=== PATIENT | female | born 1975 | race Caucasian/White ===

== ENCOUNTER → 2016-07-24 | Outpatient (CLI) | payer BC ==
[~2016-07-24] MED LIST: ACHD5005 PO; ALPR0.2550 PO; ASPI1TAB PO; AZEL137S7 NS; AZIT-21 PO; BENZ200C25 PO; BEPO10DR OP; BUPR100T6 PO; DOCU-161 PO; FLUT16SP22 NS; GUAN2TAB6 PO; LACT460C PO; LINA145C PO; LISD30CA PO; LISD40CA3 PO; LORA5TAB9 PO; MULT-608 PO; ONDA8TAB6 PO; SPIR25TA3 PO; SUCR1TAB23 PO
--- OUTSIDE RECORDS SUMMARY | 2016-07-24 08:58 | XMS REPORT | Continuity of Care Document ---
Author Author [facility] Organization [facility] Address Unknown Phone Unavailable Care Team Providers Care Pharmacist Aide Name Role Phone Janna Smith PCP [phone] Source Comments Some departments are not documenting in the electronic medical record. If you do not see the information that you expected, contact Release of Information in the Health Information Management department at [phone] for further assistance in locating additional records.[facility] Active Allergies and Adverse Reactions Allergen Noted Date Severity Reactions Comments Bactrim 05/16/2015 Medium RASH Gabapentin 05/08/2016 Medium RASH, ANXIETY X-Prep 05/16/2015 Medium FEVER, SEE COMMENTS Severe abdominal pain and cramping Current Medications Prescription Sig. Disp. Refills Start End Date Status Date lisdexamfetamine(+) Take 70 mg by mouth every Active (VYVANSE) 70 mg capsule morning buPROPion SR(+) Take 150 mg by mouth Active (WELLBUTRIN-SR) 150 mg twice daily. tablet guanfacine ER(+) (INTUNIV Take 2 mg by mouth daily. Active ER) 2 mg tablet CYCLOSPORINE (RESTASIS Place 1 Drop into or Active OP) around eye(s) twice daily. Indications: 1 drop per eye ALPRAZolam (XANAX) 0.5 mg Take 0.5 mg by mouth at Active tablet bedtime as needed. HYDROcodone/acetaminophen Take 2 Tabs by mouth Active (NORCO; VICODIN) 5-325 mg every 6 hours as needed tablet for Pain vitamins, multi Take 1 Tab by mouth Active w/minerals tablet daily. cyanocobalamin(+) Take 1,000 mcg by mouth Active (VITAMIN B-12) 500 mcg daily. tablet cholecalciferol (VITAMIN Take 2,000 Units by mouth Active D-3) 1,000 units tablet daily. albuterol (PROAIR HFA) 90 Inhale 2 Puffs by mouth Active mcg/actuation inhaler every 6 hours as needed for Wheezing. azelastine(+) (ASTELIN) Apply 1 [place] to each Active 137 mcg (0.1 %) nasal nostril as directed spray daily. Use in each nostril as directed Magnesium 250 mg tab Take by mouth. Active loratadine (CLARITIN) 10 Take 10 mg by mouth daily Active mg tablet as needed. Indications: ALLERGIC RHINITIS CYCLOBENZAPRINE HCL Take 5 mg by mouth three Active (FLEXERIL PO) times daily as needed. FEXOFENADINE/PSEUDOEPHEDR Take by mouth as Needed. Active INE (ARABELLA-D 24 HOUR PO) ASCORBATE CALCIUM Take 500 mg by mouth Active (VITAMIN C PO) daily. zolpidem (AMBIEN) 5 mg Take 5 mg by mouth at Active tablet bedtime as needed for Sleep. fluticasone (FLONASE) 50 Apply 2 Sprays to each Active mcg/actuation nasal spray nostril as directed as Needed. Shake bottle gently before using. Active Problems Problem Noted Date Weakness 05/08/2016 Skin rash 05/08/2016 Autonomic dysfunction 05/08/2016 Diarrhea 09/23/2015 Epigastric pain 09/23/2015 Most Recent Encounters Date Type Specialty Providers Description 07/13/2016 Telephone Neurology Shahnaz Hartmann MD Appointment Request 06/20/2016 Scan Only Neurology Shahnaz Hartmann MD 05/25/2016 Orders Only Neurology Deana Ramos LPN Weakness; Autonomic dysfunction 05/08/2016 Clinical Neurology Weakness (Primary Dx); Support Numbness 05/08/2016 Office Visit Neurology Shahnaz Hartmann MD Weakness ( Primary Dx); Skin rash; Autonomic dysfunction 05/08/2016 Orders Only Neurology Shahnaz Hartmann MD Social History Tobacco Use Types Packs/Day Years Used Date Former Smoker Cigarettes 0.5 7 Quit: 01/11/2002 Alcohol Use Drinks/Week oz/Week Comments Yes 0 Standard 0.0 only on special occasions drinks or equivalent Last Filed Vital Signs Vital Sign Reading Time Taken Blood Pressure 136/82 05/08/2016 8:50 AM CDT Pulse 99 05/08/2016 8:50 AM CDT Temperature 36.6 C (97.8 F) 09/05/2015 9:55 AM GRAPE CRUSHER Respiratory Rate 16 08/09/2015 11:09 AM GRAPE CRUSHER Height 1.562 m (5' 1.5") 05/08/2016 8:50 AM CDT Weight 77.021 kg (169 lb 12.8 05/08/2016 8:50 AM CDT oz) Body Mass Index 31.57 05/08/2016 8:50 AM CDT Oxygen Saturation 98% 09/05/2015 9:55 AM GRAPE CRUSHER Plan of Care Date Type Specialty Providers Description 08/30/2016 Appointment Neurology Shahnaz Hartmann MD [address] [facility] [address] [place] [address] [phone] (Fax) Health Maintenance Due Date Last Done Comments Physical (Comprehensive) 1984 Exam Pertussis Vaccine 1988 Tetanus Vaccine 1994 Cervical Cancer Screening 1998 Influenza Vaccine 03/15/2016 Results from Last 3 Months PARANEOPLASTIC AUTOANTIBODY EVAL (05/12/2016) Specimen Blood Impressions Negative- reviewed by Dr. Hartmann 05/25/16 HEMOGLOBIN A1C (05/08/2016 12:05 PM) Component Value Range Hemoglobin A1C 5.3Comment: <5.7 % of total Hgb According to ADA guidelines, hemoglobin A1c <7.0% represents optimal control in non- diabetic patients. Different metrics may apply to specific patient populations. Standards of Medical Care in Diabetes-2013. Diabetes Care. 2013;36:s11-s66 For the purpose of screening for the presence of diabetes <5.7% Consistent with the absence of diabetes 5.7-6.4% Consistent with increased risk for diabetes (prediabetes) >or=6.5% Consistent with diabetes This assay result is consistent with a decreased risk of diabetes. Currently, no consensus exists for use of hemoglobin A1c for diagnosis of diabetes for children. REPORT COMMENT: FASTING:YES Test Performed at: [facility] [address] [place] [address] KATHERINE ANDERSON DO,MPH VITAMIN B12 (05/08/2016 12:05 PM) Component Value Range Vitamin B12 >2000 (H)Comment: 200-1100 pg/mL Test Performed at: [facility] [address] [place] [address] KATHERINE ANDERSON DO,MPH IMMUNOFIXATION, SERUM (IFES) (05/08/2016 12:05 PM) Component Value Range Immuno Fix-Serum SEE NOTEComment: Normal pattern. No monoclonal proteins detected. Test [facility]formed at: [facility] [address] [place] [address] KATHERINE ANDERSON DO,MPH CBC (05/08/2016 12:05 PM) Component Value Range White Blood Cells 6.1 3.8-10.8 Thousand/uL RBC 4.67 3.80-5.10 Million/uL Hemoglobin 14.0 11.7-15.5 g/dL Hematocrit 42.0 35.0-45.0 % MCV 90.0 80.0-100.0 fL MCH 30.0 27.0-33.0 pg MCHC 33.4 32.0-36.0 g/dL RDW 12.7 11.0-15.0 % Platelet Count 272 140-400 Thousand/uL MPV 8.4Comment: 7.5-11.5 fL Test Performed at: [facility] [address] [place] [address] KATHERINE ANDERSON DO,MPH COMPREHENSIVE METABOLIC PANEL (05/08/2016 12:05 PM) Component Value Range Glucose 83Comment: 65-99 mg/dL Fasting reference interval Blood Urea Nitrogen 14 7-25 mg/dL Creatinine 0.92 0.50-1.10 mg/dL eGFR Non 78 > OR=60 mL/min/1.73m2 eGFR 91 > OR=60 mL/min/1.73m2 BUN/Creatinine Ratio NOT APPLICABLE 6-22 (calc) Sodium 140 135-146 mmol/L Potassium 4.4 3.5-5.3 mmol/L Chloride 104 98-110 mmol/L CO2 28 20-31 mmol/L Calcium 9.8 8.6-10.2 mg/dL Total Protein 6.8 6.1-8.1 g/dL Albumin 4.5 3.6-5.1 g/dL Globulin 2.3 1.9-3.7 g/dL (calc) Albumin/Globulin Ratio 2.0 1.0-2.5 (calc) Total Bilirubin 0.4 0.2-1.2 mg/dL Alk Phosphatase 73 33-115 U/L AST (SGOT) 20 10-30 U/L ALT (SGPT) 23Comment: 6-29 U/L Test Performed at: [facility] [address] [facility] [place] [address] KATHERINE ANDERSON DO,MPH ACETYLCH REC PANL AB(ACHRP) (05/08/2016 12:05 PM) Component Value Range Acetylcholine Blocking AB <15 <15 % of inhibition Acetylcholine binding AB <0.30Comment: nmol/L Reference Ranges for Acetylcholine Receptor Binding Antibody: Negative: < or=0.30 nmol/L Equivocal: 0.31-0.49 nmol/L Positive: > or=0.50 nmol/L Acetylcholine Modulating 13Comment: % binding inhib AB Reference Range: < 32% BINDING INHIBITION This test was developed and its analytical performance characteristics have been determined by [facility]. It has not been cleared or approved by FDA. This assay has been validated pursuant to the CLIA regulations and is used for clinical purposes. Test Performed at: [facility] [address] [place] [address] SINA COTA MD PHD ELECTROPHORESIS-SERUM PROTEIN (05/08/2016 12:05 PM) Component Value Range Total Protein 6.8 6.1-8.1 g/dL Albumin % 4.3 3.8-4.8 g/dL Alpha 1 % 0.3 0.2-0.3 g/dL Alpha 2 % 0.7 0.5-0.9 g/dL Beta 1 Globulin 0.4 0.4-0.6 g/dL Beta 2 Globulin 0.3 0.2-0.5 g/dL Gamma % 0.9 0.8-1.7 g/dL Interpretation - SEP SEE NOTEComment: No restricted band (M-spike) seen. Test Performed at: [facility] [address] [facility] [address] KATHERINE ANDERSON DO,MPH EMG ORDER (05/08/2016)
--- NOTE | 2016-07-25 14:37 | ECHOCARDIOGRAPHY REPORT ---
PROCEDURE PHYSICIAN: LEFTY KWAN DATE OF PROCEDURE: 07/24/2016 TWO DIMENSIONAL ECHOCARDIOGRAM REPORT PRIMARY PHYSICIAN: OTHER PHYSICIAN: REFERRING PHYSICIAN: Dr. Smith ORDERING PHYSICIAN: INDICATION FOR THE PROCEDURE: Palpitations MEASUREMENTS DERIVED VALUES LV DIAMETER (LAX) NORMALS NORMALS Diastolic 4.2 (3.6-5.2) Eject. Fract. 60% (60%+/-6%) Systolic (2.3-3.9) Diastolic Vol. % Shortening (0.22-0.42) Systolic Vol. Aortic Root IVS THICKNESS Diastolic 1. (0.6-1.1) LVPW THICKNESS Diastolic 1. (0.6-1.1) LA DIAMETER Systolic 3.1 (2.1-3.7) FINDINGS: 1. Technical quality is good. 2. The left ventricle is normal in size with normal contractility. Systolic function appeared to be normal. Estimated ejection fraction 60%. 3. The left atrium is normal in size. No clot or thrombus were seen within the left atrium. 4. The right atrium and right ventricle are normal in size. No clot or thrombus were seen within the right side. 5. Mitral valve is normal in morphology with mild mitral regurgitation noted by color Doppler flow. No mitral valve prolapse. No mitral valve stenosis. 6. Aortic valve is trileaflet with normal opening and closing pattern. No significant aortic stenosis or regurgitation was seen. 7. Tricuspid valve is normal in morphology with mild tricuspid regurgitation noted by color Doppler flow. Doppler across tricuspid valve estimated pulmonary artery pressure of 13+ right atrial pressure. 8. Pulmonic valve is functioning normally. 9. No pericardial effusion. CONCLUSION: 1. Normal left ventricular size and systolic function. Estimated ejection fraction 60%. 2. Mild mitral and tricuspid regurgitation. 3. Estimated pulmonary artery pressure of 20 mmHg. Job ID: [id number] Dictated Date: 07/25/2016 13:29:00 Chief Design Branch Date: 07/25/2016 14:33:18 / deepa
== END ==
LOC: CARD 08:55
PROVIDERS: ATTEND Internal Medicine Cardiovascular Disease
DX: R00.2 Palpitations (principal); R07.89 Other chest pain; F90.2 Attention-deficit hyperactivity disorder, combined type
CPT/HCPCS: 93306

== ENCOUNTER → 2016-07-25 | Outpatient (CLI) | payer BC ==
--- OUTSIDE RECORDS SUMMARY | 2016-07-25 10:16 | XMS REPORT | Continuity of Care Document ---
Author Author [facility] Organization [facility] Address Unknown Phone Unavailable Care Team Providers Care District Resource Officer Name Role Phone Janna Smith PCP [phone] Source Comments Some departments are not documenting in the electronic medical record. If you do not see the information that you expected, contact Release of Information in the Health Information Management department at [phone] for further assistance in locating additional records.[facility] Active Allergies and Adverse Reactions Allergen Noted [...] needed for Wheezing. azelastine(+) (ASTELIN) Apply 1 [place] to each Active 137 mcg (0.1 %) [...] 36.6 C (97.8 F) 09/05/2015 9:55 AM PAROLE DIRECTOR Respiratory Rate 16 08/09/2015 11:09 AM PAROLE DIRECTOR Height 1.562 m (5' 1.5") 05/08/2016 8:50 AM CDT Weight 77.021 kg (169 lb 12.8 05/08/2016 8:50 AM CDT oz) Body Mass Index 31.57 05/08/2016 8:50 AM CDT Oxygen Saturation 98% 09/05/2015 9:55 AM PAROLE DIRECTOR Plan of Care Date Type Specialty Providers Description 08/30/2016 Appointment Neurology Shahnaz Hartmann MD [address] [facility] [address] [place] [address] [phone] (Fax) Health Maintenance Due Date Last Done [...] children. REPORT COMMENT: FASTING:YES Test Performed at: [facility] [address] [place] [address] KATHERINE ANDERSON DO,MPH VITAMIN B12 (05/08/2016 12:05 PM) Component Value Range Vitamin B12 >2000 (H)Comment: 200-1100 pg/mL Test Performed at: [facility] [address] [place] [address] KATHERINE ANDERSON DO,MPH IMMUNOFIXATION, SERUM (IFES) (05/08/2016 12:05 PM) Component Value Range Immuno Fix-Serum SEE NOTEComment: Normal pattern. No monoclonal proteins detected. Test Performed at: [facility] [address] [place] [address] KATHERINE ANDERSON DO,MPH CBC (05/08/2016 12:05 PM) Component Value Range White Blood Cells 6.1 3.8-10.8 Thousand/uL RBC 4.67 3.80-5.10 Million/uL Hemoglobin 14.0 11.7-15.5 g/dL Hematocrit 42.0 35.0-45.0 % MCV 90.0 80.0-100.0 fL MCH 30.0 27.0-33.0 pg MCHC 33.4 32.0-36.0 g/dL RDW 12.7 11.0-15.0 % Platelet Count 272 140-400 Thousand/uL MPV 8.4Comment: 7.5-11.5 fL Test Performed at: [facility] [address] [place] [address] KATHERINE ANDERSON DO,MPH COMPREHENSIVE METABOLIC PANEL (05/08/2016 [...] (SGPT) 23Comment: 6-29 U/L Test Performed at: [facility] [address] [facility] [place] [address] KATHERINE ANDERSON DO,MPH ACETYLCH REC PANL AB(ACHRP) [...] analytical performance characteristics have been determined by [facility]. It has not been cleared or approved by FDA. This assay has been validated pursuant to the CLIA regulations and is used for clinical purposes. Test Performed at: [facility] [address] [place] [address] SINA COTA MD PHD ELECTROPHORESIS-SERUM PROTEIN (05/08/2016 [...] restricted band (M-spike) seen. Test Performed at: [facility] [address] [facility] [place] [address] KATHERINE ANDERSON DO,MPH EMG ORDER (05/08/2016)
== END ==
LOC: CARD 10:12
PROVIDERS: ATTEND Internal Medicine Cardiovascular Disease
DX: R00.2 Palpitations (principal); R07.89 Other chest pain; M41.9 Scoliosis, unspecified; F90.2 Attention-deficit hyperactivity disorder, combined type
CPT/HCPCS: 93017; 93225; 93226

== ENCOUNTER → 2016-09-24 | Outpatient (CLI) | payer BC ==
--- OUTSIDE RECORDS SUMMARY | 2016-09-24 12:32 | XMS REPORT | Continuity of Care Document ---
Author Author [facility] Organization [facility] Address Unknown Phone Unavailable Care Team Providers Care Ground Host/Hostess Name Role Phone Janna Smith PCP [phone] Source Comments Some departments are not documenting in the electronic medical record. If you do not see the information that you expected, contact Release of Information in the Health Information Management department at [phone] for further assistance in locating additional records.[facility] Active Allergies and Adverse Reactions Allergen Noted Date Severity Reactions Comments Bactrim 05/16/2015 Medium RASH Gabapentin 05/08/2016 Medium RASH, ANXIETY Memory loss X-Prep 05/16/2015 Medium FEVER, SEE COMMENTS Severe abdominal pain and cramping Current Medications Prescription Sig. Disp. Refills Start End Date Status Date CYCLOSPORINE (RESTASIS Place 1 Drop into or Active OP) around eye(s) twice daily. Indications: 1 drop per eye ALPRAZolam (XANAX) 0.5 mg Take 0.5 mg by mouth at Active tablet bedtime as needed. HYDROcodone/acetaminophen Take 2 Tabs by mouth Active (NORCO; VICODIN) 5-325 mg every 6 hours as needed tablet for Pain vitamins, multi Take 1 Tab by mouth Active w/minerals tablet daily. albuterol (PROAIR HFA) 90 Inhale 2 Puffs by mouth Active mcg/actuation inhaler every 6 hours as needed for Wheezing. azelastine(+) (ASTELIN) Apply 1 [place] to each Active 137 mcg (0.1 %) nasal nostril as directed spray daily. Use in each nostril as directed CYCLOBENZAPRINE HCL Take 5 mg by mouth three Active (FLEXERIL PO) times daily as needed. FEXOFENADINE/PSEUDOEPHEDR Take by mouth as Needed. Active INE (ARABELLA-D 24 HOUR PO) zolpidem (AMBIEN) 5 mg Take 5 mg by mouth at Active tablet bedtime as needed for Sleep. lisdexamfetamine(+) Take 30 mg by mouth every Active (VYVANSE) 30 mg capsule morning metoprolol XL (TOPROL XL) Take 25 mg by mouth twice Active 25 mg extended release daily. tablet CALCIUM CARBONATE Take 1 Tab by mouth Active (CALTRATE 600 PO) daily. pregabalin (LYRICA) 50 mg Take 1 capsule PO daily 60 Cap 3 08/31/19 Active capsule for 2 weeks then take 1 17 capsule PO BID lisdexamfetamine(+) Take 70 mg by mouth every 08/30/19 Discontin (VYVANSE) 70 mg capsule morning 17 ued buPROPion SR(+) Take 150 mg by mouth 08/30/19 Discontin (WELLBUTRIN-SR) 150 mg twice daily. 17 ued tablet guanfacine ER(+) (INTUNIV Take 2 mg by mouth daily. 08/30/19 Discontin ER) 2 mg tablet 17 ued cyanocobalamin(+) Take 1,000 mcg by mouth 08/30/19 Discontin (VITAMIN B-12) 500 mcg daily. 17 ued tablet cholecalciferol (VITAMIN Take 2,000 Units by mouth 08/30/19 Discontin D-3) 1,000 units tablet daily. 17 ued Magnesium 250 mg tab Take by mouth. 08/30/19 Discontin 17 ued loratadine (CLARITIN) 10 Take 10 mg by mouth daily 08/30/19 Discontin mg tablet as needed. Indications: 17 ued ALLERGIC RHINITIS ASCORBATE CALCIUM Take 500 mg by mouth 08/30/19 Discontin (VITAMIN C PO) daily. 17 ued fluticasone (FLONASE) 50 Apply 2 Sprays to each 08/30/19 Discontin mcg/actuation nasal spray nostril as directed as 17 ued Needed. Shake bottle gently before using. pregabalin (LYRICA) 50 mg Take 1 Cap by mouth twice 60 Cap 3 08/30/19 08/31/19 Discontin capsule daily. Take 1 tab daily 17 17 ued for 2 weeks. Then take 1 in the morning and 1 in evening. Active Problems Problem Noted Date Weakness 05/08/2016 Skin rash 05/08/2016 Autonomic dysfunction 05/08/2016 Diarrhea 09/23/2015 Epigastric pain 09/23/2015 Most Recent Encounters Date Type Specialty Providers Description 08/31/2016 Refill Neurology Shahnaz Hartmann MD 08/30/2016 Office Visit Neurology Shahnaz Hartmann MD Nerve pain ( Primary Dx) 07/13/2016 Telephone Neurology Shahnaz Hartmann MD Appointment Request Social History Tobacco Use Types Packs/Day Years Used Date Former Smoker Cigarettes 0.5 7 Quit: 01/11/2002 Alcohol Use Drinks/Week oz/Week Comments Yes 0 Standard 0.0 only on special occasions drinks or equivalent Last Filed Vital Signs Vital Sign Reading Time Taken Blood Pressure 141/89 08/30/2016 10:07 AM BOW MAKER CUSTOM Pulse 95 08/30/2016 10:07 AM BOW MAKER CUSTOM Temperature 36.6 C (97.8 F) 09/05/2015 9:55 AM BOW MAKER CUSTOM Respiratory Rate 16 08/09/2015 11:09 AM BOW MAKER CUSTOM Height 1.562 m (5' 1.5") 08/30/2016 10:07 AM BOW MAKER CUSTOM Weight 79.3 kg (174 lb 13.2 oz) 08/30/2016 10:07 AM BOW MAKER CUSTOM Body Mass Index 32.5 08/30/2016 10:07 AM BOW MAKER CUSTOM Oxygen Saturation 98% 09/05/2015 9:55 AM BOW MAKER CUSTOM Plan of Care Date Type Specialty Providers Description 02/26/2017 Appointment Neurology Health Maintenance Due Date Last Done Comments Physical (Comprehensive) 1984 Exam Pertussis Vaccine 1988 Tetanus Vaccine 1994 Cervical Cancer Screening 1998 Influenza Vaccine 03/15/2017 Results from Last 3 Months MISCELLANEOUS LAB TEST (07/17/2016) Specimen Blood
--- NOTE | 2016-09-24 15:22 | Diagnostic Imaging Report ---
EXAMINATION: PA and lateral views of the chest. INDICATION: Cough after choking on vitamins. FINDINGS: The lungs are clear. The heart size is normal. No effusion or pneumothorax. The mediastinum and scott appear unremarkable. There is a mild right convexity scoliosis in the thoracic spine. IMPRESSION: No acute process. Dictated by: Dictated on workstation # [id number]
== END ==
LOC: RAD 12:29
PROVIDERS: ATTEND Nurse Practitioner Primary Care
DX: R05 Cough (principal)
CPT/HCPCS: 71020

== ENCOUNTER → 2016-10-22 | Outpatient (CLI) | payer BC ==
--- NOTE | 2016-10-22 13:33 | Diagnostic Imaging Report ---
INDICATION: Pelvic pressure and dyspareunia. COMPARISON: 08/31/2013. DISCUSSION: Transabdominal and transvaginal sonographic evaluation of the pelvis was performed. The uterus is normal in echotexture and size measuring 8.5 x 5.4 x 5.0 cm. Solid heterogeneous avascular structure within the anterior myometrium is most consistent with a fibroid measuring 2.3 x 1.4 x 1.5 cm. Normal endometrial thickness measuring 1 cm. The ovaries appear normal in echotexture and size bilaterally with normal color Doppler blood flow. The right ovary measures 4.0 x 2.6 x 2.4 cm. The left ovary measures 3.2 x 3.5 x 2.0 cm. No abnormal adnexal mass or fluid. IMPRESSION: 1. Small uterine fibroid. No other acute abnormality identified. Dictated by: Dictated on workstation # [id number]
== END ==
LOC: RAD 12:28
PROVIDERS: ATTEND Obstetrics & Gynecology
DX: D25.9 Leiomyoma of uterus, unspecified (principal); N94.12 Deep dyspareunia; N94.89 Other specified conditions associated with female genital organs and menstrual cycle
CPT/HCPCS: 76830; 76856

== ENCOUNTER → 2016-11-20 | Outpatient (CLI) | payer BC ==
--- NOTE | 2016-11-20 10:40 | Diagnostic Imaging Report ---
EXAMINATION: Barium swallow double-contrast. INDICATION: Dysphagia Fluoroscopy time: One minute and 15 seconds TECHNIQUE: Sales Representative Sales Manager image of the chest was performed. Subsequently, the patient was given gas forming granules for oral ingestion followed by thick and thin barium to drink. Swallowing through the esophagus was observed with fluoroscopy and overhead images, as well as multiple spot images in the upright and prone positions, were taken. FINDINGS: Sales Representative Sales Manager image of the chest demonstrate mild scoliotic curvature of thoracic spine, convex to the right.. No significant reflux is seen during the study. Normal motility seen. The esophagus is normal in caliber and contour. There is no mucosal abnormality, diverticulum or filling defect to suggest a mass. There is no hiatal hernia demonstrated. IMPRESSION: Unremarkable barium swallow. Dictated by: Dictated on workstation # [id number]
== END ==
LOC: RAD 08:47
PROVIDERS: ATTEND Family Medicine
DX: R13.19 Other dysphagia (principal)
CPT/HCPCS: 74220

== ENCOUNTER → 2016-11-20 | Outpatient (CLI) | payer BC ==
[~2016-11-20] MED LIST changes: +BARIUM SUSPENSION 105% (LIQUID POLIBAR PLUS) 240 ML/DOSE PO ONE; +BARIUM SUSPENSION 60% (LIQUID EZ PAQUE) 240 ML DOSE PO ONE
--- NOTE | 2016-11-20 18:01 | Diagnostic Imaging Report ---
EXAMINATION: Bilateral diagnostic mammogram. INDICATION: Palpable lump in the medial aspect of the right breast. The current study was also evaluated with a Computer Aided Detection (CAD) system. COMPARISON: 05/10/14. FINDINGS: The breasts are composed of heterogeneously dense parenchyma which may decrease mammographic sensitivity. The palpable area is marked in the medial aspect of the right breast. Underlying focal asymmetry is seen and evaluated with focal compression views which demonstrate persistent focal asymmetry which may relate to a dense focus of parenchyma in this location. This appears to be present on the prior exam of 2013; however, it appears slightly more prominent which could potentially be related to mild parenchymal change rather than a true underlying mass. No definite change of the left breast is seen. IMPRESSION: Questionable focal asymmetry at the site of prior parenchymal density seen in the medial aspect of the right breast is slightly prominent. Ultrasound evaluation pending. ACR BI-RADS Category 0: Incomplete. (Needs additional imaging evaluation). Result letter will be mailed to the patient. Note: At least 10% of breast cancer is not imaged by mammography. Dictated by: Dictated on workstation # [id number]
--- NOTE | 2016-11-23 11:40 | Diagnostic Imaging Report ---
EXAMINATION: Right breast ultrasound. INDICATION: Right breast lump and pain. FINDINGS: The four quadrants and retroareolar region of the right breast were scanned with no underlying abnormality seen including the area of lump at the 1:30 o'clock position. IMPRESSION: Negative study. A 6 month followup right breast mammogram is recommended to reevaluate the asymmetry seen along the central posterior aspect of the right MLO view. ACR BI-RADS Category 3: Probably benign findings. Result letter will be mailed to the patient. Note: At least 10% of breast cancer is not imaged by mammography. Dictated by: Dictated on workstation # [id number]
== END ==
LOC: RAD 08:50
PROVIDERS: ATTEND Obstetrics & Gynecology
DX: N60.01 Solitary cyst of right breast (principal)
CPT/HCPCS: 76641; 77066

== ENCOUNTER → 2017-03-06 | Outpatient (CLI) | payer BC ==
[~2017-03-06] MED LIST changes: -BARIUM SUSPENSION 105% (LIQUID POLIBAR PLUS) 240 ML/DOSE PO ONE; -BARIUM SUSPENSION 60% (LIQUID EZ PAQUE) 240 ML DOSE PO ONE; +GADOBUTROL 7.5 MMOL/7.5 ML (GADAVIST) VIAL IV ONE
--- NOTE | 2017-03-06 18:21 | Diagnostic Imaging Report ---
PROCEDURE: MR imaging of the brain with and without contrast. TECHNIQUE: Multiplanar, multisequence MR imaging of the brain was performed with and without contrast. INDICATION: Memory loss, gait instability. FINDINGS: The diffusion series does not show any evidence of acute infarct. The FLAIR sequence does not show any pathological demyelinating changes. The ventricles are normal in size, shape and position. There are no masses or hemorrhages. There are no extra-axial fluid collections. Postcontrast images of the brain do not show any abnormal areas of enhancement. IMPRESSION: Negative MRI brain with and without contrast. Dictated by: Dictated on workstation # [id number]
== END ==
LOC: RAD 16:55
PROVIDERS: ATTEND Nurse Practitioner Family
DX: R51 Headache (principal); R41.3 Other amnesia; R26.81 Unsteadiness on feet
CPT/HCPCS: 70553

== ENCOUNTER → 2017-05-29 | Outpatient (CLI) | payer BC ==
[~2017-05-29] MED LIST changes: -GADOBUTROL 7.5 MMOL/7.5 ML (GADAVIST) VIAL IV ONE
--- NOTE | 2017-05-29 10:01 | Diagnostic Imaging Report ---
EXAMINATION: Right breast diagnostic mammogram with tomography. The current study was also evaluated with a Computer Aided Detection (CAD) system. COMPARISON: 05/10/2014. INDICATION: Followup asymmetry in the medial aspect of the right breast. FINDINGS: The right breast is composed of heterogeneously dense parenchyma which may decrease mammographic sensitivity. There is a stable focal asymmetry in the medial aspect of the right breast without change from the prior exams and as previously described and also seen in 2013 which is in favor of a benign process. No adverse development. IMPRESSION: Stable focal asymmetry in the medial aspect of the right breast, likely related to summation artifact of parenchyma. No adverse development. A followup study when the patient is due for her bilateral mammogram in November 2017 is recommended. ACR BI-RADS Category 3: Probably benign findings. Result letter will be mailed to the patient. Note: At least 10% of breast cancer is not imaged by mammography. Dictated by: Dictated on workstation # [id number]
== END ==
LOC: RAD 07:53
PROVIDERS: ATTEND Obstetrics & Gynecology
DX: N64.89 Other specified disorders of breast (principal)

== ENCOUNTER → 2017-07-02 | Outpatient (CLI) | payer BC ==
--- NOTE | 2017-07-02 19:15 | Diagnostic Imaging Report ---
INDICATION: Cough, right-sided chest pain PA and lateral chest There is a scoliotic curvature of the thoracic spine convex to the right. Heart size and pulmonary vascularity are normal. Lungs are clear. There are no effusions or pneumothoraces. IMPRESSION: No acute abnormalities in the chest Dictated by: Dictated on workstation # [id number]
== END ==
LOC: RAD 18:59
PROVIDERS: ATTEND Family Medicine
DX: R05 Cough (principal); R07.89 Other chest pain
CPT/HCPCS: 71020

== ENCOUNTER → 2017-07-04 | Outpatient (CLI) | payer BC ==
[~2017-07-04] MED LIST changes: +CATHETER FLUSH 10 ML SYR IV PRN; +IOHEXOL 350 MG/ML 100 ML (OMNIPAQUE 350) VIAL IV ONE; +NS 100 ML (IVPB) BAG IV ONE
[2017-07-04 16:53] LABS: ALANINE AMINOTRANSFERASE 26 U/L (0-55); ALBUMIN 4.2 GM/DL (3.2-4.5); ANION GAP 11 MMOL/L (5-14); ASPARTATE AMINO TRANSFERASE 24 U/L (5-34); BILIRUBIN,TOTAL 0.4 MG/DL (0.1-1.0); BLOOD UREA NITROGEN 13 MG/DL (7-18); BUN/CREATININE RATIO 15; CALCIUM 9.7 MG/DL (8.5-10.1); CARBON DIOXIDE 27 MMOL/L (21-32); CHLORIDE 103 MMOL/L (98-107); CREATININE SERUM 0.84 MG/DL (0.60-1.30); GFR ESTIMATED > 60; GLUCOSE 89 MG/DL (70-105); POTASSIUM 4.1 MMOL/L (3.6-5.0); SODIUM 141 MMOL/L (135-145); TOTAL PROTEIN 7.2 GM/DL (6.4-8.2)
--- NOTE | 2017-07-04 17:31 | Diagnostic Imaging Report ---
PROCEDURE: CT abdomen and pelvis with contrast. TECHNIQUE: Multiple contiguous axial images were obtained through the abdomen and pelvis after administration of intravenous contrast. INDICATION: Right lateral flank and pelvic pain with fever, history of interstitial cystitis and neurogenic bladder. COMPARISON: Nonenhanced study date 02/10/2015. FINDINGS: The appendix is visualized air-containing and normal. An IUD device present on the previous has been removed in the interim. There is heterogeneous enhancement of the fundal aspect of the uterus seen on the dynamic images with some lobation of the uterine contour. This is presumed to reflect fibroids. This was confirmed on previous pelvic ultrasound from October 2016. There is no acute adnexal lesion. There is trace pelvic free fluid, likely physiologic, isolated to the cul-de-sac. The urinary bladder, itself, appeared unremarkable in volume and showed no suspicious wall thickening, diverticulation or other abnormalities. The unobstructed kidneys appear normal. There is no adrenal mass. The liver, gallbladder, spleen, adrenals and pancreas are negative. There is no bowel obstruction. No abscess, hematoma or other fluid collection. No focal inflammatory process. No acute or suspicious osseous lesion. IMPRESSION: 1. Unobstructed urinary tracts. Unremarkable appearance of the urinary bladder. No stone or acute abnormality. 2. Uterine fibroids at the fundus without adnexal abnormality or acute pelvic pathology. 3. Normal appendix, remaining abdominopelvic solid and hollow viscera are also normal with no inflammatory process. Dictated by: Dictated on workstation # [id number]
== END ==
LOC: RAD 16:15
PROVIDERS: ATTEND Family Medicine
DX: D25.9 Leiomyoma of uterus, unspecified (principal); Z87.448 Personal history of other diseases of urinary system
CPT/HCPCS: 36415; 74177; 80053

== ENCOUNTER → 2018-01-03 | Outpatient (CLI) | payer BC ==
[~2018-01-03] MED LIST changes: -CATHETER FLUSH 10 ML SYR IV PRN; -IOHEXOL 350 MG/ML 100 ML (OMNIPAQUE 350) VIAL IV ONE; -NS 100 ML (IVPB) BAG IV ONE
--- NOTE | 2018-01-03 13:51 | Diagnostic Imaging Report ---
INDICATION: Six-month followup right breast density. Correlation is made with prior mammograms from 05/29/2017, as well as 11/20/2016 and 05/10/2014. 2-D and 3-D bilateral screening mammography was performed. The current study was also evaluated with a Computer Aided Detection (CAD) system. Scattered fibroglandular densities are identified bilaterally. Area of asymmetry in the medial aspect of the right breast appears stable. No new mass or malignant appearing microcalcifications are seen. The axillae are unremarkable. IMPRESSION: BI-RADS 3 Stable bilateral mammograms. Continued six-month followup right mammogram is recommended to show continued stability of the right breast medial asymmetry. ACR BI-RADS Category 3: Probably benign findings. Result letter will be mailed to the patient. Note: At least 10% of breast cancer is not imaged by mammography. Dictated by: Dictated on workstation # [id number]
== END ==
LOC: RAD 12:23
PROVIDERS: ATTEND Obstetrics & Gynecology
DX: N60.01 Solitary cyst of right breast (principal)
CPT/HCPCS: 77066

== ENCOUNTER 2018-01-10 08:43 | Outpatient (RCR) | payer BC ==
[2018-01-09] VITALS (11 sets, daily range): BP systolic 102–117; BP diastolic 65–77
[2018-01-09] MEDS: IVIG 40 GM (PRIVIGEN) 400 ML IV SCH (13:17)
[2018-01-10] VITALS (20 sets, daily range): BP systolic 92–134; BP diastolic 67–90
[~2018-01-10] VITALS: Ht 157.5 cm; Wt 83.0 kg
[2018-01-10] MEDS: IVIG 40 GM (PRIVIGEN) 400 ML IV SCH (09:15)
== END 2018-01-10 14:30 | disposition home or self-care (01) ==
LOC: SDC 08:43
PROVIDERS: ATTEND Family Medicine
DX: R76.0 Raised antibody titer (principal)
CPT/HCPCS: 96365; 96366

== ENCOUNTER 2018-03-10 13:00 | Outpatient (RCR) | payer BC ==
--- NOTE | 2018-03-14 13:36 | Diagnostic Imaging Report ---
Indication: Constipation. KUB obtained over several days for Sitz marker study. Images obtained on 03/10 demonstrates multiple Sitz markers overlying the stomach with unremarkable bowel gas pattern. Images obtained on 03/12 demonstrate about [address] which appear to be distributed throughout the colon. There is no significant small bowel distention. Images obtained on 03/14 demonstrate 10 residual markers, most of which appear to be over the left colon. Impression: Sitz marker study as above with residual markers most likely in colon. There is no overt bowel obstruction. Dictated by: Dictated on workstation # [id number]
== END 2018-03-14 | disposition home or self-care (01) ==
LOC: RAD 13:00
PROVIDERS: ATTEND Colon & Rectal Surgery
DX: K59.00 Constipation, unspecified (principal)
CPT/HCPCS: 74250

== ENCOUNTER 2018-04-17 09:57 | Outpatient (RCR) | payer BC ==
[2018-02-17 08:40] VITALS: BP 121/82
[2018-02-17] MEDS: NS IV 1000 ML 1,000 ML IV SCH (09:00)
[2018-02-17] MEDS: IVIG 40 GM (PRIVIGEN) 400 ML IV SCH (10:08)
[2018-02-17] MEDS: NS IV 1000 ML 1,000 ML IV PRN (20:20)
[2018-02-17 21:40] VITALS: BP 130/78
[2018-02-18 09:40] VITALS: BP 131/79
[2018-02-18] MEDS: NS IV 1000 ML 1,000 ML IV SCH (09:55)
[2018-02-18] MEDS: IVIG 40 GM (PRIVIGEN) 400 ML IV SCH (10:55)
[2018-02-18] MEDS: NS IV 1000 ML 1,000 ML IV PRN (21:00)
[2018-02-18 22:48] VITALS: BP 131/79
--- NOTE | 2018-03-03 23:52 | Physician Query-Final Dx ---
PARTHA LORA 03/03/18 2352: Clinic Account Progress/Dx Physician Query: Please give diagnosis Date of Service Feb 18, 2018 at 15:15 MARIO FRY 03/19/18 1002: PARTHA LORA Mar 03, 2018 23:52 MARIO FRY Mar 19, 2018 10:02
[2018-03-19 09:10] VITALS: BP 144/79
[2018-03-19] MEDS: NS IV 1000 ML 1,000 ML IV SCH ×2 (09:55→21:00)
[2018-03-19] MEDS: IVIG 40 GM (PRIVIGEN) 400 ML IV SCH (11:03)
[2018-03-19 11:05] VITALS: BP 113/73
[2018-03-19 19:00] VITALS: BP 127/83
[2018-03-19 22:00] VITALS: BP 136/77
[2018-03-19 22:04] VITALS: BP 136/77
[2018-03-20 08:00] VITALS: BP 130/74
[2018-03-20] MEDS: IVIG 40 GM (PRIVIGEN) 400 ML IV SCH (14:45)
[2018-03-20 20:58] VITALS: BP 130/74
[~2018-04-17] VITALS: Ht 157.5 cm; Wt 83.0 kg
[2018-04-17 09:50] VITALS: BP 107/78
[~2018-04-17 09:57] MED LIST changes: +NS IV 1000 ML 1,000 ML IV PRN; +NS IV 1000 ML 1,000 ML ONE
[2018-04-17] MEDS: NS IV 1000 ML 1,000 ML IV SCH (10:25)
[2018-04-17] MEDS: IMMUNE GLOBULIN 40 GM IV SCH ×2 (11:32→20:57)
[2018-04-17 12:05] VITALS: BP 106/72
[2018-04-17 13:40] VITALS: BP 114/74
[2018-04-17 13:55] VITALS: BP 103/70
[2018-04-17 17:00] VITALS: BP 129/74
[2018-04-17 17:35] VITALS: BP 119/75
[2018-04-18] VITALS: BP 103/61
[2018-04-18] MEDS: NS IV 1000 ML 1,000 ML IV SCH (04:44)
== END 2018-05-18 | disposition home or self-care (01) ==
LOC: 4TH RCR 09:57
PROVIDERS: ATTEND Nurse Practitioner Family
DX: D84.9 Immunodeficiency, unspecified (principal); G90.1 Familial dysautonomia [Riley-Day]
CPT/HCPCS: 96360; 96361; 96365; 96366

== ENCOUNTER 2018-05-15 13:20 | Outpatient (CLI) | payer BC ==
[~2018-05-15] VITALS: Ht 157.5 cm; Wt 83.0 kg
[~2018-05-15 13:20] MED LIST changes: -NS IV 1000 ML 1,000 ML IV PRN; -NS IV 1000 ML 1,000 ML ONE
[2018-05-15] MEDS ORDERED: NS IV 1000 ML 1,000 ML ONE (13:29)
[2018-05-15 13:50] VITALS: BP 120/80
[2018-05-15] MEDS: NS IV 1000 ML 1,000 ML IV SCH (13:50)
[2018-05-15] MEDS: IVIG 40 GM (PRIVIGEN) 400 ML IV SCH ×2 (15:03→22:48)
[2018-05-16] MEDS: NS IV 1000 ML 1,000 ML IV SCH (06:23)
[2018-05-16 08:46] VITALS: BP 115/80
== END 2018-05-16 09:20 | disposition home or self-care (01) ==
LOC: SDC 13:20
PROVIDERS: ATTEND Nurse Practitioner Family
DX: G90.9 Disorder of the autonomic nervous system, unspecified (principal); R70.0 Elevated erythrocyte sedimentation rate
CPT/HCPCS: 96361; 96365; 96366

== ENCOUNTER 2018-06-12 14:00 | Outpatient (CLI) | payer BC ==
[~2018-06-12] VITALS: Ht 157.5 cm; Wt 83.0 kg
[2018-06-12] MEDS ORDERED: NS IV 1000 ML 1,000 ML ONE (14:05)
[2018-06-12] MEDS ORDERED: IVIG 40 GM (PRIVIGEN) 400 ML IV SCH (14:08)
[2018-06-12 14:35] VITALS: BP 125/77
[2018-06-12] MEDS: NS IV 1000 ML 1,000 ML IV SCH (14:35)
[2018-06-12 14:47] LABS: BASOPHILS % (AUTO) 0 % (0-10); EOSINOPHILS # (AUTO) 0.1 10^3/uL (0.0-0.3); EOSINOPHILS % (AUTO) 2 % (0-10); HEMATOCRIT 40 % (35-52); HEMOGLOBIN 13.3 G/DL (11.5-16.0); LYMPHOCYTES % (AUTO) 36 % (12-44); MEAN CORPUSCULAR HEMOGLOBIN 29 PG (25-34); MEAN CORPUSCULAR HGB CONC 33 G/DL (32-36); MEAN CORPUSCULAR VOLUME 89 FL (80-99); MEAN PLATELET VOLUME 9.8 FL (7.4-10.4); MONOCYTES # (AUTO) 0.4 X 10^3 (0.0-1.0); MONOCYTES % (AUTO) 8 % (0-12); NEUTROPHILS # (AUTO) 2.9 X 10^3 (1.8-7.8); NEUTROPHILS % (AUTO) 54 % (42-75); PLATELET COUNT 291 10^3/uL (130-400); RED BLOOD COUNT 4.52 10^6/uL (4.35-5.85); RED CELL DISTRIBUTION WIDTH 13.3 % (10.0-14.5); WHITE BLOOD COUNT 5.4 10^3/uL (4.3-11.0)
[2018-06-12 15:21] LABS: ERYTHROCYTE SEDIMENTATION RATE 11 MM/HR (0-20)
[2018-06-12 17:00] VITALS: BP 144/70
[2018-06-12 19:24] VITALS: BP 113/63
[2018-06-13] VITALS: BP 116/65
[2018-06-13 04:08] VITALS: BP 113/57
[2018-06-13 08:00] VITALS: BP 112/55
[2018-06-13] MEDS ORDERED: IVIG 40 GM (PRIVIGEN) 400 ML IV ONE (08:00)
[2018-06-13] MEDS: NS IV 1000 ML 1,000 ML IV SCH (08:08)
== END 2018-06-13 11:00 | disposition home or self-care (01) ==
LOC: SDC 14:00 → 4TH 17:00 → SDC 06-13 11:00
PROVIDERS: ATTEND Nurse Practitioner Family
DX: G90.9 Disorder of the autonomic nervous system, unspecified (principal); R70.0 Elevated erythrocyte sedimentation rate
CPT/HCPCS: 36415; 85025; 85652; 86141; 96360; 96366

== ENCOUNTER 2018-08-01 11:09 | Outpatient (RCR) | payer BC ==
[2018-07-10 14:00] VITALS: BP 112/75
[2018-07-10] MEDS: IMMUNE GLOBULIN 40 GM IV NR ×3 (14:49→23:10)
[2018-07-10 14:50] VITALS: BP 103/46
[2018-07-10 15:20] VITALS: BP 114/76
[2018-07-10 15:40] VITALS: BP 104/57
[2018-07-10 16:05] VITALS: BP 123/62
--- NOTE | 2018-07-10 16:28 | NUR ---
RECEIVED PT FROM JW GONZALES RN, FOR O/P INFUSION. PT TO RECEIVED X1 IV NS BOLUS IN ED, WILL RECEIVE X2 BOTTLES OF PRIVIGEN, THEN ANOTHER BOLUS OF NS POST INFUSION. PT SET UP IN ROOM 422.
--- NOTE | 2018-07-10 18:22 | NUR ---
PT RESTING IN BED WITH LIGHTS OFF AND WAS TALKING ON HER CELL PHONE. ON NEEDS INDICATED.
[2018-07-11 00:50] VITALS: BP 108/55
--- NOTE | 2018-07-11 07:30 | NUR ---
ASSUMED PT CARE -- REPORT FROM PA RN
[2018-07-11 10:03] VITALS: BP 108/55
[2018-07-11 10:07] VITALS: BP 115/68
--- NOTE | 2018-07-11 10:08 | NUR ---
NOTE THAT SL IN L FA WAS DC'D
[~2018-08-01] VITALS: Ht 157.5 cm; Wt 88.0 kg
[2018-08-01 11:09] VITALS: BP 117/78
[~2018-08-01 11:09] MED LIST changes: +NS IV 1000 ML 1,000 ML IV SCH; +NS IV 1000 ML 1,000 ML ONE
[2018-08-01] MEDS ORDERED: NS IV 1000 ML 1,000 ML ONE (11:16)
[2018-08-01] MEDS: NS IV 1000 ML 1,000 ML IV SCH (11:43)
[2018-08-01 12:19] VITALS: BP 117/78
[2018-08-01] MEDS: IMMUNE GLOBULIN 40 GM IV NR ×2 (12:44→21:25)
--- NOTE | 2018-08-01 14:00 | NUR ---
PATIENT COMPLAINTS OF IV HURTING IN CURRENT PLACE, IV REMOVED FROM RIGHT WRIST AND THIS RN ATTEMPTED X2 WITH NO SUCCESS AND NENA RN, X2 ATTEMPTS SUCCESSFUL. 22G LEFT FOREARM.
--- NOTE | 2018-08-01 15:30 | NUR ---
REPORT RECEIVED FROM Rik GRIGSBY RN. PT SITTING IN RECLINER, DENIES NEEDS OR C/O, NO S/S OF DISTRESS. PREVAGEN INFUSION AT 50 ML/HR PER PUMP.
--- NOTE | 2018-08-01 16:15 | NUR ---
TRANSFERRED FROM DAY SURG PER W/C TO ROOM 423. ALERT AND COOPERATIVE. SKIN W/D. RESP. REGULAR. HEART RATE REGULAR. V/S=130/79 P=86 O2 SAT=98 % ON R/A RESP-18 TEMP=99.8 . IV INFUSING WITH PRIVIGEN AT 50 CC/HR PER RIGHT HAND. SITE CLEAR.
--- NOTE | 2018-08-01 16:15 | NUR ---
PT C/O PAIN TO LEFT FA IV SITE, IV INFILTRATING AND REMOVED AT THIS TIME PER Mena GONZALES RN TIP OF CATH INTACT. IV RESTARTED TO RIGHT HAND 20 G X 1 ATTEMPT PER Mena GONZALES RN AND PT ESCORTED AMBULATORY TO ROOM 423 PER Mena GONZALES RN.
[2018-08-01 19:10] VITALS: BP 130/79
[2018-08-02] MEDS ORDERED: NS IV 1000 ML 1,000 ML ONE (05:18)
[2018-08-02] MEDS: NS IV 1000 ML 1,000 ML IV SCH (05:23)
--- NOTE | 2018-08-02 09:20 | NUR ---
Bolus finished on this nurse's shift. IV removed with catheter intact. Pt. gathered belongings and left floor accompanied by staff. Next appointment date verified.
[2018-08-02 09:22] VITALS: BP 130/79
== END 2018-08-02 09:20 | disposition home or self-care (01) ==
LOC: SDC 11:09 → 4TH 16:20 → SDC 08-02 09:20
PROVIDERS: ATTEND Nurse Practitioner Family
DX: G90.9 Disorder of the autonomic nervous system, unspecified (principal); R76.0 Raised antibody titer
CPT/HCPCS: 96360; 96361; 96366

== ENCOUNTER 2018-08-11 05:37 | Outpatient (CLI) | payer BC ==
[~2018-08-11] VITALS: Ht 157.5 cm; Wt 88.0 kg
[~2018-08-11 05:37] MED LIST changes: -NS IV 1000 ML 1,000 ML IV SCH; -NS IV 1000 ML 1,000 ML ONE
[2018-08-11] MEDS ORDERED: BUPR150T14 PO (15:09)
[2018-08-11] MEDS ORDERED: LISD30CA3 PO (15:09)
[2018-08-11] MEDS ORDERED: OXYC-465 PO (15:09)
[2018-08-11] MEDS ORDERED: PROP20TA5 PO (15:09)
[2018-08-11] MEDS ORDERED: ALPR0.5T PO (15:09)
[2018-08-11] MEDS ORDERED: KETO5DRO14 OP (15:09)
[2018-08-11] MEDS ORDERED: NFIPRATRNS NS (15:09)
[2018-08-11] MEDS ORDERED: SOD1POWD PO (15:09)
[2018-08-11] MEDS ORDERED: IMMU50VI2 IV (15:09)
[2018-08-11] MEDS ORDERED: IVAB5TAB PO (15:09)
== END 2018-08-11 15:38 | disposition home or self-care (01) ==
LOC: PREOP 05:37
PROVIDERS: ATTEND Surgery
DX: Z01.818 Encounter for other preprocedural examination (principal)

== ENCOUNTER 2018-08-14 09:26 | Day surgery (SDC) | payer BC ==
[~2018-08-14] VITALS: Ht 157.5 cm; Wt 88.0 kg
[~2018-08-14 09:26] MED LIST changes: +ALPR0.5T PO; +BUPR150T14 PO; +IMMU50VI2 IV; +IVAB5TAB PO; +KETO5DRO14 OP; +LISD30CA3 PO; +NFIPRATRNS NS; +OXYC-465 PO; +PROP20TA5 PO; +SOD1POWD PO
[2018-08-14 09:50] VITALS: BP 108/76
[2018-08-14] MEDS: LACTATED RINGERS 1,000 ML IV PRN ×2 (10:00→13:53)
[2018-08-14] MEDS ORDERED: ceFAZolin 2 GM IV Premixed 50 ML IV ONE (10:15)
--- NOTE | 2018-08-14 10:32 | Progress Note-Pre Operative ---
Pre-Operative Progress Note H&P Reviewed The H&P was reviewed, patient examined and no changes noted. Date Seen by Provider: Aug 14, 2018 Time Seen by Provider: 10: Date H&P Reviewed: Aug 14, 2018 Time H&P Reviewed: 10:30 Pre-Operative Diagnosis: autoimmune autonomic dysfunction MICHAEL CHRISTIAN MD Aug 14, 2018 10:32
[2018-08-14] MEDS ORDERED: HYDR-34 PO (10:33)
--- NOTE | 2018-08-14 10:34 | Discharge Inst-Surgical ---
D/C Lap Instructions-GINO New, Converted, or Re-Newed RX: RX on Chart Follow Up PRN ok to access and use port. Activity as tolerated No driving for 24 hours No driving while on pain medications Incentive Spirometry use every 2 hours while awake Regular Diet Symptoms to Report: Fever over 101 degree F, Nausea/Vomiting Infection Signs and Symptoms to report: Increased redness, Foul odor of wound, Increased drainage Bathing instructions: May shower Operative Area Clean/Dry; Keep incision clean/dry If any problems/questions: Contact your physician or go to Emergency Room MICHAEL CHRISTIAN MD Aug 14, 2018 10:34
[2018-08-14] MEDS ORDERED: ONDANSETRON 4 MG/2 ML (SDV) Z0FRAN IVP PRN (10:45)
[2018-08-14] MEDS ORDERED: HYDROcodone/APAP 5 MG/325 MG (LORTAB) TAB PO ONE (10:45)
[2018-08-14] MEDS ORDERED: morphine INJ 10 MG/ML 1ML (SYR OR VIAL) IVP PRN (10:45)
[2018-08-14] MEDS ORDERED: ACETAMINOPHEN 325 MG TABLET PO PRN (10:45)
[2018-08-14] MEDS ORDERED: fentaNYL INJECTION 100 MCG/2 ML AMP ONE ×2 (10:59→13:37)
[2018-08-14] MEDS ORDERED: fentaNYL INJECTION 100 MCG/2 ML AMP IV ONE (11:15)
--- OUTSIDE RECORDS SUMMARY | 2018-08-14 11:24 | XMS REPORT | Encounter Summary ---
Author Author [facility] Organization [facility] Address Unknown Phone Unavailable Care Team Providers Care Denial Resolution Specialist Name Role Phone Sahara Smith MD PCP Reason for Referral * Diagnostic Imaging (Routine) Status Reason Specialty Diagnoses / Referred By Referred To Procedures Contact Contact Authorized Diagnoses Roseann Wilder MD Postural [address] orthostatic [place] [address] tachycardia [place], [place] syndrome [address] P Phone: [place] [phone] Electrocardiogra Fax: m (ECG) [phone] Reason for Visit * Reason Comments POSTURAL ORTHOSTATIC TACHYCARDIA SYNDROME Encounter Details Date Type Department Care Team Description 07/18/2018 Office Visit [facility] Roseann Wilder MD Postural orthostatic Cardiovascular [address] tachycardia syndrome [facility] [place] [address] (Primary Dx); [address] [place] [address] Inappropriate sinus [address] tachycardia; [place] [address] Autonomic dysfunction; [phone] Small fiber neuropathy; Voltage-gated calcium channel antibody positive Social History Tobacco Use Types Packs/Day Years Used Date Former Smoker Cigarettes 0.5 5 Quit: 2002 Smokeless Tobacco: Never Used Alcohol Use Drinks/Week oz/Week Comments Yes a few drinks monthly. Sex Assigned at Date Recorded Not on file as of this encounter Last Filed Vital Signs Vital Sign Reading Time Taken Blood Pressure 109/72 07/18/2018 11:16 AM ACCOUNTANT CERTIFIED PUBLIC Pulse 75 07/18/2018 11:16 AM ACCOUNTANT CERTIFIED PUBLIC Temperature - - Respiratory Rate - - Oxygen Saturation - - Inhaled Oxygen - - Concentration Weight 88 kg (194 lb) 07/18/2018 11:13 AM ACCOUNTANT CERTIFIED PUBLIC Height 157.5 cm (5' 2") 07/18/2018 11:13 AM ACCOUNTANT CERTIFIED PUBLIC Body Mass Index 35.48 07/18/2018 11:13 AM ACCOUNTANT CERTIFIED PUBLIC in this encounter Instructions * Patient Instructions - Nicole Amador RN - 07/18/2018 10:45 AM ACCOUNTANT CERTIFIED PUBLIC Thanks for visiting! Summary of today's discussion: Your doctor has ordered the following test(s): NONE A nurse will contact you with the results and your doctor's recommendations approximately 7-10 business days after the test has been completed. Medication Instructions: No Changes Additional Instructions: -Keep drinking your water!! You're doing great with your treatment plan. Your doctor has placed a referral to: NONE Follow up with MD Dr. Wilder in ABOUT 3-5 months. Please call the Nurse Line at [phone]. with any questions or concerns. For medication refill needs, please first contact your pharmacy. For any [facility] scheduling questions, please call . At [facility], high quality patient care is our top priority. To ensure our cardiovascular standards are continuously met, you may receive a survey via email or text message, and we ask that you please take the time to fill it out. We strive to ensure you are very satisfied with every visit. Thank you in advance for taking the time to fill this out. in this encounter Progress Notes * Roseann Wilder MD - 07/18/2018 10:45 AM ACCOUNTANT CERTIFIED PUBLIC Formatting of this note may be different from the original. [facility] [place] Appointment Date: 07/18/2018 Sahara Smith MD [address] [facility] [address] RE: [place] Godfrey : 1975 Visit provider: Roseann Wilder MD Dear Sahara Smith MD, I had the pleasure of seeing [place] Godfrey in the office today. She is a(n) 43 y.o. female and presents with the following chief complaint(s): POSTURAL ORTHOSTATIC TACHYCARDIA SYNDROME HPI: [place] is a 43-year-old female with evidence of a small fiber neuropathy with autonomic involvement due to a voltage-gated potassium channel antibody. Her major symptoms include significant generalized pain more so involving her hands , arms, and legs, orthostatic tachycardia, profuse sweating, headaches, and heat intolerance. She sees Dr. Ibeth Rendon from our neurology division and was recently started on IVIG. She reports that the IVIG has improved her symptoms of fatigue as well as the pain she is getting. The effects of the IVIG , however, wear off generally before her next infusion of IVIG occurs, which she is generally getting once a month. She had continuing trouble with orthostatic tachycardia on propranolol and the recently added Corlanor to her regimen. She has been monitoring her heart rate and has noticed a significant improvement in this. During her last few infusions of IVIG, she did have worsening of her headaches. It is unclear whether this is a symptom related to her dysautonomia and POTS or whether this was side effect of IVIG. I wanted to confer with Dr. Rendon to ask her this question. She is scheduled to see Dr. Maria Luz Granda for a second opinion at [facility]. She is a part of their dysautonomic dysfunction clinic. She is also scheduled to see Dr. Barbara Tatum from the rheumatology division to assess whether or not she may have Behcet's disease. She does have a history of vaginal and oral mucosa ulcers as well as episcleritis. Patient Active Problem List Diagnosis SNOMED CT(R) Autonomic dysfunction DISORDER OF AUTONOMIC NERVOUS SYSTEM Obesity (BMI 30.0-34.9) OBESE CLASS I Small fiber neuropathy SMALL FIBER NEUROPATHY Inappropriate sinus tachycardia INAPPROPRIATE SINUS TACHYCARDIA ADHD ATTENTION DEFICIT HYPERACTIVITY DISORDER Voltage-gated calcium channel antibody positive AUTOANTIBODY LEVEL - FINDING Hypersomnia HYPERSOMNIA POTS (postural orthostatic tachycardia syndrome) POSTURAL ORTHOSTATIC TACHYCARDIA SYNDROME Past Medical History: Diagnosis Date ADHD Anxiety Autonomic dysfunction 05/2016 Bladder dysfunction Episcleritis Gastroparesis Inappropriate sinus tachycardia Interstitial cystitis Migraine Obesity (BMI 30.0-34.9) POTS (postural orthostatic tachycardia syndrome) 11/2017 Scoliosis Small fiber neuropathy 05/2017 Tachycardia Past Surgical History: Procedure Laterality Date CARPAL TUNNEL RELEASE 2004 COLONOSCOPY CYSTOSCOPY, WITH URETHRAL DILATION REPAIR, KNEE, ACL 2011 TILT TABLE HISTORICAL 05/01/2017 autonomic testing was within normal limits TILT TABLE TEST N/A 12/04/2017 Procedure: TILT TABLE; Surgeon: Roseann Wilder MD; Abnormal tilt table test. Her HR increase to 120 bpm within the first 10 minutes of tilting with a peak HR of 124 bpm meets the criteria for the diagnosis of POTS Final Medications: Current Outpatient Prescriptions Medication Sig Dispense Refill ALPRAZolam (XANAX) 0.5 MG tablet Take 0.5 mg by mouth as needed. azelastine (ASTELIN) 137 mcg (0.1 %) nasal spray Use 1 spray in each nostril daily. Use in each nostril as directed cycloSPORINE (RESTASIS) 0.05 % ophthalmic emulsion Instill 1 drop into both eyes 2 (two) times a day. DULoxetine (CYMBALTA) 60 mg capsule Take 1 capsule (60 mg total) by mouth 2 (two) times a day. 180 capsule 1 immune globulin (PRIVIGEN) 10 % Soln injection Infuse 80 g into a venous catheter every 21 days. Privigen Infusion may be given to patient continuously 500 mL 11 ivabradine (CORLANOR) 5 mg tablet Take 1 tablet (5 mg total) by mouth 2 (two ) times a day with meals. 180 tablet 3 ketorolac (ACULAR LS) 0.4 % ophthalmic solution Instill 1 drop into the left eye 3 (three) times a day. lisdexamfetamine (VYVANSE) 30 MG capsule Take 30 mg by mouth every morning. mupirocin (BACTROBAN) 2 % ointment Apply topically as needed. olopatadine (PAZEO) 0.7 % Drop Administer to eye as needed. oxyCODONE (ROXICODONE) 5 MG immediate release tablet Take 15 mg by mouth as needed. ONLY TAKING 1/2 TABLET propranolol (INDERAL) 20 MG tablet Take 1 tablet (20 mg total) by mouth 2 ( two) times a day. 180 tablet 3 sodium Cl-sod cit-pot Cl-dextr (NORMALYTE ORS) 1.3-1.45-0.75 gram/10.5 gram PwPk Take 1 packet by mouth 2 (two) times a day. 180 packet 3 No current facility-administered medications for this visit. Allergies Allergen Reactions Gabapentin Anxiety and Rash Memory loss Senna (With Sugar) Other reaction(s): FEVER, SEE COMMENTS Severe abdominal pain and cramping Sulfamethoxazole-Trimethoprim Rash Atomoxetine Palpitations and Hypertension Other reaction(s): SEE COMMENTS Brand name: Strattera Brand name: Strattera Family History Problem Relation Age of Onset Motor neuron disease Mother myotonia congentia Valvular heart disease Mother MV regurgitation Hypertension Father Angina Father Hyperlipidemia Father Arthritis Father Anxiety disorder Father Motor neuron disease Sister myotonia congenita Factor V Leiden deficiency Maternal Aunt Motor neuron disease Maternal Uncle myotonia congenita Lupus Maternal Grandmother Coronary artery bypass graft Maternal Grandfather Factor V Leiden deficiency Maternal Grandfather Migraines Sister Social History: Social History Substance Use Topics Smoking status: Former Smoker Packs/day: 0.50 Years: 5.00 Types: Cigarettes Quit date: 2002 Smokeless tobacco: Never Used Alcohol use Yes Comment: a few drinks monthly. Review of Systems Constitution: Positive for weakness, malaise/fatigue and night sweats. Negative for fever. HENT: Negative for nosebleeds. Cardiovascular: Positive for claudication, leg swelling and palpitations. Negative for chest pain, cyanosis, dyspnea on exertion, irregular heartbeat, near-syncope, orthopnea, paroxysmal nocturnal dyspnea and syncope. Respiratory: Negative for cough, hemoptysis, shortness of breath, sleep disturbances due to breathing, snoring and wheezing. Endocrine: Positive for polydipsia. Negative for cold intolerance. Hematologic/Lymphatic: Bruises/bleeds easily. Skin: Negative for rash. Musculoskeletal: Positive for myalgias (after infusion). Negative for arthritis. Gastrointestinal: Positive for nausea. Negative for dysphagia and vomiting. Neurological: Positive for dizziness, light-headedness, loss of balance, numbness and paresthesias. Negative for excessive daytime sleepiness and focal weakness. All other systems reviewed and are negative. Vital Signs 07/18/18 1113 07/18/18 1114 07/18/18 1115 07/18/18 1116 BP: (!) 123/93 103/75 115/79 109/72 Pulse: 81 70 72 75 Weight: 88 kg (194 lb) Height: 1.575 m (5' 2") BMI: Body mass index is 35.48 kg/m. Physical Exam General: Not in distress Head: BRISA, pink conjunctivae, anicteric sclerae, extraocular muscles and cranial nerves grossly intact Neck: no jugular venous distension or lymphadenopathy, carotid upstrokes brisk, no bruits Cardiac: regular rate and rhythm, no murmurs, gallops or rubs. Lungs: clear to auscultation bilaterally, no rales, rhonchi or wheezing Abd: nontender, nondistended Extremities: no clubbing, cyanosis or edema Pulses: radial and pedal pulses normal Neuro: alert and oriented, no lateralizing signs Skin: no bruising or rash Musculoskeletal: No deformity or amputation EKG: Normal Sinus Rhythm Encounter Diagnoses Name Primary? Postural orthostatic tachycardia syndrome Yes Inappropriate sinus tachycardia Autonomic dysfunction Small fiber neuropathy Voltage-gated calcium channel antibody positive Impression and Plan: [place] is seeing some improvement in her symptoms from her small fiber neuropathy with the IVIG infusions. The dosing intervals have been changed to prevent the recurrence of symptoms before the next dose. It is unclear to me whether headaches are side effects of the IVIG infusions. Her pain has improved with this as well as her energy levels. She is getting additional saline with the IVIG that may be helping her orthostatic intolerance as well. She has also seen an improvement in her tachycardia with the combination of propranolol plus Corlanor. I did give her some Normalyte electrolyte powder and I reiterated the importance of staying well hydrated. I do not want to recommend saline infusions just yet as this will cause her to miss more work that she can. We will reassess the need for this during her next visit. I have set her up for an appointment in 3-4 months. Treatment goals, progress and next steps, as above, were discussed and mutually agreed upon with the patient/family. Thank you for allowing me to participate in Aurora Godfrey's care. If I can be of any further assistance, please do not hesitate to contact me. Sincerely, Roseann Wilder MD [facility] /ct in this encounter Plan of Treatment Date Type Specialty Care Team Description 09/24/2018 Office Visit Neurology Erendira Baker MD PhD [address] [facility] [address] [place] [address] [phone] Latanya Alvares RN as of this encounter Procedures Procedure Name Priority Date/Time Associated Diagnosis Comments ECG Routine 07/18/2018 Postural orthostatic Results for this 11:11 AM ACCOUNTANT CERTIFIED PUBLIC tachycardia syndrome procedure are in the results section. in this encounter Results * Electrocardiogram (ECG) (07/18/2018 11:11 AM) QRSd 84 [facility] QT 408 [facility] QTC 444 TR[facility]ER ECGHR 71 TR[facility]ER ECGPR 136 [facility] Narrative Performed At [facility] [place] Test Date:2018-07-18 Pat Name: [place] GODFREYDepartment: [facility] Room: Gender: Female Allergist Immunologist: [id number] :1975 Requested By: ROSEANN WILDER Order Number: [id number] MD: Víctor Robins IntervalsAxis Rate: 71 P:65 IL: 136QRS:3 QRSD: 84 T:60 QT: 408 QTc:444 Interpretive Statements SINUS RHYTHM Electronically Signed On 07-22-2018 8:40:01 ACCOUNTANT CERTIFIED PUBLIC by Víctor Evans Procedure Note Interface, External Ris In - 07/22/2018 8:40 AM ACCOUNTANT CERTIFIED PUBLIC [facility] [place] Test Date: 2018-07-18 Pat Name: AURORA GODFREY Department: [facility] Room: Gender: Female Allergist Immunologist: [id number] : 1975 Requested By: ROSEANN WILDER Order Number: [id number] Reading MD: Víctor Evans Measurements Intervals [place] Rate: 71 P: 65 IL: 136 QRS: 3 QRSD: 84 T: 60 QT: 408 QTc: 444 Interpretive Statements SINUS RHYTHM Electronically Signed On 07-22-2018 8:40:01 ACCOUNTANT CERTIFIED PUBLIC by Víctor Evans Performing Organization Address City/State/Zipcode Phone Number [email or web address] in this encounter Visit Diagnoses Diagnosis Postural orthostatic tachycardia syndrome - Primary Unspecified tachycardia Inappropriate sinus tachycardia Autonomic dysfunction Small fiber neuropathy Voltage-gated calcium channel antibody positive
--- OUTSIDE RECORDS SUMMARY | 2018-08-14 11:24 | XMS REPORT | Encounter Summary ---
Author Author [facility] Organization [facility] Address Unknown Phone Unavailable Care Team Providers Care Meal Temperer Name Role Phone Sahara Smith MD PCP Encounter Details Date Type Department Care Team Description 08/13/2018 Telephone [facility] Neurology Latanya Izquierdo, RN [address] [facility] [address] [place], [place] [id number] Social History Tobacco Use Types Packs/Day Years Used Date Former Smoker Cigarettes 0.5 5 Quit: 2002 Smokeless Tobacco: Never Used Alcohol Use Drinks/Week oz/Week Comments Yes a few drinks monthly. Sex Assigned at Date Recorded Not on file as of this encounter Miscellaneous Notes * Telephone Encounter - Latanya Izquierdo, RN - 08/13/2018 9:52 AM CONSUMER EDUCATOR Spoke with pt she agreed to meet with nurse before seeing dr BENITES. She will be in clinic at 130 on september 24. in this encounter Plan of Treatment Date Type Specialty Care Team Description 09/24/2018 Office Visit Neurology Erendira Baker MD PhD [address] [facility] [address] [place] [address] [phone] B Latanya guido, RN as of this encounter Visit Diagnoses Not on filein this encounter
--- OUTSIDE RECORDS SUMMARY | 2018-08-14 11:24 | XMS REPORT | Encounter Summary ---
Author Author [facility] Organization [facility] Address Unknown Phone Unavailable Care Team Providers Care Bill Cutter Name Role Phone Sahara Smith MD PCP Encounter Details Date Type Department Care Team Description 07/14/2018 Abstract [facility] Viviane German merchandising execution associate Consultants [facility] [address] [place] [address] Social History Tobacco Use Types Packs/Day Years Used Date Former Smoker Cigarettes 0.5 5 Quit: 2002 Smokeless Tobacco: Never Used Alcohol Use Drinks/Week oz/Week Comments Yes a few drinks monthly. Sex Assigned at Date Recorded Not on file as of this encounter Plan of Treatment Date Type Specialty Care Team Description 09/24/2018 Office Visit Neurology Erendira Baker MD PhD [address] [facility] [address] [place] [address] [phone] Latanya Alvares RN as of this encounter Visit Diagnoses Not on filein this encounter
--- OUTSIDE RECORDS SUMMARY | 2018-08-14 11:24 | XMS REPORT | Clinical Summary ---
Author Author [facility] Organization [facility] Address Unknown Phone Unavailable Care Team Providers Care Configuration Engineer Name Role Phone Sahara Smith MD PCP Allergies Active Allergy Reactions Severity Noted Date Comments Atomoxetine Palpitations, Low 11/07/2017 Other reaction(s): SEE Hypertension COMMENTS Brand name: Strattera Brand name: Strattera Gabapentin Anxiety, Rash Medium 05/08/2016 Memory loss Senna (With Sugar) Medium 05/16/2015 Other reaction(s): FEVER, SEE COMMENTS Severe abdominal pain and cramping Sulfamethoxazole-Trimetho Rash Medium 05/16/2015 prim Current Medications Prescription Sig. Disp. Refills Start End Date Status Date ALPRAZolam (XANAX) 0.5 MG Take 0.5 mg by mouth as Active tablet needed. oxyCODONE (ROXICODONE) 5 Take 15 mg by mouth as Active MG immediate release needed. ONLY TAKING 1/2 tablet TABLET mupirocin (BACTROBAN) 2 % Apply topically as 07/23/19 Active ointment needed. 18 cycloSPORINE (RESTASIS) Instill 1 drop into both Active 0.05 % ophthalmic eyes 2 (two) times a day. emulsion DULoxetine (CYMBALTA) 60 Take 1 capsule (60 mg 180 capsule 1 12/26/19 Active mg capsuleIndications: total) by mouth 2 (two) 18 Peripheral polyneuropathy times a day. sodium Cl-sod cit-pot Take 1 packet by mouth 2 180 packet 3 01/04/20 Active Cl-dextr (NORMALYTE ORS) (two) times a day. 18 1.3-1.45-0.75 gram/10.5 gram PwPk azelastine (ASTELIN) 137 Use 1 spray in each Active mcg (0.1 %) nasal spray nostril daily. Use in each nostril as directed olopatadine (PAZEO) 0.7 % Administer to eye as Active Drop needed. propranolol (INDERAL) 20 Take 1 tablet (20 mg 180 tablet 3 03/04/20 Active MG tablet total) by mouth 2 (two) 18 times a day. ketorolac (ACULAR LS) 0.4 Instill 1 drop into the Active % ophthalmic solution left eye 3 (three) times a day. ivabradine (CORLANOR) 5 Take 1 tablet (5 mg 180 tablet 3 05/09/20 Active mg tablet total) by mouth 2 (two) 18 times a day with meals. immune globulin Infuse 80 g into a venous 500 mL 11 07/14/20 Active (PRIVIGEN) 10 % Soln catheter every 21 days. 18 injectionIndications: Privigen Infusion may be Autonomic dysfunction, given to patient Voltage-gated calcium continuously channel antibody positive lisdexamfetamine Take 30 mg by mouth every Active (VYVANSE) 30 MG capsule morning. lisdexamfetamine Take 40 mg by mouth every 07/18/19 Discontin (VYVANSE) 50 MG capsule morning. 19 ued fluticasone (FLONASE) 50 Use 1 spray in each 07/18/19 Discontin mcg/actuation nasal spray nostril daily. 19 ued fexofenadine HCl (ARABELLA daily. 11/13/19 07/18/19 Discontin ALLERGY ORAL) 18 19 ued baclofen (LIORESAL) 10 MG Take 1 tablet (10 mg 180 tablet 0 02/01/20 07/18/19 Discontin tablet total) by mouth 2 (two) 18 19 ued times a day. 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 POTS (postural orthostatic tachycardia syndrome) 11/12/2017 Small fiber neuropathy 05/15/2017 Autonomic dysfunction Obesity (BMI 30.0-34.9) Inappropriate sinus tachycardia ADHD Encounters Date Type Specialty Care Team Description 08/13/2018 Telephone Neurology Latanya Izquierdo RN 07/24/2018 Telephone Neurology Ibeth Rendon MD cancel (cancel apt with [facility] needs to reeschedule) 07/18/2018 Office Visit Cardiology Roseann Wilder MD Postural orthostatic tachycardia syndrome (Primary Dx); Inappropriate sinus tachycardia; Autonomic dysfunction; Small fiber neuropathy; Voltage-gated calcium channel antibody positive 07/14/2018 Abstract Cardiology Viviane German RN 07/14/2018 Orders Only Neurology Giuliana Ramires MA Autonomic dysfunction; Voltage-gated calcium channel antibody positive 07/14/2018 Orders Only Neurology Miracle Torres MA Autonomic dysfunction ; Voltage-gated calcium channel antibody positive 06/30/2018 Telephone Neurology Oscar Olvera, Questions on IVIG DO 06/17/2018 Telephone Cardiology Sharon Baum LPN Symptoms from Last 3 Months Family History Medical History Relation Name Comments Angina Father Anxiety disorder Father Arthritis Father Hyperlipidemia Father Hypertension Father Factor V Leiden Maternal Aunt deficiency Coronary artery bypass Maternal graft Grandfather Factor V Leiden Maternal deficiency Grandfather Lupus Maternal Grandmother Motor neuron disease Maternal myotonia congenita Uncle Motor neuron disease Mother myotonia congentia Valvular heart disease Mother MV regurgitation Motor neuron disease Sister myotonia congenita Migraines Sister Relation Name Status Comments Father Alive Maternal Aunt Alive Maternal Grandfather Alive Maternal Grandmother Alive Maternal Uncle Alive Mother Alive Sister Alive Sister Alive Social History Tobacco Use Types Packs/Day Years Used Date Former Smoker Cigarettes 0.5 5 Quit: 2002 Smokeless Tobacco: Never Used Tobacco Cessation: Counseling Given: No Alcohol Use Drinks/Week oz/Week Comments Yes a few drinks monthly. Sex Assigned at Date Recorded Not on file Last Filed Vital Signs Vital Sign Reading Time Taken Blood Pressure 109/72 07/18/2018 11:16 AM POSTULANT Pulse 75 07/18/2018 11:16 AM POSTULANT Temperature 36.9 C (98.5 F) 01/17/2018 11:32 AM CDT Respiratory Rate 16 01/17/2018 11:32 AM CDT Oxygen Saturation 100% 01/17/2018 11:32 AM CDT Inhaled Oxygen - - Concentration Weight 88 kg (194 lb) 07/18/2018 11:13 AM POSTULANT Height 157.5 cm (5' 2") 07/18/2018 11:13 AM POSTULANT Body Mass Index 35.48 07/18/2018 11:13 AM POSTULANT Plan of Treatment Date Type Specialty Care Team Description 09/24/2018 Office Visit Neurology Erendira Baker MD PhD [address] [place] [address] [phone] Latanya Alvares, RN Health Maintenance Due Date Last Done Comments Td # 1975 Cervical Cancer Screening 1998 via Pap Smear Influenza Vaccine Completed 05/02/2018, 05/07/2003 Procedures Procedure Name Priority Date/Time Associated Diagnosis Comments ECG Routine 07/18/2018 Postural orthostatic Results for this 11:11 AM POSTULANT tachycardia syndrome procedure are in the results section. from Last 3 Months Results * Electrocardiogram (ECG) (07/18/2018 11:11 AM) QRSd 84 TRACEMASTER QT 408 TRACEMASTER QTC 444 TRACEMASTER ECGHR 71 TRACEMASTER ECGPR 136 TRACEMASTER Narrative Performed At [facility] Date:2018-07-18 Pat Name: AURORA GODFREYDepartment: [facility] Room: Gender: Female Seed District Sales Manager: [id number] :1975 Requested By: ROSEANN WILDER Order Number: [id number] MD: Víctor Evans Measurements IntervalsAxis Rate: 71 P:65 [place]: 136QRS:3 QRSD: 84 T:60 QT: 408 QTc:444 Interpretive Statements SINUS RHYTHM Electronically Signed On 07-22-2018 8:40:01 POSTULANT by Víctor Evans Procedure Note Interface, External Ris In - 07/22/2018 8:40 AM POSTULANT [facility] [facility] Date: 2018-07-18 Pat Name: AURORA GODFREY Department: [facility] Room: Gender: Female Seed District Sales Manager: [id number] : 1975 Requested By: ROSEANN WILDER Order Number: [id number] Aylin MD: Víctor Evans Measurements Intervals Ariel Rate: 71 P: 65 [place]: 136 QRS: 3 QRSD: 84 T: 60 QT: 408 QTc: 444 Interpretive Statements SINUS RHYTHM Electronically Signed On 07-22-2018 8:40:01 POSTULANT by Víctor Evans Performing Organization Address City/State/Zipcode Phone Number TRACEMASTER from Last 3 Months
--- OUTSIDE RECORDS SUMMARY | 2018-08-14 11:24 | XMS REPORT | Encounter Summary ---
Author Author [facility] Organization [facility] Address Unknown Phone Unavailable Care Team Providers Care Sap Technical Architect Name Role Phone Sahara Smith MD PCP Reason for Visit * Reason Comments cancel cancel apt with [facility] needs to reeschedule Encounter Details Date Type Department Care Team Description 07/24/2018 Telephone [facility] Neurology Ibeth Rendon MD cancel ( cancel apt with [address] [facility] needs to reeschedule) [address] [place] [address] [place] [address] [phone] Social History Tobacco Use Types Packs/Day Years Used Date Former Smoker Cigarettes 0.5 5 Quit: 2002 Smokeless Tobacco: Never Used Alcohol Use Drinks/Week oz/Week Comments Yes a few drinks monthly. Sex Assigned at Date Recorded Not on file as of this encounter Miscellaneous Notes * Telephone Encounter - Farnaz Yip - 07/24/2018 9:52 AM METAL FABRICATOR Called patient and cancelled apt, left v/m to call back and nakiale with Dr. Baker for a consult. in this encounter Plan of Treatment Date Type Specialty Care Team Description 09/24/2018 Office Visit Neurology Erendira Baker MD PhD [address] [place] [address] [phone] Latanya Alvares, RN as of this encounter Visit Diagnoses Not on filein this encounter
--- OUTSIDE RECORDS SUMMARY | 2018-08-14 11:25 | XMS REPORT | Encounter Summary ---
Author Author [facility] Organization [facility] Address Unknown Phone Unavailable Care Team Providers Care Boat Cleaning Supervisor Name Role Phone Sahara Smith MD PCP Encounter Details Date Type Department Care Team Description 07/14/2018 Orders Only [facility] Neurology Miracle Torres MA Autonomic dysfunction; [address] Voltage-gated calcium [address] [place] [address] Social History Tobacco Use Types Packs/Day Years Used Date Former Smoker Cigarettes 0.5 5 Quit: 2002 Smokeless Tobacco: Never Used Alcohol Use Drinks/Week oz/Week Comments Yes a few drinks monthly. Sex Assigned at Date Recorded Not on file as of this encounter Plan of Treatment Date Type Specialty Care Team Description 09/24/2018 Office Visit Neurology Erendira Baker MD PhD [address] [place] [address] [phone] Latanya Alvares, RN as of this encounter Visit Diagnoses Diagnosis Autonomic dysfunction Voltage-gated calcium channel antibody positive
--- OUTSIDE RECORDS SUMMARY | 2018-08-14 11:25 | XMS REPORT | Encounter Summary ---
Author Author [facility] Organization [facility] Address Unknown Phone Unavailable Care Team Providers Care Civil Engineering Draftsperson Name Role Phone Sahara Smith MD PCP Reason for Visit * Reason Comments Symptoms Encounter Details Date Type Department Care Team Description 06/17/2018 Telephone [facility] Sharon Baum LPN Symptoms [facility] [address] [facility] [address] [place] [id number] Social History Tobacco Use Types Packs/Day Years Used Date Former Smoker Cigarettes 0.5 5 Quit: 2002 Smokeless Tobacco: Never Used Alcohol Use Drinks/Week oz/Week Comments Yes a few drinks monthly. Sex Assigned at Date Recorded Not on file as of this encounter Miscellaneous Notes * Telephone Encounter - Jasmyne Lovell RN - 06/17/2018 2:50 PM MILLWRIGHT APPRENTICE Called and spoke with pt. She v/u of recommendations. Will monitor blood pressures closely and contact our office next week as requested with readings. Discussed exercise. Pt states that she has not been able to do much. States that she used to bike but has been having issues with her legs going numb during exercise. Advised pt to try recumbant bike, as this will help with vascular tone and should help improve symptoms. She v/u. Discussed continued recommendations for increasing sodium and fluid intake Inquiring about [facility] referral. Advised pt that I would contact them regarding this. Called [place] at and spoke with Zoila. She reports that chart has been opened and records received. Advised that pt will be contacted once physicians have read through records. Did report to expect a 8-12 week wait time in being seen. Called and made pt aware. She v/u and was grateful for the call. * Telephone Encounter - Murali Wilder MD - 06/17/2018 2:46 PM MILLWRIGHT APPRENTICE I would have her monitor her blood pressure daily for a week. As it is, it is only very mildly elevated. Continue current medications for now. Have her stay well hydrated as well and make sure she keeps up with her Na and electrolyte intake. Is she exercising? * Telephone Encounter - Sharon Baum LPN - 06/17/2018 2:11 PM MILLWRIGHT APPRENTICE JKL- Pt called stating she is having problems with her B/P being up around the 130's/90's she feels foggy, H/A's and she is concerned since she is taking her meds as prescribed. She states she was to be called to come in for F/U In , but was not called. I offered to transfer her to scheduling, but she refused stating she would need to do this at a later time. I gave her the direct number to scheduling. I also informed her I would route info the [facility], and that if there were recommendations before apt we would call her back. She voiced understanding. Routed to [facility] in this encounter Plan of Treatment Date Type Specialty Care Team Description 09/24/2018 Office Visit Neurology Erendira Baker MD PhD [address] [place] [address] [phone] Latanya Alvares, RN as of this encounter Visit Diagnoses Not on filein this encounter
--- OUTSIDE RECORDS SUMMARY | 2018-08-14 11:25 | XMS REPORT | Encounter Summary ---
Author Author [facility] Organization [facility] Address Unknown Phone Unavailable Care Team Providers Care Restoration Technician Name Role Phone No Pcp, Na Unavailable Unavailable Jose Rodriguez MD Unavailable Sahara Smith MD PCP Mychart, Generic Provider Unavailable Unavailable Murali Medina MD Unavailable Murali Gaines MD Unavailable Ibeth Rendon MD Unavailable Reason for Referral * Consult, Test & Treat (Routine) Referred By Contact Referred To Contact Status Reason Specialty Diagnoses / Procedures Carol Mccoy DO [address] [place] [address] Nila Gilmore MD [address] [facility] [address] [place] [address] New Request Specialty Services Rheumatology Diagnoses Required Scleritis, unspecified laterality Chronic generalized pain Encounter Details Care Team Description Date Type Department Carol Mccoy DO [address] [place] [address] [phone] Scleritis, unspecified laterality (Primary Dx); Chronic generalized pain 06/24/2018 Orders Only [facility] Physicians - Internal Medicine [facility] [address] [place] [address] Social History Date Tobacco Use Types Packs/Day Years Used Quit: 01/11/2002 Former Smoker Cigarettes 0.5 7 Smokeless Tobacco: Never Used Alcohol Use Drinks/Week oz/Week Comments Yes 1-2 Glasses 0.6 - 1.2 only on special occasional in month of wine 0 Standard drinks or equivalent Sex Assigned at Date Recorded Not on file Industry Job Start Date Occupation Not on file Not on file Not on file Travel End Travel History Travel Start No recent travel history available. as of this encounter Functional Status Date of Assessment Functional Status Response 02/04/2018 Does the patient have a hearing impairment: No 02/04/2018 Does the patient have a visual impairment: No 02/04/2018 Does the patient have impaired ambulation: No 02/04/2018 Does the patient have an activity of daily living No (ADL) impairment: 02/04/2018 Does the patient have an instrumental activity of No daily living (IADL) impairment: Date of Assessment Cognitive Status Response 02/04/2018 Does the patient have a cognitive impairment: No as of this encounter Plan of Treatment Order Schedule Name Priority Associated Diagnoses Ordered: 06/24/2018 AMB REFERRAL TO RHEUMATOLOGY Routine Scleritis, unspecified laterality Chronic generalized pain as of this encounter Visit Diagnoses Diagnosis Scleritis, unspecified laterality - Primary Chronic generalized pain Generalized pain in this encounter
--- OUTSIDE RECORDS SUMMARY | 2018-08-14 11:25 | XMS REPORT | Encounter Summary ---
Author Author [facility] Organization [facility] Address Unknown Phone Unavailable Care Team Providers Care Credit Collections Manager Name Role Phone No Pcp, Na Unavailable Unavailable Jose Rodriguez MD Unavailable Sahara Smith MD PCP Mychart, Generic Provider Unavailable Unavailable Murali Medina MD Unavailable Murali Gaines MD Unavailable Ibeth Rendon MD Unavailable Reason for Visit * Reason Comments Insurance Concerns allergy testing not covered Encounter Details Care Team Description Date Type Department Carol Mccoy DO [address] [place] [address] Insurance Concerns (allergy testing not covered) 07/21/2018 Telephone [facility] - Internal Medicine [facility] [address] [place] [address] Social History Date Tobacco Use Types Packs/Day [...] cognitive impairment: No as of this encounter Miscellaneous Notes * Telephone Encounter - Chanell Buckner RN - 07/23/2018 11:37 AM HEALTH PROMOTION EDUCATOR Spoke with pt and notified her. Asked her to call back if she has any more difficulty with this. Email sent to Ashlie Rasmussen notifying her. Per email from Ashlie, she will change this. TH PROMOTION EDUCATOR * Telephone Encounter - Carol Mccoy DO - 07/21/2018 4:20 PM HEALTH PROMOTION EDUCATOR My apologies, this has been changed. TH PROMOTION EDUCATOR * Telephone Encounter - Chanell Buckner RN - 07/21/2018 3:59 PM HEALTH PROMOTION EDUCATOR Per Ashlie, she is able to change dx. Routing to Dr. Mccoy for any additional dx if appropriate. TH PROMOTION EDUCATOR * Telephone Encounter - Chanell Buckner RN - 07/21/2018 3:28 PM HEALTH PROMOTION EDUCATOR Email sent to geoffrey Knight. TH PROMOTION EDUCATOR * Telephone Encounter - Anna Marie Foster RN - 07/21/2018 2:35 PM HEALTH PROMOTION EDUCATOR Patient LVM stating insurance is not covering allergy testing done in our office on 06/03 stating that the diagnosis code does not cover the testing. Returned call at 2:30 and LVM for patient to return call to LE [place]. TH PROMOTION EDUCATOR in this encounter Plan of Treatment Not on fileas of this encounter Visit Diagnoses Not on filein this encounter
--- OUTSIDE RECORDS SUMMARY | 2018-08-14 11:25 | XMS REPORT | Encounter Summary ---
Author Author [facility] Organization [facility] Address Unknown Phone Unavailable Care Team Providers Care Radiology Asst Name Role Phone Sahara Smith MD PCP Encounter Details Date Type Department Care Team Description 07/14/2018 Orders Only [facility] Neurology Giuliana Ramires MA Autonomic dysfunction; [address] Voltage-gated calcium [address] [place] [address] Social History Tobacco Use Types Packs/Day Years [...] PhD [address] [place] [address] [phone] Latanya Alvares, RN as of this encounter Visit Diagnoses Diagnosis Autonomic dysfunction Voltage-gated calcium channel antibody positive
--- OUTSIDE RECORDS SUMMARY | 2018-08-14 11:25 | XMS REPORT | Clinical Summary ---
Author Author [facility] Address Unknown Phone Unavailable Care Team Providers Care Agricultural Education Teacher Name Role Phone No Pcp, Na Unavailable Unavailable Jose Rdoriguez MD Unavailable Sahara Smith MD PCP Mychart, Generic Provider Unavailable Unavailable Murali Medina MD Unavailable Murali Gaines MD Unavailable Ibeth Rendon MD Unavailable Source Comments Some departments are not documenting in the electronic medical record. If you do not see the information that you expected, contact Release of Information in the Health Information Management department at [phone] for further assistance in locating additional records.[facility] Allergies Comments Active Allergy Reactions Severity Noted Date Sulfamethoxazole-Trimetho RASH Medium 05/16/2015 prim Memory loss Gabapentin RASH, ANXIETY Medium 05/08/2016 Brand name: Strattera Atomoxetine PALPITATIONS, Low 11/07/2017 SEE COMMENTS Other reaction(s): FEVER, SEE COMMENTS Severe abdominal pain and cramping Severe abdominal pain and cramping Senna (With Sugar) FEVER, SEE Medium 05/16/2015 COMMENTS Medications End Date Status Medication Sig Dispensed Refills Start Date Active oxyCODONE (ROXICODONE, Take 1 tablet 0 OXY-IR) 15 mg tablet by mouth every 6 hours as needed for Pain Active aspirin/acetaminophen/caf Take 1 tablet 0 feine(+) (EXCEDRIN by mouth MIGRAINE) 250/250/65 mg every 6 hours tabIndications: Pain as needed (headache). Indications: PAIN Active cyclosporine (RESTASIS) Place 1 drop 0 0.05 % ophthalmic into or emulsion around eye(s) twice daily. Active polyvinyl Place 1 drop 0 alcohol/povidone into or (REFRESH) 1.4/0.6 % around eye(s) ophthalmic every 4 hours solutionIndications: dry as needed. eye Indications: DRY EYE Active duloxetine DR (CYMBALTA) Take 60 mg by 0 60 mg capsule mouth twice daily. Active baclofen (LIORESAL) 10 mg Take 10 mg by 0 tablet mouth twice daily. Active immune globulin(+) 10% Administer 0 (GAMMAGARD; PRIVIGEN) 10 through vein g/100 mL IV infusion once. Infusion every 28 days Active loratadine(+) (CLARITIN 0 REDITABS) 5 mg rapid dissolve tablet Active immun glob G(IgG)-pro-IgA Administer 85 0 0-50 10 % soln g through 8 vein. Active propranolol (INDERAL) 20 Take 20 mg by 0 03/04/ mg tablet mouth. 8 Active olopatadine 0.7 % drop Place into 0 or around eye(s) daily as needed. Active ivabradine (CORLANOR) 5 Take 5 mg by 0 03/03/ mg tablet mouth. 8 Active sodium Cl-sod cit-pot Take 1 packet 0 Cl-dextr (NORMALYTE ORS) by mouth 1.3-1.45-0.75 gram/10.5 twice daily. gram pwpk Active lisdexamfetamine(+) Take 40 mg by 0 (VYVANSE) 40 mg capsule mouth every morning Active ketorolac(+) (ACULAR LS) Use one drop 5 mL 3 0.4 % ophthalmic solution four times 8 daily in the left eye or as directed Active ipratropium (ATROVENT) Apply one 90 mL 3 0.03 % nasal spray spray to two 8 sprays to each nostril as directed four times daily as needed. Active Problems Problem Noted Date Chronic generalized pain 06/03/2018 Overview: Prior work up negative for autoimmune disease (including negative HLA-B27, but patient has since developed scleritis and there is now concern for IBD based on some ongoing evaluation. - Flushing 04/29/2018 Overview: Has not improved with antihistamines. 24 hour urine studies were negative for pheochromocytoma, carcinoid, and mast cell disease. Tryptase was within normal limits. - Most likely a vasodilatory response that is triggered by physical or emotional stress. - Reassurance was provided. Respiratory abnormalities 04/29/2018 Overview: Never formerly diagnosed as asthma. Coughing when she goes outside or when she gets hot. She uses her son's inhaler from time to time with relief of her respiratory symtomps. - Spirometry 04/29/2018 Rhinoconjunctivitis 04/29/2018 Overview: Perennial, worse in fall and spring. - Flonase 1 spray once daily, Astelin 1 spray once daily, Claritin 10mg 1-2 times / day. - Aeroallergen testing done at Dr. Matamoros and was positive for . Started AIT 2013 but discontinued as she was having other problems. 06/03/18 - Aeroallergen skin testing was entirely negative today with adequate controls. Based on symptoms, she may have vasomotor rhinitis. - Discussed that she may drop her antihistamines since they are not helpful. She may trial Charisse, which may be more drying to her nose than Claritin. - She may continue her Flonase and will give her a trial of Atrovent to try. - There is no need for allergy immunotherapy or avoidance measures. Mast cell disease evaluation 04/29/2018 Overview: Patient would like to be evaluated for mast cell disease given her multiple health problems. According to the World Health Organization's (WHO) diagnostic criteria, the definitive diagnosis of systemic mastocytosis (SM) requires either the presence of one major and one minor criteria OR three minor criteria Major criterion The major criterion is the presence in bone marrow or other extracutaneous organs of multifocal dense aggregates of greater than 15 mast cells as detected with tryptase or other special stains. Minor criteria Four minor criteria have been defined: ?Atypical morphology or spindle shapes in >25 percent of the mast cells in bone marrow sections, bone marrow aspirate, or other extracutaneous tissues. ?Mutational analysis of KIT (the gene for c-kit) showing a codon 816 mutation (eg, [id number]) in bone marrow, peripheral blood, or extracutaneous organs. ?Bone marrow or other extracutaneous mast cells expressing the surface markers CD2, CD25, or both. ?Serum tryptase levels (when the patient is in a baseline state) >20 ng/mL. Values >11.4 ng/mL are considered elevated in most diagnostic laboratories; however, the WHO criterion is defined as a value >20 ng/mL. Of note, the serum tryptase criterion does not apply to patients with an associated clonal hematologic nonmast cell lineage disorder (AHNMD), since tryptase in such patients can originate from myeloid precursor cells. Bone marrow biopsy is the optimal means of pursuing the diagnosis of SM. Other organs (such as spleen or lymph nodes) are occasionally used as a source of mast cells if they have been removed as part of evaluation or treatment. - CATECHOLAMINES FRACT FREE 24 HR UR - METANEPHRINES-URINE 24 HR - 5HIAA QUANTITATIVE-URINE 24 HR - 24 hour urine n-methylhistamine - 24 hour urine for 11 beta prostaglandin F 2 alpha Will discuss her request for rheumatology referral at next visit. Dry eye syndrome of both eyes 03/11/2018 Scleritis 03/11/2018 Incomplete emptying of bladder 08/09/2017 Overview: 08/08/17 PVR 120cc L ast Assessment & Plan: Will monitor Reviewed double voiding Interstitial cystitis 05/06/2017 Overview: Added automatically from request for surgery [id number] S/p 06/18/17 OPERATIVE PROCEDURE: Cystoscopy, Panendoscopy, Bladder wash for cytology, Bladder hydrodistention under anesthesia., Pelvic examination. Urine Cytology 06/18/17 Final Diagnosis: A. Urinary Bladder Washing: Predominantly squamous cells with scant urothelial cells. Negative for high-grade urothelial carcinoma. L ast Assessment & Plan: Referral to [facility]PT- [facility] Trial of Levsin Discussed Myrbetriq hold for now Will try to avoid anticholinergics with history of constipation, dry eyes and incomplete emptying FU 3 months Sinus tachycardia 04/29/2017 Gastroparesis 04/29/2017 Paresthesia 03/06/2017 Weakness 05/08/2016 Skin rash 05/08/2016 Autonomic dysfunction 05/08/2016 Diarrhea 09/23/2015 Epigastric pain 09/23/2015 Encounters Care Team Description Date Type Specialty Carol Mccoy DO Insurance Concerns (allergy testing not covered) 07/21/2018 Telephone Allergy,Immunology and Rheumatology John Cote MD Autonomic dysfunction (Primary Dx); Dry eye syndrome of both eyes; Scleritis of left eye 06/24/2018 Office Visit Ophthalmology John Cote MD 06/24/2018 Telephone Ophthalmology Carol Mccoy DO Scleritis, unspecified laterality (Primary Dx); Chronic generalized pain 06/24/2018 Orders Only Allergy,Immunology and Rheumatology Carol Mccoy DO Scleritis of left eye (Primary Dx); Chronic generalized pain; Rhinoconjunctivitis; Flushing 06/03/2018 Office Visit Allergy,Immunology and Rheumatology Carol Mccoy DO 05/29/2018 Hospital Lab Encounter Carol Mccoy DO Flushing 05/28/2018 Hospital Lab Encounter from Last 3 Months Family History Medical History Relation Name Comments Gout Brother Jamie Lainez Great Toe Psoriasis Brother Tip Walker High Cholesterol Brother Teofilo Hypertension Brother Teofilo Eczema Brother Víctor Anxiety Father John Walker Arthritis Father John Walker Hearing Loss Father John Walker Heart Disease Father John Walker Angina High Cholesterol Father John Walker Hypertension Father John Walker Psoriasis Father John Walker Coronary Artery Disease Maternal Víctor Arce Grandfather Heart Disease Maternal Víctor Arce Quadruple bypass Grandfather Arthritis Maternal Grandmother Hypertension Maternal Grandmother Neurologic Disorder Maternal Juan Joselovely Arce Uncle Arthritis-osteo Mother Gudelia in her cervical spine Cotter Heart problem Mother Gudelia [place] Neurologic Disorder Mother Gudelia [place] Scoliosis Mother Gudelia [place] Thyroid Disease Mother Gudelia [place] Cancer Paternal Ilya Ray Esophageal CA Grandfather Walker Diabetes Paternal Ilya Burt Grandfather Walker Aneurysm Paternal Leonela aortic Grandmother Walker Arthritis Paternal Leonela Grandmother Walker Autoimmune Disease Paternal Leonela Grandmother Walker Psoriasis Paternal Leonela Grandmother Walker Neurologic Disorder Sister Aiyana Heart valvular Sister Natalya Problem: Heart Valve Regurgitation -leaky valve Migraines Sister Natalya Amblyopia Neg Hx Blindness Neg Hx Cataract Neg Hx Macular Degen Neg Hx Retinal Detachment Neg Hx Strabismus Neg Hx Stroke Neg Hx Relation Name Status Comments Brother Jamie Lainez Alive Brother Tip Lainez Alive Brother Teofilo Alive Brother Víctor Alive Father John Walker Alive Degenerative disc disease Maternal Grandfather Víctor Arce Alive leavening factor 5 Maternal Grandmother Alive Maternal Uncle Juan Jose Claude Alive Mother Gudelia [place] Alive Myotonia Congenita- gene mutation Gwen and Topher/ degenerative disease of servical spine Paternal Grandfather Ilya Javed Walker (Age mid 60s) Paternal Grandmother Leonela lupus Walker (Age early 60s) Sister Aiyana Alive Myotonia Congenita Sister Natalya Alive Subarachnoid shift behind brain Social History Date Tobacco Use Types Packs/Day [...] Travel Start No recent travel history available. Last Filed Vital Signs Time Taken Vital Sign Reading 06/03/2018 10:02 AM CLOTH MERCERIZER OPERATOR Blood Pressure 136/88 06/03/2018 10:02 AM CLOTH MERCERIZER OPERATOR Pulse 72 06/03/2018 10:02 AM CLOTH MERCERIZER OPERATOR Temperature 36.8 C (98.2 F) 06/03/2018 10:02 AM CLOTH MERCERIZER OPERATOR Respiratory Rate 18 06/03/2018 10:02 AM CLOTH MERCERIZER OPERATOR Oxygen Saturation 98% - Inhaled Oxygen - Concentration 06/03/2018 10:02 AM CLOTH MERCERIZER OPERATOR Weight 87.8 kg (193 lb 9.6 oz) 06/03/2018 10:02 AM CLOTH MERCERIZER OPERATOR Height 158.5 cm (5' 2.4") 06/03/2018 10:02 AM CLOTH MERCERIZER OPERATOR Body Mass Index 34.96 Plan of Treatment Health Maintenance Due Date Last Done Comments PHYSICAL (COMPREHENSIVE) 1984 EXAM HIV SCREENING 1992 DTAP/TDAP VACCINES (1 - 1995 Tdap) CERVICAL CANCER SCREENING 2007 BREAST CANCER SCREENING 2017 INFLUENZA VACCINE 02/12/2018 05/07/2003 Procedures Comments Procedure Name Priority Date/Time Associated Diagnosis [facility] TEST Routine 05/28/2018 6:50 AM CLOTH MERCERIZER OPERATOR [facility] TEST Routine 05/28/2018 6:50 AM CLOTH MERCERIZER OPERATOR [facility] REFERENCE TEST Routine 05/28/2018 [place]ushing 6:50 AM CLOTH MERCERIZER OPERATOR [facility] REFERENCE TEST Routine 05/28/2018 [place] 6:50 AM CLOTH MERCERIZER OPERATOR URINE COLLECTION 05/28/2018 6:50 AM CLOTH MERCERIZER OPERATOR URINE COLLECTION 05/28/2018 6:50 AM CLOTH MERCERIZER OPERATOR URINE COLLECTION 05/28/2018 6:50 AM CLOTH MERCERIZER OPERATOR URINE COLLECTION 05/28/2018 6:50 AM CLOTH MERCERIZER OPERATOR 5HIAA QUANTITATIVE-URINE Routine 05/28/2018 [place] 24 HR 6:50 AM CLOTH MERCERIZER OPERATOR CATECHOLAMINES FRACT FREE Routine 05/28/2018 [place] 24 HR UR 6:50 AM CLOTH MERCERIZER OPERATOR METANEPHRINES-URINE 24 HR Routine 05/28/2018 [place] 6:50 AM CLOTH MERCERIZER OPERATOR from Last 3 Months Results * URINE COLLECTION (05/28/2018 6:50 AM CLOTH MERCERIZER OPERATOR) Only the most recent of 4 results within the time period is included. Collection Period, Urine 24.0 [facility] Volume, Urine 3,450 MLS [facility] Performing Organization Address City/State/Zipcode Phone Number [facility] [address] [place] [address] * [facility] TEST (05/28/2018 6:50 AM CLOTH MERCERIZER OPERATOR) Only the most recent of 2 results within the time period is included. [facility] 23BPG, 2,3 dinor 11B REFERENCE LAB Info Prostaglandin F2a, U [place] Miscellaneous Result SEE COMMENTS 06/03/2018 09:38 REFERENCE LAB AM Test ResultFlagUnit RefValue ------ 2,3-dinor 11B-Prostaglandin 2185pg/mg Cr<5205 F2a, U ADDITIONAL INFORMATION Reference range change: A new reference range was implemented on 11/01/2015. The new reference range of <5,205 pg/mg creatinine is the 95th percentile of healthy, untreated individuals. The previous reference range was based on clinical sensitivity and specificity for systemic mastocytosis. Results should not be compared to the previous reference range. This test was developed and its performance characteristics determined by [facility] in a manner consistent with CLIA requirements. This test has not been cleared or approved by the U.S. Food and Drug Administration. Test Performed by: [facility] - [facility] [address] [place] [address] Performing Organization Address City/[facility] Phone Number REFERENCE LAB REFERENCE LAB See results for address. * [facility] REFERENCE TEST (05/28/2018 6:50 AM CLOTH MERCERIZER OPERATOR) Only the most recent of 2 results within the time period is included. Test 2,3 Dinor 11 Beta REFERENCE LAB Prostaglandin F2 Alpha, Urine Reference Lab PERFORMED AT [facility] REFERENCE LAB LABORATORIES Results Ref Lab SEE [facility] TEST REFERENCE LAB Specimen Mail URINE REFERENCE LAB Performing Organization Address [facility] Phone Number REFERENCE LAB REFERENCE LAB See results for address. * METANEPHRINES-URINE 24 HR (05/28/2018 6:50 AM CLOTH MERCERIZER OPERATOR) Metanephrines, 24 HR 114 REFERENCE LAB Comment: Unit: mcg/24 h REFERENCE VALUE - 30-180 (Normotensive) <400 (Hypertensive) [facility], [address] [place] [address] Normetanephrines, 24 HR 286 REFERENCE LAB Comment: Unit: mcg/24 h REFERENCE VALUE - 119-451 (Normotensive) <900 (Hypertensive) [facility], [address] [place] [address] Total Metanephrines 400 REFERENCE LAB Comment: Unit: mcg/24 h REFERENCE VALUE - 156-561 (Normotensive) <1300 (Hypertensive) [facility], [address] [place] [address] Collection Period, Urine 24 REFERENCE LAB Comment: Unit: h [facility], [address] [place] [address] Volume, Urine 3,450 REFERENCE LAB Comment: Unit: mL ADDITIONAL INFORMATION This test was developed and its performance characteristics determined by [facility] in a manner consistent with CLIA requirements. This test has not been cleared or approved by the U.S. Food and Drug Administration. [place] [facility], [address] [place] [address] Specimen Urine - Urine Performing Organization Address [facility] Phone Number REFERENCE LAB REFERENCE LAB See results for address. * CATECHOLAMINES FRACT FREE 24 HR UR (05/28/2018 6:50 AM CLOTH MERCERIZER OPERATOR) Collection Period, Urine 24 REFERENCE LAB Comment: Unit: h [facility], [address] [place] [address] Volume, Urine 3,450 REFERENCE LAB Comment: Unit: mL [place] [facility], [address] [place] [address] Norepinepine, 24 HR 45 REFERENCE LAB Comment: Reference range: 15 to 80 Unit: mcg/24 h [place] [facility], [address] [place] [address] Epinephrine, 24 HR 5.5 REFERENCE LAB Comment: Reference range: <21 Unit: mcg/24 h [facility], [address] [place] [address] Dopamine, 24 HR 107 REFERENCE LAB Comment: Reference range: 65 to 400 Unit: mcg/24 h ADDITIONAL INFORMATION This test was developed and its performance characteristics determined by [facility] in a manner consistent with CLIA requirements. This test has not been cleared or approved by the U.S. Food and Drug Administration. [facility], [address] [place] [address] Specimen Urine - Urine Performing Organization Address [facility] Phone Number REFERENCE LAB REFERENCE LAB See results for address. * 5HIAA QUANTITATIVE-URINE 24 HR (05/28/2018 6:50 AM CLOTH MERCERIZER OPERATOR) 5-HIAA/CP 4.8 MG/24HR REFERENCE LAB Comment: Reference range: <=8.0 Unit: mg/24 h [facility] Collection Period, Urine 24 REFERENCE LAB Comment: Unit: h [facility] Volume, Urine 3,450 REFERENCE LAB Comment: Unit: mL ADDITIONAL INFORMATION Liquid Chromatography-Tandem Mass Spectrometry (LC-MS/MS). Values obtained from different assay methods or kits may be different and cannot be used interchangeably. The results cannot be interpreted as absolute evidence for the presence or absence of malignant disease. This test was developed and its performance characteristics determined by [facility] in a manner consistent with CLIA requirements. This test has not been cleared or approved by the U.S. Food and Drug Administration. [facility] Specimen Urine - Urine Performing Organization Address City/State/Zipcode Phone Number REFERENCE LAB REFERENCE LAB See results for address. from Last 3 Months Insurance Payer Benefit Subscriber ID Type Phone Address Plan / Group BCBS [employer] xxxxxxxxxxxxxxx PPO BLUE OUT OF STATE Advance Directives Patient has advance care planning documents on file. For more information, please contact: [facility] [address] [place] [address]
--- OUTSIDE RECORDS SUMMARY | 2018-08-14 11:25 | XMS REPORT | Encounter Summary ---
Author Author [facility] Organization [facility] Address Unknown Phone Unavailable Care Team Providers Care Laborer Concrete Paving Name Role Phone No Pcp, Na Unavailable Unavailable Jose Rodriguez MD Unavailable Sahara Smith MD PCP Mychart, Generic Provider Unavailable Unavailable Murali Medina MD Unavailable Murali Gaines MD Unavailable Ibeth Rendon MD Unavailable Encounter Details Care Team Description Date Type Department John Cote MD [address] [place] [address] 06/24/2018 Telephone [facility] - Ophthalmology [facility] [address] [place] [address] Social History Date Tobacco Use Types Packs/Day [...] as of this encounter Plan of Treatment Not on fileas of this encounter Visit Diagnoses Not on filein this encounter
--- OUTSIDE RECORDS SUMMARY | 2018-08-14 11:25 | XMS REPORT | Encounter Summary ---
Author Author [facility] Organization [facility] Address Unknown Phone Unavailable Care Team Providers Care Chief Catalyst Operator Name Role Phone Sahara Smith MD PCP Reason for Visit * Reason Comments Questions on IVIG Encounter Details Date Type Department Care Team Description 06/30/2018 Telephone [facility] Oscar Olvera, Questions on IVIG [address] [place] [address] [facility] [address] [place] [address] [phone] Social History Tobacco Use Types Packs/Day Years Used Date Former Smoker Cigarettes 0.5 5 Quit: 2002 Smokeless Tobacco: Never Used Alcohol Use Drinks/Week oz/Week Comments Yes a few drinks monthly. Sex Assigned at Date Recorded Not on file as of this encounter Miscellaneous Notes * Telephone Encounter - Giuliana Ramires MA - 07/22/2018 8:55 AM TECHNICAL PROGRAM MANAGER I spoke to Aurora and verified she is still doing her lab work every 3 months and is due for her next one on August 07. We discussed she needs to have her weight documented prior to every infusion and I asked her to have this done at the infusion center. We discussed I have the order changing her infusions to every 21 days and it has been faxed to [facility] P/[phone] F/[phone] * Telephone Encounter - Giuliana Ramires MA - 07/02/2018 8:48 AM TECHNICAL PROGRAM MANAGER I spoke to Aurora and let her know Dr. May okayed her to have the IVIG every 21 days. She is already scheduled for next and Saturday, July 10 and and then knows she can start doing the every 3 weeks after that. I let her know I will speak to [facility] and [facility] both regarding getting them a new prescription. She knows to call back if needed. st * Telephone Encounter - Giuliana Ramires MA - 06/30/2018 2:02 PM TECHNICAL PROGRAM MANAGER FYI: Dr. 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 She complained of some minor symptoms the first week reporting on day 4 she will have a severe headache, day 5 and 6 will have what she described as "brain fog" and after the last IVIG which was June 12 she experienced dizziness. Then she is good for the next 2 weeks but starting the fourth week all her symptoms come back with a vengeance. She talked about her face, hands and feet becoming swollen and painful. [facility] pharmacy is who provides her IVIG, she was speaking to them and states that they told her it maybe her "levels are low" and that they are the ones that suggested she needs to have the infusion every 3 weeks instead of every 28 days. Please advise. Thanks! Vivienne in this encounter Plan of Treatment Date Type Specialty Care Team Description 09/24/2018 Office Visit Neurology Erendira Baker MD PhD [address] [place] [address] [phone] Latanya Alvares, RN as of this encounter Visit Diagnoses Diagnosis Autonomic dysfunction Voltage-gated calcium channel antibody positive
--- OUTSIDE RECORDS SUMMARY | 2018-08-14 11:26 | XMS REPORT | Encounter Summary ---
Author Author [facility] Organization [facility] Address Unknown Phone Unavailable Care Team Providers Care Rotary Drier Operator Name Role Phone No Pcp, Na Unavailable Unavailable Jose Rodriguez MD Unavailable Sahara Smith MD PCP Mychart, Generic Provider Unavailable Unavailable Murali Medina MD Unavailable Murali Gaines MD Unavailable Ibeth Rendon MD Unavailable Encounter Details Care Team Description Date Type Department Carol Mccoy DO [address] [place] [address] Flushing 05/28/2018 Hospital Clin[facility] Encounter [facility] [address] [place] [address] Social History Date Tobacco Use Types Packs/Day [...] cognitive impairment: No as of this encounter Medications at Time of Discharge Start Date End Date Medication Sig Dispensed Refills aspirin/acetaminophen/caf Take 1 tablet 0 feine(+) (EXCEDRIN by mouth MIGRAINE) 250/250/65 mg every 6 hours tabIndications: Pain as needed (headache). Indications: PAIN baclofen (LIORESAL) 10 mg Take 10 mg by 0 tablet mouth twice daily. cyclosporine (RESTASIS) Place 1 drop 0 0.05 % ophthalmic into or emulsion around eye(s) twice daily. duloxetine DR (CYMBALTA) Take 60 mg by 0 60 mg capsule mouth twice daily. 02/13/2018 immun glob G(IgG)-pro-IgA Administer 85 0 0-50 10 % soln g through vein. immune globulin(+) 10% Administer 0 (GAMMAGARD; PRIVIGEN) 10 through vein g/100 mL IV infusion once. Infusion every 28 days 03/03/2018 ivabradine (CORLANOR) 5 Take 5 mg by 0 mg tablet mouth. 05/13/2018 ketorolac(+) (ACULAR LS) Use one drop 5 mL 3 0.4 % ophthalmic solution four times daily in the left eye or as directed lisdexamfetamine(+) Take 40 mg by 0 (VYVANSE) 40 mg capsule mouth every morning loratadine(+) (CLARITIN 0 REDITABS) 5 mg rapid dissolve tablet olopatadine 0.7 % drop Place into 0 or around eye(s) daily as needed. oxyCODONE (ROXICODONE, Take 1 tablet 0 OXY-IR) 15 mg tablet by mouth every 6 hours as needed for Pain polyvinyl Place 1 drop 0 alcohol/povidone into or (REFRESH) 1.4/0.6 % around eye(s) ophthalmic every 4 hours solutionIndications: dry as needed. eye Indications: DRY EYE 03/04/2018 propranolol (INDERAL) 20 Take 20 mg by 0 mg tablet mouth. sodium Cl-sod cit-pot Take 1 packet 0 Cl-dextr (NORMALYTE ORS) by mouth 1.3-1.45-0.75 gram/10.5 twice daily. gram pwpk 06/03/2018 azelastine(+) (ASTELIN) Apply 1 spray 0 137 mcg (0.1 %) nasal into nose as spray directed. 10/11/2014 06/03/2018 fluticasone (FLONASE) 50 0 mcg/actuation nasal spray as of this encounter Plan of Treatment Not on fileas of this encounter Visit Diagnoses Not on filein this encounter
--- OUTSIDE RECORDS SUMMARY | 2018-08-14 11:26 | XMS REPORT | Encounter Summary ---
Author Author [facility] Organization [facility] Address Unknown Phone Unavailable Care Team Providers Care Early Childhood Worker Name Role Phone No Pcp, Na Unavailable Unavailable Jose Rodriguez MD Unavailable Sahara Smith MD PCP Mychart, Generic Provider Unavailable Unavailable Murali Mednia MD Unavailable Murali Gaines MD Unavailable Ibeth Rendon MD Unavailable Reason for Referral * Consult, Test & Treat (Routine) Referred By Contact Referred To Contact Status Reason Specialty Diagnoses / Procedures Carol Mccoy DO [address] [facility] [address] [place] [address] [facility] Rheumatology [facility] [place] [id number] Closed Specialty Services Rheumatology Diagnoses Required Scleritis of left eye Chronic generalized pain R52, G89.29 (ICD-10-CM) - Chronic generalized pain, H15.002 (ICD-10-CM) - Scleritis of left eye Reason for Visit * Reason Comments Allergy Testing Encounter Details Care Team Description Date Type Department Carol Mccoy DO [address] [place] [address] [phone] Scleritis of left eye (Primary Dx); Chronic generalized pain; Rhinoconjunctivitis; Flushing 06/03/2018 Office Visit [facility] - Internal Medicine [facility] Level 4A [address] [place] [address] Social History Date Tobacco Use [...] travel history available. as of this encounter Last Filed Vital Signs Time Taken Vital Sign Reading 06/03/2018 10:02 AM ORE TRIMMER Blood Pressure 136/88 06/03/2018 10:02 AM ORE TRIMMER Pulse 72 06/03/2018 10:02 AM ORE TRIMMER Temperature 36.8 C (98.2 F) 06/03/2018 10:02 AM ORE TRIMMER Respiratory Rate 18 06/03/2018 10:02 AM ORE TRIMMER Oxygen Saturation 98% - Inhaled Oxygen - Concentration 06/03/2018 10:02 AM ORE TRIMMER Weight 87.8 kg (193 lb 9.6 oz) 06/03/2018 10:02 AM ORE TRIMMER Height 158.5 cm (5' 2.4") 06/03/2018 10:02 AM ORE TRIMMER Body Mass Index 34.96 in this encounter Functional Status Date of Assessment [...] cognitive impairment: No as of this encounter Patient Instructions * Patient Instructions* Carol Mccoy DO - 06/03/2018 10:00 AM ORE TRIMMER Vasmotor rhinitis - will try the Atrovent. May stop the Claritin and may use Charisse. See fig caprifier for your acne. I placed the referral for rheumatology. Continue follow up with all your other specialists. I will wait for the last urine test to come back but I think your flushing is just a vasodilatory response. TRIMMER in this encounter Progress Notes * Carol Mccoy DO - 06/03/2018 10:00 AM ORE TRIMMER Date of Service: 06/03/2018 Subjective: Aurora Godfrey is a 43 y.o. female with small fiber neuropathy, dysautonomia, POTS, and multiple drug allergies who was evaluated for mast cell activation syndrome who is now here for her follow up. History of Present Illness She has been getting her IVIg infusions for her small fiber neuropathy. She states that the last two have been given overnight. She states they run at such a slow rate and she gets them continuous overnight with less side effects. This has been done twice. She feels they are helping her neuropathy and her pain. She also feels that she has more energy. She still has other issues happening. She states her quality of life is a lot better, but she still has the scleritis occasionally and diarrhea sometimes with bloody stools. From the flushing standpoint, she does not think that her symptoms are better with the antihistamines. She will have splotchy redness on her cheeks and neck. It is not itchy and it is not necessarily triggered by an exposure. She shows me a photo of red cheeks and red neck in splotches. Her sister is in the room and she and has some on her neck as well. She states this happens with any physical or emotional procedure. She does not even notice it until someone else notices it. She states she needs to know it is connected to something she already has. She does feel warm sometimes when it gets bad. This has been going on for years, but it seems more frequently now. She is seeing GI (Dr. Piña) today for the bloody stools. She states that she had a small bowel series after a CT showed there was distension in her ileum. The colonoscopy was normal but she has a tortuous colon so they could not get into the ileum and so they are going to evaluate her small bowel. She is not "flaring" right now. She was told there were loss of mucosal folds in the terminal ileum and that could be associated with IBD. She ran out of her Flonase and she needs refills. She will typically use Flonase 1 spray each nostril once daily. More causes sores and epistaxis. She uses saline spray and yet still blows her nose a lot. She has seen ENT for this. She does use Mupirocin once to twice daily. As soon as she stops, she has return of symptoms. She states Astelin used to work but her nose constantly drips even when she uses it. She thinks she has used Atrovent and thinks she was not good about doing it throughout the day. She would like to try it again. She is ready to do aeroallergen skin testing today. She has been off all antihistamines in anticipation of skin testing today. She did not feel any different off her Claritin. She felt Charisse helps her more to dry her up. She just had the Claritin at home and did not want to go back to by more. She has problems with acne on her face. She thinks it is new in the last year. She states it will start as a red spot that does not come to a head. If she squeezes it, she will have clear liquid come out. She may get them on her chest and on her neck. She was going to plan to see dermatology. She has had neck pain and headaches in her shoulders. She may also have occasional pressure in between her eyes sometimes. Rhinitis Control Assessment Test 1. During the past week, how often did you have nasal congestion? 1) Extremely often 2) Often 3) Sometimes 4) Rarely 5) Never 2. During the past week, how often did you sneeze? 1) Extremely often 2) Often 3) Sometimes 4) Rarely 5) Never 3. During the past week, how often did you have watery eyes? 1) Extremely often 2) Often 3) Sometimes 4) Rarely 5) Never 4. During the past week, to what extent did your nasal or other allergy symptoms interfere with your sleep? 1) All the time 2) A lot 3) Somewhat 4) A little 5) Not at all 5. During the past week, how often did you avoid any activities (for example visiting a house with a dog or cat, gardening) because of your nasal or other allergy symptoms? 1) Extremely often 2) Often 3) Sometimes 4) Rarely 5) Never 6. During the past week, how well were your nasal or other allergy symptoms controlled? 1) Not at all 2) A little 3) Somewhat 4) Very 5) Completely Total Score: 18 A total score of 21 or less may indicate inadequate control of symptoms. Review of Systems Constitutional: Positive for diaphoresis. HENT: Positive for congestion, postnasal drip, rhinorrhea, sinus pressure and tinnitus. Eyes: Positive for redness. Gastrointestinal: Positive for abdominal distention, abdominal pain, anal bleeding, blood in stool and nausea. Endocrine: Positive for cold intolerance and heat intolerance. Genitourinary: Positive for decreased urine volume, difficulty urinating and genital sores. Musculoskeletal: Positive for arthralgias, back pain, myalgias, neck pain and neck stiffness. Skin: Positive for rash. Neurological: Positive for weakness, numbness and headaches. All other systems reviewed and are negative. Objective: aspirin/acetaminophen/caffeine(+) (EXCEDRIN MIGRAINE) 250/250/65 mg tab Take 1 tablet by mouth every 6 hours as needed (headache). Indications: PAIN baclofen (LIORESAL) 10 mg tablet Take 10 mg by mouth twice daily. cyclosporine (RESTASIS) 0.05 % ophthalmic emulsion Place 1 drop into or around eye(s) twice daily. duloxetine DR (CYMBALTA) 60 mg capsule Take 60 mg by mouth twice daily. fluticasone (FLONASE) 50 mcg/actuation nasal spray Apply one spray to two sprays to each nostril as directed daily. immun glob G(IgG)-pro-IgA 0-50 10 % soln Administer 85 g through vein. immune globulin(+) 10% (GAMMAGARD; PRIVIGEN) 10 g/100 mL IV infusion Administer through vein once. Infusion every 28 days ipratropium (ATROVENT) 0.03 % nasal spray Apply one spray to two sprays to each nostril as directed four times daily as needed. ivabradine (CORLANOR) 5 mg tablet Take 5 mg by mouth. ketorolac(+) (ACULAR LS) 0.4 % ophthalmic solution Use one drop four times daily in the left eye or as directed lisdexamfetamine(+) (VYVANSE) 40 mg capsule Take 40 mg by mouth every morning loratadine(+) (CLARITIN REDITABS) 5 mg rapid dissolve tablet olopatadine 0.7 % drop Place into or around eye(s) daily as needed. oxyCODONE (ROXICODONE, OXY-IR) 15 mg tablet Take 1 tablet by mouth every 6 hours as needed for Pain polyvinyl alcohol/povidone (REFRESH) 1.4/0.6 % ophthalmic solution Place 1 drop into or around eye(s) every 4 hours as needed. Indications: DRY EYE propranolol (INDERAL) 20 mg tablet Take 20 mg by mouth. sodium Cl-sod cit-pot Cl-dextr (NORMALYTE ORS) 1.3-1.45-0.75 gram/10.5 gram pwpk Take 1 packet by mouth twice daily. Vitals: 06/03/18 1002 BP: 136/88 Pulse: 72 Resp: 18 Temp: 36.8 C (98.2 F) TempSrc: Oral SpO2: 98% Weight: 87.8 kg (193 lb 9.6 oz) Height: 158.5 cm (62.4") Body mass index is 34.96 kg/m. Physical Exam Constitutional: She is oriented to person, place, and time. Vital signs are normal. She appears well-developed and well-nourished. HENT: Head: Normocephalic and atraumatic. Right Ear: Tympanic membrane, external ear and ear canal normal. Left Ear: Tympanic membrane, external ear and ear canal normal. Nose: Nose normal. Mouth/Throat: Oropharynx is clear and moist and mucous membranes are normal. No oropharyngeal exudate. Eyes: Conjunctivae are normal. Right eye exhibits no discharge. Left eye exhibits no discharge. No scleral icterus. Cardiovascular: Normal rate, regular rhythm and normal heart sounds. Exam reveals no gallop and no friction rub. No murmur heard. Pulmonary/Chest: Effort normal and breath sounds normal. No respiratory distress. She has no wheezes. She has no rales. She exhibits no tenderness. Neurological: She is alert and oriented to person, place, and time. Skin: Skin is warm and dry. No rash noted. No erythema. Psychiatric: She has a normal mood and affect. Vitals reviewed. Aeroallergen Skin Puncture Testing Testing Information Consent Obtained: Yes Last Antihistamine Date: 05/27/18 Time Antigen Placed: 1109 Needle Type: Antolin Tip/HS Antigen Front Desk Officer: Monica Testing Nurse: GISELLE Mcdaniel/GISELLE Arvizu Reviewing Physician: Nadine Anderson 1. Dil w/50% Glycerin (HS): 0/0 2. Histamine Phos: 01/29 Trees Uli, White 1:20 (HS): 0/0 Birch Mix 1:20 (HS): 0/0 Lenexa 1:20 (HS): 0/0 Suffield, Mountain 1:20 (HS): 0/0 Columbus 1:20 (HS): 0/0 Elm, Jordanian 1:20 (HS): 0/0 Maple Mix 1:20 (HS): 0/0 Steuben Mix 1:20 (HS): 0/0 Mobile Mix 1:20 (HS): 0/0 Placer Mix 1:20 (HS): 0/0 Sweetgum 1:20 (HS): 0/0 Windham, Jordanian 1:20 (HS): 0/0 Mercer, Black 1:20 (HS): 0/0 Grasses Bermuda 10,000 BAU/ml (HS): 0/0 Otilio 1:20 (HS): 0/0 Sweet Vernal 100,000 BAU/ml (HS): 0/0 Fransico 100,000 BAU/ml (HS): 0/0 Weeds Careless/Pigweed Mix 1:20 (HS): 0/0 Cocklebur 1:20 (HS): 0/0 Dock/Robert Lee Mix 1:20 (HS): 0/0 Kochia 1:20 (HS): 0/0 Sandy Elder 1:20 (HS): 0/0 Nettle 1:20 (HS): 0/0 Plantain, Albanian 1:20 (HS): 0/0 Ragweed, Short 1:20 (HS): 0/0 Ragweed, Western 1:20 (HS): 0/0 Argentine Thistle 1:20 (HS): 0/0 Sagebrush/Mugwort 1:20 (HS): 0/0 Mites and Cockroaches Cockroach, Jordanian 1:10 (HS): 0/0 Cockroach, Kinyarwanda 1:10 (HS): 0/0 Derm. Farinae 30,000 AU/ml (HS): 0/0 Derm. Pteronyssinus 30,000 AU/ml (HS): 0/0 Animals Cat, AP Pelt 10,000 BAU/ml (HS): 0/0 Dog, AP Hair and Dander 1:10 (HS): 0/0 Feather Mix 1:10 (HS): 0/0 Molds and Fungi Alternaria Tenuis 1:10 (HS): 0/0 Aspergillus Fumigatus 1:10 (HS): 0/0 Curvularia Spiciferas 1:10 (HS): 0/0 Epicoccum Nigrum 1:10 (HS): 0/0 Fusarium Vasinfectum 1:10 (HS): 0/0 Helminthosporium Inters. 1:10 (HS): 0/0 Horm. Cladosporioides 1:10 (HS): 0/0 Mucor Racemosus 1:10 (HS): 0/0 Penicillium Notaturn 1:10 (HS): 0/0 Phoma Herbarum 1:10 (HS): 0/0 Rhizopus Nigricans 1:10 (HS): 0/0 Stemphylium Botryosum 1:10 (HS): 0/0 Histamine Phosphate 10mg/ml (HS): 7/33 Ref. Range 04/29/2018 13:15 Tryptase <11.4 3.2 Ref. Range 05/28/2018 06:50 Collection Period, Urine Unknown 24.0 Volume, Urine Latest Units: MLS 3,450 5-HIAA/CP Latest Units: <=8 MG/24HR 4.8 Ref. Range 05/28/2018 06:50 Epinephrine, 24 HR <21 5.5 Norepinepine, 24 HR 15-80 45 Dopamine, 24 HR 65-400 107 Metanephrines, 24 HR 30-180 114 Normetanephrines, 24 HR 119-451 286 Total Metanephrines 156-561 400 Assessment and Plan: Problem Chronic Generalized Pain Scleritis Prior work up negative for autoimmune disease (including negative HLA-B27, but patient has since developed scleritis and there is now concern for IBD based on some ongoing evaluation. - Will refer to rheumatology based on patient's request and newer symptoms. Flushing Has not improved with antihistamines. 24 hour urine studies were negative for pheochromocytoma, carcinoid, and mast cell disease. Tryptase was within normal limits. 24 hour urine n- methylhistamine and prostaglandin F2 alpha were both within normal limits. - Most likely a vasodilatory response that is triggered by physical or emotional stress. - Reassurance was provided. Rhinoconjunctivitis Perennial, worse in fall and spring. - [...] need for allergy immunotherapy or avoidance measures. She will continue management of her small fiber neuropathy with her neurologist and seek care from a fig caprifier for her acne. RTC in 3 months. Thank you for allowing us to participate in the care of this patient. Please feel free to contact us if there are any questions or concerns about the patient. Carol Mccoy DO Biology Adjunct Instructor Division of Allergy, Immunology, and Rheumatology Department of Medicine and Department of Pediatrics [facility] TRIMMER in this encounter Plan of Treatment Order Schedule Name Priority Associated Diagnoses Ordered: 06/03/2018 AMB REFERRAL TO RHEUMATOLOGY Routine Scleritis of left eye Chronic generalized pain as of this encounter Visit Diagnoses Diagnosis Scleritis of left eye - Primary Scleritis, unspecified Chronic generalized pain Generalized pain Rhinoconjunctivitis Chronic rhinitis Flushing in this encounter
--- OUTSIDE RECORDS SUMMARY | 2018-08-14 11:26 | XMS REPORT | Encounter Summary ---
Author Author [facility] Organization [facility] Address Unknown Phone Unavailable Care Team Providers Care Circulation Manager Name Role Phone No Pcp, Na Unavailable Unavailable Jose Rodriguez MD Unavailable Sahara Smith MD PCP Mychart, Generic Provider Unavailable Unavailable Murali Medina MD Unavailable Murali Gaines MD Unavailable Ibeth Rendon MD Unavailable Reason for Visit * Reason Comments Follow Up 6 week 05/13/2018 follow up for scleritis of the left eye. Medication Update Restasis BID OU, Ketorolac QD Os QID OD ,olopatadine , Refresh Vision Change She still has bluriness in the left eye worse in the morning . Otherwise her vision is unchanged. Red Eye Some spots intermittant in both eyes by the inner and outer edges of the eye. Allergy Testing Results are negative for allergies Test/procedure Results for small bowel endoscopy was negative for chrons Headache She reportes frequent headaches describded as pressure behind the eye. Encounter Details Care Team Description Date Type Department John Cote MD [address] [place] [address] Autonomic dysfunction (Primary Dx); Dry eye syndrome of both eyes; Scleritis of left eye 06/24/2018 Office Visit [facility] - Ophthalmology [address] [place] [address] Social History Date Tobacco Use [...] cognitive impairment: No as of this encounter Progress Notes * John Cote MD - 06/24/2018 2:00 PM QUARTER LINING SMOOTHER Body mass index is 33.99 kg/m. Assessment and Plan: 03-11[birth year]18 42 y/o lady started having red uncomfortable left eye in 2014 and has been treated w intermittent corticosteroid drops off and on since about the same time she began having significant problems w gi symptoms she saw Dr Jose Rodriguez here at , he thought she had gastroparesis though she had VLADISLAV 1:160 and an elevated saccharo cerevis titer and ESR 5 and CRP .9. And had gi work up w/ Dr Medina and his final note says Irritable bowel, since she has seen neurology w dx autonomic dys function, voltage gate potassium channel antibodies , small fiber neuropathy dx by biopsy, peripheral nerve hyper excitability, she also sees cardiology w postural orthostatic tachycardia syndrome, and Dr Vladez for associated gu problem, A careful and thoughtful personal history, family history and review of systems reveals that she has a family history w more than usual autoimmune disorders or developmental problems. Including SLE both parents w back pain and stiffness, psoriasis, myotonia congentia and others. 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 Negative tb skin test recent, works in health care as medical attendant, has recently started IVIgG an this has helpe extended fatigue not treated w gabapentin, cymbalta,Lyrica amitriptyline. She has had difficulty w mouth ulcers , and genital ulcers and nasal ulcer that was cultured for HSV and neg, she had chicken pox as child, sweats more than usual, she has 2 children in good health, also has interstitial cystitis, joint pain and swelling hands wrist, right hip and neck. The clinical course and history of a red irritated left all seem compatible w a scleritis and need for chronic low grade local antiinflammatoary treatment so after discussionw patient and ,start ketorolac os bid discuss FDA and generic and status, alphonse 2-3 wks 06-24-18 Aurora is a 43 y.o. female that had concerns including Follow Up (6 week 05/13 follow up for scleritis of the left eye.); Medication Update (Restasis BID OU, Ketorolac QD Os QID OD ,olopatadine , Refresh ); Vision Change (She still has bluriness in the left eye worse in the morning . Otherwise her vision is unchanged.); Red Eye (Some spots intermittant in both eyes by the inner and outer edges of the eye.); Allergy Testing (Results are negative for allergies ) ; Test/procedure (Results for small bowel endoscopy was negative for chrons); and Headache (She reportes frequent headaches describded as pressure behind the eye.). HPI, Assessment and Plan: There were no encounter diagnoses. Returns for follow up, last week of IvIg infusion gets ache behind os, worse when setting up and Occurs 4 after infusions has 2 days and clears slowly, continues now w ketorolac qid and feels she is compliant, uses artificial tears Equate Carboxymethyl cellulose in 10 ml. Continues Restasis but has no tear espinoza ou, and if this is not inflammatory dry then Restasis may not be making a difference.Seems to be doing better w ketorolac as far as scleritis. Facing a lot of stress. Cont to monitor alphonse 3mo TER LINING SMOOTHER in this encounter Plan of Treatment Not on fileas of this encounter Visit Diagnoses Diagnosis Autonomic dysfunction - Primary Unspecified disorder of autonomic nervous system Dry eye syndrome of both eyes Scleritis of left eye Scleritis, unspecified in this encounter
--- OUTSIDE RECORDS SUMMARY | 2018-08-14 11:26 | XMS REPORT | Encounter Summary ---
Author Author [facility] Organization [facility] Address Unknown Phone Unavailable Care Team Providers Care Transcribing Operators Supervisor Name Role Phone No Pcp, Na Unavailable Unavailable Jose Rodriguez MD Unavailable Sahara Smith MD PCP Mychart, Generic Provider Unavailable Unavailable Murali Medina MD Unavailable Murali Gaines MD Unavailable Ibeth Rendon MD Unavailable Encounter Details Care Team Description Date Type Department Carol Mccoy DO [address] [place] [address] 05/29/2018 [facility] En[facility] [address] [place] [address] Social History Date Tobacco Use Types Packs/Day [...] Treatment Not on fileas of this encounter Procedures Comments Procedure Name Priority Date/Time Associated Diagnosis URINE COLLECTION 05/28/2018 6:50 AM INSTRUCTOR ADJUNCT PHARMACY TECHNICIAN URINE COLLECTION 05/28/2018 6:50 AM INSTRUCTOR ADJUNCT PHARMACY TECHNICIAN URINE COLLECTION 05/28/2018 6:50 AM INSTRUCTOR ADJUNCT PHARMACY TECHNICIAN URINE COLLECTION 05/28/2018 6:50 AM INSTRUCTOR ADJUNCT PHARMACY TECHNICIAN [facility] FERNA[facility] TEST Routine 05/28/2018 6:50 AM INSTRUCTOR ADJUNCT PHARMACY TECHNICIAN [facility] FER[facility] TEST Routine 05/28/2018 6:50 AM INSTRUCTOR ADJUNCT PHARMACY TECHNICIAN [facility] REFERENCE TEST Routine 05/28/2018 [place] 6:50 AM INSTRUCTOR ADJUNCT PHARMACY TECHNICIAN [facility] REFERENCE TEST Routine 05/28/2018 [place] 6:50 AM INSTRUCTOR ADJUNCT PHARMACY TECHNICIAN METANEPHRINES-URINE 24 HR Routine 05/28/2018 [place] 6:50 AM INSTRUCTOR ADJUNCT PHARMACY TECHNICIAN CATECHOLAMINES FRACT FREE Routine 05/28/2018 [place] 24 HR UR 6:50 AM INSTRUCTOR ADJUNCT PHARMACY TECHNICIAN 5HIAA QUANTITATIVE-URINE Routine 05/28/2018 [place] 24 HR 6:50 AM INSTRUCTOR ADJUNCT PHARMACY TECHNICIAN in this encounter Results * [facility] TEST (05/28/2018 6:50 AM INSTRUCTOR ADJUNCT PHARMACY TECHNICIAN) [place] Miscellaneous Test 23BPG, 2,3 dinor 11B REFERENCE LAB Info Prostaglandin F2a, U [place] Miscellaneous Result SEE COMMENTS 06/03/2018 09:38 REFERENCE [...] developed and its performance characteristics determined by [facility] in a manner consistent with CLIA requirements. This test has not been cleared or approved by the U.S. Food and Drug Administration. Test Performed by: [address] [id number] Performing Organization Address City/[facility] Phone Number REFERENCE LAB REFERENCE LAB See results for address. * [facility] TEST (05/28/2018 6:50 AM INSTRUCTOR ADJUNCT PHARMACY TECHNICIAN) Test 2,3 Dinor 11 Beta REFERENCE LAB Prostaglandin F2 Alpha, Urine Reference Lab PERFORMED AT [facility] Results Ref Lab SEE [facility] TEST REFERENCE LAB Specimen Mail URINE REFERENCE LAB Performing Organization Address City/[facility] Phone Number REFERENCE LAB REFERENCE LAB See results for address. * [facility] TEST (05/28/2018 6:50 AM INSTRUCTOR ADJUNCT PHARMACY TECHNICIAN) [facility]IN, N Methylhistamine, U [facility] Info [facility] SEE COMMENTS 06/04/2018 03:16 REFERENCE LAB PM Test Resu ltFlagUnit RefValue ------ N-Methylhistamine, U56 mcg/g [id number] Collection Duration 24 h Urine Volume 3450 mL ADDITIONAL INFORMATION This test was developed and its performance characteristics determined by [facility] in a manner consistent with CLIA requirements. This test has not been cleared or approved by the U.S. Food and Drug Administration. Creatinine Conc 52 mg/dL Test Performed by: [facility] [address], [place] [address] Performing Organization Address City/State/Zipcode Phone Number REFERENCE LAB REFERENCE LAB See results for address. * [facility] REFERENCE TEST (05/28/2018 6:50 AM INSTRUCTOR ADJUNCT PHARMACY TECHNICIAN) Test N Methylhistamine, Urine REFERENCE LAB Reference Lab PERFORMED AT [facility] Results Ref Lab SEE [facility] TEST REFERENCE LAB Specimen Mail URINE REFERENCE LAB Performing Organization Address City/[facility] Phone Number REFERENCE LAB REFERENCE LAB See results for address. * URINE COLLECTION (05/28/2018 6:50 AM INSTRUCTOR ADJUNCT PHARMACY TECHNICIAN) Collection Period, Urine 24.0 [facility] Volume, Urine 3,450 MLS [facility] Performing Organization Address City/[facility] Phone Number [facility] [address] [place] [address] * URINE COLLECTION (05/28/2018 6:50 AM INSTRUCTOR ADJUNCT PHARMACY TECHNICIAN) Collection Period, Urine 24.0 [facility] Volume, Urine 3,450 MLS [facility] Performing Organization Address [facility] Phone Number [facility] [address] [place] [address] * URINE COLLECTION (05/28/2018 6:50 AM INSTRUCTOR ADJUNCT PHARMACY TECHNICIAN) Collection Period, Urine 24.0 [facility] Volume, Urine 3,450 MLS [facility] Performing Organization Address [facility] Phone Number [facility] [address] [place] [address] * URINE COLLECTION (05/28/2018 6:50 AM INSTRUCTOR ADJUNCT PHARMACY TECHNICIAN) Collection Period, Urine 24.0 [facility] Volume, Urine 3,450 MLS [facility] Performing Organization Address [facility] Phone Number [facility] [address] [place] [address] * 5HIAA QUANTITATIVE-URINE 24 HR (05/28/2018 6:50 AM INSTRUCTOR ADJUNCT PHARMACY TECHNICIAN) 5-HIAA/CP 4.8 MG/24HR REFERENCE LAB Comment: Reference [...] developed and its performance characteristics determined by [facility] in a manner consistent with CLIA requirements. This test has not been cleared or approved by the U.S. Food and Drug Administration. [facility] Specimen Urine - Urine Performing Organization Address [facility] Number REFERENCE LAB REFERENCE LAB See results for address. * CATECHOLAMINES FRACT FREE 24 HR UR (05/28/2018 6:50 AM INSTRUCTOR ADJUNCT PHARMACY TECHNICIAN) Collection Period, Urine 24 REFERENCE LAB Comment: Unit: h [facility], [address] [place] [id number] Volume, Urine 3,450 REFERENCE LAB Comment: Unit: mL [facility], [address] [place] [address] Norepinepine, 24 HR 45 REFERENCE LAB Comment: Reference range: 15 to 80 Unit: mcg/24 h [facility], [address] [place] [address] Epinephrine, 24 HR 5.5 REFERENCE LAB Comment: Reference range: <21 Unit: mcg/24 h [facility], [address] [place] [address] Dopamine, 24 HR 107 REFERENCE LAB Comment: Reference range: 65 to 400 Unit: mcg/24 h ADDITIONAL INFORMATION This test was developed and its performance characteristics determined by [facility] in a manner consistent with CLIA requirements. This test has not been cleared or approved by the U.S. Food and Drug Administration. [facility], [address] [place] [address] Specimen Urine - Urine Performing Organization Address [facility] Phone Number REFERENCE LAB REFERENCE LAB See results for address. * METANEPHRINES-URINE 24 HR (05/28/2018 6:50 AM INSTRUCTOR ADJUNCT PHARMACY TECHNICIAN) Metanephrines, 24 HR 114 REFERENCE LAB Comment: Unit: mcg/24 h REFERENCE VALUE - 30-180 (Normotensive) <400 (Hypertensive) [facility], [address] [place] [phone] Normetanephrines, 24 HR 286 REFERENCE LAB Comment: Unit: mcg/24 h REFERENCE VALUE - 119-451 (Normotensive) <900 (Hypertensive) [facility], [address] [place] [address] Total Metanephrines 400 REFERENCE LAB Comment: Unit: mcg/24 h REFERENCE VALUE - 156-561 (Normotensive) <1300 (Hypertensive) [facility], [address] [place] [address] Collection Period, Urine 24 REFERENCE LAB Comment: Unit: h [facility], [address] [place] [address] Volume, Urine 3,450 REFERENCE LAB Comment: Unit: mL ADDITIONAL INFORMATION This test was developed and its performance characteristics determined by [facility] in a manner consistent with CLIA requirements. This test has not been cleared or approved by the U.S. Food and Drug Administration. [facility], [address] [place] [id number] Specimen Urine - Urine Performing Organization Address [facility] Phone Number REFERENCE LAB REFERENCE LAB See results for address. in this encounter Visit Diagnoses Diagnosis [place] in this encounter
--- OUTSIDE RECORDS SUMMARY | 2018-08-14 11:33 | XMS REPORT | CCD ---
Author Author Mireille Tatum MD, [facility] Address [facility] [place] [address] Phone Care Team Providers Care Cook Apprentice Name Role Phone PP Unavailable CCM Unavailable Summary Purpose Interface Exchange Insurance Providers Payer name Policy type / Coverage type Covered libertarian ID Effective Begin Date Effective End Date [id number] 2014 Unknown Family history Sister Diagnosis Age At Onset No Family Disease Entered N/A Runs in the family Diagnosis Age At Onset No Family Disease Entered N/A Father Diagnosis Age At Onset Arthritis Unknown Brother Diagnosis Age At Onset No Family Disease Entered N/A Mother Diagnosis Age At Onset No Family Disease Entered N/A Social History Social History Element Codes Description Effective Dates Marital status Unknown 08/21/2011 Number of children Unknown 2 08/21/[address]: 8530261 Former smoker quit 2004 08/21/[address]: 923012 Currently drinks alcohol 1 weekly 08/21/2011 Has the patient ever used illegal drugs? Unknown Has never used illegal drugs 08/21/2011 Allergies, Adverse Reactions, Alerts Substance Reaction Codes Entered Date Inactivated Date Status * OTHER REACTION - SEE ANSWER BOX EX-PREP (BOWEL CLEANSING PREP) Unknown 11/03/2015 No Inactive Date Active bactrim RxNorm: 898831 11/03/2015 No Inactive Date Active GABAPENTIN Unknown 11/03/2015 No Inactive Date Active SULFA (SULFONAMIDE ANTIBIOTICS) Unknown 08/21/2011 No Inactive Date Active Past Medical History Illness Codes Condition Status Onset Date Resolved Date Attention-deficit hyperactivity disorder, predominantly inattentive type ICD-9: 314.01 ICD-10: F90.0 Active 08/23/2016 Unknown Generalized anxiety disorder ICD-9: 300.00 ICD-10: F41.1 Active 12/31/2016 Unknown Other hereditary and idiopathic neuropathies ICD-9: 356.4 ICD-10: G60.8 Active 07/23/2017 Unknown Other specified polyneuropathies ICD-9: 356.8 ICD-10: G62.89 Active 04/04/2017 Unknown Chronic pain syndrome ICD-9: 338.4 ICD-10: G89.4 Active 11/26/2017 Unknown Other specified cardiac arrhythmias ICD-9: 427.89 ICD-10: I49.8 Active 05/27/2018 Unknown Systemic involvement of connective tissue, unspecified ICD-9: 279.49 ICD-10: M35.9 Active 11/29/2014 Unknown Dysuria ICD-9: 788.1 ICD-10: R30.0 Active 08/23/2016 Unknown Other skin changes ICD -9: 782.9 ICD-10: R23.8 Active 03/25/2018 Unknown Other specified disorders of nose and nasal sinuses ICD-9: 478.19 ICD-10: J34.89 Active 11/26/2017 Unknown Rash and other nonspecific skin eruption ICD-9: 782.1 ICD-10: R21 Active 11/26/2017 Unknown Cellulitis, unspecified ICD-9: 682.9 ICD-10: L03.90 Active 10/16/2017 Unknown Chondrocostal junction syndrome [Tietze] ICD-9: 733.6 ICD-10: M94.0 Active 07/23/2017 Unknown Other rosacea ICD-9: 695.3 ICD-10: L71.8 Active 07/23/2017 Unknown Mild cognitive impairment, so stated ICD-9: 331.83 ICD-10: G31.84 Active 03/01/2017 Unknown Other neuromuscular dysfunction of bladder ICD-9: 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.59 ICD-10: N31.8 Active 04/04/2017 Unknown Other retention of urine ICD-9: 788.29 ICD-10: R33.8 Active 04/04/2017 Unknown Cervicalgia ICD-9: 723.1 ICD-10: M54.2 Active 08/13/2014 Unknown Unsteadiness on feet ICD-9: 781.2 ICD-10: R26.81 Active 03/01/2017 Unknown Weakness ICD-9: 780.79 ICD-10: R53.1 Active 01/04/2014 Unknown Localized edema ICD-9 : 782.3 ICD-10: R60.0 Active 12/31/2016 Unknown Dysphagia, pharyngoesophageal phase ICD-9: 787.24 ICD-10: R13.14 Active 10/01/2016 Unknown Spondylosis without myelopathy or radiculopathy, 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 ICD-10: M47.812 Active 02/06/2016 Unknown Palpitations ICD-9: 785.1 ICD-10: R00.2 Active 07/19/2016 Unknown Acute vaginitis ICD-9 : 616.10 ICD-10: N76.0 Active 04/09/2016 Unknown Insomnia due to medical condition ICD-9: 327.01 ICD-10: G47.01 Active 04/09/2016 Unknown Unspecified scleritis, bilateral ICD-9: 379.00 ICD-10: H15.003 Active 11/29/2014 Unknown Fever, unspecified ICD -9: 780.60 ICD-10: R50.9 Active 11/02/2015 Unknown Pain in unspecified joint ICD-9: 719.40 ICD-10: M25.50 Active 11/02/2015 Unknown Pain in left hand ICD- 9: 729.5 ICD-10: M79.642 Active 10/25/2015 Unknown Dizziness and giddiness ICD-9: 780.4 ICD-10: R42 Active 10/16/2015 Unknown Urinary tract infection, site not specified ICD-9: 599.0 ICD-10: N39.0 Active 10/16/2015 Unknown Asthma Unknown Active 12/24/2014 Unknown Acute bronchitis ICD-9 : 466.0 Active 12/23/2014 Unknown COUGH ICD-9: 786.2 Active 12/23/2014 Unknown Reactive airway disease ICD-9: 493.90 Active 12/23/2014 Unknown AUTOIMMUNE DISEASE NEC ICD-9: 279.49 Active 11/29/2014 Unknown Scleritis ICD-9: 379.00 Active 11/29/2014 Unknown Abdominal pain ICD-9: 789.00 Active 10/06/2014 Unknown Constipation - functional ICD-9: 564.09 Active 10/06/2014 Unknown Irritable bowel ICD-9 : 564.1 Active 09/08/2014 Unknown RUQ pain ICD-9: 789.01 Active 09/08/2014 Unknown ALLERGIC RHINITIS ICD- 9: 477.9 Active 08/13/2014 Unknown HEADACHE ICD-9: 784.0 Active 08/13/2014 Unknown Insomnia ICD-9: 780.52 Active 08/13/2014 Unknown Neck pain ICD-9: 723.1 Active 08/13/2014 Unknown ABN THYROID FUNCT STUDY ICD-9: 794.5 Active 04/22/2014 Unknown Breast discharge ICD-9 : 611.79 Active 04/22/2014 Unknown Rash ICD-9: 782.1 Active 04/22/2014 Unknown Swollen neck ICD-9: 784.2 Active 04/22/2014 Unknown ADHD (attention deficit hyperactivity disorder) ICD-9: 314.01 Active 01/04/2014 Unknown Fatigue ICD-9: 780.79 Active 01/04/2014 Unknown GENERALIZED ANXIETY DISEASE ICD-9: 300.02 Active 01/04/2014 Unknown PCOS (polycystic ovarian syndrome) ICD-9: 256.4 Active 2013 Unknown Hirsutism ICD-9: 704.1 Active 07/31/2013 Unknown Vaginal yeast infection ICD-9: 112.1 Active 07/31/2013 Unknown ACUTE SINUSITIS ICD-9 : 461.9 Active 04/23/2013 Unknown UTI ICD-9: 599.0 Active 03/26/2013 Unknown Overweight ICD-9: 278.02 Active 07/16/2012 Unknown Hypoglycemia ICD-9: 251.2 Active 03/11/2012 Unknown Toxic effect of carbon monoxide ICD-9: 986 Active 03/11/2012 Unknown Nausea ICD-9: 787.02 Active 08/21/2011 Unknown Problems Condition Codes Effective Dates Condition Status Attention-deficit hyperactivity disorder, predominantly inattentive type ICD-9: 314.01 ICD-10: F90.0 08/23/2016 Active Generalized anxiety disorder ICD-9: 300.00 ICD-10: F41.1 12/31/2016 Active Other hereditary and idiopathic neuropathies ICD-9: 356.4 ICD-10: G60.8 07/23/2017 Active Other specified polyneuropathies ICD-9: 356.8 ICD-10: G62.89 04/04/2017 Active Chronic pain syndrome ICD-9: 338.4 ICD-10: G89.4 11/26/2017 Active Other specified cardiac arrhythmias ICD-9: 427.89 ICD-10: I49.8 05/27/2018 Active Systemic involvement of connective tissue, unspecified ICD-9: 279.49 ICD-10: M35.9 11/29/2014 Active Dysuria ICD-9: 788.1 ICD-10: R30.0 08/23/2016 Active Other skin changes ICD -9: 782.9 ICD-10: R23.8 03/25/2018 Active Other specified disorders of nose and nasal sinuses ICD-9: 478.19 ICD-10: J34.89 11/26/2017 Active Rash and other nonspecific skin eruption ICD-9: 782.1 ICD-10: R21 11/26/2017 Active Cellulitis, unspecified ICD-9: 682.9 ICD-10: L03.90 10/16/2017 Active Chondrocostal junction syndrome [Tietze] ICD-9: 733.6 ICD-10: M94.0 07/23/2017 Active Other rosacea ICD-9: 695.3 ICD-10: L71.8 07/23/2017 Active Mild cognitive impairment, so stated ICD-9: 331.83 ICD-10: G31.84 03/01/2017 Active Other neuromuscular dysfunction of bladder ICD-9: 596.59 ICD-10: N31.8 04/04/2017 Active Other retention of urine ICD-9: 788.29 ICD-10: R33.8 04/04/2017 Active Cervicalgia ICD-9: 723.1 ICD-10: M54.2 08/13/2014 Active Unsteadiness on feet ICD-9: 781.2 ICD-10: R26.81 03/01/2017 Active Weakness ICD-9: 780.79 ICD-10: R53.1 01/04/2014 Active Localized edema ICD-9 : 782.3 ICD-10: R60.0 12/31/2016 Active Dysphagia, pharyngoesophageal phase ICD-9: 787.24 ICD-10: R13.14 10/01/2016 Active Spondylosis without myelopathy or radiculopathy, 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 ICD-10: M47.812 02/06/2016 Active Palpitations ICD-9: 785.1 ICD-10: R00.2 07/19/2016 Active Acute vaginitis ICD-9 : 616.10 ICD-10: N76.0 04/09/2016 Active Insomnia due to medical condition ICD-9: 327.01 ICD-10: G47.01 04/09/2016 Active Unspecified scleritis, bilateral ICD-9: 379.00 ICD-10: H15.003 11/29/2014 Active Fever, unspecified ICD -9: 780.60 ICD-10: R50.9 11/02/2015 Active Pain in unspecified joint ICD-9: 719.40 ICD-10: M25.50 11/02/2015 Active Pain in left hand ICD- 9: 729.5 ICD-10: M79.642 10/25/2015 Active Dizziness and giddiness ICD-9: 780.4 ICD-10: R42 10/16/2015 Active Urinary tract infection, site not specified ICD-9: 599.0 ICD-10: N39.0 10/16/2015 Active Asthma Unknown 12/24/2014 Active Acute bronchitis ICD-9 : 466.0 12/23/2014 Active COUGH ICD-9: 786.2 12/23/2014 Active Reactive airway disease ICD-9: 493.90 12/23/2014 Active AUTOIMMUNE DISEASE NEC ICD-9: 279.49 11/29/2014 Active Scleritis ICD-9: 379.00 11/29/2014 Active Abdominal pain ICD-9: 789.00 10/06/2014 Active Constipation - functional ICD-9: 564.09 10/06/2014 Active Irritable bowel ICD-9 : 564.1 09/08/2014 Active RUQ pain ICD-9: 789.01 09/08/2014 Active ALLERGIC RHINITIS ICD- 9: 477.9 08/13/2014 Active HEADACHE ICD-9: 784.0 08/13/2014 Active Insomnia ICD-9: 780.52 08/13/2014 Active Neck pain ICD-9: 723.1 08/13/2014 Active ABN THYROID FUNCT STUDY ICD-9: 794.5 04/22/2014 Active Breast discharge ICD-9 : 611.79 04/22/2014 Active Rash ICD-9: 782.1 04/22/2014 Active Swollen neck ICD-9: 784.2 04/22/2014 Active ADHD (attention deficit hyperactivity disorder) ICD-9: 314.01 01/04/2014 Active Fatigue ICD-9: 780.79 01/04/2014 Active GENERALIZED ANXIETY DISEASE ICD-9: 300.02 01/04/2014 Active PCOS (polycystic ovarian syndrome) ICD-9: 256.4 01/04/2014 Active Hirsutism ICD-9: 704.1 07/31/2013 Active Vaginal yeast infection ICD-9: 112.1 07/31/2013 Active ACUTE SINUSITIS ICD-9 : 461.9 04/23/2013 Active UTI ICD-9: 599.0 03/26/2013 Active Overweight ICD-9: 278.02 07/16/2012 Active Hypoglycemia ICD-9: 251.2 03/11/2012 Active Toxic effect of carbon monoxide ICD-9: 986 03/11/2012 Active Nausea ICD-9: 787.02 08/21/2011 Active Medications Medication Codes Instructions Start Date Stop Date Status Fill Instructions Zofran 4 mg tablet RxNorm: 411636 1 Tablet(s) PO Q6 hours prn as needed for nausea 08/12/2018 08/21/2018 Active Wellbutrin SR 150 mg tablet, 12 hr sustained-release RxNorm: 763239 1 Tablet(s) PO BID TAKE 1 TABLET TWICE A DAY 07/23/2018 07/17/2019 Active Vyvanse 30 mg capsule RxNorm: 140550 1 Capsule(s) PO daily 05/2706/25/2018 Inactive oxycodone 10 mg tablet RxNorm: 4948438 1 Tablet(s) PO TID as needed 05/27/2018 06/25/2018 Inactive azelastine-fluticasone 137 mcg-50 mcg/spray nasal spray RxNorm: 9147038 2 [place] NASAL daily ONE SPRAY IN EACH NOSTRIL 05/09/2018 08/01/2019 Active 90 day supply please Vyvanse 40 mg capsule RxNorm: 481501 1 Capsule(s) PO daily 05/0505/26/2018 Inactive propranolol 20 mg tablet RxNorm: 694763 1 Tablet(s) PO UD 20mg AM and 20mg PM 03/25/2018 04/23/2018 Inactive Vyvanse 40 mg capsule RxNorm: 572530 1 Capsule(s) PO daily 03/2504/23/2018 Inactive oxycodone 15 mg tablet RxNorm: 3713578 1 Tablet(s) PO Q6 as needed pain 03/25/2018 05/26/2018 Inactive prednisone 20 mg tablet RxNorm: 124363 2 Tablet(s) PO daily x 5 days - may extend to 10 days if the vascular symptoms are not resolved 201704/13/2018 Inactive pt to call for this to be filled if she has vascular inflammatory symptoms. Xanax 0.5 mg tablet RxNorm: 653904 1 Tablet(s) PO Q4H as needed 02/26/2018 04/26/2018 Inactive Vyvanse 50 mg capsule RxNorm: 404033 1 Capsule(s) PO daily 02/2603/24/2018 Inactive propranolol 20 mg tablet RxNorm: 325775 1 Tablet(s) PO UD 20mg AM and 40mg PM 01/28/2018 02/26/2018 Inactive Vyvanse 50 mg capsule RxNorm: 542752 1 Capsule(s) PO daily 01/2802/25/2018 Inactive Vyvanse 50 mg capsule RxNorm: 507815 1 Capsule(s) PO daily 12/2501/23/2018 Inactive clindamycin HCl 300 mg capsule RxNorm: 695016 1 Capsule(s) PO TID 12/05/2017 12/04/2017 Inactive clindamycin HCl 300 mg capsule RxNorm: 045969 1 Capsule(s) PO TID 12/05/2017 12/18/2017 Inactive azelastine 137 mcg (0.1 %) nasal spray aerosol RxNorm: 6440719 2 [place] NASAL BID 11/14/2017 12/13/2017 Inactive [SAVINGS FOR NON-COVERED DRUGS -- BIN:[id number], PCN: [id number], Group: [id number], ID# [id number], Questions: . THIS IS NOT INSURANCE.] Diflucan 150 mg tablet RxNorm: 747153 1 Tablet(s) PO daily as needed yeast infection symptoms after taking antibiotics 10/24/2017 03/24/2018 Inactive doxycycline hyclate 100 mg tablet RxNorm: 001120 1 Tablet(s) PO BID 10/24/2017 10/23/2017 Inactive doxycycline hyclate 100 mg tablet RxNorm: 972869 1 Tablet(s) PO BID 10/24/2017 11/12/2017 Inactive Vyvanse 50 mg capsule RxNorm: 529785 1 Capsule(s) PO daily 10/2411/22/2017 Inactive Vyvanse 60 mg capsule RxNorm: 329446 1 Capsule(s) PO daily 09/1209/11/2017 Inactive Vyvanse 60 mg capsule RxNorm: 167726 1 Capsule(s) PO daily 09/1210/11/2017 Inactive diclofenac 1 % topical gel RxNorm: 434069 2 Gram(s) TOP QID as needed apply twice daily scheduled to affected joints and can apply up to 4 times in a day 07/23/2017 03/24/2018 Inactive metoprolol succinate ER 50 mg tablet,extended release 24 hr RxNorm: 063407 1 Tablet(s) PO QHS 07/23/2017 01/27/2018 Inactive Vyvanse 70 mg capsule RxNorm: 850238 1 Capsule(s) PO daily 06/1709/11/2017 Inactive potassium chloride ER 10 mEq capsule,extended release RxNorm: 817068 1 Capsule(s) PO daily take only when taking lasix 05/30/2017 03/24/2018 Inactive Lasix 20 mg tablet RxNorm: 793198 1 Tablet(s) PO QAM x 3 days then prn wt gain>/ =2#'s 05/30/2017 08/27/2017 Inactive Lasix 20 mg tablet RxNorm: 701691 1 Tablet(s) PO QAM x 3 days then prn wt gain>/ =2#'s 05/30/2017 05/29/2017 Inactive potassium chloride ER 10 mEq capsule,extended release RxNorm: 573441 1 Capsule(s) PO daily take only when taking lasix 05/30/2017 05/29/2017 Inactive Intuniv ER 2 mg tablet,extended release RxNorm: 775073 1 Tablet(s) PO QPM 05/22/2017 11/25/2017 Inactive Vyvanse 70 mg capsule RxNorm: 557000 1 Capsule(s) PO daily 04/1505/14/2017 Inactive Vyvanse 70 mg capsule RxNorm: 132396 1 Capsule(s) PO daily 03/1504/13/2017 Inactive oxycodone 5 mg tablet RxNorm: 8404261 1 Tablet(s) PO QID as needed pain 02/11/2017 03/12/2017 Inactive Vyvanse 70 mg capsule RxNorm: 038305 1 Capsule(s) PO daily 02/1103/12/2017 Inactive Vyvanse 70 mg capsule RxNorm: 285258 1 Capsule(s) PO daily 01/1402/10/2017 Inactive furosemide 20 mg tablet RxNorm: 186566 1 Tablet(s) PO PRN if you gain more than 3 pounds of fluid in 24 hours 12/31/201604/2018 Inactive Vyvanse 70 mg capsule RxNorm: 859196 1 Capsule(s) PO daily 12/1101/09/2017 Inactive Vyvanse 50 mg capsule RxNorm: 582584 1 Capsule(s) PO daily 11/0912/10/2016 Inactive Xanax 0.5 mg tablet RxNorm: 166634 1 Tablet(s) PO Q4H as needed 10/11/2016 12/09/2016 Inactive Vyvanse 40 mg capsule RxNorm: 424493 1 Capsule(s) PO daily 10/1111/08/2016 Inactive albuterol sulfate 2.5 mg/3 mL (0.083 %) solution for nebulization RxNorm: 216231 3 Milliliter(s) INH Q4 PRN 10/01/2016 01/28/2017 Inactive oxycodone 5 mg tablet RxNorm: 5688622 1 Tablet(s) PO QID as needed pain 10/01/2016 10/30/2016 Inactive Ambien 5 mg tablet RxNorm: 256036 1 Tablet(s) PO HS PRN 09/2803/24/2018 Inactive Vyvanse 40 mg capsule RxNorm: 478182 1 Capsule(s) PO daily 09/1710/10/2016 Inactive Vyvanse 30 mg capsule RxNorm: 385154 1 Capsule(s) PO daily 08/2309/16/2016 Inactive Xanax 0.5 mg tablet RxNorm: 725230 1 Tablet(s) PO Q4H as needed 07/20/2016 09/17/2016 Inactive hydrocodone 5 mg-acetaminophen 325 mg tablet RxNorm: 785049 1 Tablet(s) PO Q6 as needed 07/10/2016 09/30/2016 Inactive Augmentin 500 mg-125 mg tablet RxNorm: 246328 1 Tablet(s) PO TID 07/10/2016 07/16/2016 Inactive Vyvanse 70 mg capsule RxNorm: 961272 1 Capsule(s) PO daily 06/1508/22/2016 Inactive Vyvanse 70 mg capsule RxNorm: 789748 1 Capsule(s) PO daily 05/1506/13/2016 Inactive Diflucan 150 mg tablet RxNorm: 495255 1 Tablet(s) PO daily 05/14/2016 Inactive Wellbutrin SR 150 mg tablet,sustained-release RxNorm: 049755 TAKE 1 TABLET TWICE A DAY 03/29/2016 07/26/2016 Inactive Diflucan 150 mg tablet RxNorm: 327652 1 Tablet(s) PO daily 03/201603/29/2016 Inactive Diflucan 150 mg tablet RxNorm: 469450 1 Tablet(s) PO daily 03/201603/22/2016 Inactive Vyvanse 70 mg capsule RxNorm: 645866 Capsule(s) PO daily 201504/10/2016 Inactive Vyvanse 70 mg capsule RxNorm: 003969 Capsule(s) PO daily 201503/07/2016 Inactive Voltaren 1 % topical gel RxNorm: 300171 2 Gram(s) TOP QID to shoulders and wrists and hips 02/07/2016 07/18/2016 Inactive Vyvanse 70 mg capsule RxNorm: 640896 Capsule(s) PO daily 201502/06/2016 Inactive Vyvanse 70 mg capsule RxNorm: 070955 Capsule(s) PO daily 201501/12/2016 Inactive Ambien 5 mg tablet RxNorm: 551782 1 Tablet(s) PO HS PRN 11/0204/30/2016 Inactive Xanax 0.5 mg tablet RxNorm: 085136 1 Tablet(s) PO Q4H as needed 11/03/2015 07/19/2016 Inactive [SAVINGS FOR UNINSURED PATIENTS -- BIN:[id number], PCN: [id number], Group: [id number], ID# [id number], Process claim through [employer], for questions: [phone]. THIS IS NOT INSURANCE.] Diflucan 150 mg tablet RxNorm: 510752 1 Tablet(s) PO every other day 10/25/2015 11/07/2015 Inactive Diflucan 150 mg tablet RxNorm: 981223 1 Tablet(s) PO every other day 10/25/2015 10/24/2015 Inactive Augmentin 875 mg-125 mg tablet RxNorm: 390042 1 Tablet(s) PO BID 10/25/2015 11/07/2015 Inactive Augmentin 875 mg-125 mg tablet RxNorm: 810064 1 Tablet(s) PO BID 10/25/2015 10/24/2015 Inactive gabapentin 100 mg capsule RxNorm: 492439 Capsule(s) PO TAKE 200 MG DAILY X5 DAYS THEN 100 MG DAILY X5 DAYS THEN 100 MG EVERY OTHER DAY X3 DOSES THEN STOP 10/21/2015 11/02/2015 Inactive Cipro 500 mg tablet RxNorm: 456243 1 Tablet(s) PO BID 201510/11/2015 Inactive Cipro 500 mg tablet RxNorm: 188027 1 Tablet(s) PO BID 201510/24/2015 Inactive Vyvanse 70 mg capsule RxNorm: 185031 Capsule(s) PO daily 201511/09/2015 Inactive Klonopin 0.5 mg tablet RxNorm: 482626 1 Tablet(s) PO BID as needed 09/28/2015 11/02/2015 Inactive Klonopin 0.5 mg tablet RxNorm: 729288 1 Tablet(s) PO BID as needed 09/28/2015 09/27/2015 Inactive gabapentin 300 mg capsule RxNorm: 638603 1 Capsule(s) PO QHS 10/20/2015 Inactive gabapentin 300 mg capsule RxNorm: 013995 1 Capsule(s) PO QHS 09/15/2015 Inactive hydrocodone 5 mg-acetaminophen 325 mg tablet RxNorm: 312153 1 Tablet(s) PO Q6 as needed 09/16/2015 10/15/2015 Inactive gabapentin 300 mg capsule RxNorm: 715698 1 Capsule(s) PO QHS 09/25/2015 Inactive Intuniv ER 2 mg tablet,extended release RxNorm: 239992 Tablet(s) TAKE 1 TABLET DAILY 09/13/2015 04/03/2017 Inactive Intuniv ER 2 mg tablet,extended release RxNorm: 114445 TAKE 1 TABLET DAILY 09/12/2015 09/12/2015 Inactive Vyvanse 70 mg capsule RxNorm: 567505 Capsule(s) PO daily 201509/08/2015 Inactive Vyvanse 70 mg capsule RxNorm: 713615 Capsule(s) PO daily 201408/09/2015 Inactive Vyvanse 70 mg capsule RxNorm: 591994 Capsule(s) PO daily 201407/06/2015 Inactive Ambien 5 mg tablet RxNorm: 803517 1 Tablet(s) PO HS PRN 06/0709/04/2015 Inactive acyclovir 800 mg tablet RxNorm: 896621 1 Tablet(s) PO TID 05/1809/15/2015 Inactive Vyvanse 70 mg capsule RxNorm: 017181 Capsule(s) PO 05/11/2015 06/06/2015 Inactive Xanax 0.5 mg tablet RxNorm: 106926 1 Tablet(s) PO Q4H as needed 05/03/2015 09/27/2015 Inactive [SAVINGS FOR UNINSURED PATIENTS -- BIN:[id number], PCN: ASPROD1, Group: [id number], ID# [id number], Process claim through [employer], for questions: [phone]. THIS IS NOT INSURANCE.] Ventolin HFA 90 mcg/actuation aerosol inhaler RxNorm: 2880418 2 Puff(s) INH QID 05/03/2015 05/02/2015 Inactive Ventolin HFA 90 mcg/actuation aerosol inhaler RxNorm: 4507710 2 Puff(s) INH QID 05/03/2015 06/01/2015 Inactive acyclovir 800 mg tablet RxNorm: 404891 1 Tablet(s) PO TID 05/0205/11/2015 Inactive acyclovir 800 mg tablet RxNorm: 842917 1 Tablet(s) PO TID 05/0205/01/2015 Inactive Keflex 500 mg capsule RxNorm: 577771 1 Capsule(s) PO TID 201404/28/2015 Inactive Keflex 500 mg capsule RxNorm: 309170 1 Capsule(s) PO TID 201405/05/2015 Inactive hydrocodone 5 mg-acetaminophen 325 mg tablet RxNorm: 775272 1 Tablet(s) PO Q6 as needed 04/11/2015 05/10/2015 Inactive Vyvanse 70 mg capsule RxNorm: 523318 Capsule(s) PO 04/11/2015 05/10/2015 Inactive naproxen 500 mg tablet RxNorm: 356144 1 Tablet(s) PO BID 201404/05/2015 Inactive naproxen 500 mg tablet RxNorm: 750437 1 Tablet(s) PO BID 201407/18/2016 Inactive Intuniv ER 2 mg tablet,extended release RxNorm: 524321 TAKE 1 TABLET DAILY 03/15/2015 09/11/2015 Inactive Vyvanse 70 mg capsule RxNorm: 363551 Capsule(s) PO 03/11/2015 04/09/2015 Inactive hydrocodone 5 mg-acetaminophen 325 mg tablet RxNorm: 037261 1 Tablet(s) PO Q6 as needed 02/22/2015 04/10/2015 Inactive Wellbutrin SR 150 mg tablet,sustained-release RxNorm: 956238 TAKE 1 TABLET TWICE A DAY 02/21/2015 2016 Inactive Vyvanse 70 mg capsule RxNorm: 351308 Capsule(s) PO 02/14/2015 03/10/2015 Inactive Vyvanse 30 mg capsule RxNorm: 636750 1 Capsule(s) PO noon 201402/13/2015 Inactive 314.01 Vyvanse 40 mg capsule RxNorm: 391762 40mg q AM and 30mg q NOON Capsule(s) PO 02/10/2015 02/13/2015 Inactive Levaquin 500 mg tablet RxNorm: 681007 1 Tablet(s) PO daily 08/201401/19/2015 Inactive Levaquin 500 mg tablet RxNorm: 775600 1 Tablet(s) PO daily 08/201401/12/2015 Inactive prednisone 20 mg tablet RxNorm: 695888 3 Tablet(s) PO daily 08/201401/17/2015 Inactive hydrocodone 5 mg-acetaminophen 325 mg tablet RxNorm: 811245 1 Tablet(s) PO Q6 as needed 01/10/2015 02/21/2015 Inactive Vyvanse 30 mg capsule RxNorm: 520427 1 Capsule(s) PO noon 201402/08/2015 Inactive 314.01 Vyvanse 40 mg capsule RxNorm: 055714 40mg q AM and 30mg q NOON Capsule(s) PO 01/10/2015 02/08/2015 Inactive cefdinir 300 mg capsule RxNorm: 934261 1 Capsule(s) PO BID 06/201512/30/2014 Inactive albuterol sulfate 2.5 mg/3 mL (0.083 %) solution for nebulization RxNorm: 796259 3 Milliliter(s) INH Q4 PRN 12/24/2014 01/22/2015 Inactive Diflucan 150 mg tablet RxNorm: 885427 1 Tablet(s) PO daily 06/201512/23/2014 Inactive Diflucan 150 mg tablet RxNorm: 100611 1 Tablet(s) PO daily 06/201512/30/2014 Inactive Ambien 5 mg tablet RxNorm: 805641 1 Tablet(s) PO HS PRN 12/0906/06/2015 Inactive Vyvanse 40 mg capsule RxNorm: 493507 40mg q AM and 30mg q NOON Capsule(s) PO 12/08/2014 01/06/2015 Inactive Linzess 145 mcg capsule RxNorm: 3326650 1 Capsule(s) PO daily 12/08/2014 06/05/2015 Inactive Vyvanse 30 mg capsule RxNorm: 556698 1 Capsule(s) PO noon 201401/06/2015 Inactive 314.01 Vyvanse 40 mg capsule RxNorm: 223098 40mg q AM and 30mg q NOON Capsule(s) PO 11/10/2014 12/07/2014 Inactive Vyvanse 30 mg capsule RxNorm: 051147 1 Capsule(s) PO noon 201412/07/2014 Inactive 314.01 Nexium 40 mg capsule,delayed release RxNorm: 052636 1 Capsule(s) PO daily 10/27/2014 10/26/2014 Inactive Nexium 40 mg capsule,delayed release RxNorm: 651788 1 Capsule(s) PO daily 10/27/2014 05/24/2015 Inactive Zofran 4 mg tablet RxNorm: 165176 1 Tablet(s) PO Q6 hours prn as needed for nausea 10/21/2014 10/25/2014 Inactive Zofran 4 mg tablet RxNorm: 330068 1 Tablet(s) PO Q6 hours prn as needed for nausea 10/21/2014 10/20/2014 Inactive Xanax 0.25 mg tablet RxNorm: 398521 1/2 to 1 Tablet(s) PO Q8 PRN as needed 10/15/2014 05/02/2015 Inactive [SAVINGS FOR UNINSURED PATIENTS -- BIN:[id number], PCN: [id number], Group: [id number], ID# [id number], Process claim through [employer], for questions: . THIS IS NOT INSURANCE.] sucralfate 100 mg/mL oral suspension RxNorm: 389213 10 Milliliter(s) PO QID 10/06/2014 11/02/2015 Inactive Vyvanse 40 mg capsule RxNorm: 727729 40mg q AM and 30mg q NOON Capsule(s) PO 10/04/2014 11/02/2014 Inactive omeprazole 20 mg capsule,delayed release RxNorm: 974052 1 Capsule(s) PO daily 09/08/2014 11/02/2015 Inactive Linzess 145 mcg capsule RxNorm: 7953234 1 Capsule(s) PO daily 09/08/2014 10/07/2014 Inactive azelastine 137 mcg (0.1 %) nasal spray aerosol RxNorm: 0887504 2 [place] NASAL BID 09/06/2014 10/05/2014 Inactive [SAVINGS FOR NON-COVERED DRUGS -- BIN:[id number], PCN: [id number], Group: [id number], ID# [id number], Questions: . THIS IS NOT INSURANCE.] Xanax 0.25 mg tablet RxNorm: 588983 1/2 to 1 Tablet(s) PO Q8 PRN as needed 08/26/2014 10/14/2014 Inactive [SAVINGS FOR UNINSURED PATIENTS -- BIN:[id number], PCN: [id number], Group: [id number], ID# [id number], Process claim through [employer], for questions: . THIS IS NOT INSURANCE.] Ambien 5 mg tablet RxNorm: 722681 1 Tablet(s) PO HS PRN 08/1312/08/2014 Inactive prednisone 20 mg tablet RxNorm: 250720 3 Tablet(s) PO daily 08/17/2014 Inactive Vyvanse 40 mg capsule RxNorm: 367855 40mg q AM and 30mg q NOON Capsule(s) PO 08/11/2014 09/09/2014 Inactive Vyvanse 40 mg capsule RxNorm: 963909 40mg q AM and 30mg q NOON Capsule(s) PO 07/06/2014 08/04/2014 Inactive Xanax 0.25 mg tablet RxNorm: 796773 1/2 to 1 Tablet(s) PO Q8 PRN as needed 06/23/2014 08/25/2014 Inactive Wellbutrin SR 150 mg tablet,sustained-release RxNorm: 000541 TAKE 1 TABLET TWICE A DAY 06/08/2014 02/20/2015 Inactive Vyvanse 40 mg capsule RxNorm: 593941 40mg q AM and 30mg q NOON Capsule(s) PO 06/03/2014 07/02/2014 Inactive Vyvanse 40 mg capsule RxNorm: 975935 40mg q AM and 30mg q NOON Capsule(s) PO 05/04/2014 06/02/2014 Inactive Intuniv ER 2 mg tablet,extended release RxNorm: 187287 TAKE 1 TABLET DAILY 04/13/2014 03/14/2015 Inactive Vyvanse 40 mg capsule RxNorm: 513251 40mg q AM and 30mg q NOON Capsule(s) PO 03/24/2014 04/22/2014 Inactive Vyvanse 40 mg capsule RxNorm: 910901 40mg q AM and 30mg q NOON Capsule(s) PO 03/01/2014 03/23/2014 Inactive Wellbutrin SR 150 mg tablet,sustained-release RxNorm: 335709 1 Tablet(s) PO BID 01/04/2014 06/07/2014 Inactive Claritin 10 mg tablet RxNorm: 675032 1 Tablet(s) PO daily 201307/18/2016 Inactive Vyvanse 40 mg capsule RxNorm: 521400 40mg q AM and 30mg q NOON Capsule(s) PO 12/21/2013 01/19/2014 Inactive Intuniv ER 2 mg tablet,extended release RxNorm: 273335 Tablet(s) PO TAKE 1 TABLET DAILY 12/14/2013 04/12/2014 Inactive Vyvanse 40 mg capsule RxNorm: 714609 40mg q AM and 30mg q NOON Capsule(s) PO QAM 11/12/2013 12/11/2013 Inactive Vyvanse 40 mg capsule RxNorm: 501791 40mg q AM and 30mg q NOON Capsule(s) PO QAM 10/15/2013 11/11/2013 Inactive Vyvanse 40 mg capsule RxNorm: 955855 1 Capsule(s) PO QAM 201310/14/2013 Inactive spironolactone 25 mg tablet RxNorm: 601589 1 Tablet(s) PO BID 10/01/2013 09/25/2014 Inactive metformin 500 mg tablet RxNorm: 417661 1/2 Tablet(s) PO QHS 09/25/2014 Inactive Intuniv ER 2 mg tablet,extended release RxNorm: 753746 Tablet(s) PO TAKE 1 TABLET DAILY 09/22/2013 12/13/2013 Inactive Vyvanse 40 mg capsule RxNorm: 366142 1 Capsule(s) PO QAM 201310/14/2013 Inactive Vyvanse 30 mg capsule RxNorm: 101198 1 Capsule(s) PO noon 201310/14/2013 Inactive Vyvanse 30 mg capsule RxNorm: 089507 1 Capsule(s) PO noon 201309/14/2013 Inactive Vyvanse 40 mg capsule RxNorm: 020691 1 Capsule(s) PO QAM 201309/14/2013 Inactive Keflex 500 mg capsule RxNorm: 436428 1 Capsule(s) PO QID 201308/18/2013 Inactive Keflex 500 mg capsule RxNorm: 079393 1 Capsule(s) PO QID 201308/11/2013 Inactive metformin 500 mg tablet RxNorm: 969759 1/2 Tablet(s) PO QHS 09/30/2013 Inactive spironolactone 25 mg tablet RxNorm: 950766 1 Tablet(s) PO BID 07/31/2013 09/30/2013 Inactive Diflucan 150 mg tablet RxNorm: 370052 1 Tablet(s) PO daily 08/06/2013 Inactive Vyvanse 30 mg capsule RxNorm: 463425 1 Capsule(s) PO noon 201208/16/2013 Inactive Vyvanse 40 mg capsule RxNorm: 001981 1 Capsule(s) PO QAM 201208/16/2013 Inactive Wellbutrin SR 150 mg tablet,sustained-release RxNorm: 711882 1 Tablet(s) PO BID 06/04/2013 06/24/2013 Inactive Xanax 0.25 mg tablet RxNorm: 774261 1/2 to 1 Tablet(s) PO Q8 PRN 05/20/2013 06/22/2014 Inactive Wellbutrin SR 150 mg tablet,sustained-release RxNorm: 485729 1 Tablet(s) PO BID 05/18/2013 06/03/2013 Inactive Vyvanse 40 mg capsule RxNorm: 399488 1 Capsule(s) PO QAM 201206/16/2013 Inactive Vyvanse 30 mg capsule RxNorm: 907010 1 Capsule(s) PO noon 201206/16/2013 Inactive Wellbutrin SR 150 mg tablet,sustained-release RxNorm: 549324 1 Tablet(s) PO daily 04/30/2013 05/17/2013 Inactive Wellbutrin SR 150 mg tablet,sustained-release RxNorm: 720588 1 Tablet(s) PO daily 04/30/2013 04/29/2013 Inactive cefdinir 300 mg capsule RxNorm: 183224 1 Capsule(s) PO BID 04/201304/29/2013 Inactive Vyvanse 70 mg capsule RxNorm: 542441 1 Capsule(s) PO QAM 201205/18/2013 Inactive azelastine 137 mcg Nasal [place] Aerosol RxNorm: 3708525 2 [place] NASAL BID 03/26/2013 09/21/2013 Inactive Augmentin 500 mg-125 mg tablet RxNorm: 188400 1 Tablet(s) PO BID 03/26/2013 03/30/2013 Inactive Vyvanse 70 mg capsule RxNorm: 708159 1 Capsule(s) PO QAM 201203/11/2013 Inactive multivitamin tablet RxNorm: 1 Tablet(s) PO daily 02/11/2013 04/03/2017 Inactive Vyvanse 70 mg capsule RxNorm: 630436 1 Capsule(s) PO QAM 201203/11/2013 Inactive Vyvanse 70 mg capsule RxNorm: 484679 1 Capsule(s) PO 01/12/2013 02/10/2013 Inactive Intuniv ER 2 mg tablet,extended release RxNorm: 107950 Tablet(s) PO TAKE 1 TABLET DAILY 01/02/2013 09/21/2013 Inactive Intuniv ER 2 mg tablet,extended release RxNorm: 611701 1 Tablet(s) PO QHS 01/01/2013 01/01/2013 Inactive Vyvanse 70 mg capsule RxNorm: 672859 1 Capsule(s) PO 12/10/2012 01/08/2013 Inactive Vyvanse 70 mg capsule RxNorm: 323687 1 Capsule(s) PO 11/11/2012 12/09/2012 Inactive Intuniv ER 2 mg tablet,extended release RxNorm: 597897 1 Tablet(s) PO QHS 09/29/2012 12/27/2012 Inactive Vyvanse 60 mg capsule RxNorm: 693017 1 Capsule(s) PO daily 09/1012/21/2013 Inactive Intuniv ER 2 mg tablet,extended release RxNorm: 649085 1 Tablet(s) PO QHS 09/02/2012 09/28/2012 Inactive Intuniv ER 2 mg tablet,extended release RxNorm: 631032 1 Tablet(s) PO QHS 08/11/2012 09/01/2012 Inactive Vyvanse 60 mg capsule RxNorm: 806148 1 Capsule(s) PO daily 08/1109/09/2012 Inactive omeprazole 20 mg Cap, Delayed Release RxNorm: 394600 1 Capsule(s) PO daily 09/11/2011 02/11/2013 Inactive Aciphex 20 mg Tab RxNorm: 884474 1 Tablet(s) PO daily 201109/11/2011 Inactive Aciphex 20 mg Tab RxNorm: 478805 1 Tablet(s) PO daily 201109/10/2011 Inactive NormaLyte ORS 1.3-1.45-0.75 gram/10.5 gram oral powder packet RxNorm: 1 PO BID No Start Date Active Excedrin Migraine 250 mg-250 mg-65 mg tablet RxNorm: 357200 1 Tablet(s) PO Q6 as needed No Start Date Active Restasis 0.05 % eye drops in a dropperette RxNorm: 541122 OPH BID No Start Date Active ketorolac 0.4 % eye drops RxNorm: 392108 3-4 Drop(s) ophthalmic (eye) to left eye daily No Start Date Active Corlanor 5 mg tablet RxNorm: 6400291 1 Tablet(s) PO BID No Start Date Active Privigen 10 % intravenous solution RxNorm: 326112 1 treatment IV q 28days No Start Date Active baclofen 10 mg tablet RxNorm: 711407 1 Tablet(s) PO TID as needed No Start Date Active diazepam 2 mg tablet RxNorm: 697346 1 Tablet(s) PO BID -Prescribed by urology at No Start Date 03/24/2018 Inactive amitriptyline 10 mg tablet RxNorm: 466493 3 Tablet(s) PO QHS Dr Walker No Start Date 11/25/2017 Inactive hyoscyamine 0.125 mg sublingual tablet RxNorm: 9566813 1 Tablet(s) SL Q4H as needed No Start Date 03/24/2018 Inactive Loestrin Fe 1.5/30 (28) 1.5 mg-30 mcg Tab RxNorm: 6402569 1 Tablet(s) PO daily No Start Date 02/10/2013 Inactive Vitamin D3 1,000 unit tablet RxNorm: 196771 1 Tablet(s) PO daily No Start Date 07/18/2016 Inactive Caltrate 600 + D oral RxNorm: 049895 oral No Start Date 04/03/2017 Inactive Lyrica 50 mg capsule RxNorm: 548164 1 Capsule(s) PO BID -Started by Dr. Hartmann No Start Date 12/30/2016 Inactive multivitamin tablet RxNorm: 2 Tablet(s) PO daily No Start Date 02/10/2013 Inactive Elavil 10 mg tablet RxNorm: 634992 1 Tablet(s) PO QHS No Start Date 07/17/2017 Inactive gabapentin 100 mg capsule RxNorm: 184321 Capsule(s) PO TAKE 200 MG DAILY X5 DAYS THEN 100 MG DAILY X5 DAYS THEN 100 MG EVERY OTHER DAY X3 DOSES THEN STOP No Start Date 10/20/2015 Inactive Lyrica 75 mg capsule RxNorm: 622151 1 Capsule(s) PO BID manage by Dr Hartmann No Start Date 04/03/2017 Inactive Flonase 50 mcg/actuation Nasal [place] RxNorm: 041768 [place] NASAL daily No Start Date 11/02/2015 Inactive Xanax 0.25 mg tablet RxNorm: 173667 1/2 to 1 Tablet(s) PO Q8 PRN No Start Date 05/19/2013 Inactive Diflucan 150 mg tablet RxNorm: 265017 1 Tablet(s) PO daily as needed yeast infection symptoms No Start Date 2017 Inactive Toprol XL 25 mg tablet,extended release RxNorm: 407344 1 Tablet(s) PO QHS No Start Date 01/27/2018 Inactive Vitamin C 500 mg tablet RxNorm: 963475 1 Tablet(s) PO daily No Start Date 07/18/2016 Inactive Pyridium 100 mg tablet RxNorm: 8024096 1 Tablet(s) PO TID as needed No Start Date 03/24/2018 Inactive azelastine 137 mcg Nasal [place] Aerosol RxNorm: 988727 1 [place] NASAL daily No Start Date 09/05/2014 Inactive Pazeo 0.7 % eye drops RxNorm: 5041189 Drop(s) OPH as needed No Start Date 05/26/2018 Inactive Celexa 10 mg Tab RxNorm: 194158 1 Tablet(s) PO daily No Start Date 08/18/2013 Inactive Lastacaft 0.25 % Eye Drops RxNorm: 0676465 Drop(s) OPH PRN No Start Date 11/02/2015 Inactive azelastine-fluticasone 137 mcg-50 mcg/spray nasal spray RxNorm: 3310367 2 [place] NASAL daily ONE SPRAY IN EACH NOSTRIL No Start Date 05/08/2018 Inactive Zyrtec 10 mg capsule RxNorm: 9220316 1 Capsule(s) PO daily No Start Date 01/03/2014 Inactive Vitamin B-12 ER 1,500 mcg tablet,extended release RxNorm: 214285 1 Tablet(s) PO daily No Start Date 07/18/2016 Inactive Cymbalta 60 mg capsule,delayed release RxNorm: 444051 1 Capsule(s) PO BID No Start Date 07/29/2018 Inactive Intuniv ER 2 mg tablet,extended release RxNorm: 360021 1 Tablet(s) PO QHS No Start Date 08/10/2012 Inactive Vyvanse 60 mg capsule RxNorm: 702371 1 Capsule(s) PO daily No Start Date 08/10/2012 Inactive metoprolol succinate ER 25 mg tablet,extended release 24 hr RxNorm: 944765 1 Tablet(s) PO BID No Start Date 07/22/2017 Inactive phentermine 37.5 mg capsule RxNorm: 919753 1 Capsule(s) PO BID No Start Date 02/10/2013 Inactive magnesium oxide 250 mg tablet RxNorm: 186953 1 Tablet(s) PO daily No Start Date 04/03/2017 Inactive Flonase Allergy Relief 50 mcg/actuation nasal spray, suspension RxNorm: 6323688 [place] NASAL as needed No Start Date Inactive hydrocodone 5 mg-acetaminophen 325 mg tablet RxNorm: 008746 1 Tablet(s) PO Q6 as needed No Start Date 01/09/2015 Inactive Medication Administered No Medication Administered data Immunizations Vaccine Codes Date Status Influenza CVX: 141 04/17/2011 completed Assessments Condition Codes Effective Dates Attention-deficit hyperactivity disorder, 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 ICD-9: 314.01 07/23/2018 Other specified polyneuropathies ICD-10: G62.89 ICD-9: 356.8 07/23/2018 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 ICD-9: 356.4 07/23/2018 Generalized anxiety disorder ICD-10: F41.1 ICD-9: 300.00 07/23/2018 Systemic involvement of connective tissue, unspecified ICD- 10: M35.9 ICD-9: 279.49 05/27/2018 Chronic pain syndrome ICD-10: G89.4 ICD-9: 338.4 05/27/2018 Other specified cardiac arrhythmias ICD-10: I49.8 ICD-9: 427.89 05/27/2018 Dysuria ICD-10: R30.0 ICD-9: 788.1 05/08/2018 Other specified disorders of nose and nasal sinuses ICD-10: J34.89 ICD-9: 478.19 03/25/2018 Other skin changes ICD-10: R23.8 ICD-9: 782.9 03/25/2018 Rash and other nonspecific skin eruption ICD-10: R21 ICD-9: 782.1 11/26/2017 Cellulitis, unspecified ICD-10: L03.90 ICD-9: 682.9 10/16/2017 Other rosacea ICD-10: L71.8 ICD-9: 695.3 07/23/2017 Chondrocostal junction syndrome [[place]] ICD-10: M94.0 ICD-9: 733.6 07/23/2017 Mild cognitive impairment, so stated ICD-10: G31.84 ICD-9: 331.83 05/22/2017 Other retention of urine ICD-10: R33.8 ICD-9: 788.29 04/04/2017 Other neuromuscular dysfunction of bladder ICD-10: N31.8 ICD-9: 596.59 04/04/2017 Cervicalgia ICD-10: M54.2 ICD-9: 723.1 03/01/2017 Weakness ICD-10: R53.1 ICD-9: 780.79 03/01/2017 Unsteadiness on feet ICD-10: R26.81 ICD-9: 781.2 03/01/2017 Localized edema ICD-10: R60.0 ICD-9: 782.3 12/31/2016 Spondylosis without myelopathy or radiculopathy, cervical region ICD-10: M47.812 ICD-9: 721.0 10/01/2016 Dysphagia, pharyngoesophageal phase ICD-10: R13.14 ICD-9: 787.24 10/01/2016 Palpitations ICD-10: R00.2 ICD-9: 785.1 07/19/2016 Insomnia due to medical condition ICD-10: G47.01 ICD-9: 327.01 04/10/2016 Acute vaginitis ICD-10: N76.0 ICD-9: 616.10 04/10/2016 Unspecified scleritis, bilateral ICD-10: H15.003 ICD-9: 379.00 02/07/2016 Fever, unspecified ICD-10: R50.9 ICD-9: 780.60 11/03/2015 Pain in unspecified joint ICD-10: M25.50 ICD-9: 719.40 11/03/2015 Pain in left hand ICD-10: M79.642 ICD-9: 729.5 10/26/2015 Dizziness and giddiness ICD-10: R42 ICD-9: 780.4 10/17/2015 Urinary tract infection, site not specified ICD-10: N39.0 ICD-9: 599.0 10/17/2015 Reactive airway disease ICD-9: 493.90 06/2015 Acute bronchitis ICD-9: 466.0 12/24/2014 ALLERGIC RHINITIS ICD-9: 477.9 2014 COUGH ICD-9: 786.2 12/24/2014 Scleritis ICD-9: 379.00 11/30/2014 AUTOIMMUNE DISEASE NEC ICD-9: 279.49 Abdominal pain ICD-9: 789.00 10/06/2014 Irritable bowel ICD-9: 564.1 10/06/2014 GENERALIZED ANXIETY DISEASE ICD-9: 300.02 10/06/2014 Constipation - functional ICD-9: 564.09 10/06/2014 RUQ pain ICD-9: 789.01 09/08/2014 ADHD (attention deficit hyperactivity disorder) ICD-9: 314.01 09/08/2014 Neck pain ICD-9: 723.1 08/13/2014 Insomnia ICD-9: 780.52 08/13/2014 HEADACHE ICD-9: 784.0 08/13/2014 MALAISE AND FATIGUE ICD-9: 780.79 2013 Rash ICD-9: 782.1 04/22/2014 ABN THYROID FUNCT STUDY ICD-9: 794.5 03/2014 Swollen neck ICD-9: 784.2 04/22/2014 Breast discharge ICD-9: 611.79 2013 PCOS (polycystic ovarian syndrome) ICD-9: 256.4 01/04/2014 Hirsutism ICD-9: 704.1 07/31/2013 Vaginal yeast infection ICD-9: 112.1 ACUTE SINUSITIS ICD-9: 461.9 04/23/2013 UTI ICD-9: 599.0 03/26/2013 Overweight ICD-9: 278.02 07/16/2012 Toxic effect of carbon monoxide ICD-9: 986 03/11/2012 Hypoglycemia ICD-9: 251.2 03/11/2012 Nausea ICD-9: 787.02 08/21/2011 Reason For Visit Reason For Visit Effective Dates Notes disturbances of thinking 07/23/2018 ADHD rash 05/27/2018 scalp has flakes that if you scratch will bleed and arms are flat and pink. face has red and raised. disturbances of memory 03/25/2018 scalp, sikh, posterior neck - She is using T linda shampoo. disturbances of thinking 01/28/2018 disturbances of thinking 11/26/2017 disturbances of thinking 07/23/2017 disturbances of thinking 05/22/2017 abdominal pain 04/04/2017 memory loss 03/01/2017 fatigue 12/31/2016 ongoing fatigue 10/01/2016 medication follow up 08/23/2016 fatigue 08/02/2016 palpitations 07/19/2016 fatigue 07/05/2016 fatigue 04/10/2016 joint complaint 02/07/2016 joint complaint 01/05/2016 joint complaint 12/01/2015 joint complaint 11/03/2015 hand pain 10/26/2015 dysuria 10/17/2015 paresthesia 09/06/2015 cough 12/24/2014 eye pain 11/30/2014 nausea 10/06/2014 headache 09/08/2014 earache 08/13/2014 Right ear neck swelling 04/22/2014 right side medication follow up 01/04/2014 pelvic pain 07/31/2013 earache 04/23/2013 hematuria 03/26/2013 constipation 02/11/2013 Weight follow up 07/16/2012 she started a new prescription for weight loss-topamax and phentermine fatigue 03/11/2012 abdominal pain 08/21/2011 after eating she gets very bloated and very bad gas Results Observation Observation Code Item Item Code Result Date ESR [id number] Sed Rate 11 mm/hr 07/30/2018 CRP [id number] C-Reactive Prot 0.2 mg/dL 07/30/2018 ESR [id number] Sed Rate 10 mm/hr 04/25/2018 CRP 0397027 C-Reactive Prot 0.3 mg/dL 04/25/2018 IGA [id number] IGA 115 mg/dL 02/14/2018 CHEM 14 9460648 AST 25 U/L 02/13/2018 CHEM 14 1895122 ALT 26 U/L 02/13/2018 CHEM 14 2142990 BUN 12 mg/dL 02/13/2018 CHEM 14 4456314 ALBUMIN 4.5 g/dL 02/13/2018 CHEM 14 9493092 CHLORIDE 105 mmol/L 02/13/2018 CHEM 14 2026917 Bili Total 0.3 mg/dL 02/13/2018 CHEM 14 2848078 ALK PHOS 92 U/L 02/13/2018 CHEM 14 0700167 SODIUM 140 mmol/L 02/13/2018 CHEM 14 8540317 CREATININE 0.81 mg/dL 02/13/2018 CHEM 14 6825073 CALCIUM 9.5 mg/dL 02/13/2018 CHEM 14 4870019 POTASSIUM 4.2 mmol/L 02/13/2018 CHEM 14 5997542 TOTAL PROTEIN 7.6 g/dL 02/13/2018 CHEM 14 5637660 GLUCOSE 91 mg/dL 02/13/2018 CHEM 14 3522368 Bicarbonate 29 mmol/L 02/13/2018 CHEM 14 1240444 AGAP 6 mmol/L 02/13/2018 CBC 2585463 WBC 6.6 10e9/L 02/13/2018 CBC 4016200 RBC 4.57 10e12/L 02/13/2018 CBC 6152920 HEMOGLOBIN 14.1 g/dL 02/13/2018 CBC 7942097 HEMATOCRIT 41.6 % 02/13/2018 CBC 7684491 MCV 91.0 fL 02/13/2018 CBC 3969844 MCH 30.9 pg 02/13/2018 CBC 2840892 MCHC 33.9 g/dL 02/13/2018 CBC 8092754 PLATELET COUNT 267 10e9/L 02/13/2018 CBC 3622915 Mean Plt Volume 10.9 fL 02/13/2018 CBC 1083798 Neut Auto 55.1 % 02/13/2018 CBC 5319350 Lymph Auto 33.8 % 02/13/[address] [place] Auto 8.8 % 02/13/2018 CBC 1234560 RDW 13.0 % 02/13/2018 CBC 5532491 Eos Auto 2.1 % 02/13/2018 CBC 3220917 Baso Auto 0.2 % 02/13/2018 CBC 1685722 Neutrophil Abs 3.64 10e9/L 02/13/2018 CBC 5412665 Lymphocyte Abs 2.23 10e9/L 02/13/2018 CBC 6268153 Monocyte Abs 0.58 10e9/L 02/13/2018 CBC 4363855 Eosinophil Abs 0.14 10e9/L 02/13/2018 CBC 3454777 Basophil Abs 0.01 10e9/L 02/13/2018 CBC 6101381 RDW-SD 42.5 fL 02/13/2018 GFR CALC 9714967 GFR Non Afr Amr >60 mL/min 02/13/2018 GFR CALC 3532175 GFR Afr Amr >60 mL/min 02/13/2018 REF LAB [id number] Ref Lab Misc See Below 01/23/2016 SJOGRENS 0498396 Sjogrens SSA <20 01/13/2016 SJOGRENS 2230313 SSA Intp Negative 01/13/2016 SJOGRENS 9354187 Sjogrens SSB <20 01/13/2016 SJOGRENS 2015708 SSB Intp Negative 01/13/2016 SJOGRENS 1001348 Non Hist Ag Int See Below 01/13/2016 MITOCH M2 3191285 Mitoch M2 IgG 3.2 Units 01/13/2016 TITI-1 AB 9613879 TITI-1 AB <20 01/13/2016 TITI-1 AB 5970711 TITI-1 Intp Negative 01/13/2016 Smooth Muscle Antibody Titer 2205451 SMA Titer <1:20 2015 Myoglobin Serum 350498 MYOGLOBIN, SERUM 22 ng/mL 01/10/2016 Myoglobin, Urine 571301 MYOGLOBIN, URINE <2 ng/mL 01/10/2016 Ann [id number] ANN (STEVEN) SCREEN NONE DETECTED 01/06/2016 Ast(Sgot) Ord75 AST(SGOT) 17 U/L 01/05/2016 Alt(Sgpt) Ord58 ALT(SGPT) 25 U/L 01/05/2016 Ldh Ord92 LDH 207 U/L 01/05/2016 Cpk Ord61 CPK 155 U/L 01/05/2016 Sed Rate Ord21 ESR 2 mm/hr 10/27/2015 Uric Acid Ord77 Uric A 4.4 mg/dL 10/26/2015 C-Reactive Protein Qnt Crqnt CRP 0.2 mg/dl 10/26/2015 GFR CALC 4437646 GFR Non Afr Amr >60 mL/min 10/18/2015 GFR CALC 9755079 GFR Afr Amr >60 mL/min 10/18/2015 CHEM 14 7453389 AST 20 U/L 10/18/2015 CHEM 14 8445943 ALT 30 U/L 10/18/2015 CHEM 14 5423580 BUN 17 mg/dL 10/18/2015 CHEM 14 6340090 ALBUMIN 4.4 g/dL 10/18/2015 CHEM 14 0847373 CHLORIDE 100 mmol/L 10/18/2015 CHEM 14 9584274 Bili Total 0.3 mg/dL 10/18/2015 CHEM 14 1263121 ALK PHOS 83 U/L 10/18/2015 CHEM 14 2273138 SODIUM 138 mmol/L 10/18/2015 CHEM 14 8619231 CREATININE 0.82 mg/dL 10/18/2015 CHEM 14 4866438 CALCIUM 9.6 mg/dL 10/18/2015 CHEM 14 9255589 POTASSIUM 3.9 mmol/L 10/18/2015 CHEM 14 7019286 TOTAL PROTEIN 7.1 g/dL 10/18/2015 CHEM 14 5851592 GLUCOSE 68 mg/dL 10/18/2015 CHEM 14 9228607 Bicarbonate 25 mmol/L 10/18/2015 CHEM 14 1121625 AGAP 13 mmol/L 10/18/2015 ESR 9759821 Sed Rate 2 mm/hr 10/18/2015 CBC 0029192 WBC 7.7 10e9/L 10/17/2015 CBC 6630359 RBC 4.79 10e12/L 10/17/2015 CBC 6401699 HEMOGLOBIN 14.6 g/dL 10/17/2015 CBC 6796146 HEMATOCRIT 42.6 % 10/17/2015 CBC 7589909 MCV 88.9 fL 10/17/2015 CBC 3120915 MCH 30.5 pg 10/17/2015 CBC 6392570 MCHC 34.3 g/dL 10/17/2015 CBC 4606491 PLATELET COUNT 312 10e9/L 10/17/2015 CBC 1194569 Mean Plt Volume 9.9 fL 10/17/2015 CBC 1936721 Neutrophil 61.0 % 10/17/2015 CBC 0898376 Lymph Auto % 28.3 % 10/17/2015 CBC 4384545 Monocyte Auto % 9.2 % 10/17/2015 CBC 0803223 RDW 12.9 % 10/17/2015 CBC 3063241 Eosinophil 1.4 % 10/17/2015 CBC 4417433 Basophil 0.1 % 10/17/2015 CBC 7144027 Neutrophil Abs 4.70 10e9/L 10/17/2015 CBC 2994400 Lymphoctye Abs 2.18 10e9/L 10/17/2015 CBC 7607763 Monocyte Abs 0.71 10e9/L 10/17/2015 CBC 1965558 Eosinophil Abs 0.11 10e9/L 10/17/2015 CBC 4439677 Basophil Abs 0.01 10e9/L 10/17/2015 CBC 3591515 RDW-SD 41.6 fL 10/17/2015 NEUT CY AB 4896358 ALBERTO CYT A <1:20 01/10/2015 ANN SCR [id number] ANN SCR POSITIVE 01/10/2015 TITER ANN [id number] TITR ANN 1:80 01/10/2015 TITER ANN [id number] PATTERN SPECKLED 01/10/2015 DNA AB 3274536 DNA AB 44 IU/ML 01/08/2015 RA FACTOR [id number] RA FACTOR <20.0 IU/ML 01/08/2015 ESR [id number] ESR 4 MM/HR 01/07/2015 GFR CALC 5937244 GFR AA >60 ML/MIN 01/07/2015 GFR CALC 5230317 GFR NON-AA >60 ML/MIN 01/07/2015 CRP 2328469 CRP 0.1 MG/DL 01/07/2015 CBC 0746444 WBC 6.6 10e9/L 01/07/2015 CBC 8915661 RBC 4.69 10e12/L 01/07/2015 CBC 2932041 HGB 14.4 g/dL 01/07/2015 CBC 5755591 HCT DET 41.5 % 01/07/2015 CBC 6085541 MCV 88.5 fL 01/07/2015 CBC 6775999 MCH 30.7 pg 01/07/2015 CBC 9099654 MCHC 34.7 g/dL 01/07/2015 CBC 7924426 PLT 266 10e9/L 01/07/2015 CBC 0075017 MPV 10.7 fL 01/07/2015 CBC 3645157 ALBERTO % 52.4 % 01/07/2015 CBC 7055556 LY % 34.9 % 01/07/2015 CBC 3342266 MON % 10.5 % 01/07/2015 CBC 6142907 EOS % 2.0 % 01/07/2015 CBC 3803694 BASO % 0.2 % 01/07/2015 CBC 6930880 RDW 13.1 % 01/07/2015 CBC 6003076 ABS ALBERTO 3.46 10e9/L 01/07/2015 CBC 0803233 ABS LYMPH 2.30 10e9/L 01/07/2015 CBC 5875446 ABS MONO 0.69 10e9/L 01/07/2015 CBC 4387944 ABS EOS 0.13 10e9/L 01/07/2015 CBC 6395025 ABS BASO 0.01 10e9/L 01/07/2015 CBC 4296144 RDW-SD 41.8 fL 01/07/2015 CHEM 14 4658058 AST 19 U/L 01/07/2015 CHEM 14 0991494 ALT 22 IU/L 01/07/2015 CHEM 14 3265734 BUN 10 MG/DL 01/07/2015 CHEM 14 6938288 ALBUMIN 4.2 GM/DL 01/07/2015 CHEM 14 8947420 CHLORIDE 106 MMOL/L 01/07/2015 CHEM 14 7942378 BILI TOT 0.4 MG/DL 01/07/2015 CHEM 14 7026710 ALK PHOS 72 U/L 01/07/2015 CHEM 14 7754318 SODIUM 138 MMOL/L 01/07/2015 CHEM 14 2096870 CREATININE 0.92 MG/DL 01/07/2015 CHEM 14 3822659 CALCIUM 9.7 MG/DL 01/07/2015 CHEM 14 8823888 POTASSIUM 4.0 MMOL/L 01/07/2015 CHEM 14 3061727 PROT TOT 6.3 GM/DL 01/07/2015 CHEM 14 3411398 GLUCOSE 89 MG/DL 01/07/2015 CHEM 14 6114900 BICARB 27 MMOL/L 01/07/2015 CHEM 14 8038629 ANION GAP 5 MEQ/L 01/07/2015 RA FACTOR [id number] RA FACTOR <20.0 IU/ML 10/22/2014 DNA AB 1983115 DNA AB 24 IU/ML 10/14/2014 C4 0451043 C4 20 MG/DL 10/13/2014 C3 9354171 C3 112 MG/DL 10/13/2014 ANN SCR [id number] ANN SCR <1:80 10/13/2014 ESR 1079951 ESR 7 MM/HR 10/13/2014 CRP 8784886 CRP 0.1 MG/DL 10/12/2014 GFR CALC 8063098 GFR AA >60 ML/MIN 10/12/2014 GFR CALC 9772008 GFR NON-AA >60 ML/MIN 10/12/2014 CBC 3764938 WBC 6.7 10e9/L 10/12/2014 CBC 5787656 RBC 4.47 10e12/L 10/12/2014 CBC 9522706 HGB 13.8 g/dL 10/12/2014 CBC 5814549 HCT DET 39.7 % 10/12/2014 CBC 3409754 MCV 88.8 fL 10/12/2014 CBC 6792107 MCH 30.9 pg 10/12/2014 CBC 4727906 MCHC 34.8 g/dL 10/12/2014 CBC 6069029 PLT 278 10e9/L 10/12/2014 CBC 6595975 MPV 10.3 fL 10/12/2014 CBC 4495535 ALBERTO % 52.8 % 10/12/2014 CBC 4652092 LY % 33.5 % 10/12/2014 CBC 3789361 MON % 12.2 % 10/12/2014 CBC 7622002 EOS % 1.5 % 10/12/2014 CBC 9651394 BASO % 0.0 % 10/12/2014 CBC 0124778 RDW 12.3 % 10/12/2014 CBC 2903410 ABS ALBERTO 3.54 10e9/L 10/12/2014 CBC 0558808 ABS LYMPH 2.24 10e9/L 10/12/2014 CBC 2769976 ABS MONO 0.82 10e9/L 10/12/2014 CBC 5558915 ABS EOS 0.10 10e9/L 10/12/2014 CBC 5438240 ABS BASO 0.00 10e9/L 10/12/2014 CBC 2470809 RDW-SD 39.3 fL 10/12/2014 TSH 2144818 TSH 1.174 uIU/ML 10/12/2014 CHEM 14 2174233 AST 22 U/L 10/12/2014 CHEM 14 0626142 ALT 28 IU/L 10/12/2014 CHEM 14 5896643 BUN 9 MG/DL 10/12/2014 CHEM 14 2682409 ALBUMIN 4.2 GM/DL 10/12/2014 CHEM 14 1185100 CHLORIDE 102 MMOL/L 10/12/2014 CHEM 14 9771320 BILI TOT 0.2 MG/DL 10/12/2014 CHEM 14 8874338 ALK PHOS 81 U/L 10/12/2014 CHEM 14 4098545 SODIUM 137 MMOL/L 10/12/2014 CHEM 14 7960889 CREATININE 0.84 MG/DL 10/12/2014 CHEM 14 6741074 CALCIUM 10.2 MG/DL 10/12/2014 CHEM 14 3201832 POTASSIUM 3.8 MMOL/L 10/12/2014 CHEM 14 6896197 PROT TOT 6.6 GM/DL 10/12/2014 CHEM 14 7697927 GLUCOSE 79 MG/DL 10/12/2014 CHEM 14 0822535 BICARB 30 MMOL/L 10/12/2014 CHEM 14 2402814 ANION GAP 5 MEQ/L 10/12/2014 LIPID GRP HDL TEST 52 MG/DL 01/07/2014 LIPID GRP TRIG 58 MG/DL 01/07/2014 LIPID GRP 1488422 TEST LDL 129 MG/DL 01/07/2014 LIPID GRP CHOL 193 MG/DL 01/07/2014 LIPID GRP RCHOL/HDL 3.71 RATIO 01/07/2014 GFR CALC 9952233 GFR AA >60 ML/MIN 01/05/2014 GFR CALC 7739183 GFR NON-AA >60 ML/MIN 01/05/2014 CHEM 14 5823640 AST 22 U/L 01/05/2014 CHEM 14 6087398 ALT 29 IU/L 01/05/2014 CHEM 14 9098055 BUN 15 MG/DL 01/05/2014 CHEM 14 0116028 ALBUMIN 4.3 GM/DL 01/05/2014 CHEM 14 5911300 CHLORIDE 106 MMOL/L 01/05/2014 CHEM 14 3407014 BILI TOT 0.3 MG/DL 01/05/2014 CHEM 14 1021869 ALK PHOS 68 U/L 01/05/2014 CHEM 14 1293321 SODIUM 139 MMOL/L 01/05/2014 CHEM 14 0423708 CREATININE 0.95 MG/DL 01/05/2014 CHEM 14 7633676 CALCIUM 9.6 MG/DL 01/05/2014 CHEM 14 0224563 POTASSIUM 3.6 MMOL/L 01/05/2014 CHEM 14 0168455 PROT TOT 6.5 GM/DL 01/05/2014 CHEM 14 2706062 GLUCOSE 80 MG/DL 01/05/2014 CHEM 14 [id number] BICARB 27 MMOL/L 01/05/2014 CHEM 14 [id number] ANION GAP 6 MEQ/L 01/05/2014 GFR CALC [id number] GFR AA >60 ML/MIN 09/24/2013 GFR CALC [id number] GFR NON-AA >60 ML/MIN 09/24/2013 LIPID GRP HDL TEST 59 MG/DL 09/24/2013 LIPID GRP TRIG 71 MG/DL 09/24/2013 LIPID GRP TEST LDL 148 MG/DL 09/24/2013 LIPID GRP CHOL 221 MG/DL 09/24/2013 LIPID GRP RCHOL/HDL 3.75 RATIO 09/24/2013 CHEM 14 [id number] AST 25 U/L 09/24/2013 CHEM 14 [id number] ALT 31 IU/L 09/24/2013 CHEM 14 [id number] BUN 16 MG/DL 09/24/2013 CHEM 14 [id number] ALBUMIN 4.7 GM/DL 09/24/2013 CHEM 14 [id number] CHLORIDE 105 MMOL/L 09/24/2013 CHEM 14 [id number] BILI TOT 0.3 MG/DL 09/24/2013 CHEM 14 [id number] ALK PHOS 80 U/L 09/24/2013 CHEM 14 [id number] SODIUM 138 MMOL/L 09/24/2013 CHEM 14 [id number] CREATININE 0.96 MG/DL 09/24/2013 CHEM 14 [id number] CALCIUM 9.9 MG/DL 09/24/2013 CHEM 14 [id number] POTASSIUM 3.9 MMOL/L 09/24/2013 CHEM 14 [id number] PROT TOT 7.0 GM/DL 09/24/2013 CHEM 14 [id number] GLUCOSE 92 MG/DL 09/24/2013 CHEM 14 [id number] BICARB 28 MMOL/L 09/24/2013 CHEM 14 [id number] ANION GAP 5 MEQ/L 09/24/2013 CBC [id number] WBC 6.8 10e9/L 09/24/2013 CBC [id number] RBC 4.83 10e12/L 09/24/2013 CBC [id number] HGB 14.8 g/dL 09/24/2013 CBC [id number] HCT DET 42.8 % 09/24/2013 CBC [id number] MCV 88.6 fL 09/24/2013 CBC [id number] MCH 30.6 pg 09/24/2013 CBC [id number] MCHC 34.6 g/dL 09/24/2013 CBC [id number] PLT 267 10e9/L 09/24/2013 CBC [id number] MPV 10.3 fL 09/24/2013 CBC [id number] ALBERTO % 49.5 % 09/24/2013 CBC [id number] LY % 38.1 % 09/24/2013 CBC [id number] MON % 9.6 % 09/24/2013 CBC [id number] EOS % 2.7 % 09/24/2013 CBC [id number] BASO % 0.1 % 09/24/2013 CBC [id number] RDW 13.0 % 09/24/2013 CBC [id number] ABS ALBERTO 3.37 10e9/L 09/24/2013 CBC [id number] ABS LYMPH 2.59 10e9/L 09/24/2013 CBC [id number] ABS MONO 0.65 10e9/L 09/24/2013 CBC [id number] ABS EOS 0.18 10e9/L 09/24/2013 CBC [id number] ABS BASO 0.01 10e9/L 09/24/2013 CBC [id number] RDW-SD 41.6 fL 09/24/2013 A1C HPLC [id number] A1C HPLC 60422-6 5.0 % 09/24/2013 TSH [id number] TSH 1.998 uIU/ML 09/24/2013 VIT B 12 [id number] VIT B 12 657 PG/ML 02/12/2013 FERRITIN [id number] FERRITIN 66 NG/ML 02/12/2013 %SAT/TIBC [id number] TIBC 348 UG/DL 02/12/2013 %SAT/TIBC [id number] % SATURAT 43 % 02/12/2013 %SAT/TIBC [id number] UIBC 199 MCG/DL 02/12/2013 IRON TEST [id number] IRON TEST 149 UG/DL 02/12/2013 VIT D TOTL [id number] VIT D TOTL 42 NG/ML 02/12/2013 FREE T4 [id number] FREE T4 0.95 NG/DL 07/21/2012 TSH [id number] TSH 1.511 uIU/ML 07/21/2012 THYRO AB [id number] THYRO A A 0.23 UNITS 03/15/2012 THYRO AB [id number] THYRO PERX 11.61 UNITS 03/15/2012 FREE T4 [id number] FREE T4 1.10 NG/DL 03/12/2012 [facility] GLUCOSE 81 MG/DL 03/12/2012 BMP CREATININE 0.87 MG/DL 03/12/2012 BMP BUN 11 MG/DL 03/12/2012 BMP SODIUM 136 MMOL/L 03/12/2012 BMP POTASSIUM 3.8 MMOL/L 03/12/2012 BMP CHLORIDE 101 MMOL/L 03/12/2012 BMP BICARB 28 MMOL/L 03/12/2012 BMP ANION GAP 7 MEQ/L 03/12/2012 BMP CALCIUM 9.7 MG/DL 03/12/2012 INT IR PTH [id number] PTH TEST 28 PG/ML 03/12/2012 T3 TOT [id number] T3 TOT 1.6 NG/ML 03/12/2012 GFR CALC [id number] GFR AA >60 ML/MIN 03/12/2012 GFR CALC [id number] GFR NON-AA >60 ML/MIN 03/12/2012 TSH [id number] TSH 1.696 uIU/ML 03/12/2012 CA PTH [id number] CA PTH 9.5 MG/DL 03/12/2012 Review of Systems System Result Effective Dates Constitutional recent illness 07/23/2018 Constitutional No night sweats 2018 Constitutional No diaphoresis 07/23/2018 Constitutional fatigue 07/23/2018 Constitutional No fever 07/23/2018 Constitutional No insomnia 07/23/2018 Constitutional malaise 07/23/2018 Eyes No eye discharge 07/23/2018 Eyes No eye erythema 07/23/2018 Ears/Nose/Throat/Neck No dizziness 2018 Ears/Nose/Throat/Neck No sore throat 03/2019 Ears/Nose/Throat/Neck No otalgia 2018 Ears/Nose/Throat/Neck No sinus congestion 07/23/2018 Cardiovascular No chest pain/pressure 03/2019 Gastrointestinal No abdominal pain 2018 Gastrointestinal No constipation 2018 Gastrointestinal No vomiting 07/23/2018 Genitourinary/Nephrology No dysuria 07/23 Musculoskeletal No joint complaint 2018 Musculoskeletal neck pain 07/23/2018 Dermatologic rash 07/23/2018 Neurologic No alteration of consciousness 07/23/2018 Neurologic memory loss 07/23/2018 Psychiatric No anxiety 07/23/2018 Psychiatric No depression 07/23/2018 Genitourinary/Nephrology genital lesion 07/23/2018 Constitutional recent illness 05/27/2018 Constitutional No night sweats 2017 Constitutional No diaphoresis 05/27/2018 Constitutional fatigue 05/27/2018 Constitutional No fever 05/27/2018 Constitutional No insomnia 05/27/2018 Constitutional malaise 05/27/2018 Eyes No eye discharge 05/27/2018 Eyes No eye erythema 05/27/2018 Ears/Nose/Throat/Neck No dizziness 2017 Ears/Nose/Throat/Neck No sore throat Ears/Nose/Throat/Neck No otalgia 2017 Ears/Nose/Throat/Neck No sinus congestion 05/27/2018 Cardiovascular No chest pain/pressure Gastrointestinal abdominal pain 2017 Gastrointestinal No constipation 2017 Gastrointestinal No vomiting 05/27/2018 Genitourinary/Nephrology No dysuria 05/27 Musculoskeletal No joint complaint 2017 Musculoskeletal neck pain 05/27/2018 Dermatologic rash 05/27/2018 Neurologic No alteration of consciousness 05/27/2018 Neurologic memory loss 05/27/2018 Psychiatric No anxiety 05/27/2018 Psychiatric No depression 05/27/2018 Respiratory No cough 05/27/2018 Respiratory No chest congestion 2017 Constitutional recent illness 03/25/2018 Constitutional No night sweats 2017 Constitutional No diaphoresis 03/25/2018 Constitutional fatigue 03/25/2018 Constitutional No fever 03/25/2018 Constitutional No insomnia 03/25/2018 Constitutional malaise 03/25/2018 Eyes No eye discharge 03/25/2018 Eyes No eye erythema 03/25/2018 Ears/Nose/Throat/Neck No dizziness 2017 Ears/Nose/Throat/Neck No sore throat 05/2018 Ears/Nose/Throat/Neck No otalgia 2017 Ears/Nose/Throat/Neck No sinus congestion 03/25/2018 Cardiovascular No chest pain/pressure 05/2018 Gastrointestinal No abdominal pain 2017 Gastrointestinal No constipation 2017 Gastrointestinal No vomiting 03/25/2018 Genitourinary/Nephrology No dysuria 03/25 Musculoskeletal No joint complaint 2017 Musculoskeletal neck pain 03/25/2018 Dermatologic rash 03/25/2018 Neurologic No alteration of consciousness 03/25/2018 Neurologic memory loss 03/25/2018 Psychiatric No anxiety 03/25/2018 Psychiatric No depression 03/25/2018 Constitutional recent illness 01/28/2018 Constitutional No night sweats 2017 Constitutional No diaphoresis 01/28/2018 Constitutional fatigue 01/28/2018 Constitutional No fever 01/28/2018 Constitutional No insomnia 01/28/2018 Constitutional malaise 01/28/2018 Eyes No eye discharge 01/28/2018 Eyes No eye erythema 01/28/2018 Ears/Nose/Throat/Neck No dizziness 2017 Ears/Nose/Throat/Neck headache 2017 Ears/Nose/Throat/Neck nasal allergies Ears/Nose/Throat/Neck nasal discharge Ears/Nose/Throat/Neck No sore throat Ears/Nose/Throat/Neck No otalgia 2017 Ears/Nose/Throat/Neck No sinus congestion 01/28/2018 Cardiovascular No chest pain/pressure Respiratory pleuritic pain 01/28/2018 Respiratory chest tightness 01/28/2018 Gastrointestinal No abdominal pain 2017 Gastrointestinal No constipation 2017 Gastrointestinal No vomiting 01/28/2018 Genitourinary/Nephrology No dysuria 01/28 Musculoskeletal No joint complaint 2017 Musculoskeletal neck pain 01/28/2018 Dermatologic pigmentation change 2017 Dermatologic rash 01/28/2018 Neurologic No alteration of consciousness 01/28/2018 Neurologic headache 01/28/2018 Neurologic memory loss 01/28/2018 Psychiatric No anxiety 01/28/2018 Psychiatric No depression 01/28/2018 Constitutional recent illness 11/26/2017 Constitutional No anorexia 11/26/2017 Constitutional No night sweats 2017 Constitutional No chills 11/26/2017 Constitutional No diaphoresis 11/26/2017 Constitutional fatigue 11/26/2017 Constitutional No fever 11/26/2017 Constitutional No insomnia 11/26/2017 Constitutional malaise 11/26/2017 Eyes No eye discharge 11/26/2017 Eyes No eye erythema 11/26/2017 Ears/Nose/Throat/Neck No dizziness 2017 Ears/Nose/Throat/Neck headache 2017 Ears/Nose/Throat/Neck nasal allergies Ears/Nose/Throat/Neck nasal discharge Ears/Nose/Throat/Neck No sore throat Ears/Nose/Throat/Neck No otalgia 2017 Ears/Nose/Throat/Neck No sinus congestion 11/26/2017 Cardiovascular No chest pain/pressure Respiratory chest tightness 11/26/2017 Gastrointestinal No abdominal pain 2017 Gastrointestinal No constipation 2017 Gastrointestinal No vomiting 11/26/2017 Genitourinary/Nephrology No dysuria 11/26 Musculoskeletal No joint complaint 2017 Musculoskeletal neck pain 11/26/2017 Dermatologic pigmentation change 2017 Dermatologic rash 11/26/2017 Neurologic No alteration of consciousness 11/26/2017 Neurologic headache 11/26/2017 Neurologic memory loss 11/26/2017 Psychiatric No anxiety 11/26/2017 Psychiatric No depression 11/26/2017 Constitutional recent illness 07/23/2017 Constitutional No night sweats 2017 Constitutional No diaphoresis 07/23/2017 Constitutional fatigue 07/23/2017 Constitutional No fever 07/23/2017 Constitutional No insomnia 07/23/2017 Constitutional malaise 07/23/2017 Eyes No eye discharge 07/23/2017 Eyes No eye erythema 07/23/2017 Ears/Nose/Throat/Neck No dizziness 2017 Ears/Nose/Throat/Neck headache 2017 Ears/Nose/Throat/Neck nasal allergies 03/2018 Ears/Nose/Throat/Neck nasal discharge 03/2018 Ears/Nose/Throat/Neck No sore throat 03/2018 Ears/Nose/Throat/Neck No otalgia 2017 Ears/Nose/Throat/Neck No sinus congestion 07/23/2017 Cardiovascular No chest pain/pressure 03/2018 Respiratory chest tightness 07/23/2017 Gastrointestinal No abdominal pain 2017 Gastrointestinal No constipation 2017 Gastrointestinal No vomiting 07/23/2017 Genitourinary/Nephrology No dysuria 07/23 Musculoskeletal No joint complaint 2017 Musculoskeletal neck pain 07/23/2017 Dermatologic pigmentation change 2017 Dermatologic rash 07/23/2017 Neurologic No alteration of consciousness 07/23/2017 Neurologic headache 07/23/2017 Neurologic memory loss 07/23/2017 Psychiatric No anxiety 07/23/2017 Psychiatric No depression 07/23/2017 Respiratory pleuritic pain 07/23/2017 Constitutional recent illness 05/22/2017 Constitutional No anorexia 05/22/2017 Constitutional No night sweats 2016 Constitutional No chills 05/22/2017 Constitutional No diaphoresis 05/22/2017 Constitutional fatigue 05/22/2017 Constitutional No fever 05/22/2017 Constitutional No insomnia 05/22/2017 Constitutional malaise 05/22/2017 Eyes No eye discharge 05/22/2017 Eyes No eye erythema 05/22/2017 Ears/Nose/Throat/Neck No dizziness 2016 Ears/Nose/Throat/Neck nasal allergies 02/2017 Ears/Nose/Throat/Neck nasal discharge 02/2017 Ears/Nose/Throat/Neck No sore throat 02/2017 Ears/Nose/Throat/Neck No otalgia 2016 Ears/Nose/Throat/Neck No sinus congestion 05/22/2017 Cardiovascular No chest pain/pressure 02/2017 Respiratory chest tightness 05/22/2017 Gastrointestinal No abdominal pain 2016 Gastrointestinal No constipation 2016 Gastrointestinal No vomiting 05/22/2017 Genitourinary/Nephrology No dysuria 05/22 Musculoskeletal No joint complaint 2016 Dermatologic pigmentation change 2016 Dermatologic rash 05/22/2017 Neurologic No alteration of consciousness 05/22/2017 Psychiatric No anxiety 05/22/2017 Psychiatric No depression 05/22/2017 Ears/Nose/Throat/Neck headache 2016 Musculoskeletal neck pain 05/22/2017 Neurologic headache 05/22/2017 Neurologic memory loss 05/22/2017 Constitutional No recent illness 2016 Constitutional No anorexia 04/04/2017 Constitutional No night sweats 2016 Constitutional No chills 04/04/2017 Constitutional No diaphoresis 04/04/2017 Constitutional fatigue 04/04/2017 Constitutional No fever 04/04/2017 Eyes No eye discharge 04/04/2017 Eyes No eye erythema 04/04/2017 Ears/Nose/Throat/Neck No dizziness 2016 Ears/Nose/Throat/Neck No dysphagia 2016 Ears/Nose/Throat/Neck No headache 2016 Ears/Nose/Throat/Neck nasal allergies Ears/Nose/Throat/Neck No sore throat Ears/Nose/Throat/Neck No postnasal drip 04/04/2017 Ears/Nose/Throat/Neck No sinus congestion 04/04/2017 Cardiovascular No chest pain/pressure Respiratory No cough 04/04/2017 Gastrointestinal No nausea 04/04/2017 Gastrointestinal No vomiting 04/04/2017 Musculoskeletal No stiffness 04/04/2017 Musculoskeletal No swelling 04/04/2017 Musculoskeletal No muscle weakness 2016 Musculoskeletal No myalgias 04/04/2017 Dermatologic No rash 04/04/2017 Dermatologic No sores 04/04/2017 Neurologic No dizziness 04/04/2017 Neurologic No headache 04/04/2017 Neurologic No neck pain 04/04/2017 Neurologic No syncope 04/04/2017 Psychiatric No anxiety 04/04/2017 Psychiatric No depression 04/04/2017 Constitutional No recent illness 2016 Constitutional No chills 03/01/2017 Constitutional No diaphoresis 03/01/2017 Constitutional No fever 03/01/2017 Eyes No eye erythema 03/01/2017 Eyes eye floaters 03/01/2017 Ears/Nose/Throat/Neck nasal discharge Ears/Nose/Throat/Neck nasal allergies Ears/Nose/Throat/Neck headache 2016 Cardiovascular No chest pain/pressure Cardiovascular No dyspnea 03/01/2017 Respiratory No cough 03/01/2017 Respiratory No dyspnea 03/01/2017 Gastrointestinal No abdominal pain 2016 Musculoskeletal neck pain 03/01/2017 Musculoskeletal shoulder pain 03/01/2017 Dermatologic No rash 03/01/2017 Neurologic No alteration of consciousness 03/01/2017 Neurologic memory loss 03/01/2017 Neurologic headache 03/01/2017 Neurologic gait abnormality 03/01/2017 Constitutional No recent illness 2016 Constitutional No anorexia 12/31/2016 Constitutional No night sweats 2016 Constitutional No chills 12/31/2016 Constitutional No diaphoresis 12/31/2016 Constitutional fatigue 12/31/2016 Constitutional No fever 12/31/2016 Eyes No eye discharge 12/31/2016 Eyes No eye erythema 12/31/2016 Ears/Nose/Throat/Neck No dizziness 2016 Ears/Nose/Throat/Neck No dysphagia 2016 Ears/Nose/Throat/Neck No headache 2016 Ears/Nose/Throat/Neck nasal allergies Ears/Nose/Throat/Neck No sore throat Ears/Nose/Throat/Neck No postnasal drip 12/31/2016 Ears/Nose/Throat/Neck No sinus congestion 12/31/2016 Cardiovascular No chest pain/pressure Respiratory No cough 12/31/2016 Gastrointestinal No nausea 12/31/2016 Gastrointestinal No vomiting 12/31/2016 Musculoskeletal No stiffness 12/31/2016 Musculoskeletal No swelling 12/31/2016 Musculoskeletal No muscle weakness 2016 Musculoskeletal No myalgias 12/31/2016 Dermatologic No rash 12/31/2016 Dermatologic No sores 12/31/2016 Neurologic No dizziness 12/31/2016 Neurologic No headache 12/31/2016 Neurologic No neck pain 12/31/2016 Neurologic No syncope 12/31/2016 Psychiatric No anxiety 12/31/2016 Psychiatric No depression 12/31/2016 Constitutional recent illness 10/01/2016 Constitutional No anorexia 10/01/2016 Constitutional No night sweats 2016 Constitutional No chills 10/01/2016 Constitutional No diaphoresis 10/01/2016 Constitutional fatigue 10/01/2016 Constitutional No fever 10/01/2016 Constitutional No insomnia 10/01/2016 Constitutional malaise 10/01/2016 Eyes No eye discharge 10/01/2016 Eyes No eye erythema 10/01/2016 Ears/Nose/Throat/Neck No dizziness 2016 Ears/Nose/Throat/Neck nasal allergies Ears/Nose/Throat/Neck nasal discharge Ears/Nose/Throat/Neck No sore throat Ears/Nose/Throat/Neck No otalgia 2016 Ears/Nose/Throat/Neck No sinus congestion 10/01/2016 Cardiovascular No chest pain/pressure Respiratory chest tightness 10/01/2016 Gastrointestinal No abdominal pain 2016 Gastrointestinal No constipation 2016 Gastrointestinal No vomiting 10/01/2016 Musculoskeletal No joint complaint 2016 Dermatologic pigmentation change 2016 Dermatologic rash 10/01/2016 Neurologic No alteration of consciousness 10/01/2016 Psychiatric No anxiety 10/01/2016 Psychiatric No depression 10/01/2016 Constitutional No recent illness 2016 Constitutional No anorexia 08/23/2016 Constitutional No night sweats 2016 Constitutional No chills 08/23/2016 Constitutional No diaphoresis 08/23/2016 Constitutional No fatigue 08/23/2016 Constitutional No fever 08/23/2016 Constitutional No insomnia 08/23/2016 Constitutional No malaise 08/23/2016 Constitutional No weight loss 08/23/2016 Constitutional No weight gain 08/23/2016 Eyes No eye pain 08/23/2016 Eyes No vision change 08/23/2016 Ears/Nose/Throat/Neck No dizziness 2016 Ears/Nose/Throat/Neck headache 2016 Cardiovascular chest pain/pressure 2016 Cardiovascular No dyspnea 08/23/2016 Cardiovascular No exercise intolerance Cardiovascular palpitations 08/23/2016 Respiratory No cigarette smoking 2016 Respiratory No chest tightness 2016 Respiratory No chest congestion 2016 Gastrointestinal No diarrhea 08/23/2016 Gastrointestinal No constipation 2016 Gastrointestinal nausea 08/23/2016 Genitourinary/Nephrology dysuria 2016 Genitourinary/Nephrology No breast complaint 08/23/2016 Genitourinary/Nephrology flank pain 08/23 Genitourinary/Nephrology No urinary incontinence 08/23/2016 Genitourinary/Nephrology No urinary frequency 08/23/2016 Genitourinary/Nephrology urinary urgency 08/23/2016 Musculoskeletal arthralgia(s) 08/23/2016 Musculoskeletal swelling 08/23/2016 Musculoskeletal stiffness 08/23/2016 Dermatologic No sores 08/23/2016 Dermatologic No rash 08/23/2016 Cardiovascular edema 08/23/2016 Neurologic No mental status change 2016 Neurologic No alteration of consciousness 08/23/2016 Psychiatric anxiety 08/23/2016 Psychiatric No depression 08/23/2016 Endocrine No polydipsia 08/23/2016 Endocrine No polyuria 08/23/2016 Endocrine No sweating 08/23/2016 Hematologic/Lymphatic No abnormal ecchymoses 08/23/2016 Hematologic/Lymphatic No abnormal bleeding and bruising 08/23/2016 Constitutional recent illness 08/02/2016 Constitutional No anorexia 08/02/2016 Constitutional No night sweats 2016 Constitutional No chills 08/02/2016 Constitutional No diaphoresis 08/02/2016 Constitutional fatigue 08/02/2016 Constitutional No fever 08/02/2016 Constitutional No insomnia 08/02/2016 Constitutional malaise 08/02/2016 Eyes No eye discharge 08/02/2016 Eyes No eye erythema 08/02/2016 Ears/Nose/Throat/Neck No dizziness 2016 Ears/Nose/Throat/Neck nasal allergies Ears/Nose/Throat/Neck nasal discharge Ears/Nose/Throat/Neck No sore throat Ears/Nose/Throat/Neck No otalgia 2016 Ears/Nose/Throat/Neck No sinus congestion 08/02/2016 Cardiovascular No chest pain/pressure Respiratory chest tightness 08/02/2016 Gastrointestinal No abdominal pain 2016 Gastrointestinal No constipation 2016 Gastrointestinal No vomiting 08/02/2016 Genitourinary/Nephrology No dysuria 08/02 Musculoskeletal joint complaint 2016 Dermatologic pigmentation change 2016 Dermatologic rash 08/02/2016 Neurologic No alteration of consciousness 08/02/2016 Psychiatric No anxiety 08/02/2016 Psychiatric No depression 08/02/2016 Constitutional No recent illness 2016 Constitutional No anorexia 07/19/2016 Constitutional No night sweats 2016 Constitutional No chills 07/19/2016 Constitutional No diaphoresis 07/19/2016 Constitutional No fatigue 07/19/2016 Constitutional No fever 07/19/2016 Constitutional No insomnia 07/19/2016 Constitutional No malaise 07/19/2016 Eyes No eye pain 07/19/2016 Eyes No vision change 07/19/2016 Ears/Nose/Throat/Neck No dizziness 2016 Ears/Nose/Throat/Neck headache 2016 Cardiovascular chest pain/pressure 2016 Cardiovascular No dyspnea 07/19/2016 Cardiovascular edema 07/19/2016 Cardiovascular exercise intolerance 07/19 Cardiovascular palpitations 07/19/2016 Respiratory No chest congestion 2016 Respiratory No chest tightness 2016 Respiratory No cigarette smoking 2016 Gastrointestinal No constipation 2016 Gastrointestinal No diarrhea 07/19/2016 Gastrointestinal nausea 07/19/2016 Genitourinary/Nephrology No breast complaint 07/19/2016 Genitourinary/Nephrology dysuria 2016 Genitourinary/Nephrology flank pain 07/19 Genitourinary/Nephrology urinary urgency 07/19/2016 Genitourinary/Nephrology No urinary frequency 07/19/2016 Genitourinary/Nephrology No urinary incontinence 07/19/2016 Musculoskeletal stiffness 07/19/2016 Musculoskeletal swelling 07/19/2016 Musculoskeletal arthralgia(s) 07/19/2016 Dermatologic No rash 07/19/2016 Dermatologic No sores 07/19/2016 Neurologic No alteration of consciousness 07/19/2016 Neurologic No mental status change 2016 Psychiatric anxiety 07/19/2016 Psychiatric No depression 07/19/2016 Cardiovascular fatigue 07/19/2016 Constitutional recent illness 07/05/2016 Constitutional No anorexia 07/05/2016 Constitutional No night sweats 2015 Constitutional No chills 07/05/2016 Constitutional No diaphoresis 07/05/2016 Constitutional fatigue 07/05/2016 Constitutional No fever 07/05/2016 Constitutional No insomnia 07/05/2016 Constitutional malaise 07/05/2016 Eyes No eye discharge 07/05/2016 Eyes No eye erythema 07/05/2016 Ears/Nose/Throat/Neck No dizziness 2015 Ears/Nose/Throat/Neck nasal allergies Ears/Nose/Throat/Neck nasal discharge Ears/Nose/Throat/Neck No sore throat Ears/Nose/Throat/Neck No otalgia 2015 Ears/Nose/Throat/Neck No sinus congestion 07/05/2016 Cardiovascular No chest pain/pressure Respiratory chest tightness 07/05/2016 Gastrointestinal No abdominal pain 2015 Gastrointestinal No constipation 2015 Gastrointestinal No vomiting 07/05/2016 Genitourinary/Nephrology No dysuria 07/05 Genitourinary/Nephrology vaginal discharge 07/05/2016 Musculoskeletal No joint complaint 2015 Dermatologic pigmentation change 2015 Dermatologic rash 07/05/2016 Neurologic No alteration of consciousness 07/05/2016 Psychiatric No anxiety 07/05/2016 Psychiatric No depression 07/05/2016 Constitutional recent illness 04/10/2016 Constitutional No anorexia 04/10/2016 Constitutional No night sweats 2015 Constitutional No chills 04/10/2016 Constitutional No diaphoresis 04/10/2016 Constitutional fatigue 04/10/2016 Constitutional No fever 04/10/2016 Constitutional No insomnia 04/10/2016 Constitutional malaise 04/10/2016 Eyes No eye discharge 04/10/2016 Eyes No eye erythema 04/10/2016 Ears/Nose/Throat/Neck No dizziness 2015 Ears/Nose/Throat/Neck nasal allergies Ears/Nose/Throat/Neck nasal discharge Ears/Nose/Throat/Neck No sore throat Ears/Nose/Throat/Neck No otalgia 2015 Ears/Nose/Throat/Neck No sinus congestion 04/10/2016 Cardiovascular No chest pain/pressure Respiratory chest tightness 04/10/2016 Gastrointestinal No abdominal pain 2015 Gastrointestinal No constipation 2015 Gastrointestinal No vomiting 04/10/2016 Genitourinary/Nephrology No dysuria 04/10 Musculoskeletal No joint complaint 2015 Dermatologic pigmentation change 2015 Dermatologic rash 04/10/2016 Neurologic No alteration of consciousness 04/10/2016 Psychiatric No anxiety 04/10/2016 Psychiatric No depression 04/10/2016 Genitourinary/Nephrology vaginal discharge 04/10/2016 Constitutional recent illness 02/07/2016 Constitutional No anorexia 02/07/2016 Constitutional No night sweats 2015 Constitutional No chills 02/07/2016 Constitutional No diaphoresis 02/07/2016 Constitutional fatigue 02/07/2016 Constitutional No fever 02/07/2016 Constitutional No insomnia 02/07/2016 Constitutional malaise 02/07/2016 Eyes No eye discharge 02/07/2016 Eyes No eye erythema 02/07/2016 Ears/Nose/Throat/Neck No dizziness 2015 Ears/Nose/Throat/Neck nasal allergies Ears/Nose/Throat/Neck nasal discharge Ears/Nose/Throat/Neck No sore throat Ears/Nose/Throat/Neck No otalgia 2015 Ears/Nose/Throat/Neck No sinus congestion 02/07/2016 Cardiovascular No chest pain/pressure Respiratory chest tightness 02/07/2016 Gastrointestinal No abdominal pain 2015 Gastrointestinal No constipation 2015 Gastrointestinal No vomiting 02/07/2016 Genitourinary/Nephrology No dysuria 02/06 Musculoskeletal No joint complaint 2015 Dermatologic pigmentation change 2015 Dermatologic rash 02/07/2016 Neurologic No alteration of consciousness 02/07/2016 Psychiatric No anxiety 02/07/2016 Psychiatric No depression 02/07/2016 Constitutional recent illness 01/05/2016 Constitutional No anorexia 01/05/2016 Constitutional No night sweats 2015 Constitutional No chills 01/05/2016 Constitutional No diaphoresis 01/05/2016 Constitutional fatigue 01/05/2016 Constitutional No fever 01/05/2016 Constitutional No insomnia 01/05/2016 Constitutional malaise 01/05/2016 Eyes No eye discharge 01/05/2016 Eyes No eye erythema 01/05/2016 Ears/Nose/Throat/Neck No dizziness 2015 Ears/Nose/Throat/Neck nasal allergies Ears/Nose/Throat/Neck nasal discharge Ears/Nose/Throat/Neck No sore throat Ears/Nose/Throat/Neck No otalgia 2015 Ears/Nose/Throat/Neck No sinus congestion 01/05/2016 Cardiovascular No chest pain/pressure Respiratory chest tightness 01/05/2016 Gastrointestinal No abdominal pain 2015 Gastrointestinal No constipation 2015 Gastrointestinal No vomiting 01/05/2016 Genitourinary/Nephrology No dysuria 01/04 Musculoskeletal No joint complaint 2015 Dermatologic rash 01/05/2016 Neurologic No alteration of consciousness 01/05/2016 Psychiatric No anxiety 01/05/2016 Psychiatric No depression 01/05/2016 Dermatologic pigmentation change 2015 Constitutional recent illness 12/01/2015 Constitutional No anorexia 12/01/2015 Constitutional No night sweats 2015 Constitutional No chills 12/01/2015 Constitutional No diaphoresis 12/01/2015 Constitutional fatigue 12/01/2015 Constitutional No fever 12/01/2015 Constitutional No insomnia 12/01/2015 Constitutional No malaise 12/01/2015 Eyes No eye discharge 12/01/2015 Eyes No eye erythema 12/01/2015 Ears/Nose/Throat/Neck No dizziness 2015 Ears/Nose/Throat/Neck nasal allergies Ears/Nose/Throat/Neck nasal discharge Ears/Nose/Throat/Neck No sore throat Ears/Nose/Throat/Neck No otalgia 2015 Ears/Nose/Throat/Neck No sinus congestion 12/01/2015 Cardiovascular No chest pain/pressure Respiratory productive sputum 12/01/2015 Respiratory chest tightness 12/01/2015 Respiratory cough 12/01/2015 Respiratory wheezing 12/01/2015 Gastrointestinal No abdominal pain 2015 Gastrointestinal No constipation 2015 Gastrointestinal diarrhea 12/01/2015 Gastrointestinal No vomiting 12/01/2015 Genitourinary/Nephrology No dysuria 11/30 Musculoskeletal No joint complaint 2015 Dermatologic No rash 12/01/2015 Neurologic No alteration of consciousness 12/01/2015 Psychiatric No anxiety 12/01/2015 Psychiatric No depression 12/01/2015 Constitutional recent illness 11/03/2015 Constitutional No anorexia 11/03/2015 Constitutional No night sweats 2015 Constitutional No chills 11/03/2015 Constitutional No diaphoresis 11/03/2015 Constitutional fatigue 11/03/2015 Constitutional No fever 11/03/2015 Constitutional No insomnia 11/03/2015 Constitutional No malaise 11/03/2015 Eyes No eye discharge 11/03/2015 Eyes No eye erythema 11/03/2015 Ears/Nose/Throat/Neck No dizziness 2015 Ears/Nose/Throat/Neck nasal allergies Ears/Nose/Throat/Neck nasal discharge Ears/Nose/Throat/Neck No otalgia 2015 Ears/Nose/Throat/Neck No sinus congestion 11/03/2015 Ears/Nose/Throat/Neck No sore throat Cardiovascular No chest pain/pressure Respiratory productive sputum 11/03/2015 Respiratory chest tightness 11/03/2015 Respiratory cough 11/03/2015 Respiratory wheezing 11/03/2015 Gastrointestinal No abdominal pain 2015 Gastrointestinal No constipation 2015 Gastrointestinal diarrhea 11/03/2015 Gastrointestinal No vomiting 11/03/2015 Genitourinary/Nephrology No dysuria 11/02 Musculoskeletal No joint complaint 2015 Dermatologic No rash 11/03/2015 Neurologic No alteration of consciousness 11/03/2015 Psychiatric No anxiety 11/03/2015 Psychiatric No depression 11/03/2015 Constitutional No chills 10/26/2015 Constitutional No diaphoresis 10/26/2015 Constitutional fatigue 10/26/2015 Constitutional No fever 10/26/2015 Constitutional No insomnia 10/26/2015 Constitutional No malaise 10/26/2015 Eyes No eye discharge 10/26/2015 Eyes No eye erythema 10/26/2015 Ears/Nose/Throat/Neck No nasal allergies 10/26/2015 Ears/Nose/Throat/Neck No nasal discharge 10/26/2015 Ears/Nose/Throat/Neck No sore throat Ears/Nose/Throat/Neck No otalgia 2015 Ears/Nose/Throat/Neck No sinus congestion 10/26/2015 Cardiovascular No chest pain/pressure Gastrointestinal No constipation 2015 Genitourinary/Nephrology No dysuria 10/25 Neurologic No alteration of consciousness 10/26/2015 Psychiatric No anxiety 10/26/2015 Psychiatric No depression 10/26/2015 Respiratory No productive sputum 2015 Respiratory No cough 10/26/2015 Gastrointestinal No diarrhea 10/26/2015 Musculoskeletal joint complaint 2015 Dermatologic erythema 10/26/2015 Constitutional recent illness 10/17/2015 Constitutional fatigue 10/17/2015 Constitutional chills 10/17/2015 Constitutional No anorexia 10/17/2015 Constitutional No night sweats 2015 Constitutional No diaphoresis 10/17/2015 Constitutional fever 10/17/2015 Eyes No eye erythema 10/17/2015 Eyes No eye discharge 10/17/2015 Ears/Nose/Throat/Neck dizziness 2015 Ears/Nose/Throat/Neck headache 2015 Ears/Nose/Throat/Neck nasal allergies 10/2015 Ears/Nose/Throat/Neck nasal discharge 10/2015 Cardiovascular No chest pain/pressure 10/2015 Respiratory No cough 10/17/2015 Gastrointestinal abdominal pain 2015 Genitourinary/Nephrology dysuria 2015 Musculoskeletal joint complaint 2015 Dermatologic No sores 10/17/2015 Neurologic No alteration of consciousness 10/17/2015 Psychiatric anxiety 10/17/2015 Endocrine No dry or coarse skin 2015 Neurologic dizziness 10/17/2015 Neurologic headache 10/17/2015 Neurologic memory loss 10/17/2015 Constitutional No recent illness 2015 Constitutional No anorexia 09/06/2015 Constitutional No night sweats 2015 Constitutional No chills 09/06/2015 Constitutional No diaphoresis 09/06/2015 Constitutional No fatigue 09/06/2015 Constitutional No fever 09/06/2015 Constitutional No insomnia 09/06/2015 Constitutional No malaise 09/06/2015 Constitutional No weight loss 09/06/2015 Constitutional No weight gain 09/06/2015 Constitutional No obesity 09/06/2015 Eyes No vision change 09/06/2015 Respiratory No cough 09/06/2015 Respiratory No dyspnea on exertion 2015 Respiratory No dyspnea 09/06/2015 Respiratory No cigarette smoking 2015 Respiratory No chest tightness 2015 Respiratory No chest congestion 2015 Dermatologic No sores 09/06/2015 Dermatologic No rash 09/06/2015 Neurologic paresthesia 09/06/2015 Neurologic pain, limb 09/06/2015 Neurologic No paresis 09/06/2015 Neurologic No seizure 09/06/2015 Neurologic No spasms/spasticity 2015 Neurologic No vertigo 09/06/2015 Neurologic No weakness 09/06/2015 Neurologic No dyskinesia or tremor 2015 Neurologic No alteration of consciousness 09/06/2015 Musculoskeletal neck pain 09/06/2015 Musculoskeletal shoulder pain 09/06/2015 Gastrointestinal No constipation 2015 Gastrointestinal No diarrhea 09/06/2015 Genitourinary/Nephrology No dysuria 09/06 Cardiovascular No chest pain/pressure Constitutional recent illness 12/24/2014 Respiratory chest tightness 12/24/2014 Respiratory cough 12/24/2014 Respiratory wheezing 12/24/2014 Respiratory productive sputum 12/24/2014 Constitutional No anorexia 12/24/2014 Constitutional No night sweats 2014 Constitutional No chills 12/24/2014 Constitutional No diaphoresis 12/24/2014 Constitutional fatigue 12/24/2014 Constitutional No fever 12/24/2014 Constitutional No insomnia 12/24/2014 Constitutional No malaise 12/24/2014 Eyes No eye discharge 12/24/2014 Eyes No eye erythema 12/24/2014 Ears/Nose/Throat/Neck No dizziness 2014 Ears/Nose/Throat/Neck nasal allergies 06/2015 Ears/Nose/Throat/Neck nasal discharge 06/2015 Ears/Nose/Throat/Neck No otalgia 2014 Ears/Nose/Throat/Neck No sinus congestion 12/24/2014 Ears/Nose/Throat/Neck No sore throat 06/2015 Cardiovascular No chest pain/pressure 06/2015 Gastrointestinal No abdominal pain 2014 Gastrointestinal No constipation 2014 Gastrointestinal diarrhea 12/24/2014 Gastrointestinal No vomiting 12/24/2014 Dermatologic No rash 12/24/2014 Musculoskeletal No joint complaint 2014 Genitourinary/Nephrology No dysuria 12/24 Neurologic No alteration of consciousness 12/24/2014 Constitutional recent illness 11/30/2014 Constitutional No anorexia 11/30/2014 Constitutional chills 11/30/2014 Constitutional fatigue 11/30/2014 Constitutional No fever 11/30/2014 Constitutional No insomnia 11/30/2014 Constitutional malaise 11/30/2014 Eyes No eye discharge 11/30/2014 Eyes eye erythema 11/30/2014 Ears/Nose/Throat/Neck headache 2014 Ears/Nose/Throat/Neck nasal allergies Ears/Nose/Throat/Neck No nasal discharge 11/30/2014 Ears/Nose/Throat/Neck No sore throat Ears/Nose/Throat/Neck No otalgia 2014 Cardiovascular No chest pain/pressure Cardiovascular No dyspnea 11/30/2014 Cardiovascular No edema 11/30/2014 Cardiovascular No palpitations 2014 Respiratory No productive sputum 2014 Respiratory No chest congestion 2014 Respiratory No cough 11/30/2014 Respiratory No dyspnea on exertion 2014 Gastrointestinal abdominal pain 2014 Gastrointestinal constipation 11/30/2014 Gastrointestinal diarrhea 11/30/2014 Gastrointestinal gas and bloating 2014 Gastrointestinal nausea 11/30/2014 Genitourinary/Nephrology No dysuria 11/30 Genitourinary/Nephrology No urinary urgency 11/30/2014 Genitourinary/Nephrology No urinary frequency 11/30/2014 Genitourinary/Nephrology No urinary incontinence 11/30/2014 Musculoskeletal back pain 11/30/2014 Musculoskeletal joint complaint 2014 Musculoskeletal myalgias 11/30/2014 Dermatologic rash 11/30/2014 Dermatologic No sores 11/30/2014 Neurologic No syncope 11/30/2014 Psychiatric anxiety 11/30/2014 Psychiatric No depression 11/30/2014 Endocrine No cold sensitivity 11/30/2014 Endocrine dry or coarse skin 11/30/2014 Endocrine hair loss 11/30/2014 Endocrine sweating 11/30/2014 Endocrine weakness 11/30/2014 Endocrine No weight gain 11/30/2014 Hematologic/Lymphatic No abnormal bleeding and bruising 11/30/2014 Eyes eye pain 11/30/2014 Eyes eye tearing 11/30/2014 Constitutional recent illness 10/06/2014 Constitutional No anorexia 10/06/2014 Constitutional chills 10/06/2014 Constitutional fatigue 10/06/2014 Constitutional No fever 10/06/2014 Constitutional No insomnia 10/06/2014 Eyes No eye discharge 10/06/2014 Eyes eye erythema 10/06/2014 Ears/Nose/Throat/Neck headache 2014 Ears/Nose/Throat/Neck nasal allergies Ears/Nose/Throat/Neck No nasal discharge 10/06/2014 Ears/Nose/Throat/Neck No sore throat Ears/Nose/Throat/Neck No otalgia 2014 Cardiovascular No chest pain/pressure Cardiovascular No dyspnea 10/06/2014 Cardiovascular No edema 10/06/2014 Cardiovascular No palpitations 2014 Respiratory No productive sputum 2014 Respiratory No chest congestion 2014 Respiratory No cough 10/06/2014 Respiratory No dyspnea on exertion 2014 Gastrointestinal abdominal pain 2014 Gastrointestinal constipation 10/06/2014 Gastrointestinal diarrhea 10/06/2014 Gastrointestinal nausea 10/06/2014 Genitourinary/Nephrology No dysuria 10/06 Genitourinary/Nephrology No urinary urgency 10/06/2014 Genitourinary/Nephrology No urinary frequency 10/06/2014 Genitourinary/Nephrology No urinary incontinence 10/06/2014 Musculoskeletal back pain 10/06/2014 Musculoskeletal joint complaint 2014 Dermatologic No rash 10/06/2014 Dermatologic No sores 10/06/2014 Neurologic No syncope 10/06/2014 Psychiatric anxiety 10/06/2014 Psychiatric No depression 10/06/2014 Endocrine No cold sensitivity 10/06/2014 Endocrine dry or coarse skin 10/06/2014 Endocrine hair loss 10/06/2014 Endocrine sweating 10/06/2014 Endocrine weakness 10/06/2014 Endocrine No weight gain 10/06/2014 Hematologic/Lymphatic No abnormal bleeding and bruising 10/06/2014 Constitutional malaise 10/06/2014 Musculoskeletal myalgias 10/06/2014 Gastrointestinal gas and bloating 2014 Constitutional chills 09/08/2014 Gastrointestinal constipation 09/08/2014 Gastrointestinal diarrhea 09/08/2014 Gastrointestinal abdominal pain 2014 Gastrointestinal nausea 09/08/2014 Cardiovascular No chest pain/pressure Cardiovascular No dyspnea 09/08/2014 Cardiovascular No edema 09/08/2014 Constitutional fatigue 09/08/2014 Respiratory No cough 09/08/2014 Respiratory No chest congestion 2014 Genitourinary/Nephrology No dysuria 09/08 Genitourinary/Nephrology No urinary urgency 09/08/2014 Genitourinary/Nephrology No urinary frequency 09/08/2014 Genitourinary/Nephrology No urinary incontinence 09/08/2014 Psychiatric anxiety 09/08/2014 Psychiatric No depression 09/08/2014 Constitutional No recent illness 2014 Constitutional No anorexia 09/08/2014 Constitutional No fever 09/08/2014 Constitutional No insomnia 09/08/2014 Eyes No eye discharge 09/08/2014 Eyes No eye erythema 09/08/2014 Ears/Nose/Throat/Neck headache 2014 Ears/Nose/Throat/Neck nasal allergies Ears/Nose/Throat/Neck No nasal discharge 09/08/2014 Ears/Nose/Throat/Neck No sore throat Ears/Nose/Throat/Neck No otalgia 2014 Cardiovascular No palpitations 2014 Respiratory No productive sputum 2014 Respiratory No dyspnea on exertion 2014 Musculoskeletal back pain 09/08/2014 Musculoskeletal No joint complaint 2014 Dermatologic No rash 09/08/2014 Dermatologic No sores 09/08/2014 Neurologic No alteration of consciousness 09/08/2014 Neurologic No syncope 09/08/2014 Endocrine No cold sensitivity 09/08/2014 Endocrine dry or coarse skin 09/08/2014 Endocrine hair loss 09/08/2014 Endocrine sweating 09/08/2014 Endocrine weakness 09/08/2014 Endocrine No weight gain 09/08/2014 Hematologic/Lymphatic No abnormal bleeding and bruising 09/08/2014 Constitutional No recent illness 2014 Constitutional No anorexia 08/13/2014 Constitutional No night sweats 2014 Constitutional No chills 08/13/2014 Constitutional No diaphoresis 08/13/2014 Constitutional fatigue 08/13/2014 Constitutional No fever 08/13/2014 Constitutional No insomnia 08/13/2014 Constitutional No malaise 08/13/2014 Eyes No eye discharge 08/13/2014 Eyes No eye erythema 08/13/2014 Ears/Nose/Throat/Neck headache 2014 Ears/Nose/Throat/Neck nasal allergies Ears/Nose/Throat/Neck nasal discharge Ears/Nose/Throat/Neck otalgia 08/13/2014 Ears/Nose/Throat/Neck sore throat 2014 Cardiovascular No chest pain/pressure Genitourinary/Nephrology breast complaint 08/13/2014 Gastrointestinal No vomiting 08/13/2014 Gastrointestinal No nausea 08/13/2014 Respiratory No cough 08/13/2014 Musculoskeletal joint complaint 2014 Musculoskeletal neck pain 08/13/2014 Dermatologic No rash 08/13/2014 Dermatologic No sores 08/13/2014 Neurologic No alteration of consciousness 08/13/2014 Psychiatric anxiety 08/13/2014 Constitutional No recent illness 2013 Constitutional No anorexia 04/22/2014 Constitutional No night sweats 2013 Constitutional No chills 04/22/2014 Constitutional No diaphoresis 04/22/2014 Constitutional fatigue 04/22/2014 Constitutional No fever 04/22/2014 Eyes No eye discharge 04/22/2014 Eyes No eye erythema 04/22/2014 Ears/Nose/Throat/Neck No dizziness 2013 Ears/Nose/Throat/Neck No dysphagia 2013 Ears/Nose/Throat/Neck No headache 2013 Ears/Nose/Throat/Neck nasal allergies 03/2014 Ears/Nose/Throat/Neck No sore throat 03/2014 Ears/Nose/Throat/Neck No postnasal drip 04/22/2014 Ears/Nose/Throat/Neck No sinus congestion 04/22/2014 Cardiovascular No chest pain/pressure 03/2014 Respiratory No cough 04/22/2014 Gastrointestinal No nausea 04/22/2014 Gastrointestinal No vomiting 04/22/2014 Musculoskeletal No stiffness 04/22/2014 Musculoskeletal No swelling 04/22/2014 Musculoskeletal No muscle weakness 2013 Musculoskeletal No myalgias 04/22/2014 Dermatologic rash 04/22/2014 Dermatologic No sores 04/22/2014 Neurologic No dizziness 04/22/2014 Neurologic No headache 04/22/2014 Neurologic No neck pain 04/22/2014 Neurologic No syncope 04/22/2014 Psychiatric anxiety 04/22/2014 Psychiatric depression 04/22/2014 Genitourinary/Nephrology breast complaint 04/22/2014 Constitutional No recent illness 2013 Constitutional No anorexia 01/04/2014 Constitutional No night sweats 2013 Constitutional No chills 01/04/2014 Constitutional No diaphoresis 01/04/2014 Constitutional No fever 01/04/2014 Eyes No eye discharge 01/04/2014 Eyes No eye erythema 01/04/2014 Cardiovascular No chest pain/pressure Respiratory No cough 01/04/2014 Gastrointestinal No nausea 01/04/2014 Gastrointestinal No vomiting 01/04/2014 Dermatologic No rash 01/04/2014 Dermatologic No sores 01/04/2014 Constitutional fatigue 01/04/2014 Psychiatric No anxiety 01/04/2014 Psychiatric No depression 01/04/2014 Neurologic No dizziness 01/04/2014 Neurologic No headache 01/04/2014 Neurologic No neck pain 01/04/2014 Neurologic No syncope 01/04/2014 Musculoskeletal No stiffness 01/04/2014 Musculoskeletal No swelling 01/04/2014 Musculoskeletal No muscle weakness 2013 Musculoskeletal No myalgias 01/04/2014 Ears/Nose/Throat/Neck No dizziness 2013 Ears/Nose/Throat/Neck No dysphagia 2013 Ears/Nose/Throat/Neck No headache 2013 Ears/Nose/Throat/Neck No sore throat Ears/Nose/Throat/Neck No postnasal drip 01/04/2014 Ears/Nose/Throat/Neck No sinus congestion 01/04/2014 Ears/Nose/Throat/Neck nasal allergies Constitutional No recent illness 2013 Constitutional No anorexia 07/31/2013 Constitutional No night sweats 2013 Constitutional No chills 07/31/2013 Constitutional No diaphoresis 07/31/2013 Constitutional No fatigue 07/31/2013 Constitutional No fever 07/31/2013 Constitutional No insomnia 07/31/2013 Constitutional No malaise 07/31/2013 Eyes No eye discharge 07/31/2013 Eyes No eye erythema 07/31/2013 Ears/Nose/Throat/Neck nasal allergies Cardiovascular No chest pain/pressure Respiratory No cough 07/31/2013 Gastrointestinal No constipation 2013 Gastrointestinal No diarrhea 07/31/2013 Gastrointestinal No nausea 07/31/2013 Gastrointestinal No vomiting 07/31/2013 Musculoskeletal No joint complaint 2013 Dermatologic No sores 07/31/2013 Dermatologic No rash 07/31/2013 Psychiatric anxiety 07/31/2013 Neurologic No alteration of consciousness 07/31/2013 Constitutional No recent illness 2012 Constitutional No anorexia 04/23/2013 Constitutional No night sweats 2012 Constitutional No chills 04/23/2013 Constitutional No diaphoresis 04/23/2013 Constitutional No fever 04/23/2013 Eyes No eye discharge 04/23/2013 Eyes No eye erythema 04/23/2013 Cardiovascular No chest pain/pressure 04/2013 Respiratory No cough 04/23/2013 Gastrointestinal No nausea 04/23/2013 Gastrointestinal No vomiting 04/23/2013 Dermatologic No rash 04/23/2013 Dermatologic No sores 04/23/2013 Constitutional recent illness 03/26/2013 Constitutional No anorexia 03/26/2013 Constitutional No night sweats 2012 Constitutional No chills 03/26/2013 Constitutional No diaphoresis 03/26/2013 Constitutional No fatigue 03/26/2013 Constitutional No fever 03/26/2013 Constitutional No insomnia 03/26/2013 Constitutional No malaise 03/26/2013 Gastrointestinal No abdominal pain 2012 Gastrointestinal No constipation 2012 Gastrointestinal No diarrhea 03/26/2013 Respiratory No productive sputum 2012 Cardiovascular No chest pain/pressure 06/2013 Ears/Nose/Throat/Neck No headache 2012 Eyes No vision change 03/26/2013 Musculoskeletal No joint complaint 2012 Dermatologic No sores 03/26/2013 Dermatologic No rash 03/26/2013 Constitutional No recent illness 2012 Constitutional No anorexia 02/11/2013 Constitutional No chills 02/11/2013 Constitutional fatigue 02/11/2013 Constitutional No fever 02/11/2013 Constitutional No insomnia 02/11/2013 Eyes No eye discharge 02/11/2013 Eyes No eye erythema 02/11/2013 Ears/Nose/Throat/Neck headache 2012 Ears/Nose/Throat/Neck nasal allergies Ears/Nose/Throat/Neck No nasal discharge 02/11/2013 Ears/Nose/Throat/Neck No otalgia 2012 Ears/Nose/Throat/Neck No sore throat Cardiovascular No chest pain/pressure Cardiovascular No dyspnea 02/11/2013 Cardiovascular No edema 02/11/2013 Cardiovascular No palpitations 2012 Respiratory No productive sputum 2012 Respiratory No chest congestion 2012 Respiratory No cough 02/11/2013 Respiratory No dyspnea on exertion 2012 Respiratory No dyspnea 02/11/2013 Genitourinary/Nephrology No dysuria 02/11 Musculoskeletal back pain 02/11/2013 Musculoskeletal No joint complaint 2012 Dermatologic No rash 02/11/2013 Dermatologic No sores 02/11/2013 Neurologic No alteration of consciousness 02/11/2013 Neurologic No syncope 02/11/2013 Endocrine dry or coarse skin 02/11/2013 Endocrine No cold sensitivity 02/11/2013 Endocrine hair loss 02/11/2013 Endocrine sweating 02/11/2013 Endocrine weakness 02/11/2013 Endocrine No weight gain 02/11/2013 Hematologic/Lymphatic No abnormal bleeding and bruising 02/11/2013 Psychiatric anxiety 02/11/2013 Respiratory No snoring 07/16/2012 Respiratory No wheezing 07/16/2012 Psychiatric anxiety 07/16/2012 Psychiatric No depression 07/16/2012 Psychiatric disturbances of thinking 08/2012 Neurologic No dizziness 07/16/2012 Endocrine No weight gain 07/16/2012 Allergy/Immunology No food allergy 2012 Musculoskeletal No stiffness 07/16/2012 Musculoskeletal No swelling 07/16/2012 Musculoskeletal No muscle weakness 2012 Musculoskeletal No myalgias 07/16/2012 Eyes No vision change 07/16/2012 Ears/Nose/Throat/Neck No dental pain 08/2012 Ears/Nose/Throat/Neck No dizziness 2012 Ears/Nose/Throat/Neck No dysphagia 2012 Ears/Nose/Throat/Neck No headache 2012 Ears/Nose/Throat/Neck No hearing loss 08/2012 Ears/Nose/Throat/Neck No nasal allergies 07/16/2012 Ears/Nose/Throat/Neck No sore throat 08/2012 Ears/Nose/Throat/Neck No postnasal drip 07/16/2012 Ears/Nose/Throat/Neck No sinus congestion 07/16/2012 Cardiovascular No chest pain/pressure 08/2012 Cardiovascular No dyspnea 07/16/2012 Cardiovascular No edema 07/16/2012 Cardiovascular No exercise intolerance Cardiovascular No fatigue 07/16/2012 Cardiovascular No near-syncope/dizziness 07/16/2012 Respiratory No chest tightness 2012 Respiratory No cigarette smoking 2012 Respiratory No cough 07/16/2012 Respiratory No dyspnea 07/16/2012 Respiratory No pedal edema 07/16/2012 Constitutional No recent illness 2012 Constitutional No chills 07/16/2012 Constitutional No fatigue 07/16/2012 Constitutional No fever 07/16/2012 Constitutional No insomnia 07/16/2012 Constitutional No malaise 07/16/2012 Eyes No blindness 07/16/2012 Neurologic No headache 07/16/2012 Neurologic No neck pain 07/16/2012 Neurologic No syncope 07/16/2012 Neurologic memory loss 07/16/2012 Endocrine No goiter 07/16/2012 Endocrine No hair loss 07/16/2012 Endocrine No hirsutism 07/16/2012 Cardiovascular No dyspnea 03/11/2012 Cardiovascular No edema 03/11/2012 Cardiovascular No palpitations 2011 Cardiovascular No chest pain/pressure Constitutional No recent illness 2011 Constitutional No anorexia 03/11/2012 Constitutional No chills 03/11/2012 Constitutional fatigue 03/11/2012 Constitutional No fever 03/11/2012 Constitutional No insomnia 03/11/2012 Endocrine weakness 03/11/2012 Endocrine sweating 03/11/2012 Endocrine No weight gain 03/11/2012 Hematologic/Lymphatic No abnormal bleeding and bruising 03/11/2012 Eyes No eye discharge 03/11/2012 Eyes No eye erythema 03/11/2012 Ears/Nose/Throat/Neck headache 2011 Ears/Nose/Throat/Neck nasal allergies Ears/Nose/Throat/Neck No nasal discharge 03/11/2012 Ears/Nose/Throat/Neck No sore throat Ears/Nose/Throat/Neck No otalgia 2011 Respiratory No productive sputum 2011 Respiratory No chest congestion 2011 Respiratory No cough 03/11/2012 Respiratory No dyspnea on exertion 2011 Respiratory No dyspnea 03/11/2012 Gastrointestinal No vomiting 03/11/2012 Gastrointestinal nausea 03/11/2012 Gastrointestinal No anorexia 03/11/2012 Gastrointestinal constipation 03/11/2012 Gastrointestinal No diarrhea 03/11/2012 Genitourinary/Nephrology No dysuria 03/11 Musculoskeletal No joint complaint 2011 Musculoskeletal back pain 03/11/2012 Dermatologic No rash 03/11/2012 Dermatologic No sores 03/11/2012 Neurologic No alteration of consciousness 03/11/2012 Neurologic No syncope 03/11/2012 Endocrine No cold sensitivity 03/11/2012 Endocrine hair loss 03/11/2012 Endocrine dry or coarse skin 03/11/2012 Constitutional No recent illness 2011 Constitutional No anorexia 08/21/2011 Constitutional No chills 08/21/2011 Constitutional No diaphoresis 08/21/2011 Constitutional No fatigue 08/21/2011 Constitutional No fever 08/21/2011 Eyes No eye discharge 08/21/2011 Eyes No eye erythema 08/21/2011 Physical Exam Exam Name System Name Item Name Status Result Effective Dates Notes Full Exam - General 1994 Constitutional general appearance Overall: well developed 07/23/2018 None Full Exam - General 1994 Constitutional general appearance Overall: in no acute distress 07/23/2018 None Full Exam - General 1994 Constitutional general appearance Overall: well nourished 07/23/2018 None Full Exam - General 1995 Eyes conjunctiva /eyelids Overall: conjunctiva clear 07/23/2018 None Full Exam - General 1995 Eyes conjunctiva /eyelids Overall: cornea clear 07/23/2018 None Full Exam - General 1995 Eyes conjunctiva /eyelids Overall: eyelids normal 07/23/2018 None Full Exam - General 1994 Eyes pupils and irises Overall: pupils equal, round, reactive to light and accomodation 07/23/2018 None Full Exam - General 1995 Ears/Nose/Throat otoscopic exam Overall: external auditory canals clear 07/23/2018 None Full Exam - General 1995 Ears/Nose/Throat otoscopic exam Overall: tympanic membranes clear 07/23/2018 None Full Exam - General 1995 Ears/Nose/Throat internal nose Nasopharynx: ulcer 07/23/2018 inner left nostril Full Exam - General 1994 Ears/Nose/Throat oral cavity/pharynx/larynx Overall: oral mucosa clear 07/23/2018 None Full Exam - General 1995 Ears/Nose/Throat oral cavity/pharynx/larynx Overall: oropharyngeal mucosa clear 07/23/2018 None Full Exam - General 1995 Ears/Nose/Throat oral cavity/pharynx/larynx Overall: no masses 07/23/2018 None Full Exam - General 1994 Respiratory palpation of chest Chest wall pain: pain to light pressure 07/23/2018 on right Full Exam - General 1994 Respiratory auscultation Overall: breath sounds clear bilaterally 07/23/2018 None Full Exam - General 1994 Respiratory respiratory effort/rhythm Overall: no retractions 07/23/2018 None Full Exam - General 1994 Respiratory respiratory effort/rhythm Overall: normal rate 07/23/2018 None Full Exam - General 1994 Cardiovascular extremities Overall: no clubbing 07/23/2018 None Full Exam - General 1994 Cardiovascular auscultation of heart Rate: tachycardia 07/23/2018 None Full Exam - General 1994 Cardiovascular auscultation of heart Rhythm: regular rhythm 07/23/2018 None Full Exam - General 1994 Abdomen abdominal exam Overall: no tenderness 07/23/2018 None Full Exam - General 1994 Abdomen abdominal exam Overall: normal bowel sounds 07/23/2018 None Full Exam - General 1994 Lymphatic neck nodes Overall: shotty lymphadenopathy 07/23/2018 None Full Exam - General 1994 Musculoskeletal digits and nails Overall: no clubbing 07/23/2018 None Full Exam - General 1994 Musculoskeletal digits and nails Overall: digits benign 07/23/2018 None Full Exam - General 1994 Musculoskeletal digits and nails MCPs: first 07/23/2018 None Full Exam - General 1994 Musculoskeletal digits and nails MCPs: swelling 07/23/2018 None Full Exam - General 1994 Musculoskeletal spine, ribs and pelvis Spine: deformity 07/23/2018 scoliosis noted Full Exam - General 1994 Integument inspection of skin Dermatitis: excoriation 07/23/2018 on scalp on and on right lateral neck Full Exam - General 1994 Neurologic gait Overall: no ataxia, no unsteadiness 07/23/2018 None Full Exam - General 1994 Psychiatric orientation/consciousness Overall: oriented to person, place and time 07/23/2018 None Full Exam - General 1994 Constitutional general appearance Overall: well developed 05/27/2018 None Full Exam - General 1994 Constitutional general appearance Overall: in no acute distress 05/27/2018 None Full Exam - General 1994 Constitutional general appearance Overall: well nourished 05/27/2018 None Full Exam - General 1994 Eyes conjunctiva /eyelids Overall: conjunctiva clear 05/27/2018 None Full Exam - General 1994 Eyes conjunctiva /eyelids Overall: cornea clear 05/27/2018 None Full Exam - General 1994 Eyes conjunctiva /eyelids Overall: eyelids normal 05/27/2018 None Full Exam - General 1994 Eyes pupils and irises Overall: pupils equal, round, reactive to light and accomodation 05/27/2018 None Full Exam - General 1994 Ears/Nose/Throat otoscopic exam Overall: external auditory canals clear 05/27/2018 None Full Exam - General 1994 Ears/Nose/Throat otoscopic exam Overall: tympanic membranes clear 05/27/2018 None Full Exam - General 1994 Ears/Nose/Throat internal nose Nasopharynx: ulcer 05/27/2018 inner left nostril Full Exam - General 1994 Ears/Nose/Throat oral cavity/pharynx/larynx Overall: oral mucosa clear 05/27/2018 None Full Exam - General 1994 Ears/Nose/Throat oral cavity/pharynx/larynx Overall: oropharyngeal mucosa clear 05/27/2018 None Full Exam - General 1994 Ears/Nose/Throat oral cavity/pharynx/larynx Overall: no masses 05/27/2018 None Full Exam - General 1994 Respiratory palpation of chest Chest wall pain: pain to light pressure 05/27/2018 on right Full Exam - General 1994 Respiratory auscultation Overall: breath sounds clear bilaterally 05/27/2018 None Full Exam - General 1994 Respiratory respiratory effort/rhythm Overall: no retractions 05/27/2018 None Full Exam - General 1994 Respiratory respiratory effort/rhythm Overall: normal rate 05/27/2018 None Full Exam - General 1994 Cardiovascular extremities Overall: no clubbing 05/27/2018 None Full Exam - General 1994 Cardiovascular auscultation of heart Rate: tachycardia 05/27/2018 None Full Exam - General 1994 Cardiovascular auscultation of heart Rhythm: regular rhythm 05/27/2018 None Full Exam - General 1994 Abdomen abdominal exam Overall: no tenderness 05/27/2018 None Full Exam - General 1994 Abdomen abdominal exam Overall: normal bowel sounds 05/27/2018 None Full Exam - General 1994 Musculoskeletal digits and nails Overall: no clubbing 05/27/2018 None Full Exam - General 1994 Musculoskeletal digits and nails Overall: digits benign 05/27/2018 None Full Exam - General 1994 Musculoskeletal spine, ribs and pelvis Spine: deformity 05/27/2018 scoliosis noted Full Exam - General 1994 Neurologic gait Overall: no ataxia, no unsteadiness 05/27/2018 None Full Exam - General 1994 Psychiatric orientation/consciousness Overall: oriented to person, place and time 05/27/2018 None Full Exam - General 1994 Integument inspection of skin Dermatitis: erythema 05/27/2018 of cheeks, patchy on arms Full Exam - General 1994 Constitutional general appearance Overall: well developed 03/25/2018 None Full Exam - General 1994 Constitutional general appearance Overall: in no acute distress 03/25/2018 None Full Exam - General 1994 Constitutional general appearance Overall: well nourished 03/25/2018 None Full Exam - General 1994 Eyes conjunctiva /eyelids Overall: conjunctiva clear 03/25/2018 None Full Exam - General 1994 Eyes conjunctiva /eyelids Overall: cornea clear 03/25/2018 None Full Exam - General 1994 Eyes conjunctiva /eyelids Overall: eyelids normal 03/25/2018 None Full Exam - General 1994 Eyes pupils and irises Overall: pupils equal, round, reactive to light and accomodation 03/25/2018 None Full Exam - General 1994 Ears/Nose/Throat otoscopic exam Overall: external auditory canals clear 03/25/2018 None Full Exam - General 1994 Ears/Nose/Throat otoscopic exam Overall: tympanic membranes clear 03/25/2018 None Full Exam - General 1994 Ears/Nose/Throat internal nose Nasopharynx: ulcer 03/25/2018 inner left nostril Full Exam - General 1994 Ears/Nose/Throat oral cavity/pharynx/larynx Overall: oral mucosa clear 03/25/2018 None Full Exam - General 1994 Ears/Nose/Throat oral cavity/pharynx/larynx Overall: oropharyngeal mucosa clear 03/25/2018 None Full Exam - General 1994 Ears/Nose/Throat oral cavity/pharynx/larynx Overall: no masses 03/25/2018 None Full Exam - General 1994 Respiratory palpation of chest Chest wall pain: pain to light pressure 03/25/2018 on right Full Exam - General 1994 Respiratory auscultation Overall: breath sounds clear bilaterally 03/25/2018 None Full Exam - General 1994 Respiratory respiratory effort/rhythm Overall: no retractions 03/25/2018 None Full Exam - General 1994 Respiratory respiratory effort/rhythm Overall: normal rate 03/25/2018 None Full Exam - General 1994 Cardiovascular extremities Overall: no clubbing 03/25/2018 None Full Exam - General 1994 Cardiovascular auscultation of heart Rate: tachycardia 03/25/2018 None Full Exam - General 1994 Cardiovascular auscultation of heart Rhythm: regular rhythm 03/25/2018 None Full Exam - General 1994 Musculoskeletal digits and nails Overall: no clubbing 03/25/2018 None Full Exam - General 1994 Musculoskeletal digits and nails Overall: digits benign 03/25/2018 None Full Exam - General 1994 Musculoskeletal digits and nails MCPs: first 03/25/2018 None Full Exam - General 1994 Musculoskeletal digits and nails MCPs: swelling 03/25/2018 None Full Exam - General 1994 Musculoskeletal spine, ribs and pelvis Spine: deformity 03/25/2018 scoliosis noted Full Exam - General 1994 Neurologic gait Overall: no ataxia, no unsteadiness 03/25/2018 None Full Exam - General 1994 Psychiatric orientation/consciousness Overall: oriented to person, place and time 03/25/2018 None Full Exam - General 1994 Abdomen abdominal exam Overall: no tenderness 03/25/2018 None Full Exam - General 1994 Abdomen abdominal exam Overall: normal bowel sounds 03/25/2018 None Full Exam - General 1994 Lymphatic neck nodes Overall: shotty lymphadenopathy 03/25/2018 None Full Exam - General 1994 Integument inspection of skin Dermatitis: excoriation 03/25/2018 on scalp on and on right lateral neck Full Exam - General 1994 Constitutional general appearance Overall: well developed 01/28/2018 None Full Exam - General 1994 Constitutional general appearance Overall: in no acute distress 01/28/2018 None Full Exam - General 1994 Constitutional general appearance Overall: well nourished 01/28/2018 None Full Exam - General 1994 Eyes conjunctiva /eyelids Overall: conjunctiva clear 01/28/2018 None Full Exam - General 1994 Eyes conjunctiva /eyelids Overall: cornea clear 01/28/2018 None Full Exam - General 1994 Eyes conjunctiva /eyelids Overall: eyelids normal 01/28/2018 None Full Exam - General 1994 Eyes pupils and irises Overall: pupils equal, round, reactive to light and accomodation 01/28/2018 None Full Exam - General 1994 Ears/Nose/Throat otoscopic exam Overall: external auditory canals clear 01/28/2018 None Full Exam - General 1994 Ears/Nose/Throat otoscopic exam Overall: tympanic membranes clear 01/28/2018 None Full Exam - General 1994 Ears/Nose/Throat oral cavity/pharynx/larynx Overall: oral mucosa clear 01/28/2018 None Full Exam - General 1994 Ears/Nose/Throat oral cavity/pharynx/larynx Overall: oropharyngeal mucosa clear 01/28/2018 None Full Exam - General 1994 Ears/Nose/Throat oral cavity/pharynx/larynx Overall: no masses 01/28/2018 None Full Exam - General 1994 Respiratory palpation of chest Chest wall pain: pain to light pressure 01/28/2018 on right Full Exam - General 1994 Respiratory auscultation Overall: breath sounds clear bilaterally 01/28/2018 None Full Exam - General 1994 Respiratory respiratory effort/rhythm Overall: no retractions 01/28/2018 None Full Exam - General 1994 Respiratory respiratory effort/rhythm Overall: normal rate 01/28/2018 None Full Exam - General 1994 Cardiovascular extremities Overall: no clubbing 01/28/2018 None Full Exam - General 1994 Cardiovascular auscultation of heart Rate: tachycardia 01/28/2018 None Full Exam - General 1994 Cardiovascular auscultation of heart Rhythm: regular rhythm 01/28/2018 None Full Exam - General 1994 Musculoskeletal digits and nails Overall: no clubbing 01/28/2018 None Full Exam - General 1994 Musculoskeletal digits and nails Overall: digits benign 01/28/2018 None Full Exam - General 1994 Musculoskeletal digits and nails MCPs: first 01/28/2018 None Full Exam - General 1994 Musculoskeletal digits and nails MCPs: swelling 01/28/2018 None Full Exam - General 1994 Musculoskeletal spine, ribs and pelvis Spine: deformity 01/28/2018 scoliosis noted Full Exam - General 1994 Neurologic gait Overall: no ataxia, no unsteadiness 01/28/2018 None Full Exam - General 1994 Psychiatric orientation/consciousness Overall: oriented to person, place and time 01/28/2018 None Full Exam - General 1994 Ears/Nose/Throat internal nose Nasopharynx: ulcer 01/28/2018 inner left nostril Full Exam - General 1994 Constitutional general appearance Overall: well developed 11/26/2017 None Full Exam - General 1994 Constitutional general appearance Overall: in no acute distress 11/26/2017 None Full Exam - General 1994 Constitutional general appearance Overall: well nourished 11/26/2017 None Full Exam - General 1994 Eyes conjunctiva /eyelids Overall: conjunctiva clear 11/26/2017 None Full Exam - General 1994 Eyes conjunctiva /eyelids Overall: cornea clear 11/26/2017 None Full Exam - General 1994 Eyes conjunctiva /eyelids Overall: eyelids normal 11/26/2017 None Full Exam - General 1994 Eyes pupils and irises Overall: pupils equal, round, reactive to light and accomodation 11/26/2017 None Full Exam - General 1994 Ears/Nose/Throat otoscopic exam Overall: external auditory canals clear 11/26/2017 None Full Exam - General 1994 Ears/Nose/Throat otoscopic exam Overall: tympanic membranes clear 11/26/2017 None Full Exam - General 1994 Ears/Nose/Throat oral cavity/pharynx/larynx Overall: oral mucosa clear 11/26/2017 None Full Exam - General 1994 Ears/Nose/Throat oral cavity/pharynx/larynx Overall: oropharyngeal mucosa clear 11/26/2017 None Full Exam - General 1994 Ears/Nose/Throat oral cavity/pharynx/larynx Overall: no masses 11/26/2017 None Full Exam - General 1994 Respiratory auscultation Overall: breath sounds clear bilaterally 11/26/2017 None Full Exam - General 1994 Respiratory respiratory effort/rhythm Overall: no retractions 11/26/2017 None Full Exam - General 1994 Respiratory respiratory effort/rhythm Overall: normal rate 11/26/2017 None Full Exam - General 1994 Cardiovascular auscultation of heart Rate: tachycardia 11/26/2017 None Full Exam - General 1994 Cardiovascular auscultation of heart Rhythm: regular rhythm 11/26/2017 None Full Exam - General 1994 Abdomen abdominal exam Overall: no tenderness 11/26/2017 None Full Exam - General 1994 Abdomen abdominal exam Overall: normal bowel sounds 11/26/2017 None Full Exam - General 1994 Genitourinary labia and vagina Labia: no lesions present 11/26/2017 None Full Exam - General 1994 Musculoskeletal digits and nails Overall: no clubbing 11/26/2017 None Full Exam - General 1994 Musculoskeletal digits and nails Overall: digits benign 11/26/2017 None Full Exam - General 1994 Musculoskeletal digits and nails MCPs: first 11/26/2017 None Full Exam - General 1994 Musculoskeletal digits and nails MCPs: swelling 11/26/2017 None Full Exam - General 1994 Musculoskeletal spine, ribs and pelvis Spine: deformity 11/26/2017 scoliosis noted Full Exam - General 1994 Integument inspection of skin Rash/Lesions: macule 11/26/2017 on elbows, legs scattered around ankle, and a few small spots on back near bra-line Full Exam - General 1994 Neurologic deep tendon reflexes Overall: deep tendon reflexes intact 11/26/2017 None Full Exam - General 1994 Neurologic gait Overall: no ataxia, no unsteadiness 11/26/2017 None Full Exam - General 1994 Neurologic cranial nerves Overall: crainial nerves 2 - 12 grossly intact 11/26/2017 None Full Exam - General 1994 Neurologic motor Overall: normal bulk, tone 11/26/2017 None Full Exam - General 1994 Psychiatric orientation/consciousness Overall: oriented to person, place and time 11/26/2017 None Full Exam - General 1994 Constitutional general appearance Overall: well developed 07/23/2017 None Full Exam - General 1994 Constitutional general appearance Overall: in no acute distress 07/23/2017 None Full Exam - General 1994 Constitutional general appearance Overall: well nourished 07/23/2017 None Full Exam - General 1994 Eyes conjunctiva /eyelids Overall: conjunctiva clear 07/23/2017 None Full Exam - General 1994 Eyes conjunctiva /eyelids Overall: cornea clear 07/23/2017 None Full Exam - General 1994 Eyes conjunctiva /eyelids Overall: eyelids normal 07/23/2017 None Full Exam - General 1994 Eyes pupils and irises Overall: pupils equal, round, reactive to light and accomodation 07/23/2017 None Full Exam - General 1994 Ears/Nose/Throat otoscopic exam Overall: external auditory canals clear 07/23/2017 None Full Exam - General 1994 Ears/Nose/Throat otoscopic exam Overall: tympanic membranes clear 07/23/2017 None Full Exam - General 1994 Ears/Nose/Throat oral cavity/pharynx/larynx Overall: oral mucosa clear 07/23/2017 None Full Exam - General 1994 Ears/Nose/Throat oral cavity/pharynx/larynx Overall: oropharyngeal mucosa clear 07/23/2017 None Full Exam - General 1994 Ears/Nose/Throat oral cavity/pharynx/larynx Overall: no masses 07/23/2017 None Full Exam - General 1994 Respiratory auscultation Overall: breath sounds clear bilaterally 07/23/2017 None Full Exam - General 1994 Respiratory respiratory effort/rhythm Overall: no retractions 07/23/2017 None Full Exam - General 1994 Respiratory respiratory effort/rhythm Overall: normal rate 07/23/2017 None Full Exam - General 1994 Cardiovascular auscultation of heart Rate: tachycardia 07/23/2017 None Full Exam - General 1994 Cardiovascular auscultation of heart Rhythm: regular rhythm 07/23/2017 None Full Exam - General 1994 Abdomen abdominal exam Overall: no tenderness 07/23/2017 None Full Exam - General 1994 Abdomen abdominal exam Overall: normal bowel sounds 07/23/2017 None Full Exam - General 1994 Genitourinary labia and vagina Labia: no lesions present 07/23/2017 None Full Exam - General 1994 Musculoskeletal digits and nails Overall: no clubbing 07/23/2017 None Full Exam - General 1994 Musculoskeletal digits and nails Overall: digits benign 07/23/2017 None Full Exam - General 1994 Musculoskeletal digits and nails MCPs: first 07/23/2017 None Full Exam - General 1994 Musculoskeletal digits and nails MCPs: swelling 07/23/2017 None Full Exam - General 1994 Musculoskeletal spine, ribs and pelvis Spine: deformity 07/23/2017 scoliosis noted Full Exam - General 1994 Integument inspection of skin Rash/Lesions: macule 07/23/2017 on elbows, legs scattered around ankle, and a few small spots on back near bra-line Full Exam - General 1994 Neurologic deep tendon reflexes Overall: deep tendon reflexes intact 07/23/2017 None Full Exam - General 1994 Neurologic gait Overall: no ataxia, no unsteadiness 07/23/2017 None Full Exam - General 1994 Neurologic cranial nerves Overall: crainial nerves 2 - 12 grossly intact 07/23/2017 None Full Exam - General 1994 Neurologic motor Overall: normal bulk, tone 07/23/2017 None Full Exam - General 1994 Psychiatric orientation/consciousness Overall: oriented to person, place and time 07/23/2017 None Full Exam - General 1994 Cardiovascular extremities Overall: no clubbing 07/23/2017 None Full Exam - General 1994 Respiratory palpation of chest Chest wall pain: pain to light pressure 07/23/2017 on right Full Exam - General 1994 Constitutional general appearance Overall: well developed 05/22/2017 None Full Exam - General 1994 Constitutional general appearance Overall: in no acute distress 05/22/2017 None Full Exam - General 1994 Constitutional general appearance Overall: well nourished 05/22/2017 None Full Exam - General 1994 Eyes conjunctiva /eyelids Overall: conjunctiva clear 05/22/2017 None Full Exam - General 1994 Eyes conjunctiva /eyelids Overall: cornea clear 05/22/2017 None Full Exam - General 1994 Eyes conjunctiva /eyelids Overall: eyelids normal 05/22/2017 None Full Exam - General 1994 Eyes pupils and irises Overall: pupils equal, round, reactive to light and accomodation 05/22/2017 None Full Exam - General 1994 Ears/Nose/Throat otoscopic exam Overall: external auditory canals clear 05/22/2017 None Full Exam - General 1994 Ears/Nose/Throat otoscopic exam Overall: tympanic membranes clear 05/22/2017 None Full Exam - General 1994 Ears/Nose/Throat oral cavity/pharynx/larynx Overall: oral mucosa clear 05/22/2017 None Full Exam - General 1994 Ears/Nose/Throat oral cavity/pharynx/larynx Overall: oropharyngeal mucosa clear 05/22/2017 None Full Exam - General 1994 Ears/Nose/Throat oral cavity/pharynx/larynx Overall: no masses 05/22/2017 None Full Exam - General 1994 Respiratory auscultation Overall: breath sounds clear bilaterally 05/22/2017 None Full Exam - General 1994 Respiratory respiratory effort/rhythm Overall: no retractions 05/22/2017 None Full Exam - General 1994 Respiratory respiratory effort/rhythm Overall: normal rate 05/22/2017 None Full Exam - General 1994 Cardiovascular auscultation of heart Rate: tachycardia 05/22/2017 None Full Exam - General 1994 Cardiovascular auscultation of heart Rhythm: regular rhythm 05/22/2017 None Full Exam - General 1994 Abdomen abdominal exam Overall: no tenderness 05/22/2017 None Full Exam - General 1994 Abdomen abdominal exam Overall: normal bowel sounds 05/22/2017 None Full Exam - General 1994 Musculoskeletal digits and nails Overall: no clubbing 05/22/2017 None Full Exam - General 1994 Musculoskeletal digits and nails Overall: digits benign 05/22/2017 None Full Exam - General 1994 Musculoskeletal digits and nails MCPs: first 05/22/2017 None Full Exam - General 1994 Musculoskeletal digits and nails MCPs: swelling 05/22/2017 None Full Exam - General 1994 Musculoskeletal spine, ribs and pelvis Spine: deformity 05/22/2017 scoliosis noted Full Exam - General 1994 Integument inspection of skin Rash/Lesions: macule 05/22/2017 on elbows, legs scattered around ankle, and a few small spots on back near bra-line Full Exam - General 1994 Neurologic deep tendon reflexes Overall: deep tendon reflexes intact 05/22/2017 None Full Exam - General 1994 Neurologic gait Overall: no ataxia, no unsteadiness 05/22/2017 None Full Exam - General 1994 Neurologic cranial nerves Overall: crainial nerves 2 - 12 grossly intact 05/22/2017 None Full Exam - General 1994 Neurologic motor Overall: normal bulk, tone 05/22/2017 None Full Exam - General 1994 Psychiatric orientation/consciousness Overall: oriented to person, place and time 05/22/2017 None Full Exam - General 1994 Genitourinary labia and vagina Labia: no lesions present 05/22/2017 None Full Exam - General 1994 Constitutional general appearance Overall: well developed 04/04/2017 None Full Exam - General 1994 Constitutional general appearance Overall: in no acute distress 04/04/2017 None Full Exam - General 1994 Constitutional general appearance Overall: well nourished 04/04/2017 None Full Exam - General 1994 Eyes conjunctiva /eyelids Overall: conjunctiva clear 04/04/2017 None Full Exam - General 1994 Eyes conjunctiva /eyelids Overall: cornea clear 04/04/2017 None Full Exam - General 1994 Eyes conjunctiva /eyelids Overall: eyelids normal 04/04/2017 None Full Exam - General 1994 Eyes pupils and irises Overall: pupils equal, round, reactive to light and accomodation 04/04/2017 None Full Exam - General 1994 Ears/Nose/Throat otoscopic exam External auditory canal: erythematous 04/04/2017 small abrasion noted in ear canal Full Exam - General 1994 Ears/Nose/Throat otoscopic exam Tympanic membrane: air- fluid level 04/04/2017 None Full Exam - General 1994 Ears/Nose/Throat oral cavity/pharynx/larynx Overall: oral mucosa clear 04/04/2017 None Full Exam - General 1994 Ears/Nose/Throat oral cavity/pharynx/larynx Overall: oropharyngeal mucosa clear 04/04/2017 None Full Exam - General 1994 Ears/Nose/Throat oral cavity/pharynx/larynx Overall: no masses 04/04/2017 None Full Exam - General 1994 Respiratory auscultation Overall: breath sounds clear bilaterally 04/04/2017 None Full Exam - General 1994 Respiratory respiratory effort/rhythm Overall: no retractions 04/04/2017 None Full Exam - General 1994 Respiratory respiratory effort/rhythm Overall: normal rate 04/04/2017 None Full Exam - General 1994 Cardiovascular auscultation of heart Rate: tachycardia 04/04/2017 None Full Exam - General 1994 Cardiovascular auscultation of heart Rhythm: regular rhythm 04/04/2017 None Full Exam - General 1994 Abdomen abdominal exam Overall: no tenderness 04/04/2017 None Full Exam - General 1994 Abdomen abdominal exam Overall: normal bowel sounds 04/04/2017 None Full Exam - General 1994 Lymphatic neck nodes Overall: anterior cervical chain benign 04/04/2017 None Full Exam - General 1994 Lymphatic neck nodes Overall: posterior cervical chain benign 04/04/2017 None Full Exam - General 1994 Musculoskeletal digits and nails Overall: no clubbing 04/04/2017 None Full Exam - General 1994 Musculoskeletal digits and nails Overall: digits benign 04/04/2017 None Full Exam - General 1994 Neurologic gait Overall: no ataxia, no unsteadiness 04/04/2017 None Full Exam - General 1994 Psychiatric orientation/consciousness Overall: oriented to person, place and time 04/04/2017 None Full Exam - General 1994 Constitutional general appearance Overall: well developed 03/01/2017 None Full Exam - General 1994 Constitutional general appearance Overall: well nourished 03/01/2017 None Full Exam - General 1994 Eyes conjunctiva /eyelids Overall: conjunctiva clear 03/01/2017 None Full Exam - General 1994 Eyes conjunctiva /eyelids Overall: eyelids normal 03/01/2017 None Full Exam - General 1994 Ears/Nose/Throat oral cavity/pharynx/larynx Overall: oral mucosa clear 03/01/2017 None Full Exam - General 1994 Respiratory respiratory effort/rhythm Overall: no retractions 03/01/2017 None Full Exam - General 1994 Respiratory respiratory effort/rhythm Overall: normal rate 03/01/2017 None Full Exam - General 1994 Integument inspection of skin Overall: no rash, lesions 03/01/2017 None Full Exam - General 1994 Neurologic cranial nerves Overall: crainial nerves 2 - 12 grossly intact 03/01/2017 None Full Exam - General 1994 Neurologic motor Overall: normal bulk, tone 03/01/2017 None Full Exam - General 1994 Psychiatric orientation/consciousness Overall: oriented to person, place and time 03/01/2017 None Full Exam - General 1994 Ears/Nose/Throat lips/teeth/gingiva Overall: benign lips 03/01/2017 None Full Exam - General 1994 Cardiovascular auscultation of heart Rate: tachycardia 03/01/2017 None Full Exam - General 1994 Musculoskeletal head and neck Overall: head atraumatic 03/01/2017 None Full Exam - General 1994 Musculoskeletal spine, ribs and pelvis Spine: tender @ cervical spine 03/01/2017 None Full Exam - General 1994 Neurologic gait Conventional walking: unsteady 03/01/2017 occasionally Full Exam - General 1994 Psychiatric mood and affect Mood: flat 03/01/2017 None Full Exam - General 1994 Psychiatric mood and affect Mood: anxious 03/01/2017 None Full Exam - General 1994 Psychiatric mood and affect Mood: depressed 03/01/2017 None Full Exam - General 1994 Psychiatric appearance Overall: well-groomed, good eye contact 03/01/2017 None Full Exam - General 1994 Constitutional general appearance Evidence of Distress: anxious 03/01/2017 None Full Exam - General 1994 Constitutional general appearance Evidence of Distress: tearful 03/01/2017 None Full Exam - General 1994 Constitutional general appearance Overall: well developed 12/31/2016 None Full Exam - General 1994 Constitutional general appearance Overall: in no acute distress 12/31/2016 None Full Exam - General 1994 Constitutional general appearance Overall: well nourished 12/31/2016 None Full Exam - General 1994 Eyes conjunctiva /eyelids Overall: conjunctiva clear 12/31/2016 None Full Exam - General 1994 Eyes conjunctiva /eyelids Overall: cornea clear 12/31/2016 None Full Exam - General 1994 Eyes conjunctiva /eyelids Overall: eyelids normal 12/31/2016 None Full Exam - General 1994 Eyes pupils and irises Overall: pupils equal, round, reactive to light and accomodation 12/31/2016 None Full Exam - General 1994 Ears/Nose/Throat otoscopic exam External auditory canal: erythematous 12/31/2016 small abrasion noted in ear canal Full Exam - General 1994 Ears/Nose/Throat otoscopic exam Tympanic membrane: air- fluid level 12/31/2016 None Full Exam - General 1994 Ears/Nose/Throat oral cavity/pharynx/larynx Overall: oral mucosa clear 12/31/2016 None Full Exam - General 1994 Ears/Nose/Throat oral cavity/pharynx/larynx Overall: oropharyngeal mucosa clear 12/31/2016 None Full Exam - General 1994 Ears/Nose/Throat oral cavity/pharynx/larynx Overall: no masses 12/31/2016 None Full Exam - General 1994 Respiratory auscultation Overall: breath sounds clear bilaterally 12/31/2016 None Full Exam - General 1994 Respiratory respiratory effort/rhythm Overall: no retractions 12/31/2016 None Full Exam - General 1994 Respiratory respiratory effort/rhythm Overall: normal rate 12/31/2016 None Full Exam - General 1994 Cardiovascular auscultation of heart Rate: tachycardia 12/31/2016 None Full Exam - General 1994 Cardiovascular auscultation of heart Rhythm: regular rhythm 12/31/2016 None Full Exam - General 1994 Abdomen abdominal exam Overall: no tenderness 12/31/2016 None Full Exam - General 1994 Abdomen abdominal exam Overall: normal bowel sounds 12/31/2016 None Full Exam - General 1994 Lymphatic neck nodes Overall: anterior cervical chain benign 12/31/2016 None Full Exam - General 1994 Lymphatic neck nodes Overall: posterior cervical chain benign 12/31/2016 None Full Exam - General 1994 Musculoskeletal digits and nails Overall: no clubbing 12/31/2016 None Full Exam - General 1994 Musculoskeletal digits and nails Overall: digits benign 12/31/2016 None Full Exam - General 1994 Integument inspection of skin Overall: no rash, lesions 12/31/2016 None Full Exam - General 1994 Neurologic deep tendon reflexes Overall: deep tendon reflexes intact 12/31/2016 None Full Exam - General 1994 Neurologic gait Overall: no ataxia, no unsteadiness 12/31/2016 None Full Exam - General 1994 Neurologic cranial nerves Overall: crainial nerves 2 - 12 grossly intact 12/31/2016 None Full Exam - General 1994 Neurologic motor Overall: normal bulk, tone 12/31/2016 None Full Exam - General 1994 Psychiatric orientation/consciousness Overall: oriented to person, place and time 12/31/2016 None Full Exam - General 1994 Constitutional general appearance Overall: well developed 10/01/2016 None Full Exam - General 1994 Constitutional general appearance Overall: in no acute distress 10/01/2016 None Full Exam - General 1994 Constitutional general appearance Overall: well nourished 10/01/2016 None Full Exam - General 1994 Eyes conjunctiva /eyelids Overall: conjunctiva clear 10/01/2016 None Full Exam - General 1994 Eyes conjunctiva /eyelids Overall: cornea clear 10/01/2016 None Full Exam - General 1994 Eyes conjunctiva /eyelids Overall: eyelids normal 10/01/2016 None Full Exam - General 1994 Eyes pupils and irises Overall: pupils equal, round, reactive to light and accomodation 10/01/2016 None Full Exam - General 1994 Ears/Nose/Throat otoscopic exam Overall: external auditory canals clear 10/01/2016 None Full Exam - General 1994 Ears/Nose/Throat otoscopic exam Overall: tympanic membranes clear 10/01/2016 None Full Exam - General 1994 Ears/Nose/Throat oral cavity/pharynx/larynx Overall: oral mucosa clear 10/01/2016 None Full Exam - General 1994 Ears/Nose/Throat oral cavity/pharynx/larynx Overall: oropharyngeal mucosa clear 10/01/2016 None Full Exam - General 1994 Ears/Nose/Throat oral cavity/pharynx/larynx Overall: no masses 10/01/2016 None Full Exam - General 1994 Respiratory auscultation Overall: breath sounds clear bilaterally 10/01/2016 None Full Exam - General 1994 Respiratory respiratory effort/rhythm Overall: no retractions 10/01/2016 None Full Exam - General 1994 Respiratory respiratory effort/rhythm Overall: normal rate 10/01/2016 None Full Exam - General 1994 Cardiovascular auscultation of heart Rate: tachycardia 10/01/2016 None Full Exam - General 1994 Cardiovascular auscultation of heart Rhythm: regular rhythm 10/01/2016 None Full Exam - General 1994 Abdomen abdominal exam Overall: no tenderness 10/01/2016 None Full Exam - General 1994 Abdomen abdominal exam Overall: normal bowel sounds 10/01/2016 None Full Exam - General 1994 Musculoskeletal digits and nails Overall: no clubbing 10/01/2016 None Full Exam - General 1994 Musculoskeletal digits and nails Overall: digits benign 10/01/2016 None Full Exam - General 1994 Musculoskeletal digits and nails MCPs: first 10/01/2016 None Full Exam - General 1994 Musculoskeletal digits and nails MCPs: swelling 10/01/2016 None Full Exam - General 1994 Musculoskeletal spine, ribs and pelvis Spine: deformity 10/01/2016 scoliosis noted Full Exam - General 1994 Integument inspection of skin Rash/Lesions: macule 10/01/2016 on elbows, legs scattered around ankle, and a few small spots on back near bra-line Full Exam - General 1994 Neurologic deep tendon reflexes Overall: deep tendon reflexes intact 10/01/2016 None Full Exam - General 1994 Neurologic gait Overall: no ataxia, no unsteadiness 10/01/2016 None Full Exam - General 1994 Neurologic cranial nerves Overall: crainial nerves 2 - 12 grossly intact 10/01/2016 None Full Exam - General 1994 Neurologic motor Overall: normal bulk, tone 10/01/2016 None Full Exam - General 1994 Psychiatric orientation/consciousness Overall: oriented to person, place and time 10/01/2016 None Full Exam - General 1994 Constitutional general appearance Overall: well developed 08/23/2016 None Full Exam - General 1994 Constitutional general appearance Overall: in no acute distress 08/23/2016 None Full Exam - General 1994 Constitutional general appearance Overall: well nourished 08/23/2016 None Full Exam - General 1994 Eyes conjunctiva /eyelids Overall: conjunctiva clear 08/23/2016 None Full Exam - General 1994 Eyes conjunctiva /eyelids Overall: cornea clear 08/23/2016 None Full Exam - General 1994 Eyes conjunctiva /eyelids Overall: eyelids normal 08/23/2016 None Full Exam - General 1994 Eyes pupils and irises Overall: pupils equal, round, reactive to light and accomodation 08/23/2016 None Full Exam - General 1994 Ears/Nose/Throat otoscopic exam Overall: external auditory canals clear 08/23/2016 None Full Exam - General 1994 Ears/Nose/Throat otoscopic exam Overall: tympanic membranes clear 08/23/2016 None Full Exam - General 1994 Ears/Nose/Throat oral cavity/pharynx/larynx Overall: oral mucosa clear 08/23/2016 None Full Exam - General 1994 Ears/Nose/Throat oral cavity/pharynx/larynx Overall: oropharyngeal mucosa clear 08/23/2016 None Full Exam - General 1994 Ears/Nose/Throat oral cavity/pharynx/larynx Overall: no masses 08/23/2016 None Full Exam - General 1994 Respiratory auscultation Overall: breath sounds clear bilaterally 08/23/2016 None Full Exam - General 1994 Respiratory respiratory effort/rhythm Overall: no retractions 08/23/2016 None Full Exam - General 1994 Respiratory respiratory effort/rhythm Overall: normal rate 08/23/2016 None Full Exam - General 1994 Cardiovascular auscultation of heart Rate: tachycardia 08/23/2016 None Full Exam - General 1994 Cardiovascular auscultation of heart Rhythm: regular rhythm 08/23/2016 None Full Exam - General 1994 Abdomen abdominal exam Overall: no tenderness 08/23/2016 None Full Exam - General 1994 Abdomen abdominal exam Overall: normal bowel sounds 08/23/2016 None Full Exam - General 1994 Musculoskeletal digits and nails Overall: no clubbing 08/23/2016 None Full Exam - General 1994 Musculoskeletal digits and nails Overall: digits benign 08/23/2016 None Full Exam - General 1994 Musculoskeletal digits and nails MCPs: first 08/23/2016 None Full Exam - General 1994 Musculoskeletal digits and nails MCPs: swelling 08/23/2016 None Full Exam - General 1994 Musculoskeletal spine, ribs and pelvis Spine: deformity 08/23/2016 scoliosis noted Full Exam - General 1994 Neurologic deep tendon reflexes Overall: deep tendon reflexes intact 08/23/2016 None Full Exam - General 1994 Neurologic gait Overall: no ataxia, no unsteadiness 08/23/2016 None Full Exam - General 1994 Neurologic cranial nerves Overall: crainial nerves 2 - 12 grossly intact 08/23/2016 None Full Exam - General 1994 Neurologic motor Overall: normal bulk, tone 08/23/2016 None Full Exam - General 1994 Psychiatric orientation/consciousness Overall: oriented to person, place and time 08/23/2016 None Full Exam - General 1994 Constitutional general appearance Overall: well developed 08/02/2016 None Full Exam - General 1994 Constitutional general appearance Overall: in no acute distress 08/02/2016 None Full Exam - General 1994 Constitutional general appearance Overall: well nourished 08/02/2016 None Full Exam - General 1994 Eyes conjunctiva /eyelids Overall: conjunctiva clear 08/02/2016 None Full Exam - General 1994 Eyes conjunctiva /eyelids Overall: cornea clear 08/02/2016 None Full Exam - General 1994 Eyes conjunctiva /eyelids Overall: eyelids normal 08/02/2016 None Full Exam - General 1994 Eyes pupils and irises Overall: pupils equal, round, reactive to light and accomodation 08/02/2016 None Full Exam - General 1994 Ears/Nose/Throat otoscopic exam Overall: external auditory canals clear 08/02/2016 None Full Exam - General 1994 Ears/Nose/Throat otoscopic exam Overall: tympanic membranes clear 08/02/2016 None Full Exam - General 1994 Ears/Nose/Throat oral cavity/pharynx/larynx Overall: oral mucosa clear 08/02/2016 None Full Exam - General 1994 Ears/Nose/Throat oral cavity/pharynx/larynx Overall: oropharyngeal mucosa clear 08/02/2016 None Full Exam - General 1994 Ears/Nose/Throat oral cavity/pharynx/larynx Overall: no masses 08/02/2016 None Full Exam - General 1994 Respiratory auscultation Overall: breath sounds clear bilaterally 08/02/2016 None Full Exam - General 1994 Respiratory respiratory effort/rhythm Overall: no retractions 08/02/2016 None Full Exam - General 1994 Respiratory respiratory effort/rhythm Overall: normal rate 08/02/2016 None Full Exam - General 1994 Cardiovascular auscultation of heart Rate: tachycardia 08/02/2016 None Full Exam - General 1994 Cardiovascular auscultation of heart Rhythm: regular rhythm 08/02/2016 None Full Exam - General 1994 Abdomen abdominal exam Overall: no tenderness 08/02/2016 None Full Exam - General 1994 Abdomen abdominal exam Overall: normal bowel sounds 08/02/2016 None Full Exam - General 1994 Musculoskeletal digits and nails Overall: no clubbing 08/02/2016 None Full Exam - General 1994 Musculoskeletal digits and nails Overall: digits benign 08/02/2016 None Full Exam - General 1994 Musculoskeletal digits and nails MCPs: first 08/02/2016 None Full Exam - General 1994 Musculoskeletal digits and nails MCPs: swelling 08/02/2016 None Full Exam - General 1994 Musculoskeletal spine, ribs and pelvis Spine: deformity 08/02/2016 scoliosis noted Full Exam - General 1994 Integument inspection of skin Rash/Lesions: macule 08/02/2016 on elbows, legs scattered around ankle, and a few small spots on back near bra-line Full Exam - General 1994 Neurologic deep tendon reflexes Overall: deep tendon reflexes intact 08/02/2016 None Full Exam - General 1994 Neurologic gait Overall: no ataxia, no unsteadiness 08/02/2016 None Full Exam - General 1994 Neurologic cranial nerves Overall: crainial nerves 2 - 12 grossly intact 08/02/2016 None Full Exam - General 1994 Neurologic motor Overall: normal bulk, tone 08/02/2016 None Full Exam - General 1994 Psychiatric orientation/consciousness Overall: oriented to person, place and time 08/02/2016 None Full Exam - General 1994 Constitutional general appearance Overall: well developed 07/19/2016 None Full Exam - General 1994 Constitutional general appearance Overall: in no acute distress 07/19/2016 None Full Exam - General 1994 Constitutional general appearance Overall: well nourished 07/19/2016 None Full Exam - General 1994 Eyes conjunctiva /eyelids Overall: conjunctiva clear 07/19/2016 None Full Exam - General 1994 Eyes conjunctiva /eyelids Overall: cornea clear 07/19/2016 None Full Exam - General 1994 Eyes conjunctiva /eyelids Overall: eyelids normal 07/19/2016 None Full Exam - General 1994 Eyes pupils and irises Overall: pupils equal, round, reactive to light and accomodation 07/19/2016 None Full Exam - General 1994 Ears/Nose/Throat otoscopic exam Overall: external auditory canals clear 07/19/2016 None Full Exam - General 1994 Ears/Nose/Throat otoscopic exam Overall: tympanic membranes clear 07/19/2016 None Full Exam - General 1994 Ears/Nose/Throat oral cavity/pharynx/larynx Overall: oral mucosa clear 07/19/2016 None Full Exam - General 1994 Ears/Nose/Throat oral cavity/pharynx/larynx Overall: oropharyngeal mucosa clear 07/19/2016 None Full Exam - General 1994 Ears/Nose/Throat oral cavity/pharynx/larynx Overall: no masses 07/19/2016 None Full Exam - General 1994 Respiratory auscultation Overall: breath sounds clear bilaterally 07/19/2016 None Full Exam - General 1994 Respiratory respiratory effort/rhythm Overall: no retractions 07/19/2016 None Full Exam - General 1994 Respiratory respiratory effort/rhythm Overall: normal rate 07/19/2016 None Full Exam - General 1994 Cardiovascular auscultation of heart Rate: tachycardia 07/19/2016 None Full Exam - General 1994 Cardiovascular auscultation of heart Rhythm: regular rhythm 07/19/2016 None Full Exam - General 1994 Abdomen abdominal exam Overall: no tenderness 07/19/2016 None Full Exam - General 1994 Abdomen abdominal exam Overall: normal bowel sounds 07/19/2016 None Full Exam - General 1994 Musculoskeletal digits and nails Overall: no clubbing 07/19/2016 None Full Exam - General 1994 Musculoskeletal digits and nails Overall: digits benign 07/19/2016 None Full Exam - General 1994 Musculoskeletal digits and nails MCPs: first 07/19/2016 None Full Exam - General 1994 Musculoskeletal digits and nails MCPs: swelling 07/19/2016 None Full Exam - General 1994 Musculoskeletal spine, ribs and pelvis Spine: deformity 07/19/2016 scoliosis noted Full Exam - General 1994 Neurologic deep tendon reflexes Overall: deep tendon reflexes intact 07/19/2016 None Full Exam - General 1994 Neurologic gait Overall: no ataxia, no unsteadiness 07/19/2016 None Full Exam - General 1994 Neurologic cranial nerves Overall: crainial nerves 2 - 12 grossly intact 07/19/2016 None Full Exam - General 1994 Neurologic motor Overall: normal bulk, tone 07/19/2016 None Full Exam - General 1994 Psychiatric orientation/consciousness Overall: oriented to person, place and time 07/19/2016 None Full Exam - General 1994 Constitutional general appearance Overall: well developed 07/05/2016 None Full Exam - General 1994 Constitutional general appearance Overall: in no acute distress 07/05/2016 None Full Exam - General 1994 Constitutional general appearance Overall: well nourished 07/05/2016 None Full Exam - General 1994 Eyes conjunctiva /eyelids Overall: conjunctiva clear 07/05/2016 None Full Exam - General 1994 Eyes conjunctiva /eyelids Overall: cornea clear 07/05/2016 None Full Exam - General 1994 Eyes conjunctiva /eyelids Overall: eyelids normal 07/05/2016 None Full Exam - General 1994 Eyes pupils and irises Overall: pupils equal, round, reactive to light and accomodation 07/05/2016 None Full Exam - General 1994 Ears/Nose/Throat otoscopic exam Overall: external auditory canals clear 07/05/2016 None Full Exam - General 1994 Ears/Nose/Throat otoscopic exam Overall: tympanic membranes clear 07/05/2016 None Full Exam - General 1994 Ears/Nose/Throat oral cavity/pharynx/larynx Overall: oral mucosa clear 07/05/2016 None Full Exam - General 1994 Ears/Nose/Throat oral cavity/pharynx/larynx Overall: oropharyngeal mucosa clear 07/05/2016 None Full Exam - General 1994 Ears/Nose/Throat oral cavity/pharynx/larynx Overall: no masses 07/05/2016 None Full Exam - General 1994 Respiratory auscultation Overall: breath sounds clear bilaterally 07/05/2016 None Full Exam - General 1994 Respiratory respiratory effort/rhythm Overall: no retractions 07/05/2016 None Full Exam - General 1994 Respiratory respiratory effort/rhythm Overall: normal rate 07/05/2016 None Full Exam - General 1994 Cardiovascular auscultation of heart Rate: tachycardia 07/05/2016 None Full Exam - General 1994 Cardiovascular auscultation of heart Rhythm: regular rhythm 07/05/2016 None Full Exam - General 1994 Abdomen abdominal exam Overall: no tenderness 07/05/2016 None Full Exam - General 1994 Abdomen abdominal exam Overall: normal bowel sounds 07/05/2016 None Full Exam - General 1994 Musculoskeletal digits and nails Overall: no clubbing 07/05/2016 None Full Exam - General 1994 Musculoskeletal digits and nails Overall: digits benign 07/05/2016 None Full Exam - General 1994 Musculoskeletal digits and nails MCPs: first 07/05/2016 None Full Exam - General 1994 Musculoskeletal digits and nails MCPs: swelling 07/05/2016 None Full Exam - General 1994 Musculoskeletal spine, ribs and pelvis Spine: deformity 07/05/2016 scoliosis noted Full Exam - General 1994 Integument inspection of skin Rash/Lesions: macule 07/05/2016 on elbows, legs scattered around ankle, and a few small spots on back near bra-line Full Exam - General 1994 Neurologic deep tendon reflexes Overall: deep tendon reflexes intact 07/05/2016 None Full Exam - General 1994 Neurologic gait Overall: no ataxia, no unsteadiness 07/05/2016 None Full Exam - General 1994 Neurologic cranial nerves Overall: crainial nerves 2 - 12 grossly intact 07/05/2016 None Full Exam - General 1994 Neurologic motor Overall: normal bulk, tone 07/05/2016 None Full Exam - General 1994 Psychiatric orientation/consciousness Overall: oriented to person, place and time 07/05/2016 None Full Exam - General 1994 Constitutional general appearance Overall: well developed 04/10/2016 None Full Exam - General 1994 Constitutional general appearance Overall: in no acute distress 04/10/2016 None Full Exam - General 1994 Constitutional general appearance Overall: well nourished 04/10/2016 None Full Exam - General 1994 Eyes conjunctiva /eyelids Overall: conjunctiva clear 04/10/2016 None Full Exam - General 1994 Eyes conjunctiva /eyelids Overall: cornea clear 04/10/2016 None Full Exam - General 1994 Eyes conjunctiva /eyelids Overall: eyelids normal 04/10/2016 None Full Exam - General 1994 Eyes pupils and irises Overall: pupils equal, round, reactive to light and accomodation 04/10/2016 None Full Exam - General 1994 Ears/Nose/Throat otoscopic exam Overall: external auditory canals clear 04/10/2016 None Full Exam - General 1994 Ears/Nose/Throat otoscopic exam Overall: tympanic membranes clear 04/10/2016 None Full Exam - General 1994 Ears/Nose/Throat oral cavity/pharynx/larynx Overall: oral mucosa clear 04/10/2016 None Full Exam - General 1994 Ears/Nose/Throat oral cavity/pharynx/larynx Overall: oropharyngeal mucosa clear 04/10/2016 None Full Exam - General 1994 Ears/Nose/Throat oral cavity/pharynx/larynx Overall: no masses 04/10/2016 None Full Exam - General 1994 Respiratory auscultation Overall: breath sounds clear bilaterally 04/10/2016 None Full Exam - General 1994 Respiratory respiratory effort/rhythm Overall: no retractions 04/10/2016 None Full Exam - General 1994 Respiratory respiratory effort/rhythm Overall: normal rate 04/10/2016 None Full Exam - General 1994 Cardiovascular auscultation of heart Rate: tachycardia 04/10/2016 None Full Exam - General 1994 Cardiovascular auscultation of heart Rhythm: regular rhythm 04/10/2016 None Full Exam - General 1994 Abdomen abdominal exam Overall: no tenderness 04/10/2016 None Full Exam - General 1994 Abdomen abdominal exam Overall: normal bowel sounds 04/10/2016 None Full Exam - General 1994 Musculoskeletal digits and nails Overall: no clubbing 04/10/2016 None Full Exam - General 1994 Musculoskeletal digits and nails Overall: digits benign 04/10/2016 None Full Exam - General 1994 Musculoskeletal digits and nails MCPs: first 04/10/2016 None Full Exam - General 1994 Musculoskeletal digits and nails MCPs: swelling 04/10/2016 None Full Exam - General 1994 Musculoskeletal spine, ribs and pelvis Spine: deformity 04/10/2016 scoliosis noted Full Exam - General 1994 Integument inspection of skin Rash/Lesions: macule 04/10/2016 on elbows, legs scattered around ankle, and a few small spots on back near bra-line Full Exam - General 1994 Neurologic deep tendon reflexes Overall: deep tendon reflexes intact 04/10/2016 None Full Exam - General 1994 Neurologic gait Overall: no ataxia, no unsteadiness 04/10/2016 None Full Exam - General 1994 Neurologic cranial nerves Overall: crainial nerves 2 - 12 grossly intact 04/10/2016 None Full Exam - General 1994 Neurologic motor Overall: normal bulk, tone 04/10/2016 None Full Exam - General 1994 Psychiatric orientation/consciousness Overall: oriented to person, place and time 04/10/2016 None Full Exam - General 1994 Constitutional general appearance Overall: well developed 02/07/2016 None Full Exam - General 1994 Constitutional general appearance Overall: in no acute distress 02/07/2016 None Full Exam - General 1994 Constitutional general appearance Overall: well nourished 02/07/2016 None Full Exam - General 1994 Eyes conjunctiva /eyelids Overall: conjunctiva clear 02/07/2016 None Full Exam - General 1994 Eyes conjunctiva /eyelids Overall: cornea clear 02/07/2016 None Full Exam - General 1994 Eyes conjunctiva /eyelids Overall: eyelids normal 02/07/2016 None Full Exam - General 1994 Eyes pupils and irises Overall: pupils equal, round, reactive to light and accomodation 02/07/2016 None Full Exam - General 1994 Ears/Nose/Throat otoscopic exam Overall: external auditory canals clear 02/07/2016 None Full Exam - General 1994 Ears/Nose/Throat otoscopic exam Overall: tympanic membranes clear 02/07/2016 None Full Exam - General 1994 Ears/Nose/Throat oral cavity/pharynx/larynx Overall: oral mucosa clear 02/07/2016 None Full Exam - General 1994 Ears/Nose/Throat oral cavity/pharynx/larynx Overall: oropharyngeal mucosa clear 02/07/2016 None Full Exam - General 1994 Ears/Nose/Throat oral cavity/pharynx/larynx Overall: no masses 02/07/2016 None Full Exam - General 1994 Respiratory auscultation Overall: breath sounds clear bilaterally 02/07/2016 None Full Exam - General 1994 Respiratory respiratory effort/rhythm Overall: no retractions 02/07/2016 None Full Exam - General 1994 Respiratory respiratory effort/rhythm Overall: normal rate 02/07/2016 None Full Exam - General 1994 Cardiovascular auscultation of heart Rate: tachycardia 02/07/2016 None Full Exam - General 1994 Cardiovascular auscultation of heart Rhythm: regular rhythm 02/07/2016 None Full Exam - General 1994 Abdomen abdominal exam Overall: no tenderness 02/07/2016 None Full Exam - General 1994 Abdomen abdominal exam Overall: normal bowel sounds 02/07/2016 None Full Exam - General 1994 Musculoskeletal digits and nails Overall: no clubbing 02/07/2016 None Full Exam - General 1994 Musculoskeletal digits and nails Overall: digits benign 02/07/2016 None Full Exam - General 1994 Musculoskeletal digits and nails MCPs: first 02/07/2016 None Full Exam - General 1994 Musculoskeletal digits and nails MCPs: swelling 02/07/2016 None Full Exam - General 1994 Musculoskeletal spine, ribs and pelvis Spine: deformity 02/07/2016 scoliosis noted Full Exam - General 1994 Integument inspection of skin Rash/Lesions: macule 02/07/2016 on elbows, legs scattered around ankle, and a few small spots on back near bra-line Full Exam - General 1994 Neurologic deep tendon reflexes Overall: deep tendon reflexes intact 02/07/2016 None Full Exam - General 1994 Neurologic gait Overall: no ataxia, no unsteadiness 02/07/2016 None Full Exam - General 1994 Neurologic cranial nerves Overall: crainial nerves 2 - 12 grossly intact 02/07/2016 None Full Exam - General 1994 Neurologic motor Overall: normal bulk, tone 02/07/2016 None Full Exam - General 1994 Psychiatric orientation/consciousness Overall: oriented to person, place and time 02/07/2016 None Full Exam - General 1994 Constitutional general appearance Overall: well developed 01/05/2016 None Full Exam - General 1994 Constitutional general appearance Overall: in no acute distress 01/05/2016 None Full Exam - General 1994 Constitutional general appearance Overall: well nourished 01/05/2016 None Full Exam - General 1994 Eyes conjunctiva /eyelids Overall: conjunctiva clear 01/05/2016 None Full Exam - General 1994 Eyes conjunctiva /eyelids Overall: cornea clear 01/05/2016 None Full Exam - General 1994 Eyes conjunctiva /eyelids Overall: eyelids normal 01/05/2016 None Full Exam - General 1994 Eyes pupils and irises Overall: pupils equal, round, reactive to light and accomodation 01/05/2016 None Full Exam - General 1994 Ears/Nose/Throat otoscopic exam Overall: external auditory canals clear 01/05/2016 None Full Exam - General 1994 Ears/Nose/Throat otoscopic exam Overall: tympanic membranes clear 01/05/2016 None Full Exam - General 1994 Ears/Nose/Throat oral cavity/pharynx/larynx Overall: oral mucosa clear 01/05/2016 None Full Exam - General 1994 Ears/Nose/Throat oral cavity/pharynx/larynx Overall: oropharyngeal mucosa clear 01/05/2016 None Full Exam - General 1994 Ears/Nose/Throat oral cavity/pharynx/larynx Overall: no masses 01/05/2016 None Full Exam - General 1994 Respiratory auscultation Overall: breath sounds clear bilaterally 01/05/2016 None Full Exam - General 1994 Respiratory respiratory effort/rhythm Overall: no retractions 01/05/2016 None Full Exam - General 1994 Respiratory respiratory effort/rhythm Overall: normal rate 01/05/2016 None Full Exam - General 1994 Cardiovascular auscultation of heart Rate: tachycardia 01/05/2016 None Full Exam - General 1994 Cardiovascular auscultation of heart Rhythm: regular rhythm 01/05/2016 None Full Exam - General 1994 Musculoskeletal digits and nails Overall: no clubbing 01/05/2016 None Full Exam - General 1994 Musculoskeletal digits and nails Overall: digits benign 01/05/2016 None Full Exam - General 1994 Musculoskeletal digits and nails MCPs: first 01/05/2016 None Full Exam - General 1994 Musculoskeletal digits and nails MCPs: swelling 01/05/2016 None Full Exam - General 1994 Musculoskeletal spine, ribs and pelvis Spine: deformity 01/05/2016 scoliosis noted Full Exam - General 1994 Neurologic deep tendon reflexes Overall: deep tendon reflexes intact 01/05/2016 None Full Exam - General 1994 Neurologic gait Overall: no ataxia, no unsteadiness 01/05/2016 None Full Exam - General 1994 Neurologic cranial nerves Overall: crainial nerves 2 - 12 grossly intact 01/05/2016 None Full Exam - General 1994 Neurologic motor Overall: normal bulk, tone 01/05/2016 None Full Exam - General 1994 Psychiatric orientation/consciousness Overall: oriented to person, place and time 01/05/2016 None Full Exam - General 1994 Abdomen abdominal exam Overall: normal bowel sounds 01/05/2016 None Full Exam - General 1994 Abdomen abdominal exam Overall: no tenderness 01/05/2016 None Full Exam - General 1994 Integument inspection of skin Rash/Lesions: macule 01/05/2016 on elbows, legs scattered around ankle, and a few small spots on back near bra-line Full Exam - General 1994 Constitutional general appearance Overall: well developed 12/01/2015 None Full Exam - General 1994 Constitutional general appearance Overall: in no acute distress 12/01/2015 None Full Exam - General 1994 Constitutional general appearance Overall: well nourished 12/01/2015 None Full Exam - General 1994 Eyes conjunctiva /eyelids Overall: conjunctiva clear 12/01/2015 None Full Exam - General 1994 Eyes conjunctiva /eyelids Overall: cornea clear 12/01/2015 None Full Exam - General 1994 Eyes conjunctiva /eyelids Overall: eyelids normal 12/01/2015 None Full Exam - General 1994 Eyes pupils and irises Overall: pupils equal, round, reactive to light and accomodation 12/01/2015 None Full Exam - General 1994 Ears/Nose/Throat otoscopic exam Overall: external auditory canals clear 12/01/2015 None Full Exam - General 1994 Ears/Nose/Throat otoscopic exam Overall: tympanic membranes clear 12/01/2015 None Full Exam - General 1994 Ears/Nose/Throat oral cavity/pharynx/larynx Overall: oral mucosa clear 12/01/2015 None Full Exam - General 1994 Ears/Nose/Throat oral cavity/pharynx/larynx Overall: oropharyngeal mucosa clear 12/01/2015 None Full Exam - General 1994 Ears/Nose/Throat oral cavity/pharynx/larynx Overall: no masses 12/01/2015 None Full Exam - General 1994 Respiratory auscultation Overall: breath sounds clear bilaterally 12/01/2015 None Full Exam - General 1994 Respiratory respiratory effort/rhythm Overall: no retractions 12/01/2015 None Full Exam - General 1994 Respiratory respiratory effort/rhythm Overall: normal rate 12/01/2015 None Full Exam - General 1994 Cardiovascular auscultation of heart Rate: tachycardia 12/01/2015 None Full Exam - General 1994 Cardiovascular auscultation of heart Rhythm: regular rhythm 12/01/2015 None Full Exam - General 1994 Musculoskeletal digits and nails Overall: no clubbing 12/01/2015 None Full Exam - General 1994 Musculoskeletal digits and nails Overall: digits benign 12/01/2015 None Full Exam - General 1994 Musculoskeletal digits and nails MCPs: first 12/01/2015 None Full Exam - General 1994 Musculoskeletal digits and nails MCPs: swelling 12/01/2015 None Full Exam - General 1994 Musculoskeletal spine, ribs and pelvis Spine: deformity 12/01/2015 scoliosis noted Full Exam - General 1994 Integument inspection of skin Overall: no rash, lesions 12/01/2015 None Full Exam - General 1994 Neurologic deep tendon reflexes Overall: deep tendon reflexes intact 12/01/2015 None Full Exam - General 1994 Neurologic gait Overall: no ataxia, no unsteadiness 12/01/2015 None Full Exam - General 1994 Neurologic cranial nerves Overall: crainial nerves 2 - 12 grossly intact 12/01/2015 None Full Exam - General 1994 Neurologic motor Overall: normal bulk, tone 12/01/2015 None Full Exam - General 1994 Psychiatric orientation/consciousness Overall: oriented to person, place and time 12/01/2015 None Full Exam - General 1994 Constitutional general appearance Overall: well developed 11/03/2015 None Full Exam - General 1994 Constitutional general appearance Overall: in no acute distress 11/03/2015 None Full Exam - General 1994 Constitutional general appearance Overall: well nourished 11/03/2015 None Full Exam - General 1994 Eyes conjunctiva /eyelids Overall: conjunctiva clear 11/03/2015 None Full Exam - General 1994 Eyes conjunctiva /eyelids Overall: cornea clear 11/03/2015 None Full Exam - General 1994 Eyes conjunctiva /eyelids Overall: eyelids normal 11/03/2015 None Full Exam - General 1994 Eyes pupils and irises Overall: pupils equal, round, reactive to light and accomodation 11/03/2015 None Full Exam - General 1994 Ears/Nose/Throat otoscopic exam Overall: external auditory canals clear 11/03/2015 None Full Exam - General 1994 Ears/Nose/Throat otoscopic exam Overall: tympanic membranes clear 11/03/2015 None Full Exam - General 1994 Ears/Nose/Throat oral cavity/pharynx/larynx Overall: oral mucosa clear 11/03/2015 None Full Exam - General 1994 Ears/Nose/Throat oral cavity/pharynx/larynx Overall: oropharyngeal mucosa clear 11/03/2015 None Full Exam - General 1994 Ears/Nose/Throat oral cavity/pharynx/larynx Overall: no masses 11/03/2015 None Full Exam - General 1994 Respiratory auscultation Overall: breath sounds clear bilaterally 11/03/2015 None Full Exam - General 1994 Respiratory respiratory effort/rhythm Overall: no retractions 11/03/2015 None Full Exam - General 1994 Respiratory respiratory effort/rhythm Overall: normal rate 11/03/2015 None Full Exam - General 1994 Cardiovascular auscultation of heart Rate: tachycardia 11/03/2015 None Full Exam - General 1994 Cardiovascular auscultation of heart Rhythm: regular rhythm 11/03/2015 None Full Exam - General 1994 Chest/Breast breast and axillae palpation Overall: breasts non-tender 11/03/2015 None Full Exam - General 1994 Chest/Breast breast and axillae palpation Overall: axillae non-tender 11/03/2015 None Full Exam - General 1994 Chest/Breast breast and axillae palpation Overall: no nipple discharge 11/03/2015 None Full Exam - General 1994 Abdomen abdominal exam Overall: normal bowel sounds 11/03/2015 None Full Exam - General 1994 Abdomen abdominal exam Upper quadrant: non-tender to palpation 11/03/2015 None Full Exam - General 1994 Lymphatic neck nodes Overall: anterior cervical chain benign 11/03/2015 None Full Exam - General 1994 Lymphatic neck nodes Overall: posterior cervical chain benign 11/03/2015 None Full Exam - General 1994 Musculoskeletal digits and nails Overall: no clubbing 11/03/2015 None Full Exam - General 1994 Musculoskeletal digits and nails Overall: digits benign 11/03/2015 None Full Exam - General 1994 Musculoskeletal digits and nails MCPs: first 11/03/2015 None Full Exam - General 1994 Musculoskeletal digits and nails MCPs: swelling 11/03/2015 None Full Exam - General 1994 Musculoskeletal spine, ribs and pelvis Spine: deformity 11/03/2015 scoliosis noted Full Exam - General 1994 Integument inspection of skin Overall: no rash, lesions 11/03/2015 None Full Exam - General 1994 Neurologic deep tendon reflexes Overall: deep tendon reflexes intact 11/03/2015 None Full Exam - General 1994 Neurologic gait Overall: no ataxia, no unsteadiness 11/03/2015 None Full Exam - General 1994 Neurologic cranial nerves Overall: crainial nerves 2 - 12 grossly intact 11/03/2015 None Full Exam - General 1994 Neurologic motor Overall: normal bulk, tone 11/03/2015 None Full Exam - General 1994 Psychiatric orientation/consciousness Overall: oriented to person, place and time 11/03/2015 None Full Exam - General 1994 Constitutional general appearance Overall: well developed 10/26/2015 None Full Exam - General 1994 Constitutional general appearance Overall: in no acute distress 10/26/2015 None Full Exam - General 1994 Constitutional general appearance Overall: well nourished 10/26/2015 None Full Exam - General 1994 Eyes conjunctiva /eyelids Overall: conjunctiva clear 10/26/2015 None Full Exam - General 1994 Eyes conjunctiva /eyelids Overall: cornea clear 10/26/2015 None Full Exam - General 1994 Eyes conjunctiva /eyelids Overall: eyelids normal 10/26/2015 None Full Exam - General 1994 Eyes pupils and irises Overall: pupils equal, round, reactive to light and accomodation 10/26/2015 None Full Exam - General 1994 Respiratory auscultation Overall: breath sounds clear bilaterally 10/26/2015 None Full Exam - General 1994 Respiratory respiratory effort/rhythm Overall: no retractions 10/26/2015 None Full Exam - General 1994 Respiratory respiratory effort/rhythm Overall: normal rate 10/26/2015 None Full Exam - General 1994 Cardiovascular auscultation of heart Rate: tachycardia 10/26/2015 None Full Exam - General 1994 Cardiovascular auscultation of heart Rhythm: regular rhythm 10/26/2015 None Full Exam - General 1994 Musculoskeletal digits and nails MCPs: first 10/26/2015 None Full Exam - General 1994 Musculoskeletal digits and nails MCPs: swelling 10/26/2015 None Full Exam - General 1994 Neurologic gait Overall: no ataxia, no unsteadiness 10/26/2015 None Full Exam - General 1994 Neurologic cranial nerves Overall: crainial nerves 2 - 12 grossly intact 10/26/2015 None Full Exam - General 1994 Psychiatric orientation/consciousness Overall: oriented to person, place and time 10/26/2015 None Full Exam - General 1994 Ears/Nose/Throat lips/teeth/gingiva Overall: benign lips 10/26/2015 None Full Exam - General 1994 Integument inspection of skin Location: left hand 10/26/2015 None Full Exam - General 1994 Integument inspection of skin Pigmentation: erythematous 10/26/2015 None Full Exam - General 1994 Psychiatric mood and affect Overall: normal mood and affect 10/26/2015 None Full Exam - General 1994 Psychiatric appearance Overall: well-groomed, good eye contact 10/26/2015 None Full Exam - General 1994 Constitutional general appearance Overall: well developed 10/17/2015 None Full Exam - General 1994 Constitutional general appearance Overall: in no acute distress 10/17/2015 None Full Exam - General 1994 Constitutional general appearance Overall: well nourished 10/17/2015 None Full Exam - General 1994 Eyes conjunctiva /eyelids Overall: conjunctiva clear 10/17/2015 None Full Exam - General 1994 Eyes conjunctiva /eyelids Overall: cornea clear 10/17/2015 None Full Exam - General 1994 Eyes conjunctiva /eyelids Overall: eyelids normal 10/17/2015 None Full Exam - General 1994 Eyes pupils and irises Overall: pupils equal, round, reactive to light and accomodation 10/17/2015 None Full Exam - General 1994 Ears/Nose/Throat otoscopic exam Overall: external auditory canals clear 10/17/2015 None Full Exam - General 1994 Ears/Nose/Throat otoscopic exam Overall: tympanic membranes clear 10/17/2015 None Full Exam - General 1994 Ears/Nose/Throat oral cavity/pharynx/larynx Overall: oral mucosa clear 10/17/2015 None Full Exam - General 1994 Ears/Nose/Throat oral cavity/pharynx/larynx Overall: oropharyngeal mucosa clear 10/17/2015 None Full Exam - General 1994 Ears/Nose/Throat oral cavity/pharynx/larynx Overall: no masses 10/17/2015 None Full Exam - General 1994 Respiratory auscultation Overall: breath sounds clear bilaterally 10/17/2015 None Full Exam - General 1994 Respiratory respiratory effort/rhythm Overall: no retractions 10/17/2015 None Full Exam - General 1994 Respiratory respiratory effort/rhythm Overall: normal rate 10/17/2015 None Full Exam - General 1994 Cardiovascular auscultation of heart Rate: tachycardia 10/17/2015 None Full Exam - General 1994 Cardiovascular auscultation of heart Rhythm: regular rhythm 10/17/2015 None Full Exam - General 1994 Abdomen abdominal exam Overall: normal bowel sounds 10/17/2015 None Full Exam - General 1994 Abdomen abdominal exam Upper quadrant: non-tender to palpation 10/17/2015 None Full Exam - General 1994 Musculoskeletal digits and nails Overall: no clubbing 10/17/2015 None Full Exam - General 1994 Musculoskeletal digits and nails Overall: digits benign 10/17/2015 None Full Exam - General 1994 Musculoskeletal spine, ribs and pelvis Spine: deformity 10/17/2015 scoliosis noted Full Exam - General 1994 Integument inspection of skin Overall: no rash, lesions 10/17/2015 None Full Exam - General 1994 Neurologic deep tendon reflexes Overall: deep tendon reflexes intact 10/17/2015 None Full Exam - General 1994 Neurologic gait Overall: no ataxia, no unsteadiness 10/17/2015 None Full Exam - General 1994 Neurologic cranial nerves Overall: crainial nerves 2 - 12 grossly intact 10/17/2015 None Full Exam - General 1994 Neurologic motor Overall: normal bulk, tone 10/17/2015 None Full Exam - General 1994 Psychiatric orientation/consciousness Overall: oriented to person, place and time 10/17/2015 None Full Exam - General 1994 Chest/Breast breast and axillae palpation Overall: breasts non-tender 10/17/2015 None Full Exam - General 1994 Chest/Breast breast and axillae palpation Overall: axillae non-tender 10/17/2015 None Full Exam - General 1994 Chest/Breast breast and axillae palpation Overall: no nipple discharge 10/17/2015 None Full Exam - General 1994 Lymphatic neck nodes Overall: anterior cervical chain benign 10/17/2015 None Full Exam - General 1994 Lymphatic neck nodes Overall: posterior cervical chain benign 10/17/2015 None Full Exam - General 1994 Musculoskeletal digits and nails MCPs: first 10/17/2015 None Full Exam - General 1994 Musculoskeletal digits and nails MCPs: swelling 10/17/2015 None Full Exam - General 1994 Constitutional general appearance Overall: well developed 09/06/2015 None Full Exam - General 1994 Constitutional general appearance Overall: in no acute distress 09/06/2015 None Full Exam - General 1994 Constitutional general appearance Overall: well nourished 09/06/2015 None Full Exam - General 1994 Eyes conjunctiva /eyelids Overall: conjunctiva clear 09/06/2015 None Full Exam - General 1994 Eyes conjunctiva /eyelids Overall: cornea clear 09/06/2015 None Full Exam - General 1994 Eyes conjunctiva /eyelids Overall: eyelids normal 09/06/2015 None Full Exam - General 1994 Eyes pupils and irises Overall: pupils equal, round, reactive to light and accomodation 09/06/2015 None Full Exam - General 1994 Ears/Nose/Throat otoscopic exam Overall: external auditory canals clear 09/06/2015 None Full Exam - General 1994 Ears/Nose/Throat otoscopic exam Overall: tympanic membranes clear 09/06/2015 None Full Exam - General 1994 Ears/Nose/Throat oral cavity/pharynx/larynx Overall: oral mucosa clear 09/06/2015 None Full Exam - General 1994 Ears/Nose/Throat oral cavity/pharynx/larynx Overall: oropharyngeal mucosa clear 09/06/2015 None Full Exam - General 1994 Ears/Nose/Throat oral cavity/pharynx/larynx Overall: no masses 09/06/2015 None Full Exam - General 1994 Respiratory auscultation Overall: breath sounds clear bilaterally 09/06/2015 None Full Exam - General 1994 Respiratory respiratory effort/rhythm Overall: no retractions 09/06/2015 None Full Exam - General 1994 Respiratory respiratory effort/rhythm Overall: normal rate 09/06/2015 None Full Exam - General 1994 Cardiovascular auscultation of heart Rhythm: regular rhythm 09/06/2015 None Full Exam - General 1994 Abdomen abdominal exam Overall: normal bowel sounds 09/06/2015 None Full Exam - General 1994 Abdomen abdominal exam Upper quadrant: non-tender to palpation 09/06/2015 None Full Exam - General 1994 Musculoskeletal digits and nails Overall: no clubbing 09/06/2015 None Full Exam - General 1994 Musculoskeletal digits and nails Overall: digits benign 09/06/2015 None Full Exam - General 1994 Musculoskeletal spine, ribs and pelvis Spine: deformity 09/06/2015 scoliosis noted Full Exam - General 1994 Integument inspection of skin Overall: no rash, lesions 09/06/2015 None Full Exam - General 1994 Neurologic deep tendon reflexes Overall: deep tendon reflexes intact 09/06/2015 None Full Exam - General 1994 Neurologic gait Overall: no ataxia, no unsteadiness 09/06/2015 None Full Exam - General 1994 Neurologic cranial nerves Overall: crainial nerves 2 - 12 grossly intact 09/06/2015 None Full Exam - General 1994 Neurologic motor Overall: normal bulk, tone 09/06/2015 None Full Exam - General 1994 Psychiatric orientation/consciousness Overall: oriented to person, place and time 09/06/2015 None Full Exam - General 1994 Cardiovascular auscultation of heart Rate: regular rate 09/06/2015 None Full Exam - ENT Constitutional general appearance Overall: well nourished 12/24/2014 None Full Exam - ENT Constitutional general appearance Overall: well developed 12/24/2014 None Full Exam - ENT Constitutional general appearance Overall: in no acute distress 12/24/2014 None Full Exam - ENT Neurologic orientation Overall: oriented to person, place and time 12/24/2014 None Full Exam - ENT Integument inspection of skin Overall: no rash, lesions 12/24/2014 None Full Exam - ENT Lymphatic palpation of lymph nodes Overall: anterior cervical chain benign 12/24/2014 None Full Exam - ENT Lymphatic palpation of lymph nodes Overall: posterior cervical chain benign 12/24/2014 None Full Exam - ENT Cardiovascular auscultation of heart Overall: regular rate 12/24/2014 None Full Exam - ENT Cardiovascular auscultation of heart Overall: normal heart sounds 12/24/2014 None Full Exam - ENT Cardiovascular auscultation of heart Overall: no murmurs 12/24/2014 None Full Exam - ENT Respiratory auscultation Overall: breath sounds clear bilaterally 12/24/2014 None Full Exam - ENT Respiratory inspection Overall: no retractions 12/24/2014 None Full Exam - ENT Respiratory inspection Overall: normal rate 06/2015 None Full Exam - ENT Ears/Nose/Throat otoscopic exam Overall: external auditory canals normal 12/24/2014 None Full Exam - ENT Ears/Nose/Throat otoscopic exam Overall: tympanic membranes normal 12/24/2014 None Full Exam - ENT Ears/Nose/Throat oropharynx Overall: oral mucosa clear 12/24/2014 None Full Exam - General 1994 Constitutional general appearance Overall: well developed 11/30/2014 None Full Exam - General 1994 Constitutional general appearance Overall: in no acute distress 11/30/2014 None Full Exam - General 1994 Constitutional general appearance Overall: well nourished 11/30/2014 None Full Exam - General 1994 Eyes conjunctiva /eyelids Overall: conjunctiva clear 11/30/2014 None Full Exam - General 1994 Eyes conjunctiva /eyelids Overall: cornea clear 11/30/2014 None Full Exam - General 1994 Eyes conjunctiva /eyelids Overall: eyelids normal 11/30/2014 None Full Exam - General 1994 Eyes pupils and irises Overall: pupils equal, round, reactive to light and accomodation 11/30/2014 None Full Exam - General 1994 Ears/Nose/Throat otoscopic exam Overall: external auditory canals clear 11/30/2014 None Full Exam - General 1994 Ears/Nose/Throat otoscopic exam Overall: tympanic membranes clear 11/30/2014 None Full Exam - General 1994 Ears/Nose/Throat oral cavity/pharynx/larynx Overall: oral mucosa clear 11/30/2014 None Full Exam - General 1994 Ears/Nose/Throat oral cavity/pharynx/larynx Overall: oropharyngeal mucosa clear 11/30/2014 None Full Exam - General 1994 Ears/Nose/Throat oral cavity/pharynx/larynx Overall: no masses 11/30/2014 None Full Exam - General 1994 Respiratory auscultation Overall: breath sounds clear bilaterally 11/30/2014 None Full Exam - General 1994 Respiratory respiratory effort/rhythm Overall: no retractions 11/30/2014 None Full Exam - General 1994 Respiratory respiratory effort/rhythm Overall: normal rate 11/30/2014 None Full Exam - General 1994 Cardiovascular auscultation of heart Rate: tachycardia 11/30/2014 None Full Exam - General 1994 Cardiovascular auscultation of heart Rhythm: regular rhythm 11/30/2014 None Full Exam - General 1994 Abdomen abdominal exam Overall: normal bowel sounds 11/30/2014 None Full Exam - General 1994 Abdomen abdominal exam Upper quadrant: non-tender to palpation 11/30/2014 None Full Exam - General 1994 Abdomen abdominal exam Upper quadrant: tender to palpation 11/30/2014 mildly tender to palpation Full Exam - General 1994 Abdomen abdominal exam Lower quadrant: tender to palpation 11/30/2014 right greater than left Full Exam - General 1994 Musculoskeletal digits and nails Overall: no clubbing 11/30/2014 None Full Exam - General 1994 Musculoskeletal digits and nails Overall: digits benign 11/30/2014 None Full Exam - General 1994 Musculoskeletal spine, ribs and pelvis Spine: deformity 11/30/2014 scoliosis noted Full Exam - General 1994 Integument inspection of skin Overall: no rash, lesions 11/30/2014 None Full Exam - General 1994 Neurologic deep tendon reflexes Overall: deep tendon reflexes intact 11/30/2014 None Full Exam - General 1994 Neurologic gait Overall: no ataxia, no unsteadiness 11/30/2014 None Full Exam - General 1994 Neurologic cranial nerves Overall: crainial nerves 2 - 12 grossly intact 11/30/2014 None Full Exam - General 1994 Neurologic motor Overall: normal bulk, tone 11/30/2014 None Full Exam - General 1994 Psychiatric orientation/consciousness Overall: oriented to person, place and time 11/30/2014 None Full Exam - General 1994 Constitutional general appearance Overall: well developed 10/06/2014 None Full Exam - General 1994 Constitutional general appearance Overall: in no acute distress 10/06/2014 None Full Exam - General 1994 Constitutional general appearance Overall: well nourished 10/06/2014 None Full Exam - General 1994 Eyes conjunctiva /eyelids Overall: conjunctiva clear 10/06/2014 None Full Exam - General 1994 Eyes conjunctiva /eyelids Overall: cornea clear 10/06/2014 None Full Exam - General 1994 Eyes conjunctiva /eyelids Overall: eyelids normal 10/06/2014 None Full Exam - General 1994 Eyes pupils and irises Overall: pupils equal, round, reactive to light and accomodation 10/06/2014 None Full Exam - General 1994 Ears/Nose/Throat otoscopic exam Overall: external auditory canals clear 10/06/2014 None Full Exam - General 1994 Ears/Nose/Throat otoscopic exam Overall: tympanic membranes clear 10/06/2014 None Full Exam - General 1994 Ears/Nose/Throat oral cavity/pharynx/larynx Overall: oral mucosa clear 10/06/2014 None Full Exam - General 1994 Ears/Nose/Throat oral cavity/pharynx/larynx Overall: oropharyngeal mucosa clear 10/06/2014 None Full Exam - General 1994 Ears/Nose/Throat oral cavity/pharynx/larynx Overall: no masses 10/06/2014 None Full Exam - General 1994 Respiratory auscultation Overall: breath sounds clear bilaterally 10/06/2014 None Full Exam - General 1994 Respiratory respiratory effort/rhythm Overall: no retractions 10/06/2014 None Full Exam - General 1994 Respiratory respiratory effort/rhythm Overall: normal rate 10/06/2014 None Full Exam - General 1994 Cardiovascular auscultation of heart Rate: tachycardia 10/06/2014 None Full Exam - General 1994 Cardiovascular auscultation of heart Rhythm: regular rhythm 10/06/2014 None Full Exam - General 1994 Abdomen abdominal exam Overall: normal bowel sounds 10/06/2014 None Full Exam - General 1994 Musculoskeletal digits and nails Overall: no clubbing 10/06/2014 None Full Exam - General 1994 Musculoskeletal digits and nails Overall: digits benign 10/06/2014 None Full Exam - General 1994 Musculoskeletal spine, ribs and pelvis Spine: deformity 10/06/2014 scoliosis noted Full Exam - General 1994 Integument inspection of skin Overall: no rash, lesions 10/06/2014 None Full Exam - General 1994 Neurologic deep tendon reflexes Overall: deep tendon reflexes intact 10/06/2014 None Full Exam - General 1994 Neurologic gait Overall: no ataxia, no unsteadiness 10/06/2014 None Full Exam - General 1994 Neurologic cranial nerves Overall: crainial nerves 2 - 12 grossly intact 10/06/2014 None Full Exam - General 1994 Neurologic motor Overall: normal bulk, tone 10/06/2014 None Full Exam - General 1994 Psychiatric orientation/consciousness Overall: oriented to person, place and time 10/06/2014 None Full Exam - General 1994 Abdomen abdominal exam Upper quadrant: non-tender to palpation 10/06/2014 None Full Exam - General 1994 Abdomen abdominal exam Upper quadrant: tender to palpation 10/06/2014 mildly tender to palpation Full Exam - General 1994 Abdomen abdominal exam Lower quadrant: tender to palpation 10/06/2014 right greater than left Full Exam - General 1994 Constitutional general appearance Overall: well developed 09/08/2014 None Full Exam - General 1994 Constitutional general appearance Overall: in no acute distress 09/08/2014 None Full Exam - General 1994 Constitutional general appearance Overall: well nourished 09/08/2014 None Full Exam - General 1994 Eyes conjunctiva /eyelids Overall: conjunctiva clear 09/08/2014 None Full Exam - General 1994 Eyes conjunctiva /eyelids Overall: cornea clear 09/08/2014 None Full Exam - General 1994 Eyes conjunctiva /eyelids Overall: eyelids normal 09/08/2014 None Full Exam - General 1994 Eyes pupils and irises Overall: pupils equal, round, reactive to light and accomodation 09/08/2014 None Full Exam - General 1994 Ears/Nose/Throat otoscopic exam Overall: external auditory canals clear 09/08/2014 None Full Exam - General 1994 Ears/Nose/Throat otoscopic exam Overall: tympanic membranes clear 09/08/2014 None Full Exam - General 1994 Ears/Nose/Throat oral cavity/pharynx/larynx Overall: oral mucosa clear 09/08/2014 None Full Exam - General 1994 Ears/Nose/Throat oral cavity/pharynx/larynx Overall: oropharyngeal mucosa clear 09/08/2014 None Full Exam - General 1994 Ears/Nose/Throat oral cavity/pharynx/larynx Overall: no masses 09/08/2014 None Full Exam - General 1994 Respiratory auscultation Overall: breath sounds clear bilaterally 09/08/2014 None Full Exam - General 1994 Respiratory respiratory effort/rhythm Overall: no retractions 09/08/2014 None Full Exam - General 1994 Respiratory respiratory effort/rhythm Overall: normal rate 09/08/2014 None Full Exam - General 1994 Cardiovascular auscultation of heart Rate: tachycardia 09/08/2014 None Full Exam - General 1994 Cardiovascular auscultation of heart Rhythm: regular rhythm 09/08/2014 None Full Exam - General 1994 Abdomen abdominal exam Overall: no tenderness 09/08/2014 None Full Exam - General 1994 Abdomen abdominal exam Overall: normal bowel sounds 09/08/2014 None Full Exam - General 1994 Musculoskeletal digits and nails Overall: no clubbing 09/08/2014 None Full Exam - General 1994 Musculoskeletal digits and nails Overall: digits benign 09/08/2014 None Full Exam - General 1994 Musculoskeletal spine, ribs and pelvis Spine: deformity 09/08/2014 scoliosis noted Full Exam - General 1994 Integument inspection of skin Overall: no rash, lesions 09/08/2014 None Full Exam - General 1994 Neurologic deep tendon reflexes Overall: deep tendon reflexes intact 09/08/2014 None Full Exam - General 1994 Neurologic gait Overall: no ataxia, no unsteadiness 09/08/2014 None Full Exam - General 1994 Neurologic cranial nerves Overall: crainial nerves 2 - 12 grossly intact 09/08/2014 None Full Exam - General 1994 Neurologic motor Overall: normal bulk, tone 09/08/2014 None Full Exam - General 1994 Psychiatric orientation/consciousness Overall: oriented to person, place and time 09/08/2014 None Full Exam - General 1994 Constitutional general appearance Overall: well developed 08/13/2014 None Full Exam - General 1994 Constitutional general appearance Overall: in no acute distress 08/13/2014 None Full Exam - General 1994 Constitutional general appearance Overall: well nourished 08/13/2014 None Full Exam - General 1994 Eyes conjunctiva /eyelids Overall: conjunctiva clear 08/13/2014 None Full Exam - General 1994 Eyes conjunctiva /eyelids Overall: cornea clear 08/13/2014 None Full Exam - General 1994 Eyes conjunctiva /eyelids Overall: eyelids normal 08/13/2014 None Full Exam - General 1994 Eyes pupils and irises Overall: pupils equal, round, reactive to light and accomodation 08/13/2014 None Full Exam - General 1994 Ears/Nose/Throat otoscopic exam Tympanic membrane: air- fluid level 08/13/2014 None Full Exam - General 1994 Ears/Nose/Throat oral cavity/pharynx/larynx Overall: oral mucosa clear 08/13/2014 None Full Exam - General 1994 Ears/Nose/Throat oral cavity/pharynx/larynx Overall: oropharyngeal mucosa clear 08/13/2014 None Full Exam - General 1994 Ears/Nose/Throat oral cavity/pharynx/larynx Overall: no masses 08/13/2014 None Full Exam - General 1994 Respiratory auscultation Overall: breath sounds clear bilaterally 08/13/2014 None Full Exam - General 1994 Respiratory respiratory effort/rhythm Overall: no retractions 08/13/2014 None Full Exam - General 1994 Respiratory respiratory effort/rhythm Overall: normal rate 08/13/2014 None Full Exam - General 1994 Cardiovascular auscultation of heart Rate: tachycardia 08/13/2014 None Full Exam - General 1994 Cardiovascular auscultation of heart Rhythm: regular rhythm 08/13/2014 None Full Exam - General 1994 Chest/Breast breast and axillae palpation Nipple: non- tender 08/13/2014 None Full Exam - General 1994 Chest/Breast breast and axillae palpation Axillae: non- tender 08/13/2014 None Full Exam - General 1994 Chest/Breast breast and axillae palpation Upper outer quadrant: no mass 08/13/2014 None Full Exam - General 1994 Chest/Breast breast and axillae palpation Lower inner quadrant: no mass 08/13/2014 None Full Exam - General 1994 Chest/Breast breast and axillae palpation Lower outer quadrant: no mass 08/13/2014 None Full Exam - General 1994 Lymphatic neck nodes Overall: anterior cervical chain benign 08/13/2014 None Full Exam - General 1994 Lymphatic neck nodes Overall: posterior cervical chain benign 08/13/2014 None Full Exam - General 1994 Musculoskeletal digits and nails Overall: no clubbing 08/13/2014 None Full Exam - General 1994 Musculoskeletal digits and nails Overall: digits benign 08/13/2014 None Full Exam - General 1994 Integument inspection of skin Consistency: dry 08/13/2014 - slightly thickened skin over elbow Full Exam - General 1994 Neurologic deep tendon reflexes Overall: deep tendon reflexes intact 08/13/2014 None Full Exam - General 1994 Neurologic gait Overall: no ataxia, no unsteadiness 08/13/2014 None Full Exam - General 1994 Neurologic cranial nerves Overall: crainial nerves 2 - 12 grossly intact 08/13/2014 None Full Exam - General 1994 Neurologic motor Overall: normal bulk, tone 08/13/2014 None Full Exam - General 1994 Psychiatric orientation/consciousness Overall: oriented to person, place and time 08/13/2014 None Full Exam - General 1994 Chest/Breast breast and axillae palpation Upper inner quadrant: tender 08/13/2014 None Full Exam - General 1994 Constitutional general appearance Overall: well developed 04/22/2014 None Full Exam - General 1994 Constitutional general appearance Overall: in no acute distress 04/22/2014 None Full Exam - General 1994 Constitutional general appearance Overall: well nourished 04/22/2014 None Full Exam - General 1994 Eyes conjunctiva /eyelids Overall: conjunctiva clear 04/22/2014 None Full Exam - General 1994 Eyes conjunctiva /eyelids Overall: cornea clear 04/22/2014 None Full Exam - General 1994 Eyes conjunctiva /eyelids Overall: eyelids normal 04/22/2014 None Full Exam - General 1994 Eyes pupils and irises Overall: pupils equal, round, reactive to light and accomodation 04/22/2014 None Full Exam - General 1994 Ears/Nose/Throat otoscopic exam External auditory canal: erythematous 04/22/2014 small abrasion noted in ear canal Full Exam - General 1994 Ears/Nose/Throat otoscopic exam Tympanic membrane: air- fluid level 04/22/2014 None Full Exam - General 1994 Ears/Nose/Throat oral cavity/pharynx/larynx Overall: oral mucosa clear 04/22/2014 None Full Exam - General 1994 Ears/Nose/Throat oral cavity/pharynx/larynx Overall: oropharyngeal mucosa clear 04/22/2014 None Full Exam - General 1994 Ears/Nose/Throat oral cavity/pharynx/larynx Overall: no masses 04/22/2014 None Full Exam - General 1994 Respiratory auscultation Overall: breath sounds clear bilaterally 04/22/2014 None Full Exam - General 1994 Respiratory respiratory effort/rhythm Overall: no retractions 04/22/2014 None Full Exam - General 1994 Respiratory respiratory effort/rhythm Overall: normal rate 04/22/2014 None Full Exam - General 1994 Cardiovascular auscultation of heart Rate: tachycardia 04/22/2014 None Full Exam - General 1994 Cardiovascular auscultation of heart Rhythm: regular rhythm 04/22/2014 None Full Exam - General 1994 Abdomen abdominal exam Overall: no tenderness 04/22/2014 None Full Exam - General 1994 Abdomen abdominal exam Overall: normal bowel sounds 04/22/2014 None Full Exam - General 1994 Lymphatic neck nodes Overall: anterior cervical chain benign 04/22/2014 None Full Exam - General 1994 Lymphatic neck nodes Overall: posterior cervical chain benign 04/22/2014 None Full Exam - General 1994 Musculoskeletal digits and nails Overall: no clubbing 04/22/2014 None Full Exam - General 1994 Musculoskeletal digits and nails Overall: digits benign 04/22/2014 None Full Exam - General 1994 Neurologic deep tendon reflexes Overall: deep tendon reflexes intact 04/22/2014 None Full Exam - General 1994 Neurologic gait Overall: no ataxia, no unsteadiness 04/22/2014 None Full Exam - General 1994 Neurologic cranial nerves Overall: crainial nerves 2 - 12 grossly intact 04/22/2014 None Full Exam - General 1994 Neurologic motor Overall: normal bulk, tone 04/22/2014 None Full Exam - General 1994 Psychiatric orientation/consciousness Overall: oriented to person, place and time 04/22/2014 None Full Exam - General 1994 Integument inspection of skin Consistency: dry 04/22/2014 - slightly thickened skin over elbow Full Exam - General 1994 Neck thyroid Overall: nontender 2013 None Full Exam - General 1994 Neck thyroid Size: enlarged left lobe 04/22/2014 None Full Exam - General 1994 Neck thyroid Size: enlarged right lobe 04/22/2014 None Full Exam - General 1994 Chest/Breast breast and axillae palpation Nipple: non- tender 04/22/2014 None Full Exam - General 1994 Chest/Breast breast and axillae palpation Nipple: white discharge 04/22/2014 None Full Exam - General 1994 Chest/Breast breast and axillae palpation Axillae: non- tender 04/22/2014 None Full Exam - General 1994 Chest/Breast breast and axillae palpation Upper inner quadrant: no mass 04/22/2014 None Full Exam - General 1994 Chest/Breast breast and axillae palpation Upper outer quadrant: no mass 04/22/2014 None Full Exam - General 1994 Chest/Breast breast and axillae palpation Lower inner quadrant: no mass 04/22/2014 None Full Exam - General 1994 Chest/Breast breast and axillae palpation Lower outer quadrant: no mass 04/22/2014 None Full Exam - General 1994 Constitutional general appearance Overall: well developed 01/04/2014 None Full Exam - General 1994 Constitutional general appearance Overall: in no acute distress 01/04/2014 None Full Exam - General 1994 Constitutional general appearance Overall: well nourished 01/04/2014 None Full Exam - General 1994 Eyes conjunctiva /eyelids Overall: conjunctiva clear 01/04/2014 None Full Exam - General 1994 Eyes conjunctiva /eyelids Overall: cornea clear 01/04/2014 None Full Exam - General 1994 Eyes conjunctiva /eyelids Overall: eyelids normal 01/04/2014 None Full Exam - General 1994 Eyes pupils and irises Overall: pupils equal, round, reactive to light and accomodation 01/04/2014 None Full Exam - General 1994 Ears/Nose/Throat otoscopic exam External auditory canal: erythematous 01/04/2014 small abrasion noted in ear canal Full Exam - General 1994 Ears/Nose/Throat otoscopic exam Tympanic membrane: air- fluid level 01/04/2014 None Full Exam - General 1994 Ears/Nose/Throat oral cavity/pharynx/larynx Overall: oral mucosa clear 01/04/2014 None Full Exam - General 1994 Ears/Nose/Throat oral cavity/pharynx/larynx Overall: oropharyngeal mucosa clear 01/04/2014 None Full Exam - General 1994 Ears/Nose/Throat oral cavity/pharynx/larynx Overall: no masses 01/04/2014 None Full Exam - General 1994 Respiratory auscultation Overall: breath sounds clear bilaterally 01/04/2014 None Full Exam - General 1994 Respiratory respiratory effort/rhythm Overall: no retractions 01/04/2014 None Full Exam - General 1994 Respiratory respiratory effort/rhythm Overall: normal rate 01/04/2014 None Full Exam - General 1994 Cardiovascular auscultation of heart Rate: tachycardia 01/04/2014 None Full Exam - General 1994 Cardiovascular auscultation of heart Rhythm: regular rhythm 01/04/2014 None Full Exam - General 1994 Abdomen abdominal exam Overall: no tenderness 01/04/2014 None Full Exam - General 1994 Abdomen abdominal exam Overall: normal bowel sounds 01/04/2014 None Full Exam - General 1994 Musculoskeletal digits and nails Overall: no clubbing 01/04/2014 None Full Exam - General 1994 Musculoskeletal digits and nails Overall: digits benign 01/04/2014 None Full Exam - General 1994 Integument inspection of skin Overall: no rash, lesions 01/04/2014 None Full Exam - General 1994 Neurologic deep tendon reflexes Overall: deep tendon reflexes intact 01/04/2014 None Full Exam - General 1994 Neurologic gait Overall: no ataxia, no unsteadiness 01/04/2014 None Full Exam - General 1994 Neurologic cranial nerves Overall: crainial nerves 2 - 12 grossly intact 01/04/2014 None Full Exam - General 1994 Neurologic motor Overall: normal bulk, tone 01/04/2014 None Full Exam - General 1994 Psychiatric orientation/consciousness Overall: oriented to person, place and time 01/04/2014 None Full Exam - General 1994 Lymphatic neck nodes Overall: anterior cervical chain benign 01/04/2014 None Full Exam - General 1994 Lymphatic neck nodes Overall: posterior cervical chain benign 01/04/2014 None Full Exam - General 1994 Constitutional general appearance Overall: well developed 07/31/2013 None Full Exam - General 1994 Constitutional general appearance Overall: in no acute distress 07/31/2013 None Full Exam - General 1994 Constitutional general appearance Overall: well nourished 07/31/2013 None Full Exam - General 1994 Eyes conjunctiva /eyelids Overall: conjunctiva clear 07/31/2013 None Full Exam - General 1994 Eyes conjunctiva /eyelids Overall: cornea clear 07/31/2013 None Full Exam - General 1994 Eyes conjunctiva /eyelids Overall: eyelids normal 07/31/2013 None Full Exam - General 1994 Eyes pupils and irises Overall: pupils equal, round, reactive to light and accomodation 07/31/2013 None Full Exam - General 1994 Ears/Nose/Throat otoscopic exam Overall: external auditory canals clear 07/31/2013 None Full Exam - General 1994 Ears/Nose/Throat otoscopic exam Overall: tympanic membranes clear 07/31/2013 None Full Exam - General 1994 Ears/Nose/Throat oral cavity/pharynx/larynx Overall: oral mucosa clear 07/31/2013 None Full Exam - General 1994 Ears/Nose/Throat oral cavity/pharynx/larynx Overall: oropharyngeal mucosa clear 07/31/2013 None Full Exam - General 1995 Ears/Nose/Throat oral cavity/pharynx/larynx Overall: no masses 07/31/2013 None Full Exam - General 1994 Respiratory auscultation Overall: breath sounds clear bilaterally 07/31/2013 None Full Exam - General 1994 Respiratory respiratory effort/rhythm Overall: no retractions 07/31/2013 None Full Exam - General 1994 Respiratory respiratory effort/rhythm Overall: normal rate 07/31/2013 None Full Exam - General 1994 Cardiovascular auscultation of heart Rate: tachycardia 07/31/2013 None Full Exam - General 1994 Cardiovascular auscultation of heart Rhythm: regular rhythm 07/31/2013 None Full Exam - General 1994 Abdomen abdominal exam Overall: no tenderness 07/31/2013 None Full Exam - General 1994 Abdomen abdominal exam Overall: normal bowel sounds 07/31/2013 None Full Exam - General 1994 Musculoskeletal digits and nails Overall: no clubbing 07/31/2013 None Full Exam - General 1994 Musculoskeletal digits and nails Overall: digits benign 07/31/2013 None Full Exam - General 1994 Musculoskeletal spine, ribs and pelvis Spine: deformity 07/31/2013 scoliosis noted Full Exam - General 1994 Integument inspection of skin Overall: no rash, lesions 07/31/2013 None Full Exam - General 1994 Neurologic deep tendon reflexes Overall: deep tendon reflexes intact 07/31/2013 None Full Exam - General 1994 Neurologic gait Overall: no ataxia, no unsteadiness 07/31/2013 None Full Exam - General 1994 Neurologic cranial nerves Overall: crainial nerves 2 - 12 grossly intact 07/31/2013 None Full Exam - General 1994 Neurologic motor Overall: normal bulk, tone 07/31/2013 None Full Exam - General 1994 Psychiatric orientation/consciousness Overall: oriented to person, place and time 07/31/2013 None Full Exam - General 1995 Constitutional general appearance Overall: well developed 04/23/2013 None Full Exam - General 1994 Constitutional general appearance Overall: in no acute distress 04/23/2013 None Full Exam - General 1995 Constitutional general appearance Overall: well nourished 04/23/2013 None Full Exam - General 1994 Eyes conjunctiva /eyelids Overall: conjunctiva clear 04/23/2013 None Full Exam - General 1994 Eyes conjunctiva /eyelids Overall: cornea clear 04/23/2013 None Full Exam - General 1994 Eyes conjunctiva /eyelids Overall: eyelids normal 04/23/2013 None Full Exam - General 1994 Eyes pupils and irises Overall: pupils equal, round, reactive to light and accomodation 04/23/2013 None Full Exam - General 1995 Ears/Nose/Throat oral cavity/pharynx/larynx Overall: oral mucosa clear 04/23/2013 None Full Exam - General 1995 Ears/Nose/Throat oral cavity/pharynx/larynx Overall: oropharyngeal mucosa clear 04/23/2013 None Full Exam - General 1995 Ears/Nose/Throat oral cavity/pharynx/larynx Overall: no masses 04/23/2013 None Full Exam - General 1994 Respiratory auscultation Overall: breath sounds clear bilaterally 04/23/2013 None Full Exam - General 1994 Respiratory respiratory effort/rhythm Overall: no retractions 04/23/2013 None Full Exam - General 1994 Respiratory respiratory effort/rhythm Overall: normal rate 04/23/2013 None Full Exam - General 1994 Cardiovascular auscultation of heart Rate: tachycardia 04/23/2013 None Full Exam - General 1994 Cardiovascular auscultation of heart Rhythm: regular rhythm 04/23/2013 None Full Exam - General 1994 Abdomen abdominal exam Overall: no tenderness 04/23/2013 None Full Exam - General 1995 Abdomen abdominal exam Overall: normal bowel sounds 04/23/2013 None Full Exam - General 1994 Musculoskeletal digits and nails Overall: no clubbing 04/23/2013 None Full Exam - General 1995 Musculoskeletal digits and nails Overall: digits benign 04/23/2013 None Full Exam - General 1994 Integument inspection of skin Overall: no rash, lesions 04/23/2013 None Full Exam - General 1994 Neurologic deep tendon reflexes Overall: deep tendon reflexes intact 04/23/2013 None Full Exam - General 1994 Neurologic gait Overall: no ataxia, no unsteadiness 04/23/2013 None Full Exam - General 1995 Neurologic cranial nerves Overall: crainial nerves 2 - 12 grossly intact 04/23/2013 None Full Exam - General 1995 Neurologic motor Overall: normal bulk, tone 04/23/2013 None Full Exam - General 1994 Psychiatric orientation/consciousness Overall: oriented to person, place and time 04/23/2013 None Full Exam - General 1995 Ears/Nose/Throat otoscopic exam Tympanic membrane: air- fluid level 04/23/2013 None Full Exam - General 1994 Ears/Nose/Throat otoscopic exam External auditory canal: erythematous 04/23/2013 small abrasion noted in ear canal Full Exam - General 1994 Constitutional general appearance Overall: well developed 03/26/2013 None Full Exam - General 1994 Constitutional general appearance Overall: in no acute distress 03/26/2013 None Full Exam - General 1994 Constitutional general appearance Overall: well nourished 03/26/2013 None Full Exam - General 1994 Psychiatric orientation/consciousness Overall: oriented to person, place and time 03/26/2013 None Full Exam - General 1994 Constitutional general appearance Overall: well developed 02/11/2013 None Full Exam - General 1994 Constitutional general appearance Overall: in no acute distress 02/11/2013 None Full Exam - General 1994 Constitutional general appearance Overall: well nourished 02/11/2013 None Full Exam - General 1994 Eyes conjunctiva /eyelids Overall: conjunctiva clear 02/11/2013 None Full Exam - General 1994 Eyes conjunctiva /eyelids Overall: cornea clear 02/11/2013 None Full Exam - General 1994 Eyes conjunctiva /eyelids Overall: eyelids normal 02/11/2013 None Full Exam - General 1994 Eyes pupils and irises Overall: pupils equal, round, reactive to light and accomodation 02/11/2013 None Full Exam - General 1995 Ears/Nose/Throat otoscopic exam Overall: external auditory canals clear 02/11/2013 None Full Exam - General 1995 Ears/Nose/Throat otoscopic exam Overall: tympanic membranes clear 02/11/2013 None Full Exam - General 1995 Ears/Nose/Throat oral cavity/pharynx/larynx Overall: oral mucosa clear 02/11/2013 None Full Exam - General 1995 Ears/Nose/Throat oral cavity/pharynx/larynx Overall: oropharyngeal mucosa clear 02/11/2013 None Full Exam - General 1995 Ears/Nose/Throat oral cavity/pharynx/larynx Overall: no masses 02/11/2013 None Full Exam - General 1994 Respiratory auscultation Overall: breath sounds clear bilaterally 02/11/2013 None Full Exam - General 1994 Respiratory respiratory effort/rhythm Overall: no retractions 02/11/2013 None Full Exam - General 1994 Respiratory respiratory effort/rhythm Overall: normal rate 02/11/2013 None Full Exam - General 1994 Cardiovascular auscultation of heart Rate: tachycardia 02/11/2013 None Full Exam - General 1994 Cardiovascular auscultation of heart Rhythm: regular rhythm 02/11/2013 None Full Exam - General 1994 Abdomen abdominal exam Overall: no tenderness 02/11/2013 None Full Exam - General 1994 Abdomen abdominal exam Overall: normal bowel sounds 02/11/2013 None Full Exam - General 1994 Musculoskeletal digits and nails Overall: no clubbing 02/11/2013 None Full Exam - General 1994 Musculoskeletal digits and nails Overall: digits benign 02/11/2013 None Full Exam - General 1994 Musculoskeletal spine, ribs and pelvis Spine: deformity 02/11/2013 scoliosis noted Full Exam - General 1994 Neurologic deep tendon reflexes Overall: deep tendon reflexes intact 02/11/2013 None Full Exam - General 1994 Neurologic gait Overall: no ataxia, no unsteadiness 02/11/2013 None Full Exam - General 1994 Neurologic cranial nerves Overall: crainial nerves 2 - 12 grossly intact 02/11/2013 None Full Exam - General 1994 Neurologic motor Overall: normal bulk, tone 02/11/2013 None Full Exam - General 1994 Psychiatric orientation/consciousness Overall: oriented to person, place and time 02/11/2013 None Full Exam - General 1994 Integument inspection of skin Overall: no rash, lesions 02/11/2013 None Full Exam - Cardiology Respiratory respiratory effort/rhythm Overall: normal rate 07/16/2012 None Full Exam - Cardiology Respiratory respiratory effort/rhythm Rhythm: a normal exam 07/16/2012 None Full Exam - Cardiology Respiratory respiratory effort/rhythm Rate: a normal exam 07/16/2012 None Full Exam - Cardiology Respiratory auscultation Right middle lung field: a normal exam 07/16/2012 None Full Exam - Cardiology Respiratory auscultation Right lower lung field: a normal exam 07/16/2012 None Full Exam - Cardiology Eyes conjunctiva/ eyelids Overall: conjunctiva clear 07/16/2012 None Full Exam - Cardiology Eyes conjunctiva/ eyelids Overall: eyelids normal 07/16/2012 None Full Exam - Cardiology Eyes conjunctiva/ eyelids Overall: cornea clear 07/16/2012 None Full Exam - Cardiology Respiratory auscultation Right upper lung field: a normal exam 07/16/2012 None Full Exam - Cardiology Respiratory auscultation Left upper lung field: a normal exam 07/16/2012 None Full Exam - Cardiology Respiratory auscultation Diffuse: a normal exam 07/16/2012 None Full Exam - Cardiology Respiratory auscultation Left lower lung field: a normal exam 07/16/2012 None Full Exam - Cardiology Respiratory auscultation Overall: breath sounds clear bilaterally 07/16/2012 None Full Exam - Cardiology Cardiovascular auscultation of heart Rhythm: regular rhythm 07/16/2012 None Full Exam - Cardiology Cardiovascular auscultation of heart Overall: regular rate 07/16/2012 None Full Exam - Cardiology Neck thyroid Size: a normal exam 2012 None Full Exam - Cardiology Neck thyroid Masses: soft 07/16/2012 None Full Exam - Cardiology Neck thyroid Masses: non-tender 2012 None Full Exam - Cardiology Neck thyroid Consistency: a normal exam 07/16/2012 None Full Exam - Cardiology Neck thyroid Palpation: a normal exam None Full Exam - Cardiology Neck thyroid Overall: no mass lesions None Full Exam - Cardiology Neck thyroid Overall: normal consistency 07/16/2012 None Full Exam - Cardiology Neck thyroid Overall: nontender 2012 None Full Exam - Cardiology Neck thyroid Overall: normal size 2012 None Full Exam - Cardiology Respiratory respiratory effort/rhythm Overall: no retractions 07/16/2012 None Full Exam - Cardiology Psychiatric mood and affect Appropriateness: appropriate emotional responses 07/16/2012 None Full Exam - Cardiology Constitutional general appearance Overall: well nourished 07/16/2012 None Full Exam - Cardiology Constitutional general appearance Overall: well developed 07/16/2012 None Full Exam - Cardiology Constitutional general appearance Overall: in no acute distress 07/16/2012 None Full Exam - Cardiology Constitutional general appearance Development: well developed 07/16/2012 None Full Exam - Cardiology Constitutional general appearance Stature/Body Habitus: normal body habitus 07/16/2012 None Full Exam - Cardiology Constitutional general appearance Stature/Body Habitus: scoliosis 07/16/2012 None Full Exam - Cardiology Constitutional general appearance Nourishment: overweight 07/16/2012 None Full Exam - Cardiology Constitutional general appearance Evidence of Distress: in no acute distress 07/16/2012 None Full Exam - Cardiology Constitutional general appearance Hygiene/Attention to Grooming: good hygiene 07/16/2012 None Full Exam - Cardiology Ears/Nose/Throat oral mucosa Overall: oral mucosa clear 07/16/2012 None Full Exam - Cardiology Ears/Nose/Throat oral mucosa Overall: no cyanosis 07/16/2012 None Full Exam - Cardiology Cardiovascular auscultation of heart Overall: normal heart sounds 07/16/2012 None Full Exam - Cardiology Cardiovascular auscultation of heart Overall: no murmurs 07/16/2012 None Full Exam - Cardiology Cardiovascular auscultation of heart S2: a normal exam 07/16/2012 None Full Exam - Cardiology Cardiovascular auscultation of heart S1: a normal exam 07/16/2012 None Full Exam - Cardiology Cardiovascular auscultation of heart S3 (ventricular gallop): absent 07/16/2012 None Full Exam - Cardiology Cardiovascular auscultation of heart S4 (atrial gallop): absent 07/16/2012 None Full Exam - Cardiology Cardiovascular auscultation of heart Rate: tachycardia 07/16/2012 None Full Exam - Cardiology Abdomen abdominal exam Epigastric: soft 07/16/2012 None Full Exam - Cardiology Abdomen abdominal exam Overall: no tenderness 07/16/2012 None Full Exam - Cardiology Abdomen abdominal exam Overall: normal bowel sounds 07/16/2012 None Full Exam - Cardiology Abdomen abdominal exam Suprapubic: soft 07/16/2012 None Full Exam - Cardiology Abdomen abdominal exam Periumbilical: soft 07/16/2012 None Full Exam - Cardiology Abdomen abdominal exam Left upper quadrant: soft 07/16/2012 None Full Exam - Cardiology Abdomen abdominal exam Right upper quadrant: soft 07/16/2012 None Full Exam - Cardiology Abdomen abdominal exam Bowel sounds: a normal exam 07/16/2012 None Full Exam - Cardiology Abdomen abdominal exam Left lower quadrant: soft 07/16/2012 None Full Exam - Cardiology Abdomen abdominal exam Right lower quadrant: soft 07/16/2012 None Full Exam - Cardiology Abdomen abdominal exam Contour: rounded 07/16/2012 None Full Exam - Cardiology Abdomen abdominal exam Left upper quadrant: non-tender to palpation 07/16/2012 None Full Exam - Cardiology Abdomen abdominal exam Left lower quadrant: non-tender to palpation 07/16/2012 None Full Exam - Cardiology Abdomen abdominal exam Right upper quadrant: non-tender to palpation 07/16/2012 None Full Exam - Cardiology Abdomen abdominal exam Right lower quadrant: non-tender to palpation 07/16/2012 None Full Exam - Cardiology Abdomen abdominal exam Epigastric: non-tender to palpation 07/16/2012 None Full Exam - Cardiology Abdomen abdominal exam Suprapubic: non-tender to palpation 07/16/2012 None Full Exam - Cardiology Abdomen abdominal exam Periumbilical: non-tender to palpation 07/16/2012 None Full Exam - Cardiology Extremities digits and nails Digits: a normal exam 07/16/2012 None Full Exam - Cardiology Extremities digits and nails Nails: a normal exam 07/16/2012 None Full Exam - Cardiology Extremities digits and nails Overall: no clubbing 07/16/2012 None Full Exam - Cardiology Extremities digits and nails Overall: digits benign 07/16/2012 None Full Exam - Cardiology Neurologic sensation Overall: intact to touch, pin, vibration, proprioception 07/16/2012 None Full Exam - Cardiology Neurologic sensation Touch: (specify location of deficit): a normal exam 07/16/2012 None Full Exam - Cardiology Neurologic sensation Touch: (specify location of deficit): full closing 07/16/2012 None Full Exam - Cardiology Neurologic mental status Overall: normal recall 07/16/2012 None Full Exam - Cardiology Neurologic mental status Overall: alert 07/16/2012 None Full Exam - Cardiology Neurologic mental status Overall: oriented 07/16/2012 None Full Exam - Cardiology Neurologic mental status Level of alertness: alert 07/16/2012 None Full Exam - Cardiology Psychiatric orientation/consciousness Overall: oriented to person, place and time 07/16/2012 None Full Exam - Cardiology Psychiatric orientation/consciousness Level of consciousness: alert 07/16/2012 None Full Exam - Cardiology Psychiatric orientation/consciousness Oriented to person: yes 07/16/2012 None Full Exam - Cardiology Psychiatric orientation/consciousness Oriented to place: yes 07/16/2012 None Full Exam - Cardiology Psychiatric orientation/consciousness Oriented to time: yes 07/16/2012 None Full Exam - Cardiology Psychiatric mood and affect Affect: a normal exam 07/16/2012 None Full Exam - Cardiology Psychiatric mood and affect Overall: normal mood and affect 07/16/2012 None Full Exam - General 1995 Neurologic motor Overall: normal bulk, tone 03/11/2012 None Full Exam - General 1994 Musculoskeletal digits and nails Overall: digits benign 03/11/2012 None Full Exam - General 1994 Musculoskeletal digits and nails Overall: no clubbing 03/11/2012 None Full Exam - General 1994 Musculoskeletal spine, ribs and pelvis Spine: deformity 03/11/2012 scoliosis noted Full Exam - General 1994 Eyes pupils and irises Overall: pupils equal, round, reactive to light and accomodation 03/11/2012 None Full Exam - General 1994 Constitutional general appearance Overall: well nourished 03/11/2012 None Full Exam - General 1994 Constitutional general appearance Overall: well developed 03/11/2012 None Full Exam - General 1994 Constitutional general appearance Overall: in no acute distress 03/11/2012 None Full Exam - General 1994 Abdomen abdominal exam Overall: no tenderness 03/11/2012 None Full Exam - General 1994 Abdomen abdominal exam Overall: normal bowel sounds 03/11/2012 None Full Exam - General 1994 Cardiovascular auscultation of heart Rate: tachycardia 03/11/2012 None Full Exam - General 1994 Cardiovascular auscultation of heart Rhythm: regular rhythm 03/11/2012 None Full Exam - General 1994 Respiratory auscultation Overall: breath sounds clear bilaterally 03/11/2012 None Full Exam - General 1994 Respiratory respiratory effort/rhythm Overall: normal rate 03/11/2012 None Full Exam - General 1994 Respiratory respiratory effort/rhythm Overall: no retractions 03/11/2012 None Full Exam - General 1994 Eyes conjunctiva /eyelids Overall: eyelids normal 03/11/2012 None Full Exam - General 1994 Eyes conjunctiva /eyelids Overall: cornea clear 03/11/2012 None Full Exam - General 1994 Psychiatric orientation/consciousness Overall: oriented to person, place and time 03/11/2012 None Full Exam - General 1994 Neurologic deep tendon reflexes Overall: deep tendon reflexes intact 03/11/2012 None Full Exam - General 1994 Neurologic cranial nerves Overall: crainial nerves 2 - 12 grossly intact 03/11/2012 None Full Exam - General 1994 Neurologic gait Overall: no ataxia, no unsteadiness 03/11/2012 None Full Exam - General 1994 Ears/Nose/Throat otoscopic exam Overall: tympanic membranes clear 03/11/2012 None Full Exam - General 1994 Ears/Nose/Throat otoscopic exam Overall: external auditory canals clear 03/11/2012 None Full Exam - General 1994 Ears/Nose/Throat oral cavity/pharynx/larynx Overall: oropharyngeal mucosa clear 03/11/2012 None Full Exam - General 1994 Ears/Nose/Throat oral cavity/pharynx/larynx Overall: no masses 03/11/2012 None Full Exam - General 1994 Ears/Nose/Throat oral cavity/pharynx/larynx Overall: oral mucosa clear 03/11/2012 None Full Exam - General 1994 Eyes conjunctiva /eyelids Overall: conjunctiva clear 03/11/2012 None Full Exam - General Abdomen abdominal exam Contour: flat 01/2012 None Full Exam - General Abdomen abdominal exam Bowel sounds: a normal exam 08/21/2011 None Full Exam - General Constitutional general appearance Overall: well nourished 08/21/2011 None Full Exam - General Constitutional general appearance Overall: well developed 08/21/2011 None Full Exam - General Constitutional general appearance Overall: in no acute distress 08/21/2011 None Full Exam - General Eyes conjunctiva/ eyelids Overall: conjunctiva clear 08/21/2011 None Full Exam - General Abdomen abdominal exam Skin: a normal exam 08/21/2011 None Full Exam - General Abdomen abdominal exam Right upper quadrant: tender to palpation 08/21/2011 None Full Exam - General Abdomen abdominal exam Right lower quadrant: non-tender to palpation 08/21/2011 None Full Exam - General Abdomen abdominal exam Epigastric: tender to palpation 08/21/2011 None Full Exam - General Abdomen abdominal exam Suprapubic: non-tender to palpation 08/21/2011 None Full Exam - General Abdomen abdominal exam Left lower quadrant: non-tender to palpation 08/21/2011 None Full Exam - General Abdomen abdominal exam Left upper quadrant: non-tender to palpation 08/21/2011 None Full Exam - General Musculoskeletal digits and nails Overall: no clubbing 08/21/2011 None Full Exam - General Integument inspection of skin Overall: no rash, lesions 08/21/2011 None Full Exam - General Eyes pupils and irises Overall: pupils equal, round, reactive to light and accomodation 08/21/2011 None Full Exam - General Ears/Nose/Throat otoscopic exam Overall: external auditory canals clear 08/21/2011 None Full Exam - General Ears/Nose/Throat otoscopic exam Overall: tympanic membranes clear 08/21/2011 None Full Exam - General Ears/Nose/Throat oral cavity/pharynx/larynx Overall: oral mucosa clear 08/21/2011 None Full Exam - General Ears/Nose/Throat oral cavity/pharynx/larynx Oropharynx: a normal exam 08/21/2011 None Full Exam - General Respiratory auscultation Overall: breath sounds clear bilaterally 08/21/2011 None Full Exam - General Respiratory respiratory effort/rhythm Overall: no retractions 08/21/2011 None Full Exam - General Respiratory respiratory effort/rhythm Overall: normal rate 08/21/2011 None Full Exam - General Cardiovascular auscultation of heart Overall: regular rate 08/21/2011 None Full Exam - General Cardiovascular auscultation of heart Overall: normal heart sounds 08/21/2011 None Full Exam - General Cardiovascular auscultation of heart Overall: no murmurs 08/21/2011 None Full Exam - General Integument palpation Overall: no induration, no tenderness 08/21/2011 None Full Exam - General Neurologic mental status Overall: alert 08/21/2011 None Full Exam - General Neurologic mental status Overall: oriented 08/21/2011 None Full Exam - General Neurologic cranial nerves Overall: cranial nerves 2-12 grossly intact 08/21/2011 None Full Exam - General Psychiatric orientation/consciousness Overall: oriented to person, place and time 08/21/2011 None Procedures Procedure Codes Date URINALYSIS NONAUTO W/O SCOPE CPT-4: 71985 05/08/2018 URINALYSIS NONAUTO W/O SCOPE CPT-4: 57871 07/31/2013 URINALYSIS NONAUTO W/O SCOPE CPT-4: 75682 03/26/2013 Vital Signs Date Vital 07/23/2018 Blood Pressure 1: 120/76 Code : 8480-6 BMI: 35.7 Code : 05394-6 Heart Rate 1 : 90 bpm Height: 5'2" SpO2: 97% Weight: 195 lbs 05/27/2018 Blood Pressure 1: 140/78 Code : 8480-6 BMI: 35.3 Code : 18670-6 Heart Rate 1 : 80 bpm Height: 5'2" SpO2: 97% Weight: 193 lbs 03/25/2018 Blood Pressure 1: 122/80 Code : 8480-6 Heart Rate 1: 108 bpm Height: 5'2" SpO2: 98% Weight: 01/28/2018 Blood Pressure 1: 122/74 Code : 8480-6 BMI: 34.4 Code : 63670-8 Heart Rate 1 : 79 bpm Height: 5'2" SpO2: 94% Weight: 188 lbs 11/26/2017 Blood Pressure 1: 134/70 Code : 8480-6 BMI: 33.5 Code : 37756-1 Heart Rate 1 : 96 bpm Height: 5'2" SpO2: 99% Weight: 183 lbs 07/23/2017 Blood Pressure 1: 108/70 Code : 8480-6 BMI: 33.7 Code : 75459-3 Heart Rate 1 : 128 bpm Height: 5'2" SpO2: 99% Weight: 184 lbs 05/22/2017 Blood Pressure 1: 112/80 Code : 8480-6 BMI: 32.6 Code : 63320-3 Heart Rate 1 : 112 bpm Height: 5'2" Respiratory Rate: 16 bpm SpO2: 99% Weight: 178 lbs 04/04/2017 Blood Pressure 1: 110/66 Code : 8480-6 BMI: 32.2 Code : 02038-8 Heart Rate 1 : 117 bpm Height: 5'2" SpO2: 98% Weight: 176 lbs 03/01/2017 Blood Pressure 1: 132/81 Code : 8480-6 Heart Rate 1: 110 bpm Height: 5'2" SpO2: 97% Weight: 12/31/2016 Blood Pressure 1: 122/76 Code : 8480-6 Heart Rate 1: 102 bpm Height: 5'2" SpO2: 98% Weight: 10/01/2016 Blood Pressure 1: 124/78 Code : 8480-6 BMI: 31.8 Code : 18088-3 Heart Rate 1 : 91 bpm Height: 5'2" SpO2: 96% Weight: 174 lbs 08/23/2016 Blood Pressure 1: 122/78 Code : 8480-6 Heart Rate 1: 110 bpm Height: 5'2" SpO2: 98% 08/02/2016 Blood Pressure 1: 108/72 Code : 8480-6 Heart Rate 1: 102 bpm Height: 5'2" Respiratory Rate: 16 bpm SpO2: 98% Weight: 07/19/2016 Blood Pressure 1: 138/84 Code : 8480-6 BMI: 31.3 Code : 31093-7 Heart Rate 1 : 114 bpm Height: 5'2" SpO2: 99% Weight: 174 lbs 07/05/2016 Blood Pressure 1: 126/74 Code : 8480-6 BMI: 30.8 Code : 70862-4 Heart Rate 1 : 100 bpm Height: 5'2" SpO2: 98% Weight: 171 lbs 04/10/2016 Blood Pressure 1: 110/68 Code : 8480-6 BMI: 31.0 Code : 07931-5 Heart Rate 1 : 72 bpm Height: 5'2" Respiratory Rate: 16 bpm Weight: 172 lbs 8 oz 02/07/2016 Blood Pressure 1: 120/72 Code : 8480-6 BMI: 30.8 Code : 48794-4 Heart Rate 1 : 111 bpm Height: 5'2" SpO2: 98% Temperature: 36.9 (C) / 98.4 (F) Weight: 171 lbs 01/05/2016 Blood Pressure 1: 116/76 Code : 8480-6 BMI: 29.9 Code : 00421-2 Heart Rate 1 : 101 bpm Height: 5'2" SpO2: 98% Temperature: 36.8 (C) / 98.3 (F) Weight: 166 lbs 12/01/2015 Blood Pressure 1: 132/78 Code : 8480-6 BMI: 30.1 Code : 11021-7 Heart Rate 1 : 122 bpm Height: 5'2" SpO2: 99% Temperature: 37.3 (C) / 99.2 (F) Weight: 167 lbs 11/03/2015 Blood Pressure 1: 118/80 Code : 8480-6 BMI: 29.6 Code : 48829-4 Heart Rate 1 : 105 bpm Height: 5'2" SpO2: 99% Temperature: 37.1 (C) / 98.8 (F) Weight: 164 lbs 8 oz 10/26/2015 Blood Pressure 1: 120/72 Code : 8480-6 BMI: 29.7 Code : 73074-3 Heart Rate 1 : 107 bpm Height: 5'2" SpO2: 92% Weight: 165 lbs 10/17/2015 Blood Pressure 1: 122/74 Code : 8480-6 BMI: 29.7 Code : 01248-1 Heart Rate 1 : 120 bpm Height: 5'2" SpO2: 96% Temperature: 37.6 (C) / 99.7 (F) Weight: 165 lbs 09/06/2015 Blood Pressure 1: 142/90 Code : 8480-6 BMI: 28.8 Code : 56489-7 Heart Rate 1 : 100 bpm Height: 5'2" SpO2: 96% Weight: 160 lbs 12/24/2014 Blood Pressure 1: 138/88 Code : 8480-6 BMI: 31.5 Code : 72145-5 Heart Rate 1 : 125 bpm Height: 5'2" SpO2: 95% Weight: 175 lbs 11/30/2014 Blood Pressure 1: 112/88 Code : 8480-6 BMI: 31.0 Code : 20619-6 Heart Rate 1 : 115 bpm Height: 5'2" SpO2: 98% Temperature: 36.7 (C) / 98.0 (F) Weight: 172 lbs 10/06/2014 Blood Pressure 1: 102/74 Code : 8480-6 BMI: 31.1 Code : 25102-8 Heart Rate 1 : 104 bpm Height: 5'2" Temperature: 36.8 (C) / 98.2 (F) Weight: 173 lbs 09/08/2014 Blood Pressure 1: 102/64 Code : 8480-6 BMI: 32.0 Code : 32753-5 Heart Rate 1 : 104 bpm Height: 5'2" Weight: 178 lbs 08/13/2014 Blood Pressure 1: 128/88 Code : 8480-6 Heart Rate 1: 92 bpm Weight: 175 lbs 04/22/2014 Blood Pressure 1: 128/84 Code : 8480-6 BMI: 31.0 Code : 40275-3 Heart Rate 1 : 76 bpm Height: 5'2" Weight: 172 lbs 01/04/2014 Blood Pressure 1: 102/72 Code : 8480-6 BMI: 29.9 Code : 14158-0 Heart Rate 1 : 100 bpm Height: 5'2" SpO2: 98% Weight: 166 lbs 07/31/2013 Blood Pressure 1: 118/76 Code : 8480-6 BMI: 30.8 Code : 32056-7 Heart Rate 1 : 100 bpm Height: 5'2" Weight: 171 lbs 04/23/2013 Blood Pressure 1: 106/70 Code : 8480-6 Heart Rate 1: 104 bpm Weight: 03/26/2013 Blood Pressure 1: 116/68 Code : 8480-6 Heart Rate 1: 72 bpm Temperature: 36.6 (C) / 97.9 (F) Weight: 182 lbs 02/11/2013 Blood Pressure 1: 114/78 Code : 8480-6 BMI: 30.4 Code : 37555-6 Heart Rate 1 : 124 bpm Height: 5'2" Weight: 169 lbs 07/16/2012 Blood Pressure 1: 104/74 Code : 8480-6 Heart Rate 1: 100 bpm Weight: 167 lbs 03/11/2012 Blood Pressure 1: 110/78 Code : 8480-6 Heart Rate 1: 108 bpm SpO2: 98% Weight: 154 lbs 08/21/2011 Blood Pressure 1: 98/68 Code : 8480-6 BMI: 28.4 Code : 39496-2 Heart Rate 1 : 72 bpm Height: 5'2" Respiratory Rate: 16 bpm Weight: 158 lbs Functional Status No Functional Status data History of Present Illness Symptom Name Status Result Effective Date Notes Quality chronic 07/23 None Onset and Resolution ongoing 07/23/2018 None Alleviating Factors medication 07/23/2018 None Limitation on Activities moderately limits activities 07/23/2018 None rash Pertinent Findings Denies flushing 05/27/2018 None rash Pertinent Findings Denies itching 05/27/2018 None rash Pertinent Findings Denies tenderness 05/27/2018 None rash Onset of Symptom 3-6 months ago 05/27/2018 None rash Location-Major in a generalized area 05/27/2018 None disturbances of memory Quality improving 03/25/2018 None disturbances of memory Onset and Resolution ongoing 03/25/2018 None disturbances of memory Onset of Symptom during adulthood 03/25/2018 None disturbances of memory Alleviating Factors medication 03/25/2018 None disturbances of memory Pertinent Findings anxiety 03/25/2018 None rash Location-Major on the head 03/25/2018 None rash Color red 2017 None rash Onset of Symptom 1 month ago 03/25/2018 None rash Pertinent Findings Denies itching 03/25/2018 None rash Pertinent Findings Denies tenderness 03/25/2018 None rash Pertinent Findings Denies flushing 03/25/2018 None disturbances of thinking Quality improving 01/28/2018 None disturbances of thinking Onset and Resolution ongoing 01/28/2018 None disturbances of thinking Onset of Symptom during adulthood 01/28/2018 None disturbances of thinking Alleviating Factors medication 01/28/2018 None disturbances of memory Quality improving 01/28/2018 None disturbances of memory Onset and Resolution ongoing 01/28/2018 None disturbances of memory Onset of Symptom during adulthood 01/28/2018 None disturbances of memory Alleviating Factors medication 01/28/2018 None disturbances of memory Pertinent Findings anxiety 01/28/2018 None disturbances of thinking Quality improving 11/26/2017 None disturbances of thinking Onset and Resolution ongoing 11/26/2017 None disturbances of thinking Onset of Symptom during adulthood 11/26/2017 None disturbances of thinking Alleviating Factors medication 11/26/2017 None disturbances of memory Quality improving 11/26/2017 None disturbances of memory Onset and Resolution ongoing 11/26/2017 None disturbances of memory Onset of Symptom during adulthood 11/26/2017 None disturbances of memory Alleviating Factors medication 11/26/2017 None disturbances of memory Pertinent Findings anxiety 11/26/2017 None disturbances of thinking Quality improving 07/23/2017 None disturbances of thinking Onset and Resolution ongoing 07/23/2017 None disturbances of thinking Onset of Symptom during adulthood 07/23/2017 None disturbances of thinking Alleviating Factors medication 07/23/2017 None disturbances of memory Quality improving 07/23/2017 None disturbances of memory Onset and Resolution ongoing 07/23/2017 None disturbances of memory Onset of Symptom during adulthood 07/23/2017 None disturbances of memory Alleviating Factors medication 07/23/2017 None disturbances of memory Pertinent Findings anxiety 07/23/2017 None memory loss Onset of Symptom during adulthood 05/22/2017 None memory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 pt is to update her neurologist - pt is to notify clinic of any changes, questions, or concerns. 03/01/2017 Appointment: [facility] ([facility] 03/01/2017 Patient Education: Patient Medication Summary Completed 03/01/2017 Patient Education: .Cervicalgia Neck Pain Completed 03/01/2017 Visit Plan: Chronic Depression and anxiety - the pt has symptoms of chronic anxiety and depression that have been fairly well controlled since the last office visit. The pt has expected periods of exacerbation with abatement of the symptoms with change in situational exposure. No change in current medications. Edema - pt has been advised to elevate legs to prevent dependent edema, compression has been recommended to help to naturally decrease peripheral edema. Diuretic use has been discussed and pt has been instructed in appropriate use of such medication as necessary to further attempt to reduce peripheral edema. ADHD - continue with current treatment. 12/31/2016 Visit Plan: Chronic Depression and anxiety - the pt has symptoms of chronic anxiety and depression that have been fairly well controlled since the last office visit. The pt has expected periods of exacerbation with abatement of the symptoms with change in situational exposure. No change in current medications. Edema - pt has been advised to elevate legs to prevent dependent edema, compression has been recommended to help to naturally decrease peripheral edema. Diuretic use has been discussed and pt has been instructed in appropriate use of such medication as necessary to further attempt to reduce peripheral edema. ADHD - continue with current treatment. 12/31/2016 Appointment: Sahara Smith WPtel: [phone] [facility] ([place] min) Complex 12/31/2016 Patient Education: Patient Medication Summary Completed 12/31/2016 Visit Plan: ADHD - monitor symptoms - continue with current treatment. Family history of Muscle disorders -continue supportive care. Tachycardia - improved - defer treatment to Dr. Johnson 10/01/2016 Appointment: Sahara Smith WPtel: [phone] [facility] (30 min) Complex 10/01/2016 Patient Education: Patient Medication Summary Completed 10/01/2016 Patient Education: Obesity Completed 10/01/2016 Visit Plan: ADHD - medication working well for treatment of the pt's medical condition and the pt is to continue with current medication for treatment of the symptoms of ADHD. The pt is to call if they notice palpitations, rapid weight loss, severe insomnia that does improve. Pt is to call for any acute concerns, or if the medication does not seem to be working for improvement of the ADHD symptoms. Pt is aware of risk associated with medication use, and the danger of the medication if in the hands of someone to whom the medication was not prescribed. DECREASE VYVANSE TO 30MG DAILY Low back pain-history of UTI-+leukocytes at the [facility]-send urine for culture 08/23/2016 Visit Plan: ADHD - medication working well for treatment of the pt's medical condition and the pt is to continue with current medication for treatment of the symptoms of ADHD. The pt is to call if they notice palpitations, rapid weight loss, severe insomnia that does improve. Pt is to call for any acute concerns, or if the medication does not seem to be working for improvement of the ADHD symptoms. Pt is aware of risk associated with medication use, and the danger of the medication if in the hands of someone to whom the medication was not prescribed. DECREASE VYVANSE TO 30MG DAILY Low back pain-history of UTI-+leukocytes at the [facility]-send urine for culture 08/23/2016 Appointment: Mireille Tatum WPtel: [address] [place], [place] [phone] (30 min) [facility] 08/23/2016 Patient Education: Patient Medication Summary Completed 08/23/2016 Visit Plan: ADHD - medication working well for treatment of the pt's medical condition and the pt is to continue with current medication for treatment of the symptoms of ADHD. The pt is to call if they notice palpitations, rapid weight loss, severe insomnia that does improve. Pt is to call for any acute concerns, or if the medication does not seem to be working for improvement of the ADHD symptoms. Pt is aware of risk associated with medication use, and the danger of the medication if in the hands of someone to whom the medication was not prescribed. recommended pt to see how she does on the full dose of the strattera - if not improving from a mood standpoint - we can use fluoxetine 10mg take the week and a anlf before and the week of your cycle. - call if you want to start on this medications. 08/02/2016 Appointment: Sahara Smith WPtel: [phone] [facility] (30 min) Complex 08/02/2016 Patient Education: Patient Medication Summary Completed 08/02/2016 Visit Plan: Palpitations - treatment per Dr. Johnson- continue with current treatment - call if heart rate not improving. ADHD - restart strattera - stop wellbutrin. 07/19/2016 Appointment: Sahara Smith WPtel: [phone] [facility] [place] (30 min) Complex 07/19/2016 Appointment: Mireille Tatum WPtel: [phone] [phone] [place] (30 min) Complex 07/19/2016 Patient Education: Patient Medication Summary Completed 07/19/2016 Visit Plan: ADHD - monitor symptoms - continue with strattera as previously directed Family history of Muscle disorders -continue supportive care. Tachycardia - monitor symptoms - defer treatment to Dr. Johnson 07/05/2016 Appointment: Sahara Smith WPtel: [facility]5 [facility] (30 min) Complex 07/05/2016 Patient Education: Patient Medication Summary Completed 07/05/2016 Patient Education: Obesity Completed 07/05/2016 Visit Plan: Family history of Muscle disorders - recommended pt to have a neurological evaluation - waiting on appt in [place]. Rx for diflucan for vaginitis 04/10/2016 Appointment: Sahara Smith WPtel: [facility]5 [facility] (15 min) Moderate 04/10/2016 Patient Education: Patient Medication Summary Completed 04/10/2016 Visit Plan: Family history of Muscle disorders - recommended pt to have a neurological evaluation - pt was turned down by Dr. Mora - further referral pending. Pt to use voltaren gel on affected joints - call if not improving. 02/07/2016 Appointment: Sahara Smith WPtel: [phone] [facility] [place] (15 min) Moderate 02/07/2016 Patient Education: Patient Medication Summary Completed 02/07/2016 Care Plan: Referral Order SNOMED-CT : [id number] Pending 01/09/2016 Visit Plan: Family history of Muscle disorders - recommended pt to have a neurological evaluation - referral placed to - Dr. Daniel Rich Neurology - referral for neuromuscular eval with possible muscle biopsy. 01/05/2016 Patient Education: Patient Medication Summary Completed 01/05/2016 Patient Education: Obesity Completed 01/05/2016 Visit Plan: Cervical neck pain - recommended the pt to start on cervical traction and rx given to pt for cervical traction device Auto- immune symptoms - pt to keep appt with specialists. 12/01/2015 Patient Education: Patient Medication Summary Completed 12/01/2015 Patient Education: Obesity Completed 12/01/2015 Visit Plan: Autoimmune disease of undetermined significance - labs recently are negative - will check prolactin level, pth, estradiol, fsh, progesterone, lh. Vitamin D deficiency - start on vitamin d 5000 units daily. 11/03/2015 Patient Education: Patient Medication Summary Completed 11/03/2015 Patient Education: Obesity Completed 11/03/2015 Visit Plan: Pain, swelling, and erythema in the left hand - pt states that she has multiple joint complaints and just does not feel good, but that she has not been diagnosed with anything specific, will order labs today, pt is to notify clinic if symptoms do not improve, or with any concerns. 10/26/2015 Appointment: Mireille Tatum WPtel: [address] [place], [place] [phone] (15 min) Moderate 10/26/2015 Patient Education: Patient Medication Summary Completed 10/26/2015 Visit Plan: UTI-symptoms improving-finish abx Fever of unknown origin-check labs Diziness,memory loss, headache-schedule MRI brain for further evaluation Joint pain-positive ANN-abdominal pain-refer to Dr Velazquez for evaluation 10/17/2015 Appointment: (15 min) Moderate 10/17/2015 Patient Education: Patient Medication Summary Completed 10/17/2015 Patient Education: Obesity Completed 10/17/2015 Care Plan: MRI BRAIN STEM W/O & W/DYE Ordered 10/17/2015 Visit Plan: Neck pain with significant symptoms-schedule MRI of neck-continue anti inflammatories as directed 09/06/2015 Patient Education: Patient Medication Summary Completed 09/06/2015 Patient Education: .Cervicalgia Neck Pain Completed 09/06/2015 Visit Plan: Cough-reactive airway-patient does not want to take steroids if possible so she can have testing that was previously ordered- recommend she start albuterol breathing treatments-start cefdinir-instructed her to go to ER over the weekend if symptoms do not resolve or if any worse. Call if symptoms do not completely resolved. Patient verbalized understanding. 12/24/2014 Patient Education: Patient Medication Summary Completed 12/24/2014 Visit Plan: Auto-immune disease process - recommended further testing and referral to specialist in [facility] - All[facility]/Immunology/Rheumatology clinic. Pt is to continue with treatment per food and beverage assistant. 11/30/2014 Patient Education: Patient Medication Summary Completed 11/30/2014 Care Plan: Referral Order SNOMED-CT : [id number] Ordered 11/30/2014 Appointment: Sick 11/26/2014 Visit Plan: Abdominal pain - Hx of severe GERD with fundoplication - Pt is to start on carafate, get an EGD with Dr. Rhodes for re- eval of her esophagus -apparently she has not had an EGD since the fundoplication. Irritable bowel syndrome - no recent colonoscopy - need to have colonoscope - Referral to Dr. Rhodes. Recent scleritis - will wait on extensive labs until we see her response to treatment and results of her colonoscopy. 10/06/2014 Appointment: Sahara Smith WPtel: [address] [place], [place] [id number] Sick 10/06/2014 Patient Education: Patient Medication Summary Completed 10/06/2014 Care Plan: Referral Order SNOMED-CT : [id number] Ordered 10/06/2014 Visit Plan: RUQ pain - GERD symptoms - recommended pt to start on pepcid, start monitoring symptoms. Irritable bowel syndrome - recommended pt to start on linzess samples and to start on probiotics. REFILL ADHD medications 09/08/2014 Appointment: Sahara Smith WPtel: [facility]5 [facility] Follow up 09/08/2014 Patient Education: Patient Medication Summary Completed 09/08/2014 Visit Plan: ADHD - medication working well for treatment of the pt's medication condition and the pt is to continue with current medication for treatment of the symptoms of ADHD. The pt is to call if they notice palpitations, rapid weight loss, severe insomnia that does improve. Pt is to call for any acute concerns, or if the medication does not seem to be working for improvement of the ADHD symptoms. Pt is aware of risk associated with medication use, and the danger of the medication if in the hands of someone to whom the medication was not prescribed. Insomnia - Pt has been advised to increase the light in the house during the day, and start dimming the lights during the evening hours. Pt has been advised to cut out caffeine after 5pm. Daytime napping worsens night time insomnia. Allergies - chronic - recommended pt to use allergy medication as prescribed. Pt has been counseled as to the appropriate use of the medication. Pt to call if allergy symptoms are not controlled with the medication. RX for prednisone x 5 days If using nasal spray, instructions as follows: Nasal spray- use twice daily, one spray per nostril twice daily, after 30 minutes, rinse out nose with saline spray.. Use opposite hand per nostril to spray in the nasal steroid allergy spray. Headaches -neck pain-recommend heat, anti inflammatories (after finished with prednisone) and massage-call if symptoms do not resolve or if any worse Breast pain-repeat ultrasound in 08/13/2014 Appointment: Sick 08/13/2014 Patient Education: Patient Medication Summary Completed 08/13/2014 Patient Education: .Cervicalgia Neck Pain Completed 08/13/2014 Appointment: Follow up 08/12/2014 Visit Plan: Breast discharge - [facility] ADHD - medication working well for treatment of the pt's medication condition and the pt is to continue with current medication for treatment of the symptoms of ADHD. The pt is to call if they notice palpitations, rapid weight loss, severe insomnia that does improve. Pt is to call for any acute concerns, or if the medication does not seem to be working for improvement of the ADHD symptoms. Pt is aware of risk associated with medication use, and the danger of the medication if in the hands of someone to whom the medication was not prescribed. Abnormal thyroid studies, neck swelling - pt sent for ct scan. Anxiety, breast discharge, malaise - will add ann, antismooth muscle, ra panel, esr, crp, prolactin level, anti ds dna, to blood in lab at [facility]. Chronic Depression and anxiety - the pt has symptoms of chronic anxiety and depression that have been fairly well controlled since the last office visit. The pt has expected periods of exacerbation with abatement of the symptoms with change in situational exposure. No change in current medications. Over 1 hour spent with patient in exam, and interview. 04/22/2014 Appointment: Sahara Smith WPtel: [facility]5 [facility] [facility] 04/22/2014 Patient Education: Patient Medication Summary Completed 04/22/2014 Visit Plan: ADHD - medication working well for treatment of the pt's medication condition and the pt is to continue with current medication for treatment of the symptoms of ADHD. The pt is to call if they notice palpitations, rapid weight loss, severe insomnia that does improve. Pt is to call for any acute concerns, or if the medication does not seem to be working for improvement of the ADHD symptoms. Pt is aware of risk associated with medication use, and the danger of the medication if in the hands of someone to whom the medication was not prescribed. Depression and Anxiety - RX refill for Wellbutrin. PCOS - pt to continue with metformin and pt will try to decrease her dose of spironolactone to daily dosing instead of bid dosing. 01/04/2014 Appointment: Sahara Smith WPtel: [facility]5 [facility] Follow up 01/04/2014 Patient Education: Patient Medication Summary Completed 01/04/2014 Visit Plan: Yeast infection-RX for diflucan-call if symptoms do not resolve HHSE-pmyuwwyyj-vhsdobctp natural and expected course of this diagnosis and to alert me if symptoms do not follow expected course, or if any worse. RX sent to patient's pharmacy and discussed risk vs benefits of each of the medications. Patient verbalized understanding of plan. 07/31/2013 Appointment: Mireille Tatum WPtel[phone] Pap Only 07/31/2013 Patient Education: Patient Medication Summary Completed 07/31/2013 Visit Plan: ADHD - changed medication to 40mg in the am and 30mg at noon to help better control afternoon symptoms. The pt is to call if they notice palpitations, rapid weight loss, severe insomnia that does improve. Pt is to call for any acute concerns, or if the medication does not seem to be working for improvement of the ADHD symptoms. Pt is aware of risk associated with medication use, and the danger of the medication if in the hands of someone to whom the medication was not prescribed. Allergies - chronic - recommended pt to use allergy medication as prescribed. Pt has been counseled as the the appropriate use of the medication. Pt to call if allergy symptoms are not controlled with the medication. If using nasal spray, instructions as follows: Nasal spray- use twice daily, one spray per nostril twice daily, after 30 minutes, rinse out nose with saline spray.. Use opposite hand per nostril to spray in the nasal steroid allergy spray. REFER TO DR ALLEN FOR ALLERGY TESTING Sinusitis-Rx sent to patient's pharmacy 04/23/2013 Appointment: Mireille Tatum WPtel: [address] [place] [address] Other 04/23/2013 Patient Education: Patient Medication Summary Completed 04/23/2013 Visit Plan: Urinary Tract Infection-discussed natural and expected course of this diagnosis and to alert me if symptoms do not follow expected course, or if any worse. UA positive for infection today in the office- plan to send for culture and will call patient with results. RX sent to patient' s pharmacy. Avoid tub baths, restrictive underwear, etc. Recommend patient start on probiotic while taking the antibiotic to prevent diarrhea. Patient verbalized understanding of plan. 03/26/2013 Appointment: Mireille Tatum WPtel: [address] [place] [address] Other 03/26/2013 Patient Education: Patient Medication Summary Completed 03/26/2013 Appointment: Mireille Tatum WPtel: [address] [place], [place] [phone] Sick 02/26/2013 Visit Plan: Constipation - uncontrolled - I have discussed with the patient the need for adequate fiber and water intake to facilitate soft , easily passed stools. The pt noted understanding of our conversation. I have given the patient a recipe for "power pudding" - equal parts, bran flakes, prune juice, and apple sauce. The pt is to call if symptoms not improved on this regimen. Pt with multiple systemic complaints such as fatigue, anxiety, difficulty sleeping, myalgias, - pt is worried about abnormal hormonal/ endocrine issues. I have recommended that she have testing/eval by accounts officer for further in depth evaluation. I have not ordered any specific tests as many endocrinologists have specific labs at which they prefer testing to be performed. 02/11/2013 Appointment: Sahara Smith WPtel: [address] [place] [address] Other 02/11/2013 Patient Education: Patient Medication Summary Completed 02/11/2013 Visit Plan: ADHD - pt is to start on stimulant medication for treatment of the symptoms of ADHD. The pt is to call if they notice palpitations, rapid weight loss, severe insomnia that does not start to improve after 2-3 days on the medication. Pt is to call for any acute concerns, or if the medication does not seem to be working for improvement of the ADHD symptoms. Pt is aware of risk associated with medication use, and the danger of the medication if in the hands of someone to whom the medication was not prescribed. Anxiety - the patient has uncontrolled anxiety and will benefit from an SSRI on a daily basis to attempt control of the symptoms of anxiety ( tachycardia, overwhelming sensations, stress, insomnia, etc). I also believe that the patient will benefit from very low dose of prn benzodiazepine. Pt is aware of the risks and benefits of treament with the above medications. Obesity - chronic issue with this patient. The pt has been counseled about diet changes , calorie restriction, and need to exercise. Pt will RTC in one month for weight check. 07/16/2012 Appointment: Sahara Smith WPtel: [facility]7 [facility] Other 07/16/2012 Patient Education: Patient Medication Summary Completed 07/16/2012 Visit Plan: Abnormal thyroid lnupswud-vlifnkhsgbfh-seqselgi , night sweats, fatigue-plan to check additional labs including thyroid auto antibodies and PTH as well as thryoid ultrasound. Carbon Monoxide poisoning- plan to check EKG-discussed with Dr. Smith-may need an Echo as well Hypoglycemia-check blood sugars with symptoms-glucometer provided 03/11/2012 Appointment: Mireille Tatum WPtel: [address] [phone] [place] Other 03/11/2012 Patient Education: Patient Medication Summary Completed 03/11/2012 Visit Plan: RUQ pain-nausea after meals-recommend gallbladder ultrasound to evaluate patient's gallbladder-also recommend a low fat diet and monitor symptoms. Instructed patient to go to ER for unresolved or worsening pain. Achiphex 20mg daily-samples provided. Call with any questions or concerns. 08/21/2011 Appointment: Mireille Tatum WPtel: [address] [phone] New Patient 08/21/2011 Patient Education: Patient Medication Summary Completed 08/21/2011 Referral: External, Ordering Provider Referral Completed Referral: [facility] [address] [facility] [place] Referral Completed Referral: [facility] Referral Appointment Requested Referral: Gonzales Rhodes WPtel: Referral Appointment Requested Referral: [facility] Referral Appointment Requested Referral: [facility] Referral Appointment Requested Referral: External, Ordering Provider 06/10 Referral info faxed; 06/11 Clinical information was received and they will send her information on to be reviewed. They will contact the patient for an appt Appointment Requested Instructions Comment . Abdominal pain - Hx of severe GERD with fundoplication - Pt is to start on carafate, get an EGD with Dr. Rhodes for re-eval of her esophagus -apparently she has not had an EGD since the fundoplication. Irritable bowel syndrome - no recent colonoscopy - need to have colonoscope - Referral to Dr. Rhodes. Recent scleritis - will wait on extensive labs until we see her response to treatment and results of her colonoscopy. . ADHD - medication working well for treatment of the pt's medical condition and the pt is to continue with current medication for treatment of the symptoms of ADHD. The pt is to call if they notice palpitations, rapid weight loss, severe insomnia that does improve. Pt is to call for any acute concerns, or if the medication does not seem to be working for improvement of the ADHD symptoms. Pt is aware of risk associated with medication use, and the danger of the medication if in the hands of someone to whom the medication was not prescribed. Decrease dose of vyvanse to 40mg to see if it is tolerated at lower dose, if not - then okay to increase back up to 50mg vyvanse. 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 Order for ESR/CRP given to pt to have this lab as needed for symptoms of inflammation and prn order for prednisone sent to the pharmacy for symptoms of flair. Excoriation on scalp and neck - discussed with patient - change hair products, stop suave and start on Gambian oil or tea tree oil on scalp. Chronic Pain Syndrome - pt has chronic pain - has been maintained on current medications, has not sought out other medications, only uses PRN pain medications as directed, and understands the consequences of over-medication. . ADHD - medication working well for treatment of the pt's medication condition and the pt is to continue with current medication for treatment of the symptoms of ADHD. The pt is to call if they notice palpitations, rapid weight loss, severe insomnia that does improve. Pt is to call for any acute concerns, or if the medication does not seem to be working for improvement of the ADHD symptoms. Pt is aware of risk associated with medication use, and the danger of the medication if in the hands of someone to whom the medication was not prescribed. Insomnia - Pt has been advised to increase the light in the house during the day , and start dimming the lights during the evening hours. Pt has been advised to cut out caffeine after 5pm. Daytime napping worsens night time insomnia. Allergies - chronic - recommended pt to use allergy medication as prescribed. Pt has been counseled as to the appropriate use of the medication. Pt to call if allergy symptoms are not controlled with the medication. RX for prednisone x 5 days If using nasal spray, instructions as follows: Nasal spray- use twice daily, one spray per nostril twice daily, after 30 minutes, rinse out nose with saline spray.. Use opposite hand per nostril to spray in the nasal steroid allergy spray. Headaches-neck pain-recommend heat, anti inflammatories (after finished with prednisone) and massage-call if symptoms do not resolve or if any worse Breast pain-repeat ultrasound in October . POTS - Autonomic dysfunction - continue with IVIG - increase - per neurologist to every 21 days. Continue with appts in [place] with neurology - agree with [place] appt in November. Depression - uncontrolled - Pt has been counseled about the diagnosis of depression, the potential causes, and risks associated with the diagnosis. The pt denies suicidal ideation, or plans. The patient has been counseled about treatment options, and understands the risks associated with treatment of depression, as well as the risks associated with NOT treating the depression. I believe the pt will benefit from medical intervention and an antidepressant has been appropriately prescribed for this patient. Decrease cymbalta to 60mg x 1 week then change to wellbutrin 150mg bid. Vaginal dryness - discussed with patient - need to use lotion on vaginal tissue , decrease drying of vaginal tissue - pat dry and use lotion after toileting. decrease wellbutrin to one time daily x 1 week then stop . Palpitations - treatment per Dr. Johnson- continue with current treatment - call if heart rate not improving. ADHD - restart strattera - stop wellbutrin. . Yeast infection-RX for diflucan-call if symptoms do not resolve IYHZ-xnxksmlug-svzgvhwvs natural and expected course of this diagnosis and to alert me if symptoms do not follow expected course, or if any worse. RX sent to patient's pharmacy and discussed risk vs benefits of each of the medications. Patient verbalized understanding of plan. . ADHD - per Neuropsych testing - she has nonspecifit attentional ineffieciency interacting with treated ADHD in a normal neurocognitive study. neurology referral to [facility] Memory loss - recommended patient to continue current medical regimen, will refer to [facility] per her request . ADHD - monitor symptoms - continue with current treatment. Family history of Muscle disorders -continue supportive care. Tachycardia - improved - defer treatment to Dr. Johnson . Breast discharge - [facility] ADHD - medication working well for treatment of the pt's medication condition and the pt is to continue with current medication for treatment of the symptoms of ADHD. The pt is to call if they notice palpitations, rapid weight loss, severe insomnia that does improve. Pt is to call for any acute concerns, or if the medication does not seem to be working for improvement of the ADHD symptoms. Pt is aware of risk associated with medication use, and the danger of the medication if in the hands of someone to whom the medication was not prescribed. Abnormal thyroid studies, neck swelling - pt sent for ct scan. Anxiety, breast discharge, malaise - will add ann, antismooth muscle, ra panel, esr, crp, prolactin level, anti ds dna, to blood in lab at [facility]. Chronic Depression and anxiety - the pt has symptoms of chronic anxiety and depression that have been fairly well controlled since the last office visit. The pt has expected periods of exacerbation with abatement of the symptoms with change in situational exposure. No change in current medications. Over 1 hour spent with patient in exam, and interview. . Cough-reactive airway-patient does not want to take steroids if possible so she can have testing that was previously ordered- recommend she start albuterol breathing treatments-start cefdinir-instructed her to go to ER over the weekend if symptoms do not resolve or if any worse. Call if symptoms do not completely resolved. Patient verbalized understanding. . Abnormal thyroid ryedywmy-nwiymusgkzml-zznselsd, night sweats, fatigue-plan to check additional labs including thyroid auto antibodies and PTH as well as thryoid ultrasound. Carbon Monoxide poisoning-plan to check EKG-discussed with Dr. Smith-may need an Echo as well Hypoglycemia-check blood sugars with symptoms-glucometer provided . Auto-immune disease process - recommended further testing and referral to specialist in [place]- [facility] - Allergy/ Immunology/Rheumatology clinic. Pt is to continue with treatment per food and beverage assistant. rash on nose needs cultured . Chronic Pain Syndrome - pt has chronic pain - has been maintained on current medications, has not sought out other medications, only uses PRN pain medications as directed, and understands the consequences of over-medication. oxycontin 10mg #15 rx - pt to call to let me know if ADHD - stop intuniv as the patient may have worsening symptoms of her sympathetic nervous symptoms based on side effect profile of the medication. Continue with vyvanse at 50mg dose. MRI of brain shows that the pt has some changes in her brain - suggestive of demyelinating process. Pt has appt with Neurologist at [facility] soon. She will keep me informed of their recommendations. Rash on nose - culture taken today - pt to use vaseline on nose 3-4 times daily - and if this does not show bacteria and does not resolve, she will need referral to Dr. Allen for biopsy of the lesion on left nare. I spent over an hour with [place] in the office today discussing her previous appts with specialists, going over her notes from her other office visits with neurologist and green hide inspector, review of her MRI of head, cervical spine and back , labs from the specialists, etc. . ADHD - medication working well for treatment of the pt's medication condition and the pt is to continue with current medication for treatment of the symptoms of ADHD. The pt is to call if they notice palpitations, rapid weight loss, severe insomnia that does improve. Pt is to call for any acute concerns, or if the medication does not seem to be working for improvement of the ADHD symptoms. Pt is aware of risk associated with medication use, and the danger of the medication if in the hands of someone to whom the medication was not prescribed. Depression and Anxiety - RX refill for Wellbutrin. PCOS - pt to continue with metformin and pt will try to decrease her dose of spironolactone to daily dosing instead of bid dosing. . Urinary Tract Infection-discussed natural and expected course of this diagnosis and to alert me if symptoms do not follow expected course, or if any worse. UA positive for infection today in the office-plan to send for culture and will call patient with results. RX sent to patient's pharmacy. Avoid tub baths, restrictive underwear, etc. Recommend patient start on probiotic while taking the antibiotic to prevent diarrhea. Patient verbalized understanding of plan. . Cervical neck pain - recommended the pt to start on cervical traction and rx given to pt for cervical traction device Auto-immune symptoms - pt to keep appt with specialists. recommended pt to see how she does on the full dose of the strattera - if not improving from a mood standpoint - we can use fluoxetine 10mg take the week and a anlf before and the week of your cycle. - call if you want to start on this medications. . ADHD - medication working well for treatment of the pt's medical condition and the pt is to continue with current medication for treatment of the symptoms of ADHD. The pt is to call if they notice palpitations, rapid weight loss, severe insomnia that does improve. Pt is to call for any acute concerns, or if the medication does not seem to be working for improvement of the ADHD symptoms. Pt is aware of risk associated with medication use, and the danger of the medication if in the hands of someone to whom the medication was not prescribed. recommended pt to see how she does on the full dose of the strattera - if not improving from a mood standpoint - we can use fluoxetine 10mg take the week and a anlf before and the week of your cycle. - call if you want to start on this medications. . Leg Weakness - recommendation for physical therapy with karl valdez leg weakness - foot drop on right - and left foot weakness ( right greater than left) - and right hand numbness and weakness and left hand weakness, right and left hip pain. Rosacea - RX for metrogel 1% and RX for bactroban2% ADHD - RX for refilled vyvanse. Small fiber neuropathy - continue with treatment from Neurologist. - I have given her information about the specialist at [facility] who has specialization in small fiber neuropathy. . Family history of Muscle disorders - recommended pt to have a neurological evaluation - referral placed to - Dr. Sanchez - [facility] - referral for neuromuscular eval with possible muscle biopsy. . ADHD - refill vyvanse today. Immune deficiency - Dr. Mccoy - [phone] - [facility] allergy/immunology Nasal lesion - referral to dr. allen RE - nasal sore left side of nose - nonhealing Anxiety - refilled rx for patient. Vyvanse 40mg in the a.m. and 30mg at NOON. ADHD - changed medication to 40mg in the am and 30mg at noon to help better control afternoon symptoms. The pt is to call if they notice palpitations, rapid weight loss, severe insomnia that does improve. Pt is to call for any acute concerns, or if the medication does not seem to be working for improvement of the ADHD symptoms. Pt is aware of risk associated with medication use, and the danger of the medication if in the hands of someone to whom the medication was not prescribed. Allergies - chronic - recommended pt to use allergy medication as prescribed. Pt has been counseled as the the appropriate use of the medication. Pt to call if allergy symptoms are not controlled with the medication. If using nasal spray, instructions as follows: Nasal spray- use twice daily, one spray per nostril twice daily, after 30 minutes, rinse out nose with saline spray.. Use opposite hand per nostril to spray in the nasal steroid allergy spray. REFER TO DR ALLEN FOR ALLERGY TESTING Sinusitis-Rx sent to patient's pharmacy . Memory loss, gait instability, weakness, headaches - will order MRI - will treat as indicated - pt is to update her neurologist - pt is to notify clinic of any changes, questions, or concerns. prolactin, pth, estradiol, fsh, cortisol, progesterone, lh Vitamin D3 5000 units daily. . Autoimmune disease of undetermined significance - labs recently are negative - will check prolactin level, pth, estradiol, fsh, progesterone, lh. Vitamin D deficiency - start on vitamin d 5000 units daily. . Possible small fiber neuropathy - pt to have further testing at - appt with Cardiology at for autonomic testing, and to have small nerve biopsy - she states that she has a procedure of some sort on May 29 [facility] on aging - [phone] Hartmann - she does not know exactly what is going to happen in May - we will call Dr. Hartmann. med rec number [id number] Urinary retention/detrusor instability - recommended patient to start therapy as directed by Dr. Hummel. - She is to call Dr. Hummel about if he approves of therapy at [facility]. Phone call to Dr. Hartmann's office tonight - did not get through to a person today - message left for Dr. Hartmann's nurse to call the office with messages and information. . ADHD - monitor symptoms - continue with strattera as previously directed Family history of Muscle disorders -continue supportive care. Tachycardia - monitor symptoms - defer treatment to Dr. Johnson MRI neck . Neck pain with significant symptoms-schedule MRI of neck-continue anti inflammatories as directed . Chronic Depression and anxiety - the pt has symptoms of chronic anxiety and depression that have been fairly well controlled since the last office visit. The pt has expected periods of exacerbation with abatement of the symptoms with change in situational exposure. No change in current medications. Edema - pt has been advised to elevate legs to prevent dependent edema, compression has been recommended to help to naturally decrease peripheral edema. Diuretic use has been discussed and pt has been instructed in appropriate use of such medication as necessary to further attempt to reduce peripheral edema. ADHD - continue with current treatment. . Pain, swelling, and erythema in the left hand - pt states that she has multiple joint complaints and just does not feel good, but that she has not been diagnosed with anything specific, will order labs today, pt is to notify clinic if symptoms do not improve, or with any concerns. . Constipation - uncontrolled - I have discussed with the patient the need for adequate fiber and water intake to facilitate soft, easily passed stools. The pt noted understanding of our conversation. I have given the patient a recipe for "power pudding" - equal parts, bran flakes, prune juice , and apple sauce. The pt is to call if symptoms not improved on this regimen. Pt with multiple systemic complaints such as fatigue, anxiety, difficulty sleeping, myalgias, - pt is worried about abnormal hormonal/endocrine issues. I have recommended that she have testing/eval by accounts officer for further in depth evaluation. I have not ordered any specific tests as many endocrinologists have specific labs at which they prefer testing to be performed. . Family history of Muscle disorders - recommended pt to have a neurological evaluation - pt was turned down by Dr. Mora - further referral pending. Pt to use voltaren gel on affected joints - call if not improving. . RUQ pain - GERD symptoms - recommended pt to start on pepcid, start monitoring symptoms. Irritable bowel syndrome - recommended pt to start on linzess samples and to start on probiotics. REFILL ADHD medications CBC, CMP, ESR MRI brain with and without . UTI-symptoms improving-finish abx Fever of unknown origin-check labs Diziness,memory loss, headache-schedule MRI brain for further evaluation Joint pain-positive ANN-abdominal pain-refer to Dr Velazquez for evaluation . ADHD - medication working well for treatment of the pt's medical condition and the pt is to continue with current medication for treatment of the symptoms of ADHD with plans to step down on the dose at her next fill - as reflected in her medication list - decrease from 40mg to 30mg.. The pt is to call if they notice palpitations, rapid weight loss, severe insomnia that does improve. Pt is to call for any acute concerns, or if the medication does not seem to be working for improvement of the ADHD symptoms. Pt is aware of risk associated with medication use, and the danger of the medication if in the hands of someone to whom the medication was not prescribed. Vascular symptoms - possible Bechet's disease -the pt is pending a work-up by Private Branch Exchange Installer/Personalized Living Manager Nurse. Autoimmune symptoms - continue with IVIG Chronic Pain Syndrome - pt has chronic pain - has been maintained on current medications, has not sought out other medications, only uses PRN pain medications as directed, and understands the consequences of over-medication. Today we discussed the possibility of pt having a myelogram as some of her symptoms of POTS may actually be from a slow CSF Leak - however with a myelogram , you may cause a CSF leak which would worsen Vernoica's symptoms - at this point, I think that it would be better for her to wait until she is seen at [facility] and discuss such an investigation with the experts that she will see when she has her appt that is being set up by the Commercial Airline Pilot. . ADHD - pt is to start on stimulant medication for treatment of the symptoms of ADHD. The pt is to call if they notice palpitations, rapid weight loss, severe insomnia that does not start to improve after 2-3 days on the medication. Pt is to call for any acute concerns, or if the medication does not seem to be working for improvement of the ADHD symptoms. Pt is aware of risk associated with medication use, and the danger of the medication if in the hands of someone to whom the medication was not prescribed. Anxiety - the patient has uncontrolled anxiety and will benefit from an SSRI on a daily basis to attempt control of the symptoms of anxiety (tachycardia, overwhelming sensations, stress, insomnia, etc). I also believe that the patient will benefit from very low dose of prn benzodiazepine. Pt is aware of the risks and benefits of treament with the above medications. Obesity - chronic issue with this patient. The pt has been counseled about diet changes, calorie restriction, and need to exercise. Pt will RTC in one month for weight check. Culture urine VYVANSE 30MG DAILY . ADHD - medication working well for treatment of the pt's medical condition and the pt is to continue with current medication for treatment of the symptoms of ADHD. The pt is to call if they notice palpitations, rapid weight loss, severe insomnia that does improve. Pt is to call for any acute concerns, or if the medication does not seem to be working for improvement of the ADHD symptoms. Pt is aware of risk associated with medication use, and the danger of the medication if in the hands of someone to whom the medication was not prescribed. DECREASE VYVANSE TO 30MG DAILY Low back pain-history of [facility]TI-[facility]-send [facility] for culture Culture urine VYVANSE 30MG DAILY . ADHD - medication working well for treatment of the pt's medical condition and the pt is to continue with current medication for treatment of the symptoms of ADHD. The pt is to call if they notice palpitations, rapid weight loss, severe insomnia that does improve. Pt is to call for any acute concerns, or if the medication does not seem to be working for improvement of the ADHD symptoms. Pt is aware of risk associated with medication use, and the danger of the medication if in the hands of someone to whom the medication was not prescribed. DECREASE VYVANSE TO 30MG DAILY Low back pain-history of UTI-+leukocytes at the [facility] center-send urine for culture Schedule gallbladder ultrasound. RUQ pain-nausea after meals-recommend gallbladder ultrasound to evaluate patient's gallbladder-also recommend a low fat diet and monitor symptoms. Instructed patient to go to ER for unresolved or worsening pain. Achiphex 20mg daily-samples provided. Call with any questions or concerns. . Family history of Muscle disorders - recommended pt to have a neurological evaluation - waiting on appt in [place]. Rx for diflucan for vaginitis . Chronic Depression and anxiety - the pt has symptoms of chronic anxiety and depression that have been fairly well controlled since the last office visit. The pt has expected periods of exacerbation with abatement of the symptoms with change in situational exposure. No change in current medications. Edema - pt has been advised to elevate legs to prevent dependent edema, compression has been recommended to help to naturally decrease peripheral edema. Diuretic use has been discussed and pt has been instructed in appropriate use of such medication as necessary to further attempt to reduce peripheral edema. ADHD - continue with current treatment.
--- OUTSIDE RECORDS SUMMARY | 2018-08-14 11:40 | XMS REPORT | CCD ---
Author Author Mireille Tatum MD, [facility] Address [facility] [place] [address] Phone Care Team Providers Care Panel Edge Sealer Name Role Phone PP Unavailable CCM Unavailable Summary Purpose Interface Exchange Insurance Providers Payer name Policy type / Coverage type Covered alliance party ID Effective Begin Date Effective End Date [id number] 2014 Unknown Family history Sister Diagnosis Age [...] Unknown 2 08/21/[address]: 5820339 Former smoker quit 2004 08/21/[address]: 800821 Currently drinks alcohol 1 weekly 08/21/2011 Has the patient ever used illegal drugs? Unknown Has never used illegal drugs 08/21/2011 Allergies, Adverse Reactions, Alerts Substance Reaction Codes Entered Date Inactivated Date Status * OTHER REACTION - SEE ANSWER BOX EX-PREP (BOWEL CLEANSING PREP) Unknown 11/03/2015 No Inactive Date Active bactrim RxNorm: 158454 11/03/2015 No Inactive Date Active GABAPENTIN Unknown [...] Start Date Stop Date Status Fill Instructions Wellbutrin SR 150 mg tablet, 12 hr sustained-release RxNorm: 261801 1 Tablet(s) PO BID TAKE 1 TABLET TWICE A DAY 07/23/2018 07/17/2019 Active Vyvanse 30 mg capsule RxNorm: 519172 1 Capsule(s) PO daily 05/2706/25/2018 Inactive oxycodone 10 mg tablet RxNorm: 3387796 1 Tablet(s) PO TID as needed 05/27/2018 06/25/2018 Inactive azelastine-fluticasone 137 mcg-50 mcg/spray nasal spray RxNorm: 1668354 2 [place] NASAL daily ONE SPRAY IN EACH NOSTRIL 05/09/2018 08/01/2019 Active 90 day supply please Vyvanse 40 mg capsule RxNorm: 617102 1 Capsule(s) PO daily 05/0505/26/2018 Inactive propranolol 20 mg tablet RxNorm: 705090 1 Tablet(s) PO UD 20mg AM and 20mg PM 03/25/2018 04/23/2018 Inactive Vyvanse 40 mg capsule RxNorm: 483635 1 Capsule(s) PO daily 03/2504/23/2018 Inactive oxycodone 15 mg tablet RxNorm: 6919232 1 Tablet(s) PO Q6 as needed pain 03/25/2018 05/26/2018 Inactive prednisone 20 mg tablet RxNorm: 639246 2 Tablet(s) PO daily x 5 days - may extend to 10 days if the vascular symptoms are not resolved 201704/13/2018 Inactive pt to call for this to be filled if she has vascular inflammatory symptoms. Xanax 0.5 mg tablet RxNorm: 505059 1 Tablet(s) PO Q4H as needed 02/26/2018 04/26/2018 Inactive Vyvanse 50 mg capsule RxNorm: 768606 1 Capsule(s) PO daily 02/2603/24/2018 Inactive propranolol 20 mg tablet RxNorm: 721797 1 Tablet(s) PO UD 20mg AM and 40mg PM 01/28/2018 02/26/2018 Inactive Vyvanse 50 mg capsule RxNorm: 108884 1 Capsule(s) PO daily 01/2802/25/2018 Inactive Vyvanse 50 mg capsule RxNorm: 236548 1 Capsule(s) PO daily 12/2501/23/2018 Inactive clindamycin HCl 300 mg capsule RxNorm: 316545 1 Capsule(s) PO TID 12/05/2017 12/04/2017 Inactive clindamycin HCl 300 mg capsule RxNorm: 478997 1 Capsule(s) PO TID 12/05/2017 12/18/2017 Inactive azelastine 137 mcg (0.1 %) nasal spray aerosol RxNorm: 2775173 2 [place] NASAL BID 11/14/2017 12/13/2017 Inactive [SAVINGS FOR NON-COVERED DRUGS -- BIN:[id number], PCN: [id number], Group: [id number], ID# [id number], Questions: . THIS IS NOT INSURANCE.] Diflucan 150 mg tablet RxNorm: 037030 1 Tablet(s) PO daily as needed yeast infection symptoms after taking antibiotics 10/24/2017 03/24/2018 Inactive doxycycline hyclate 100 mg tablet RxNorm: 228087 1 Tablet(s) PO BID 10/24/2017 10/23/2017 Inactive doxycycline hyclate 100 mg tablet RxNorm: 592124 1 Tablet(s) PO BID 10/24/2017 11/12/2017 Inactive Vyvanse 50 mg capsule RxNorm: 676259 1 Capsule(s) PO daily 10/2411/22/2017 Inactive Vyvanse 60 mg capsule RxNorm: 049838 1 Capsule(s) PO daily 09/1209/11/2017 Inactive Vyvanse 60 mg capsule RxNorm: 430922 1 Capsule(s) PO daily 09/1210/11/2017 Inactive diclofenac 1 % topical gel RxNorm: 691494 2 Gram(s) TOP QID as needed apply twice daily scheduled to affected joints and can apply up to 4 times in a day 07/23/2017 03/24/2018 Inactive metoprolol succinate ER 50 mg tablet,extended release 24 hr RxNorm: 260442 1 Tablet(s) PO QHS 07/23/2017 01/27/2018 Inactive Vyvanse 70 mg capsule RxNorm: 392333 1 Capsule(s) PO daily 06/1709/11/2017 Inactive potassium chloride ER 10 mEq capsule,extended release RxNorm: 298883 1 Capsule(s) PO daily take only when taking lasix 05/30/2017 03/24/2018 Inactive Lasix 20 mg tablet RxNorm: 672028 1 Tablet(s) PO QAM x 3 days then prn wt gain>/ =2#'s 05/30/2017 08/27/2017 Inactive Lasix 20 mg tablet RxNorm: 370201 1 Tablet(s) PO QAM x 3 days then prn wt gain>/ =2#'s 05/30/2017 05/29/2017 Inactive potassium chloride ER 10 mEq capsule,extended release RxNorm: 979942 1 Capsule(s) PO daily take only when taking lasix 05/30/2017 05/29/2017 Inactive Intuniv ER 2 mg tablet,extended release RxNorm: 753060 1 Tablet(s) PO QPM 05/22/2017 11/25/2017 Inactive Vyvanse 70 mg capsule RxNorm: 586227 1 Capsule(s) PO daily 04/1505/14/2017 Inactive Vyvanse 70 mg capsule RxNorm: 456651 1 Capsule(s) PO daily 03/1504/13/2017 Inactive oxycodone 5 mg tablet RxNorm: 1624934 1 Tablet(s) PO QID as needed pain 02/11/2017 03/12/2017 Inactive Vyvanse 70 mg capsule RxNorm: 734998 1 Capsule(s) PO daily 02/1103/12/2017 Inactive Vyvanse 70 mg capsule RxNorm: 945767 1 Capsule(s) PO daily 01/1402/10/2017 Inactive furosemide 20 mg tablet RxNorm: 679995 1 Tablet(s) PO PRN if you gain more than 3 pounds of fluid in 24 hours 12/31/201604/2018 Inactive Vyvanse 70 mg capsule RxNorm: 341584 1 Capsule(s) PO daily 12/1101/09/2017 Inactive Vyvanse 50 mg capsule RxNorm: 104244 1 Capsule(s) PO daily 11/0912/10/2016 Inactive Xanax 0.5 mg tablet RxNorm: 022743 1 Tablet(s) PO Q4H as needed 10/11/2016 12/09/2016 Inactive Vyvanse 40 mg capsule RxNorm: 505315 1 Capsule(s) PO daily 10/1111/08/2016 Inactive albuterol sulfate 2.5 mg/3 mL (0.083 %) solution for nebulization RxNorm: 524986 3 Milliliter(s) INH Q4 PRN 10/01/2016 01/28/2017 Inactive oxycodone 5 mg tablet RxNorm: 7974111 1 Tablet(s) PO QID as needed pain 10/01/2016 10/30/2016 Inactive Ambien 5 mg tablet RxNorm: 525883 1 Tablet(s) PO HS PRN 09/2803/24/2018 Inactive Vyvanse 40 mg capsule RxNorm: 630332 1 Capsule(s) PO daily 09/1710/10/2016 Inactive Vyvanse 30 mg capsule RxNorm: 919664 1 Capsule(s) PO daily 08/2309/16/2016 Inactive Xanax 0.5 mg tablet RxNorm: 217522 1 Tablet(s) PO Q4H as needed 07/20/2016 09/17/2016 Inactive hydrocodone 5 mg-acetaminophen 325 mg tablet RxNorm: 045856 1 Tablet(s) PO Q6 as needed 07/10/2016 09/30/2016 Inactive Augmentin 500 mg-125 mg tablet RxNorm: 507133 1 Tablet(s) PO TID 07/10/2016 07/16/2016 Inactive Vyvanse 70 mg capsule RxNorm: 946784 1 Capsule(s) PO daily 06/1508/22/2016 Inactive Vyvanse 70 mg capsule RxNorm: 932964 1 Capsule(s) PO daily 05/1506/13/2016 Inactive Diflucan 150 mg tablet RxNorm: 798138 1 Tablet(s) PO daily 05/14/2016 Inactive Wellbutrin SR 150 mg tablet,sustained-release RxNorm: 178027 TAKE 1 TABLET TWICE A DAY 03/29/2016 07/26/2016 Inactive Diflucan 150 mg tablet RxNorm: 688191 1 Tablet(s) PO daily 03/201603/29/2016 Inactive Diflucan 150 mg tablet RxNorm: 605900 1 Tablet(s) PO daily 03/201603/22/2016 Inactive Vyvanse 70 mg capsule RxNorm: 530148 Capsule(s) PO daily 201504/10/2016 Inactive Vyvanse 70 mg capsule RxNorm: 752782 Capsule(s) PO daily 201503/07/2016 Inactive Voltaren 1 % topical gel RxNorm: 765980 2 Gram(s) TOP QID to shoulders and wrists and hips 02/07/2016 07/18/2016 Inactive Vyvanse 70 mg capsule RxNorm: 442792 Capsule(s) PO daily 201502/06/2016 Inactive Vyvanse 70 mg capsule RxNorm: 796644 Capsule(s) PO daily 201501/12/2016 Inactive Ambien 5 mg tablet RxNorm: 031234 1 Tablet(s) PO HS PRN 11/0204/30/2016 Inactive Xanax 0.5 mg tablet RxNorm: 285386 1 Tablet(s) PO Q4H as needed 11/03/2015 07/19/2016 Inactive [SAVINGS FOR UNINSURED PATIENTS -- BIN:[id number], PCN: [id number], Group: [id number], ID# [id number], Process claim through [employer], for questions: [phone]. THIS IS NOT INSURANCE.] Diflucan 150 mg tablet RxNorm: 316235 1 Tablet(s) PO every other day 10/25/2015 11/07/2015 Inactive Diflucan 150 mg tablet RxNorm: 895115 1 Tablet(s) PO every other day 10/25/2015 10/24/2015 Inactive Augmentin 875 mg-125 mg tablet RxNorm: 136294 1 Tablet(s) PO BID 10/25/2015 11/07/2015 Inactive Augmentin 875 mg-125 mg tablet RxNorm: 206937 1 Tablet(s) PO BID 10/25/2015 10/24/2015 Inactive gabapentin 100 mg capsule RxNorm: 850915 Capsule(s) PO TAKE 200 MG DAILY X5 DAYS THEN 100 MG DAILY X5 DAYS THEN 100 MG EVERY OTHER DAY X3 DOSES THEN STOP 10/21/2015 11/02/2015 Inactive Cipro 500 mg tablet RxNorm: 956618 1 Tablet(s) PO BID 201510/11/2015 Inactive Cipro 500 mg tablet RxNorm: 012263 1 Tablet(s) PO BID 201510/24/2015 Inactive Vyvanse 70 mg capsule RxNorm: 991749 Capsule(s) PO daily 201511/09/2015 Inactive Klonopin 0.5 mg tablet RxNorm: 079479 1 Tablet(s) PO BID as needed 09/28/2015 11/02/2015 Inactive Klonopin 0.5 mg tablet RxNorm: 006102 1 Tablet(s) PO BID as needed 09/28/2015 09/27/2015 Inactive gabapentin 300 mg capsule RxNorm: 012363 1 Capsule(s) PO QHS 10/20/2015 Inactive gabapentin 300 mg capsule RxNorm: 571796 1 Capsule(s) PO QHS 09/15/2015 Inactive hydrocodone 5 mg-acetaminophen 325 mg tablet RxNorm: 044568 1 Tablet(s) PO Q6 as needed 09/16/2015 10/15/2015 Inactive gabapentin 300 mg capsule RxNorm: 274811 1 Capsule(s) PO QHS 09/25/2015 Inactive Intuniv ER 2 mg tablet,extended release RxNorm: 152232 Tablet(s) TAKE 1 TABLET DAILY 09/13/2015 04/03/2017 Inactive Intuniv ER 2 mg tablet,extended release RxNorm: 023743 TAKE 1 TABLET DAILY 09/12/2015 09/12/2015 Inactive Vyvanse 70 mg capsule RxNorm: 734928 Capsule(s) PO daily 201509/08/2015 Inactive Vyvanse 70 mg capsule RxNorm: 298010 Capsule(s) PO daily 201408/09/2015 Inactive Vyvanse 70 mg capsule RxNorm: 762377 Capsule(s) PO daily 201407/06/2015 Inactive Ambien 5 mg tablet RxNorm: 611864 1 Tablet(s) PO HS PRN 06/0709/04/2015 Inactive acyclovir 800 mg tablet RxNorm: 240122 1 Tablet(s) PO TID 05/1809/15/2015 Inactive Vyvanse 70 mg capsule RxNorm: 019012 Capsule(s) PO 05/11/2015 06/06/2015 Inactive Xanax 0.5 mg tablet RxNorm: 768934 1 Tablet(s) PO Q4H as needed 05/03/2015 09/27/2015 Inactive [SAVINGS FOR UNINSURED PATIENTS -- BIN:[id number], PCN: ASPROD1, Group: [id number], ID# [id number], Process claim through [employer], for questions: [phone]. THIS IS NOT INSURANCE.] Ventolin HFA 90 mcg/actuation aerosol inhaler RxNorm: 3020228 2 Puff(s) INH QID 05/03/2015 05/02/2015 Inactive Ventolin HFA 90 mcg/actuation aerosol inhaler RxNorm: 0134303 2 Puff(s) INH QID 05/03/2015 06/01/2015 Inactive acyclovir 800 mg tablet RxNorm: 689737 1 Tablet(s) PO TID 05/0205/11/2015 Inactive acyclovir 800 mg tablet RxNorm: 774045 1 Tablet(s) PO TID 05/0205/01/2015 Inactive Keflex 500 mg capsule RxNorm: 667081 1 Capsule(s) PO TID 201404/28/2015 Inactive Keflex 500 mg capsule RxNorm: 907648 1 Capsule(s) PO TID 201405/05/2015 Inactive hydrocodone 5 mg-acetaminophen 325 mg tablet RxNorm: 104318 1 Tablet(s) PO Q6 as needed 04/11/2015 05/10/2015 Inactive Vyvanse 70 mg capsule RxNorm: 451744 Capsule(s) PO 04/11/2015 05/10/2015 Inactive naproxen 500 mg tablet RxNorm: 310961 1 Tablet(s) PO BID 201404/05/2015 Inactive naproxen 500 mg tablet RxNorm: 254772 1 Tablet(s) PO BID 201407/18/2016 Inactive Intuniv ER 2 mg tablet,extended release RxNorm: 248224 TAKE 1 TABLET DAILY 03/15/2015 09/11/2015 Inactive Vyvanse 70 mg capsule RxNorm: 098928 Capsule(s) PO 03/11/2015 04/09/2015 Inactive hydrocodone 5 mg-acetaminophen 325 mg tablet RxNorm: 042105 1 Tablet(s) PO Q6 as needed 02/22/2015 04/10/2015 Inactive Wellbutrin SR 150 mg tablet,sustained-release RxNorm: 221469 TAKE 1 TABLET TWICE A DAY 02/21/2015 2016 Inactive Vyvanse 70 mg capsule RxNorm: 324621 Capsule(s) PO 02/14/2015 03/10/2015 Inactive Vyvanse 30 mg capsule RxNorm: 524213 1 Capsule(s) PO noon 201402/13/2015 Inactive 314.01 Vyvanse 40 mg capsule RxNorm: 990904 40mg q AM and 30mg q NOON Capsule(s) PO 02/10/2015 02/13/2015 Inactive Levaquin 500 mg tablet RxNorm: 843052 1 Tablet(s) PO daily 08/201401/19/2015 Inactive Levaquin 500 mg tablet RxNorm: 080640 1 Tablet(s) PO daily 08/201401/12/2015 Inactive prednisone 20 mg tablet RxNorm: 261661 3 Tablet(s) PO daily 08/201401/17/2015 Inactive hydrocodone 5 mg-acetaminophen 325 mg tablet RxNorm: 570341 1 Tablet(s) PO Q6 as needed 01/10/2015 02/21/2015 Inactive Vyvanse 30 mg capsule RxNorm: 233486 1 Capsule(s) PO noon 201402/08/2015 Inactive 314.01 Vyvanse 40 mg capsule RxNorm: 855637 40mg q AM and 30mg q NOON Capsule(s) PO 01/10/2015 02/08/2015 Inactive cefdinir 300 mg capsule RxNorm: 766632 1 Capsule(s) PO BID 06/201512/30/2014 Inactive albuterol sulfate 2.5 mg/3 mL (0.083 %) solution for nebulization RxNorm: 187323 3 Milliliter(s) INH Q4 PRN 12/24/2014 01/22/2015 Inactive Diflucan 150 mg tablet RxNorm: 710114 1 Tablet(s) PO daily 06/201512/23/2014 Inactive Diflucan 150 mg tablet RxNorm: 109549 1 Tablet(s) PO daily 06/201512/30/2014 Inactive Ambien 5 mg tablet RxNorm: 335560 1 Tablet(s) PO HS PRN 12/0906/06/2015 Inactive Vyvanse 40 mg capsule RxNorm: 964686 40mg q AM and 30mg q NOON Capsule(s) PO 12/08/2014 01/06/2015 Inactive Linzess 145 mcg capsule RxNorm: 3987926 1 Capsule(s) PO daily 12/08/2014 06/05/2015 Inactive Vyvanse 30 mg capsule RxNorm: 023534 1 Capsule(s) PO noon 201401/06/2015 Inactive 314.01 Vyvanse 40 mg capsule RxNorm: 445488 40mg q AM and 30mg q NOON Capsule(s) PO 11/10/2014 12/07/2014 Inactive Vyvanse 30 mg capsule RxNorm: 009758 1 Capsule(s) PO noon 201412/07/2014 Inactive 314.01 Nexium 40 mg capsule,delayed release RxNorm: 640034 1 Capsule(s) PO daily 10/27/2014 10/26/2014 Inactive Nexium 40 mg capsule,delayed release RxNorm: 133305 1 Capsule(s) PO daily 10/27/2014 05/24/2015 Inactive Zofran 4 mg tablet RxNorm: 321151 1 Tablet(s) PO Q6 hours prn as needed for nausea 10/21/2014 10/25/2014 Inactive Zofran 4 mg tablet RxNorm: 577524 1 Tablet(s) PO Q6 hours prn as needed for nausea 10/21/2014 10/20/2014 Inactive Xanax 0.25 mg tablet RxNorm: 195823 1/2 to 1 Tablet(s) PO Q8 PRN as needed 10/15/2014 05/02/2015 Inactive [SAVINGS FOR UNINSURED PATIENTS -- BIN:[id number], PCN: ASPROD1, Group: [id number], ID# [id number], Process claim through [employer], for questions: . THIS IS NOT INSURANCE.] sucralfate 100 mg/mL oral suspension RxNorm: 716432 10 Milliliter(s) PO QID 10/06/2014 11/02/2015 Inactive Vyvanse 40 mg capsule RxNorm: 486708 40mg q AM and 30mg q NOON Capsule(s) PO 10/04/2014 11/02/2014 Inactive omeprazole 20 mg capsule,delayed release RxNorm: 167394 1 Capsule(s) PO daily 09/08/2014 11/02/2015 Inactive Linzess 145 mcg capsule RxNorm: 6434052 1 Capsule(s) PO daily 09/08/2014 10/07/2014 Inactive azelastine 137 mcg (0.1 %) nasal spray aerosol RxNorm: 5856263 2 [place] NASAL BID 09/06/2014 10/05/2014 Inactive [SAVINGS FOR NON-COVERED DRUGS -- BIN:125624, PCN: ASPROD1, Group: [id number], ID# [id number], Questions: . THIS IS NOT INSURANCE.] Xanax 0.25 mg tablet RxNorm: 733732 1/2 to 1 Tablet(s) PO Q8 PRN as needed 08/26/2014 10/14/2014 Inactive [SAVINGS FOR UNINSURED PATIENTS -- BIN:460927, PCN: ASPROD1, Group: [id number], ID# [id number], Process claim through [employer], for questions: . THIS IS NOT INSURANCE.] Ambien 5 mg tablet RxNorm: 581628 1 Tablet(s) PO HS PRN 08/1312/08/2014 Inactive prednisone 20 mg tablet RxNorm: 188133 3 Tablet(s) PO daily 08/17/2014 Inactive Vyvanse 40 mg capsule RxNorm: 280070 40mg q AM and 30mg q NOON Capsule(s) PO 08/11/2014 09/09/2014 Inactive Vyvanse 40 mg capsule RxNorm: 618185 40mg q AM and 30mg q NOON Capsule(s) PO 07/06/2014 08/04/2014 Inactive Xanax 0.25 mg tablet RxNorm: 161664 1/2 to 1 Tablet(s) PO Q8 PRN as needed 06/23/2014 08/25/2014 Inactive Wellbutrin SR 150 mg tablet,sustained-release RxNorm: 546215 TAKE 1 TABLET TWICE A DAY 06/08/2014 02/20/2015 Inactive Vyvanse 40 mg capsule RxNorm: 200404 40mg q AM and 30mg q NOON Capsule(s) PO 06/03/2014 07/02/2014 Inactive Vyvanse 40 mg capsule RxNorm: 042824 40mg q AM and 30mg q NOON Capsule(s) PO 05/04/2014 06/02/2014 Inactive Intuniv ER 2 mg tablet,extended release RxNorm: 889125 TAKE 1 TABLET DAILY 04/13/2014 03/14/2015 Inactive Vyvanse 40 mg capsule RxNorm: 564829 40mg q AM and 30mg q NOON Capsule(s) PO 03/24/2014 04/22/2014 Inactive Vyvanse 40 mg capsule RxNorm: 523951 40mg q AM and 30mg q NOON Capsule(s) PO 03/01/2014 03/23/2014 Inactive Wellbutrin SR 150 mg tablet,sustained-release RxNorm: 521834 1 Tablet(s) PO BID 01/04/2014 06/07/2014 Inactive Claritin 10 mg tablet RxNorm: 897481 1 Tablet(s) PO daily 201307/18/2016 Inactive Vyvanse 40 mg capsule RxNorm: 397940 40mg q AM and 30mg q NOON Capsule(s) PO 12/21/2013 01/19/2014 Inactive Intuniv ER 2 mg tablet,extended release RxNorm: 211314 Tablet(s) PO TAKE 1 TABLET DAILY 12/14/2013 04/12/2014 Inactive Vyvanse 40 mg capsule RxNorm: 920034 40mg q AM and 30mg q NOON Capsule(s) PO QAM 11/12/2013 12/11/2013 Inactive Vyvanse 40 mg capsule RxNorm: 486120 40mg q AM and 30mg q NOON Capsule(s) PO QAM 10/15/2013 11/11/2013 Inactive Vyvanse 40 mg capsule RxNorm: 730631 1 Capsule(s) PO QAM 201310/14/2013 Inactive spironolactone 25 mg tablet RxNorm: 457009 1 Tablet(s) PO BID 10/01/2013 09/25/2014 Inactive metformin 500 mg tablet RxNorm: 650930 1/2 Tablet(s) PO QHS 09/25/2014 Inactive Intuniv ER 2 mg tablet,extended release RxNorm: 146981 Tablet(s) PO TAKE 1 TABLET DAILY 09/22/2013 12/13/2013 Inactive Vyvanse 40 mg capsule RxNorm: 542828 1 Capsule(s) PO QAM 201310/14/2013 Inactive Vyvanse 30 mg capsule RxNorm: 056905 1 Capsule(s) PO noon 201310/14/2013 Inactive Vyvanse 30 mg capsule RxNorm: 773217 1 Capsule(s) PO noon 201309/14/2013 Inactive Vyvanse 40 mg capsule RxNorm: 708817 1 Capsule(s) PO QAM 201309/14/2013 Inactive Keflex 500 mg capsule RxNorm: 297037 1 Capsule(s) PO QID 201308/18/2013 Inactive Keflex 500 mg capsule RxNorm: 666036 1 Capsule(s) PO QID 201308/11/2013 Inactive metformin 500 mg tablet RxNorm: 916609 1/2 Tablet(s) PO QHS 09/30/2013 Inactive spironolactone 25 mg tablet RxNorm: 341289 1 Tablet(s) PO BID 07/31/2013 09/30/2013 Inactive Diflucan 150 mg tablet RxNorm: 358244 1 Tablet(s) PO daily 08/06/2013 Inactive Vyvanse 30 mg capsule RxNorm: 978829 1 Capsule(s) PO noon 201208/16/2013 Inactive Vyvanse 40 mg capsule RxNorm: 609308 1 Capsule(s) PO QAM 201208/16/2013 Inactive Wellbutrin SR 150 mg tablet,sustained-release RxNorm: 009349 1 Tablet(s) PO BID 06/04/2013 06/24/2013 Inactive Xanax 0.25 mg tablet RxNorm: 085259 1/2 to 1 Tablet(s) PO Q8 PRN 05/20/2013 06/22/2014 Inactive Wellbutrin SR 150 mg tablet,sustained-release RxNorm: 053058 1 Tablet(s) PO BID 05/18/2013 06/03/2013 Inactive Vyvanse 40 mg capsule RxNorm: 300932 1 Capsule(s) PO QAM 201206/16/2013 Inactive Vyvanse 30 mg capsule RxNorm: 081054 1 Capsule(s) PO noon 201206/16/2013 Inactive Wellbutrin SR 150 mg tablet,sustained-release RxNorm: 446568 1 Tablet(s) PO daily 04/30/2013 05/17/2013 Inactive Wellbutrin SR 150 mg tablet,sustained-release RxNorm: 693952 1 Tablet(s) PO daily 04/30/2013 04/29/2013 Inactive cefdinir 300 mg capsule RxNorm: 555938 1 Capsule(s) PO BID 04/201304/29/2013 Inactive Vyvanse 70 mg capsule RxNorm: 963478 1 Capsule(s) PO QAM 201205/18/2013 Inactive azelastine 137 mcg Nasal [place] Aerosol RxNorm: 2773127 2 [place] NASAL BID 03/26/2013 09/21/2013 Inactive Augmentin 500 mg-125 mg tablet RxNorm: 423257 1 Tablet(s) PO BID 03/26/2013 03/30/2013 Inactive Vyvanse 70 mg capsule RxNorm: 358379 1 Capsule(s) PO QAM 201203/11/2013 Inactive multivitamin tablet RxNorm: 1 Tablet(s) PO daily 02/11/2013 04/03/2017 Inactive Vyvanse 70 mg capsule RxNorm: 175369 1 Capsule(s) PO QAM 201203/11/2013 Inactive Vyvanse 70 mg capsule RxNorm: 283899 1 Capsule(s) PO 01/12/2013 02/10/2013 Inactive Intuniv ER 2 mg tablet,extended release RxNorm: 451710 Tablet(s) PO TAKE 1 TABLET DAILY 01/02/2013 09/21/2013 Inactive Intuniv ER 2 mg tablet,extended release RxNorm: 346769 1 Tablet(s) PO QHS 01/01/2013 01/01/2013 Inactive Vyvanse 70 mg capsule RxNorm: 418884 1 Capsule(s) PO 12/10/2012 01/08/2013 Inactive Vyvanse 70 mg capsule RxNorm: 355613 1 Capsule(s) PO 11/11/2012 12/09/2012 Inactive Intuniv ER 2 mg tablet,extended release RxNorm: 417968 1 Tablet(s) PO QHS 09/29/2012 12/27/2012 Inactive Vyvanse 60 mg capsule RxNorm: 224781 1 Capsule(s) PO daily 09/1012/21/2013 Inactive Intuniv ER 2 mg tablet,extended release RxNorm: 146984 1 Tablet(s) PO QHS 09/02/2012 09/28/2012 Inactive Intuniv ER 2 mg tablet,extended release RxNorm: 535914 1 Tablet(s) PO QHS 08/11/2012 09/01/2012 Inactive Vyvanse 60 mg capsule RxNorm: 014905 1 Capsule(s) PO daily 08/1109/09/2012 Inactive omeprazole 20 mg Cap, Delayed Release RxNorm: 547945 1 Capsule(s) PO daily 09/11/2011 02/11/2013 Inactive Aciphex 20 mg Tab RxNorm: 795906 1 Tablet(s) PO daily 201109/11/2011 Inactive Aciphex 20 mg Tab RxNorm: 207937 1 Tablet(s) PO daily 201109/10/2011 Inactive NormaLyte ORS 1.3-1.45-0.75 gram/10.5 gram oral powder packet RxNorm: 1 PO BID No Start Date Active Excedrin Migraine 250 mg-250 mg-65 mg tablet RxNorm: 136193 1 Tablet(s) PO Q6 as needed No Start Date Active Restasis 0.05 % eye drops in a dropperette RxNorm: 521895 OPH BID No Start Date Active ketorolac 0.4 % eye drops RxNorm: 549034 3-4 Drop(s) ophthalmic (eye) to left eye daily No Start Date Active Corlanor 5 mg tablet RxNorm: 7324955 1 Tablet(s) PO BID No Start Date Active Privigen 10 % intravenous solution RxNorm: 557299 1 treatment IV q 28days No Start Date Active baclofen 10 mg tablet RxNorm: 516627 1 Tablet(s) PO TID as needed No Start Date Active diazepam 2 mg tablet RxNorm: 597169 1 Tablet(s) PO BID -Prescribed by urology at No Start Date 03/24/2018 Inactive amitriptyline 10 mg tablet RxNorm: 269904 3 Tablet(s) PO QHS Dr Walker No Start Date 11/25/2017 Inactive hyoscyamine 0.125 mg sublingual tablet RxNorm: 0302920 1 Tablet(s) SL Q4H as needed No Start Date 03/24/2018 Inactive Loestrin Fe 1.5/30 (28) 1.5 mg-30 mcg Tab RxNorm: 3951717 1 Tablet(s) PO daily No Start Date 02/10/2013 Inactive Vitamin D3 1,000 unit tablet RxNorm: 783059 1 Tablet(s) PO daily No Start Date 07/18/2016 Inactive Caltrate 600 + D oral RxNorm: 452454 oral No Start Date 04/03/2017 Inactive Lyrica 50 mg capsule RxNorm: 413894 1 Capsule(s) PO BID -Started by Dr. Hartmann No Start Date 12/30/2016 Inactive multivitamin tablet RxNorm: 2 Tablet(s) PO daily No Start Date 02/10/2013 Inactive Elavil 10 mg tablet RxNorm: 669145 1 Tablet(s) PO QHS No Start Date 07/17/2017 Inactive gabapentin 100 mg capsule RxNorm: 598762 Capsule(s) PO TAKE 200 MG DAILY X5 DAYS THEN 100 MG DAILY X5 DAYS THEN 100 MG EVERY OTHER DAY X3 DOSES THEN STOP No Start Date 10/20/2015 Inactive Lyrica 75 mg capsule RxNorm: 866549 1 Capsule(s) PO BID manage by Dr Hartmann No Start Date 04/03/2017 Inactive Flonase 50 mcg/actuation Nasal [place] RxNorm: 953262 [place] NASAL daily No Start Date 11/02/2015 Inactive Xanax 0.25 mg tablet RxNorm: 536511 1/2 to 1 Tablet(s) PO Q8 PRN No Start Date 05/19/2013 Inactive Diflucan 150 mg tablet RxNorm: 305095 1 Tablet(s) PO daily as needed yeast infection symptoms No Start Date 2017 Inactive Toprol XL 25 mg tablet,extended release RxNorm: 777051 1 Tablet(s) PO QHS No Start Date 01/27/2018 Inactive Vitamin C 500 mg tablet RxNorm: 046450 1 Tablet(s) PO daily No Start Date 07/18/2016 Inactive Pyridium 100 mg tablet RxNorm: 0961784 1 Tablet(s) PO TID as needed No Start Date 03/24/2018 Inactive azelastine 137 mcg Nasal [place] Aerosol RxNorm: 588162 1 [place] NASAL daily No Start Date 09/05/2014 Inactive Pazeo 0.7 % eye drops RxNorm: 8899681 Drop(s) OPH as needed No Start Date 05/26/2018 Inactive Celexa 10 mg Tab RxNorm: 048289 1 Tablet(s) PO daily No Start Date 08/18/2013 Inactive Lastacaft 0.25 % Eye Drops RxNorm: 0496215 Drop(s) OPH PRN No Start Date 11/02/2015 Inactive azelastine-fluticasone 137 mcg-50 mcg/spray nasal spray RxNorm: 7152436 2 [place] NASAL daily ONE SPRAY IN EACH NOSTRIL No Start Date 05/08/2018 Inactive Zyrtec 10 mg capsule RxNorm: 3532571 1 Capsule(s) PO daily No Start Date 01/03/2014 Inactive Vitamin B-12 ER 1,500 mcg tablet,extended release RxNorm: 905862 1 Tablet(s) PO daily No Start Date 07/18/2016 Inactive Cymbalta 60 mg capsule,delayed release RxNorm: 263924 1 Capsule(s) PO BID No Start Date 07/29/2018 Inactive Intuniv ER 2 mg tablet,extended release RxNorm: 729274 1 Tablet(s) PO QHS No Start Date 08/10/2012 Inactive Vyvanse 60 mg capsule RxNorm: 708821 1 Capsule(s) PO daily No Start Date 08/10/2012 Inactive metoprolol succinate ER 25 mg tablet,extended release 24 hr RxNorm: 152756 1 Tablet(s) PO BID No Start Date 07/22/2017 Inactive phentermine 37.5 mg capsule RxNorm: 510814 1 Capsule(s) PO BID No Start Date 02/10/2013 Inactive magnesium oxide 250 mg tablet RxNorm: 409302 1 Tablet(s) PO daily No Start Date 04/03/2017 Inactive Flonase Allergy Relief 50 mcg/actuation nasal spray, suspension RxNorm: 0085163 [place] NASAL as needed No Start Date Inactive hydrocodone 5 mg-acetaminophen 325 mg tablet RxNorm: 151897 1 Tablet(s) PO Q6 as needed No Start Date 01/09/2015 Inactive Medication Administered No Medication Administered data Immunizations Vaccine Codes Date Status Influenza CVX: 141 04/17/2011 completed Assessments Condition Codes Effective Dates Attention-deficit hyperactivity disorder, 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 ICD-9: 314.01 07/23/2018 Generalized anxiety disorder ICD-10: F41.1 ICD-9: 300.00 07/23/2018 Other specified polyneuropathies ICD-10: G62.89 ICD-9: 356.8 07/23/2018 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 ICD-9: 356.4 07/23/2018 Chronic pain syndrome ICD-10: G89.4 ICD-9: 338.4 05/27/2018 Other specified cardiac arrhythmias ICD-10: I49.8 ICD-9: 427.89 05/27/2018 Systemic involvement of connective tissue, unspecified ICD- 10: M35.9 ICD-9: 279.49 05/27/2018 Dysuria ICD-10: R30.0 ICD-9: 788.1 05/08/2018 Other skin changes ICD-10: R23.8 ICD-9: 782.9 03/25/2018 Other specified disorders of nose and nasal sinuses ICD-10: J34.89 ICD-9: 478.19 03/25/2018 Rash and other nonspecific skin eruption ICD-10: R21 ICD-9: 782.1 11/26/2017 Cellulitis, unspecified ICD-10: L03.90 ICD-9: 682.9 10/16/2017 Other rosacea ICD-10: L71.8 ICD-9: 695.3 07/23/2017 Chondrocostal junction syndrome [[place]] ICD-10: M94.0 ICD-9: 733.6 07/23/2017 Mild cognitive impairment, so stated ICD-10: G31.84 ICD-9: 331.83 05/22/2017 Other neuromuscular dysfunction of bladder ICD-10: N31.8 ICD-9: 596.59 04/04/2017 Other retention of urine ICD-10: R33.8 ICD-9: 788.29 04/04/2017 Cervicalgia ICD-10: M54.2 ICD-9: 723.1 03/01/2017 Weakness ICD-10: R53.1 ICD-9: 780.79 03/01/2017 Unsteadiness on feet ICD-10: R26.81 ICD-9: 781.2 03/01/2017 Localized edema ICD-10: R60.0 ICD-9: 782.3 12/31/2016 Spondylosis without myelopathy or radiculopathy, cervical region ICD-10: M47.812 ICD-9: 721.0 10/01/2016 Dysphagia, pharyngoesophageal phase ICD-10: R13.14 ICD-9: 787.24 10/01/2016 Palpitations ICD-10: R00.2 ICD-9: 785.1 07/19/2016 Acute vaginitis ICD-10: N76.0 ICD-9: 616.10 04/10/2016 Insomnia due to medical condition ICD-10: G47.01 ICD-9: 327.01 04/10/2016 Unspecified scleritis, bilateral ICD-10: H15.003 ICD-9: 379.00 02/07/2016 Fever, unspecified ICD-10: R50.9 ICD-9: 780.60 11/03/2015 Pain in unspecified joint ICD-10: M25.50 ICD-9: 719.40 11/03/2015 Pain in left hand ICD-10: M79.642 ICD-9: 729.5 10/26/2015 Urinary tract infection, site not specified ICD-10: N39.0 ICD-9: 599.0 10/17/2015 Dizziness and giddiness ICD-10: R42 ICD-9: 780.4 10/17/2015 COUGH ICD-9: 786.2 12/24/2014 Reactive airway disease ICD-9: 493.90 06/2015 Acute bronchitis ICD-9: 466.0 12/24/2014 ALLERGIC RHINITIS ICD-9: 477.9 2014 AUTOIMMUNE DISEASE NEC ICD-9: 279.49 Scleritis ICD-9: 379.00 11/30/2014 Abdominal pain ICD-9: 789.00 10/06/2014 Constipation - functional ICD-9: 564.09 10/06/2014 GENERALIZED ANXIETY DISEASE ICD-9: 300.02 10/06/2014 Irritable bowel ICD-9: 564.1 10/06/2014 ADHD (attention deficit hyperactivity disorder) ICD-9: 314.01 09/08/2014 RUQ pain ICD-9: 789.01 09/08/2014 Neck pain ICD-9: 723.1 08/13/2014 Insomnia ICD-9: 780.52 08/13/2014 HEADACHE ICD-9: 784.0 08/13/2014 Rash ICD-9: 782.1 04/22/2014 ABN THYROID FUNCT STUDY ICD-9: 794.5 03/2014 Swollen neck ICD-9: 784.2 04/22/2014 MALAISE AND FATIGUE ICD-9: 780.79 2013 Breast discharge ICD-9: 611.79 2013 PCOS (polycystic [...] and raised. disturbances of memory 03/25/2018 scalp, denominational, posterior neck - She is using T [...] Observation Code Item Item Code Result Date CRP [id number] C-Reactive Prot 0.2 mg/dL 07/30/2018 ESR [id number] Sed Rate 10 mm/hr 04/25/2018 CRP [id number] C-Reactive Prot 0.3 mg/dL 04/25/2018 IGA 9932656 IGA 115 mg/dL 02/14/2018 CHEM 14 6122781 AST 25 U/L 02/13/2018 CHEM 14 4806813 ALT 26 U/L 02/13/2018 CHEM 14 1227773 BUN 12 mg/dL 02/13/2018 CHEM 14 2952041 ALBUMIN 4.5 g/dL 02/13/2018 CHEM 14 9216399 CHLORIDE 105 mmol/L 02/13/2018 CHEM 14 7973418 Bili Total 0.3 mg/dL 02/13/2018 CHEM 14 0494542 ALK PHOS 92 U/L 02/13/2018 CHEM 14 6160501 SODIUM 140 mmol/L 02/13/2018 CHEM 14 0406956 CREATININE 0.81 mg/dL 02/13/2018 CHEM 14 0280906 CALCIUM 9.5 mg/dL 02/13/2018 CHEM 14 1224508 POTASSIUM 4.2 mmol/L 02/13/2018 CHEM 14 8974678 TOTAL PROTEIN 7.6 g/dL 02/13/2018 CHEM 14 8889392 GLUCOSE 91 mg/dL 02/13/2018 CHEM 14 0426782 Bicarbonate 29 mmol/L 02/13/2018 CHEM 14 5719134 AGAP 6 mmol/L 02/13/2018 CBC 8100811 WBC 6.6 10e9/L 02/13/2018 CBC 3094273 RBC 4.57 10e12/L 02/13/2018 CBC 6165346 HEMOGLOBIN 14.1 g/dL 02/13/2018 CBC 5112032 HEMATOCRIT 41.6 % 02/13/2018 CBC 2495275 MCV 91.0 fL 02/13/2018 CBC 9357411 MCH 30.9 pg 02/13/2018 CBC 6421245 MCHC 33.9 g/dL 02/13/2018 CBC 6629549 PLATELET COUNT 267 10e9/L 02/13/2018 CBC 6867312 Mean Plt Volume 10.9 fL 02/13/2018 CBC 8468228 Neut Auto 55.1 % 02/13/2018 CBC 6725145 Lymph Auto 33.8 % 02/13/2018 CBC 0729069 [place] Auto 8.8 % 02/13/2018 CBC 4334019 RDW 13.0 % 02/13/2018 CBC 1405560 Eos Auto 2.1 % 02/13/2018 CBC 5058216 Baso Auto 0.2 % 02/13/2018 CBC 1167560 Neutrophil Abs 3.64 10e9/L 02/13/2018 CBC 3876021 Lymphocyte Abs 2.23 10e9/L 02/13/2018 CBC 1709657 Monocyte Abs 0.58 10e9/L 02/13/2018 CBC 0970681 Eosinophil Abs 0.14 10e9/L 02/13/2018 CBC 5876368 RDW-SD 42.5 fL 02/13/2018 CBC 0785668 Basophil Abs 0.01 10e9/L 02/13/2018 GFR CALC 8141452 GFR Non Afr Amr >60 mL/min 02/13/2018 GFR CALC 5722854 GFR Afr Amr >60 mL/min 02/13/2018 REF LAB 8853814 Ref Lab Misc See Below 01/23/2016 TITI-1 AB 6614453 TITI-1 AB <20 01/13/2016 TITI-1 AB 8263875 TITI-1 Intp Negative 01/13/2016 SJOGRENS 7180905 Sjogrens SSA <20 01/13/2016 SJOGRENS 0517601 SSA Intp Negative 01/13/2016 SJOGRENS 0494298 Sjogrens SSB <20 01/13/2016 SJOGRENS 5196637 SSB Intp Negative 01/13/2016 SJOGRENS 6824084 Non Hist Ag Int See Below 01/13/2016 MITOCH M2 9344672 Mitoch M2 IgG 3.2 Units 01/13/2016 Smooth Muscle Antibody Titer 0578834 SMA Titer <1:20 2015 Myoglobin Serum 317423 MYOGLOBIN, SERUM 22 ng/mL 01/10/2016 Myoglobin, Urine 243247 MYOGLOBIN, URINE <2 ng/mL 01/10/2016 Ann 596838 ANN (STEVEN) SCREEN NONE DETECTED 01/06/2016 Alt(Sgpt) Ord58 ALT(SGPT) 25 U/L 01/05/2016 Ast(Sgot) Ord75 AST(SGOT) 17 U/L 01/05/2016 Ldh Ord92 LDH 207 U/L 01/05/2016 Cpk Ord61 CPK 155 U/L 01/05/2016 Sed Rate Ord21 ESR 2 mm/hr 10/27/2015 Uric Acid Ord77 Uric A 4.4 mg/dL 10/26/2015 C-Reactive Protein Qnt Crqnt CRP 0.2 mg/dl 10/26/2015 ESR 6189143 Sed Rate 2 mm/hr 10/18/2015 GFR CALC 6439790 GFR Non Afr Amr >60 mL/min 10/18/2015 GFR CALC 4486758 GFR Afr Amr >60 mL/min 10/18/2015 CHEM 14 3174709 AST 20 U/L 10/18/2015 CHEM 14 4633989 ALT 30 U/L 10/18/2015 CHEM 14 8347730 BUN 17 mg/dL 10/18/2015 CHEM 14 9607874 ALBUMIN 4.4 g/dL 10/18/2015 CHEM 14 8953113 CHLORIDE 100 mmol/L 10/18/2015 CHEM 14 1154063 Bili Total 0.3 mg/dL 10/18/2015 CHEM 14 5837834 ALK PHOS 83 U/L 10/18/2015 CHEM 14 1279396 SODIUM 138 mmol/L 10/18/2015 CHEM 14 4223926 CREATININE 0.82 mg/dL 10/18/2015 CHEM 14 9688459 CALCIUM 9.6 mg/dL 10/18/2015 CHEM 14 6412689 POTASSIUM 3.9 mmol/L 10/18/2015 CHEM 14 4922295 TOTAL PROTEIN 7.1 g/dL 10/18/2015 CHEM 14 6209331 GLUCOSE 68 mg/dL 10/18/2015 CHEM 14 8461158 Bicarbonate 25 mmol/L 10/18/2015 CHEM 14 8775644 AGAP 13 mmol/L 10/18/2015 CBC 9022953 WBC 7.7 10e9/L 10/17/2015 CBC 8736149 RBC 4.79 10e12/L 10/17/2015 CBC 8443588 HEMOGLOBIN 14.6 g/dL 10/17/2015 CBC 4506312 HEMATOCRIT 42.6 % 10/17/2015 CBC 5261367 MCV 88.9 fL 10/17/2015 CBC 7088408 MCH 30.5 pg 10/17/2015 CBC 5238805 MCHC 34.3 g/dL 10/17/2015 CBC 6259821 PLATELET COUNT 312 10e9/L 10/17/2015 CBC 4998684 Mean Plt Volume 9.9 fL 10/17/2015 CBC 5231981 Neutrophil 61.0 % 10/17/2015 CBC 0539653 Lymph Auto % 28.3 % 10/17/2015 CBC 1974685 Monocyte Auto % 9.2 % 10/17/2015 CBC 4306499 RDW 12.9 % 10/17/2015 CBC 5928665 Eosinophil 1.4 % 10/17/2015 CBC 7921284 Basophil 0.1 % 10/17/2015 CBC 3893669 Neutrophil Abs 4.70 10e9/L 10/17/2015 CBC 7652290 Lymphoctye Abs 2.18 10e9/L 10/17/2015 CBC 1143775 Monocyte Abs 0.71 10e9/L 10/17/2015 CBC 3612053 Eosinophil Abs 0.11 10e9/L 10/17/2015 CBC 2156427 Basophil Abs 0.01 10e9/L 10/17/2015 CBC 4856923 RDW-SD 41.6 fL 10/17/2015 NEUT CY AB 7659877 ALBERTO CYT A <1:20 01/10/2015 ANN SCR 8145450 ANN SCR POSITIVE 01/10/2015 TITER ANN 7714469 TITR ANN 1:80 01/10/2015 TITER ANN [id number] PATTERN SPECKLED 01/10/2015 DNA AB 9504620 DNA AB 44 IU/ML 01/08/2015 RA FACTOR [id number] RA FACTOR <20.0 IU/ML 01/08/2015 CRP 6477724 CRP 0.1 MG/DL 01/07/2015 ESR 2632265 ESR 4 MM/HR 01/07/2015 CBC 7870672 WBC 6.6 10e9/L 01/07/2015 CBC 2083494 RBC 4.69 10e12/L 01/07/2015 CBC 7189702 HGB 14.4 g/dL 01/07/2015 CBC 6117859 HCT DET 41.5 % 01/07/2015 CBC 6647015 MCV 88.5 fL 01/07/2015 CBC 3848301 MCH 30.7 pg 01/07/2015 CBC 9078923 MCHC 34.7 g/dL 01/07/2015 CBC 8006115 PLT 266 10e9/L 01/07/2015 CBC 3654325 MPV 10.7 fL 01/07/2015 CBC 0215839 ALBERTO % 52.4 % 01/07/2015 CBC 9099955 LY % 34.9 % 01/07/2015 CBC 4246364 MON % 10.5 % 01/07/2015 CBC 5219882 EOS % 2.0 % 01/07/2015 CBC 4184526 BASO % 0.2 % 01/07/2015 CBC 9818531 RDW 13.1 % 01/07/2015 CBC 5314870 ABS ALBERTO 3.46 10e9/L 01/07/2015 CBC 2528491 ABS LYMPH 2.30 10e9/L 01/07/2015 CBC 9013919 ABS MONO 0.69 10e9/L 01/07/2015 CBC 9848345 ABS EOS 0.13 10e9/L 01/07/2015 CBC 6841980 ABS BASO 0.01 10e9/L 01/07/2015 CBC 5103833 RDW-SD 41.8 fL 01/07/2015 GFR CALC 4452164 GFR AA >60 ML/MIN 01/07/2015 GFR CALC 2345758 GFR NON-AA >60 ML/MIN 01/07/2015 CHEM 14 1655124 AST 19 U/L 01/07/2015 CHEM 14 0994511 ALT 22 IU/L 01/07/2015 CHEM 14 4072806 BUN 10 MG/DL 01/07/2015 CHEM 14 5136849 ALBUMIN 4.2 GM/DL 01/07/2015 CHEM 14 2744452 CHLORIDE 106 MMOL/L 01/07/2015 CHEM 14 1339814 BILI TOT 0.4 MG/DL 01/07/2015 CHEM 14 8853836 ALK PHOS 72 U/L 01/07/2015 CHEM 14 2575168 SODIUM 138 MMOL/L 01/07/2015 CHEM 14 6246365 CREATININE 0.92 MG/DL 01/07/2015 CHEM 14 5788350 CALCIUM 9.7 MG/DL 01/07/2015 CHEM 14 1431179 POTASSIUM 4.0 MMOL/L 01/07/2015 CHEM 14 5207879 PROT TOT 6.3 GM/DL 01/07/2015 CHEM 14 4475682 GLUCOSE 89 MG/DL 01/07/2015 CHEM 14 7367776 BICARB 27 MMOL/L 01/07/2015 CHEM 14 8266692 ANION GAP 5 MEQ/L 01/07/2015 RA FACTOR [id number] RA FACTOR <20.0 IU/ML 10/22/2014 DNA AB 3840841 DNA AB 24 IU/ML 10/14/2014 C3 6692074 C3 112 MG/DL 10/13/2014 ANN SCR 7445979 ANN SCR <1:80 10/13/2014 ESR 7310810 ESR 7 MM/HR 10/13/2014 C4 4823210 C4 20 MG/DL 10/13/2014 TSH 1062812 TSH 1.174 uIU/ML 10/12/2014 GFR CALC 6327091 GFR AA >60 ML/MIN 10/12/2014 GFR CALC 2663953 GFR NON-AA >60 ML/MIN 10/12/2014 CBC 4475194 WBC 6.7 10e9/L 10/12/2014 CBC 8279859 RBC 4.47 10e12/L 10/12/2014 CBC 0487136 HGB 13.8 g/dL 10/12/2014 CBC 2489830 HCT DET 39.7 % 10/12/2014 CBC 0458898 MCV 88.8 fL 10/12/2014 CBC 8018556 MCH 30.9 pg 10/12/2014 CBC 9651737 MCHC 34.8 g/dL 10/12/2014 CBC 5748403 PLT 278 10e9/L 10/12/2014 CBC 1108399 MPV 10.3 fL 10/12/2014 CBC 4937293 ALBERTO % 52.8 % 10/12/2014 CBC 5114507 LY % 33.5 % 10/12/2014 CBC 1199026 MON % 12.2 % 10/12/2014 CBC 4531013 EOS % 1.5 % 10/12/2014 CBC 3775792 BASO % 0.0 % 10/12/2014 CBC 4294092 RDW 12.3 % 10/12/2014 CBC 7210646 ABS ALBERTO 3.54 10e9/L 10/12/2014 CBC 1539060 ABS LYMPH 2.24 10e9/L 10/12/2014 CBC 7319656 ABS MONO 0.82 10e9/L 10/12/2014 CBC 0644302 ABS EOS 0.10 10e9/L 10/12/2014 CBC 3459567 ABS BASO 0.00 10e9/L 10/12/2014 CBC 3703240 RDW-SD 39.3 fL 10/12/2014 CHEM 14 2777681 AST 22 U/L 10/12/2014 CHEM 14 3975604 ALT 28 IU/L 10/12/2014 CHEM 14 3375681 BUN 9 MG/DL 10/12/2014 CHEM 14 1109854 ALBUMIN 4.2 GM/DL 10/12/2014 CHEM 14 8437511 CHLORIDE 102 MMOL/L 10/12/2014 CHEM 14 4877728 BILI TOT 0.2 MG/DL 10/12/2014 CHEM 14 5635143 ALK PHOS 81 U/L 10/12/2014 CHEM 14 5525297 SODIUM 137 MMOL/L 10/12/2014 CHEM 14 1218346 CREATININE 0.84 MG/DL 10/12/2014 CHEM 14 6526320 CALCIUM 10.2 MG/DL 10/12/2014 CHEM 14 4144290 POTASSIUM 3.8 MMOL/L 10/12/2014 CHEM 14 5646207 PROT TOT 6.6 GM/DL 10/12/2014 CHEM 14 4951159 GLUCOSE 79 MG/DL 10/12/2014 CHEM 14 7803544 BICARB 30 MMOL/L 10/12/2014 CHEM 14 7847603 ANION GAP 5 MEQ/L 10/12/2014 CRP 6115002 CRP 0.1 MG/DL 10/12/2014 LIPID GRP HDL TEST 52 MG/DL 01/07/2014 LIPID GRP TRIG 58 MG/DL 01/07/2014 LIPID GRP TEST LDL 129 MG/DL 01/07/2014 LIPID GRP CHOL 193 MG/DL 01/07/2014 LIPID GRP RCHOL/HDL 3.71 RATIO 01/07/2014 CHEM 14 6991406 AST 22 U/L 01/05/2014 CHEM 14 1805642 ALT 29 IU/L 01/05/2014 CHEM 14 2960152 BUN 15 MG/DL 01/05/2014 CHEM 14 8725327 ALBUMIN 4.3 GM/DL 01/05/2014 CHEM 14 6802819 CHLORIDE 106 MMOL/L 01/05/2014 CHEM 14 7397399 BILI TOT 0.3 MG/DL 01/05/2014 CHEM 14 7181802 ALK PHOS 68 U/L 01/05/2014 CHEM 14 7956040 SODIUM 139 MMOL/L 01/05/2014 CHEM 14 7682184 CREATININE 0.95 MG/DL 01/05/2014 CHEM 14 5511464 CALCIUM 9.6 MG/DL 01/05/2014 CHEM 14 4189988 POTASSIUM 3.6 MMOL/L 01/05/2014 CHEM 14 5819397 PROT TOT 6.5 GM/DL 01/05/2014 CHEM 14 4296179 GLUCOSE 80 MG/DL 01/05/2014 CHEM 14 7323051 BICARB 27 MMOL/L 01/05/2014 CHEM 14 2305355 ANION GAP 6 MEQ/L 01/05/2014 GFR CALC 5237754 GFR AA >60 ML/MIN 01/05/2014 GFR CALC 1434310 GFR NON-AA >60 ML/MIN 01/05/2014 TSH 2490254 TSH 1.998 uIU/ML 09/24/2013 A1C HPLC 9876041 A1C HPLC 79300-4 5.0 % 09/24/2013 CBC 3590631 WBC 6.8 10e9/L 09/24/2013 CBC 7813355 RBC 4.83 10e12/L 09/24/2013 CBC 0104420 HGB 14.8 g/dL 09/24/2013 CBC 2282830 HCT DET 42.8 % 09/24/2013 CBC 8192324 MCV 88.6 fL 09/24/2013 CBC 3426973 MCH 30.6 pg 09/24/2013 CBC 5224451 MCHC 34.6 g/dL 09/24/2013 CBC 8052887 PLT 267 10e9/L 09/24/2013 CBC 9529341 MPV 10.3 fL 09/24/2013 CBC 7309227 ALBERTO % 49.5 % 09/24/2013 CBC 1456325 LY % 38.1 % 09/24/2013 CBC 0619721 MON % 9.6 % 09/24/2013 CBC 2280005 EOS % 2.7 % 09/24/2013 CBC 0351979 BASO % 0.1 % 09/24/2013 CBC 6804550 RDW 13.0 % 09/24/2013 CBC 9071113 ABS ALBERTO 3.37 10e9/L 09/24/2013 CBC 9606505 ABS LYMPH 2.59 10e9/L 09/24/2013 CBC 7894776 ABS MONO 0.65 10e9/L 09/24/2013 CBC 2174226 ABS EOS 0.18 10e9/L 09/24/2013 CBC 7514887 ABS BASO 0.01 10e9/L 09/24/2013 CBC 6367660 RDW-SD 41.6 fL 09/24/2013 CHEM 14 9771303 AST 25 U/L 09/24/2013 CHEM 14 7245046 ALT 31 IU/L 09/24/2013 CHEM 14 3020737 BUN 16 MG/DL 09/24/2013 CHEM 14 4467505 ALBUMIN 4.7 GM/DL 09/24/2013 CHEM 14 8659867 CHLORIDE 105 MMOL/L 09/24/2013 CHEM 14 2603938 BILI TOT 0.3 MG/DL 09/24/2013 CHEM 14 5479092 ALK PHOS 80 U/L 09/24/2013 CHEM 14 1272821 SODIUM 138 MMOL/L 09/24/2013 CHEM 14 3800460 CREATININE 0.96 MG/DL 09/24/2013 CHEM 14 6812343 CALCIUM 9.9 MG/DL 09/24/2013 CHEM 14 0247760 POTASSIUM 3.9 MMOL/L 09/24/2013 CHEM 14 7520598 PROT TOT 7.0 GM/DL 09/24/2013 CHEM 14 0673856 GLUCOSE 92 MG/DL 09/24/2013 CHEM 14 6491382 BICARB 28 MMOL/L 09/24/2013 CHEM 14 6089406 ANION GAP 5 MEQ/L 09/24/2013 LIPID GRP HDL TEST 59 MG/DL 09/24/2013 LIPID GRP TRIG 71 MG/DL 09/24/2013 LIPID GRP TEST LDL 148 MG/DL 09/24/2013 LIPID GRP CHOL 221 MG/DL 09/24/2013 LIPID GRP RCHOL/HDL 3.75 RATIO 09/24/2013 GFR CALC 2304223 GFR AA >60 ML/MIN 09/24/2013 GFR CALC 8366816 GFR NON-AA >60 ML/MIN 09/24/2013 FERRITIN 7962496 FERRITIN 66 NG/ML 02/12/2013 %SAT/TIBC 0256529 TIBC 348 UG/DL 02/12/2013 %SAT/TIBC 5121284 % SATURAT 43 % 02/12/2013 %SAT/TIBC 4199167 UIBC 199 MCG/DL 02/12/2013 IRON TEST 6270153 IRON TEST 149 UG/DL 02/12/2013 VIT D TOTL 7284280 VIT D TOTL 42 NG/ML 02/12/2013 VIT B 12 2645322 VIT B 12 657 PG/ML 02/12/2013 TSH 5002271 TSH 1.511 uIU/ML 07/21/2012 FREE T4 1500355 FREE T4 0.95 NG/DL 07/21/2012 THYRO AB 0254074 THYRO A A 0.23 UNITS 03/15/2012 THYRO AB 7352701 THYRO PERX 11.61 UNITS 03/15/2012 TSH 1505166 TSH 1.696 uIU/ML 03/12/2012 CA PTH 3987202 CA PTH 9.5 MG/DL 03/12/2012 INT IR PTH 5720091 PTH TEST 28 PG/ML 03/12/2012 T3 TOT 5425711 T3 TOT 1.6 NG/ML 03/12/2012 GFR CALC 2578395 GFR AA >60 ML/MIN 03/12/2012 GFR CALC 9315721 GFR NON-AA >60 ML/MIN 03/12/2012 FREE T4 6097529 FREE T4 1.10 NG/DL 03/12/2012 [facility] GLUCOSE 81 MG/DL 03/12/2012 BMP CREATININE 0.87 MG/DL 03/12/2012 BMP BUN 11 MG/DL 03/12/2012 BMP SODIUM 136 MMOL/L 03/12/2012 BMP POTASSIUM 3.8 MMOL/L 03/12/2012 BMP CHLORIDE 101 MMOL/L 03/12/2012 BMP BICARB 28 MMOL/L 03/12/2012 BMP ANION GAP 7 MEQ/L 03/12/2012 BMP CALCIUM 9.7 MG/DL 03/12/2012 Review of Systems System Result [...] nourished 07/23/2018 None Full Exam - General 1994 Eyes conjunctiva /eyelids Overall: conjunctiva clear 07/23/2018 [...] inner left nostril Full Exam - General 1995 Ears/Nose/Throat oral cavity/pharynx/larynx Overall: oral mucosa clear 07/23/2018 None Full Exam - General 1995 Ears/Nose/Throat oral cavity/pharynx/larynx Overall: oropharyngeal mucosa clear 07/23/2018 None Full Exam - General 1994 Ears/Nose/Throat oral cavity/pharynx/larynx Overall: no masses 07/23/2018 [...] inner left nostril Full Exam - General 1995 Ears/Nose/Throat oral [...] accomodation 04/22/2014 None Full Exam - General 1995 Ears/Nose/Throat otoscopic exam External auditory canal: erythematous 04/22/2014 small abrasion noted in ear canal Full Exam - General 1994 Ears/Nose/Throat otoscopic exam Tympanic membrane: air- fluid level 04/22/2014 None Full Exam - General 1995 Ears/Nose/Throat oral cavity/pharynx/larynx Overall: oral mucosa clear 04/22/2014 None Full Exam - General 1995 Ears/Nose/Throat [...] 1994 Ears/Nose/Throat oral cavity/pharynx/larynx Overall: no masses 07/31/2013 [...] time 07/31/2013 None Full Exam - General 1994 Constitutional general appearance Overall: well developed 04/23/2013 None Full Exam - General 1994 Constitutional general appearance Overall: in no acute distress 04/23/2013 None Full Exam - General 1994 Constitutional general appearance Overall: well nourished 04/23/2013 [...] tenderness 04/23/2013 None Full Exam - General 1994 Abdomen abdominal exam Overall: normal bowel sounds 04/23/2013 None Full Exam - General 1994 Musculoskeletal digits and nails Overall: no clubbing 04/23/2013 None Full Exam - General 1994 Musculoskeletal digits and nails Overall: digits benign 04/23/2013 None Full Exam - General 1994 Integument inspection of skin Overall: no rash, lesions 04/23/2013 None Full Exam - General 1994 Neurologic deep tendon reflexes Overall: deep tendon reflexes intact 04/23/2013 None Full Exam - General 1995 Neurologic gait Overall: no ataxia, no unsteadiness 04/23/2013 None Full Exam - General 1994 Neurologic cranial nerves Overall: crainial nerves 2 - 12 grossly intact 04/23/2013 None Full Exam - General 1994 Neurologic motor Overall: normal bulk, tone 04/23/2013 None Full Exam - General 1994 Psychiatric orientation/consciousness Overall: oriented to person, place and time 04/23/2013 None Full Exam - General 1995 Ears/Nose/Throat otoscopic exam Tympanic membrane: air- fluid level 04/23/2013 None Full Exam - General 1995 Ears/Nose/Throat otoscopic exam External auditory canal: erythematous [...] accomodation 02/11/2013 None Full Exam - General 1994 Ears/Nose/Throat otoscopic exam Overall: external auditory canals clear 02/11/2013 None Full Exam - General 1994 Ears/Nose/Throat [...] retractions 02/11/2013 None Full Exam - General 1995 Respiratory respiratory effort/rhythm Overall: normal rate 02/11/2013 [...] tone 03/11/2012 None Full Exam - General 1995 Musculoskeletal digits and nails Overall: digits benign 03/11/2012 None Full Exam - General 1995 Musculoskeletal digits and nails Overall: no clubbing [...] Codes Date URINALYSIS NONAUTO W/O SCOPE CPT-4: 09337 05/08/2018 URINALYSIS NONAUTO W/O SCOPE CPT-4: 35153 07/31/2013 URINALYSIS NONAUTO W/O SCOPE CPT-4: 88018 03/26/2013 Vital Signs Date Vital 07/23/2018 Blood Pressure 1: 120/76 Code : 8480-6 BMI: 35.7 Code : 35857-8 Heart Rate 1 : 90 bpm Height: 5'2" SpO2: 97% Weight: 195 lbs 05/27/2018 Blood Pressure 1: 140/78 Code : 8480-6 BMI: 35.3 Code : 65181-0 Heart Rate 1 : 80 bpm Height: 5'2" SpO2: 97% Weight: 193 lbs 03/25/2018 Blood Pressure 1: 122/80 Code : 8480-6 Heart Rate 1: 108 bpm Height: 5'2" SpO2: 98% Weight: 01/28/2018 Blood Pressure 1: 122/74 Code : 8480-6 BMI: 34.4 Code : 92734-5 Heart Rate 1 : 79 bpm Height: 5'2" SpO2: 94% Weight: 188 lbs 11/26/2017 Blood Pressure 1: 134/70 Code : 8480-6 BMI: 33.5 Code : 83089-1 Heart Rate 1 : 96 bpm Height: 5'2" SpO2: 99% Weight: 183 lbs 07/23/2017 Blood Pressure 1: 108/70 Code : 8480-6 BMI: 33.7 Code : 64143-4 Heart Rate 1 : 128 bpm Height: 5'2" SpO2: 99% Weight: 184 lbs 05/22/2017 Blood Pressure 1: 112/80 Code : 8480-6 BMI: 32.6 Code : 59431-6 Heart Rate 1 : 112 bpm Height: 5'2" Respiratory Rate: 16 bpm SpO2: 99% Weight: 178 lbs 04/04/2017 Blood Pressure 1: 110/66 Code : 8480-6 BMI: 32.2 Code : 30088-4 Heart Rate 1 : 117 bpm Height: 5'2" SpO2: 98% Weight: 176 lbs 03/01/2017 Blood Pressure 1: 132/81 Code : 8480-6 Heart Rate 1: 110 bpm Height: 5'2" SpO2: 97% Weight: 12/31/2016 Blood Pressure 1: 122/76 Code : 8480-6 Heart Rate 1: 102 bpm Height: 5'2" SpO2: 98% Weight: 10/01/2016 Blood Pressure 1: 124/78 Code : 8480-6 BMI: 31.8 Code : 49005-3 Heart Rate 1 : 91 bpm Height: [...] Code : 8480-6 BMI: 31.3 Code : 75820-4 Heart Rate 1 : 114 bpm Height: 5'2" SpO2: 99% Weight: 174 lbs 07/05/2016 Blood Pressure 1: 126/74 Code : 8480-6 BMI: 30.8 Code : 33234-3 Heart Rate 1 : 100 bpm Height: 5'2" SpO2: 98% Weight: 171 lbs 04/10/2016 Blood Pressure 1: 110/68 Code : 8480-6 BMI: 31.0 Code : 66912-9 Heart Rate 1 : 72 bpm Height: 5'2" Respiratory Rate: 16 bpm Weight: 172 lbs 8 oz 02/07/2016 Blood Pressure 1: 120/72 Code : 8480-6 BMI: 30.8 Code : 82824-6 Heart Rate 1 : 111 bpm Height: 5'2" SpO2: 98% Temperature: 36.9 (C) / 98.4 (F) Weight: 171 lbs 01/05/2016 Blood Pressure 1: 116/76 Code : 8480-6 BMI: 29.9 Code : 66980-8 Heart Rate 1 : 101 bpm Height: 5'2" SpO2: 98% Temperature: 36.8 (C) / 98.3 (F) Weight: 166 lbs 12/01/2015 Blood Pressure 1: 132/78 Code : 8480-6 BMI: 30.1 Code : 27920-8 Heart Rate 1 : 122 bpm Height: 5'2" SpO2: 99% Temperature: 37.3 (C) / 99.2 (F) Weight: 167 lbs 11/03/2015 Blood Pressure 1: 118/80 Code : 8480-6 BMI: 29.6 Code : 44155-9 Heart Rate 1 : 105 bpm Height: 5'2" SpO2: 99% Temperature: 37.1 (C) / 98.8 (F) Weight: 164 lbs 8 oz 10/26/2015 Blood Pressure 1: 120/72 Code : 8480-6 BMI: 29.7 Code : 92035-5 Heart Rate 1 : 107 bpm Height: 5'2" SpO2: 92% Weight: 165 lbs 10/17/2015 Blood Pressure 1: 122/74 Code : 8480-6 BMI: 29.7 Code : 99384-8 Heart Rate 1 : 120 bpm Height: 5'2" SpO2: 96% Temperature: 37.6 (C) / 99.7 (F) Weight: 165 lbs 09/06/2015 Blood Pressure 1: 142/90 Code : 8480-6 BMI: 28.8 Code : 24368-8 Heart Rate 1 : 100 bpm Height: 5'2" SpO2: 96% Weight: 160 lbs 12/24/2014 Blood Pressure 1: 138/88 Code : 8480-6 BMI: 31.5 Code : 28971-8 Heart Rate 1 : 125 bpm Height: 5'2" SpO2: 95% Weight: 175 lbs 11/30/2014 Blood Pressure 1: 112/88 Code : 8480-6 BMI: 31.0 Code : 41499-6 Heart Rate 1 : 115 bpm Height: 5'2" SpO2: 98% Temperature: 36.7 (C) / 98.0 (F) Weight: 172 lbs 10/06/2014 Blood Pressure 1: 102/74 Code : 8480-6 BMI: 31.1 Code : 49935-7 Heart Rate 1 : 104 bpm Height: 5'2" Temperature: 36.8 (C) / 98.2 (F) Weight: 173 lbs 09/08/2014 Blood Pressure 1: 102/64 Code : 8480-6 BMI: 32.0 Code : 56127-6 Heart Rate 1 : 104 bpm Height: 5'2" Weight: 178 lbs 08/13/2014 Blood Pressure 1: 128/88 Code : 8480-6 Heart Rate 1: 92 bpm Weight: 175 lbs 04/22/2014 Blood Pressure 1: 128/84 Code : 8480-6 BMI: 31.0 Code : 93775-5 Heart Rate 1 : 76 bpm Height: 5'2" Weight: 172 lbs 01/04/2014 Blood Pressure 1: 102/72 Code : 8480-6 BMI: 29.9 Code : 85930-4 Heart Rate 1 : 100 bpm Height: 5'2" SpO2: 98% Weight: 166 lbs 07/31/2013 Blood Pressure 1: 118/76 Code : 8480-6 BMI: 30.8 Code : 30415-8 Heart Rate 1 : 100 bpm Height: 5'2" Weight: 171 lbs 04/23/2013 Blood Pressure 1: 106/70 Code : 8480-6 Heart Rate 1: 104 bpm Weight: 03/26/2013 Blood Pressure 1: 116/68 Code : 8480-6 Heart Rate 1: 72 bpm Temperature: 36.6 (C) / 97.9 (F) Weight: 182 lbs 02/11/2013 Blood Pressure 1: 114/78 Code : 8480-6 BMI: 30.4 Code : 68672-8 Heart Rate 1 : 124 bpm Height: 5'2" Weight: 169 lbs 07/16/2012 Blood Pressure 1: 104/74 Code : 8480-6 Heart Rate 1: 100 bpm Weight: 167 lbs 03/11/2012 Blood Pressure 1: 110/78 Code : 8480-6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 treatments-start cefdinir-instructed her to go to ER over the weekend if symptoms do not resolve or if any worse. Call if symptoms do not completely resolved. Patient verbalized understanding. . Abnormal thyroid wvxfocpy-olijfzsimogv-blizvsmm, night sweats, fatigue-plan to check additional labs including thyroid auto antibodies and PTH as well as thryoid ultrasound. Carbon Monoxide poisoning-plan to check EKG-discussed with Dr. Smith-may need an Echo as well Hypoglycemia-check blood sugars with symptoms-glucometer provided rash on nose needs cultured . Chronic [...] has appt with Neurologist at [facility] soon. She will keep me informed of [...] her other office visits with neurologist and stamp collector, review of her MRI of head, cervical [...] - pt to keep appt with specialists. . Abdominal pain - Hx of severe [...] -the pt is pending a work-up by Waste [employer] Hammermill Operator/Tobacco Cloth Reclaimer at in the next few months. Order for ESR/CRP given to pt to have this lab as needed for symptoms of inflammation and prn order for prednisone sent to the pharmacy for symptoms of flair. Excoriation on scalp and neck - discussed with patient - change hair products, stop suave and start on Barbadian oil or tea tree oil on scalp. [...] any worse Breast pain-repeat ultrasound in October MRI neck . Neck pain with significant symptoms-schedule MRI of neck-continue anti inflammatories as directed . POTS - Autonomic dysfunction - continue with IVIG - increase - per neurologist to every 21 days. Continue with appts in [place] with neurology - agree with [place] appt in November. Depression - uncontrolled - [...] pat dry and use lotion after toileting. . Leg Weakness - recommendation for physical [...] given her information about the specialist at [facility] who has specialization in small fiber neuropathy. . Family history of Muscle disorders - recommended pt to have a neurological evaluation - referral placed to - Dr. Daniel Rich Neu[facility] - referral for neuromuscular eval with possible muscle biopsy. . ADHD - per Neuropsych testing - she has nonspecifit attentional ineffieciency interacting with treated ADHD in a normal neurocognitive study. neurology referral to [facility] Memory loss - recommended patient to continue current medical regimen, will refer to [facility] per her request . ADHD - monitor symptoms - continue with current treatment. Family history of Muscle disorders -continue supportive care. Tachycardia - improved - defer treatment to Dr. Johnson . Breast discharge - sent to lab for body fluids to [facility] for breast fluid eval/pathology ADHD - medication [...] ds dna, to blood in lab at [facility]. Chronic Depression and anxiety - the pt has symptoms of chronic anxiety and depression that have been fairly well controlled since the last office visit. The pt has expected periods of exacerbation with abatement of the symptoms with change in situational exposure. No change in current medications. Over 1 hour spent with patient in exam, and interview. . ADHD - refill vyvanse today. Immune deficiency - Dr. Mccoy - [phone] - med allergy/immunology Nasal lesion - referral to dr. [...] TESTING Sinusitis-Rx sent to patient's pharmacy . Auto-immune disease process - recommended further testing and referral to specialist in [facility] - Allergy/ Immunology/Rheumatology clinic. Pt is to continue with treatment per career orientation teacher. . Memory loss, gait instability, weakness, headaches [...] procedure of some sort on May 29 [facility] on aging - [phone] Hartmann - she does not know exactly what is going to happen in May - we will call Dr. Hartmann. med rec number [phone] Urinary retention/detrusor instability - recommended patient to start therapy as directed by Dr. Hummel. - She is to call Dr. Hummel about if he approves of therapy at [facility]. Phone call to Dr. Hartmann's office tonight - did not get through to a person today - message left for Dr. Hartmann's nurse to call the office with messages and information. . ADHD - monitor symptoms - continue with strattera as previously directed Family history of Muscle disorders -continue supportive care. Tachycardia - monitor symptoms - defer treatment to Dr. Johnson recommended pt to see how she does [...] want to start on this medications. . Chronic Depression and anxiety - the [...] ADHD - continue with current treatment. . Chronic Depression and anxiety - the [...] have recommended that she have testing/eval by interim controller for further in depth evaluation. I have [...] ANN-abdominal pain-refer to Dr Velazquez for evaluation Culture urine VYVANSE 30MG DAILY . ADHD [...] Low back pain-history of UTI-+leukocytes at the [facility]-send urine for culture Culture urine VYVANSE 30MG [...] Low back pain-history of UTI-+leukocytes at the [facility]-send urine for culture Schedule gallbladder ultrasound. RUQ [...] neurological evaluation - waiting on appt in [place]. Rx for diflucan for vaginitis . ADHD - medication working well for [...] -the pt is pending a work-up by [employer] Operator/Tobacco Cloth Reclaimer. Autoimmune symptoms - continue with IVIG Chronic [...] to wait until she is seen at [facility] and discuss such an investigation with the experts that she will see when she has her appt that is being set up by the Staff Physical Therapy Assistant. . ADHD - pt is to start [...]
--- OUTSIDE RECORDS SUMMARY | 2018-08-14 11:47 | XMS REPORT | CCD ---
Author Author Mireille Tatum MD, [facility] Address [facility] [place] [address] Phone Care Team Providers Care Stacker Driver Name Role Phone PP Unavailable CCM Unavailable Summary Purpose Interface Exchange Insurance Providers Payer name Policy type / Coverage type Covered constitution party ID Effective Begin Date Effective End Date [id number] 2014 Unknown Family history Sister Diagnosis [...] Unknown 2 08/21/[address]: 2723206 Former smoker quit 2004 08/21/[address]: 792976 Currently drinks alcohol 1 weekly 08/21/2011 Has the patient ever used illegal drugs? Unknown Has never used illegal drugs 08/21/2011 Allergies, Adverse Reactions, Alerts Substance Reaction Codes Entered Date Inactivated Date Status * OTHER REACTION - SEE ANSWER BOX EX-PREP (BOWEL CLEANSING PREP) Unknown 11/03/2015 No Inactive Date Active bactrim RxNorm: 486252 11/03/2015 No Inactive Date Active GABAPENTIN Unknown [...] 150 mg tablet, 12 hr sustained-release RxNorm: 147951 1 Tablet(s) PO BID TAKE 1 TABLET TWICE A DAY 07/23/2018 07/17/2019 Active Vyvanse 30 mg capsule RxNorm: 644674 1 Capsule(s) PO daily 05/2706/25/2018 Inactive oxycodone 10 mg tablet RxNorm: 4025119 1 Tablet(s) PO TID as needed 05/27/2018 06/25/2018 Inactive azelastine-fluticasone 137 mcg-50 mcg/spray nasal spray RxNorm: 1703900 2 Spencer NASAL daily ONE SPRAY IN EACH NOSTRIL 05/09/2018 08/01/2019 Active 90 day supply please Vyvanse 40 mg capsule RxNorm: 964993 1 Capsule(s) PO daily 05/0505/26/2018 Inactive propranolol 20 mg tablet RxNorm: 505394 1 Tablet(s) PO UD 20mg AM and 20mg PM 03/25/2018 04/23/2018 Inactive Vyvanse 40 mg capsule RxNorm: 329501 1 Capsule(s) PO daily 03/2504/23/2018 Inactive oxycodone 15 mg tablet RxNorm: 8913146 1 Tablet(s) PO Q6 as needed pain 03/25/2018 05/26/2018 Inactive prednisone 20 mg tablet RxNorm: 822588 2 Tablet(s) PO daily x 5 days - may extend to 10 days if the vascular symptoms are not resolved 201704/13/2018 Inactive pt to call for this to be filled if she has vascular inflammatory symptoms. Xanax 0.5 mg tablet RxNorm: 132582 1 Tablet(s) PO Q4H as needed 02/26/2018 04/26/2018 Inactive Vyvanse 50 mg capsule RxNorm: 200751 1 Capsule(s) PO daily 02/2603/24/2018 Inactive propranolol 20 mg tablet RxNorm: 171630 1 Tablet(s) PO UD 20mg AM and 40mg PM 01/28/2018 02/26/2018 Inactive Vyvanse 50 mg capsule RxNorm: 351974 1 Capsule(s) PO daily 01/2802/25/2018 Inactive Vyvanse 50 mg capsule RxNorm: 316464 1 Capsule(s) PO daily 12/2501/23/2018 Inactive clindamycin HCl 300 mg capsule RxNorm: 611939 1 Capsule(s) PO TID 12/05/2017 12/04/2017 Inactive clindamycin HCl 300 mg capsule RxNorm: 856605 1 Capsule(s) PO TID 12/05/2017 12/18/2017 Inactive azelastine 137 mcg (0.1 %) nasal spray aerosol RxNorm: 3631238 2 Spencer NASAL BID 11/14/2017 12/13/2017 Inactive [SAVINGS FOR NON-COVERED DRUGS -- BIN:[id number], PCN: [id number], Group: [id number], ID# [id number], Questions: . THIS IS NOT INSURANCE.] Diflucan 150 mg tablet RxNorm: 541659 1 Tablet(s) PO daily as needed yeast infection symptoms after taking antibiotics 10/24/2017 03/24/2018 Inactive doxycycline hyclate 100 mg tablet RxNorm: 189267 1 Tablet(s) PO BID 10/24/2017 10/23/2017 Inactive doxycycline hyclate 100 mg tablet RxNorm: 229365 1 Tablet(s) PO BID 10/24/2017 11/12/2017 Inactive Vyvanse 50 mg capsule RxNorm: 509663 1 Capsule(s) PO daily 10/2411/22/2017 Inactive Vyvanse 60 mg capsule RxNorm: 627192 1 Capsule(s) PO daily 09/1209/11/2017 Inactive Vyvanse 60 mg capsule RxNorm: 102073 1 Capsule(s) PO daily 09/1210/11/2017 Inactive diclofenac 1 % topical gel RxNorm: 988730 2 Gram(s) TOP QID as needed apply twice daily scheduled to affected joints and can apply up to 4 times in a day 07/23/2017 03/24/2018 Inactive metoprolol succinate ER 50 mg tablet,extended release 24 hr RxNorm: 215178 1 Tablet(s) PO QHS 07/23/2017 01/27/2018 Inactive Vyvanse 70 mg capsule RxNorm: 534465 1 Capsule(s) PO daily 06/1709/11/2017 Inactive potassium chloride ER 10 mEq capsule,extended release RxNorm: 791574 1 Capsule(s) PO daily take only when taking lasix 05/30/2017 03/24/2018 Inactive Lasix 20 mg tablet RxNorm: 559241 1 Tablet(s) PO QAM x 3 days then prn wt gain>/ =2#'s 05/30/2017 08/27/2017 Inactive Lasix 20 mg tablet RxNorm: 599838 1 Tablet(s) PO QAM x 3 days then prn wt gain>/ =2#'s 05/30/2017 05/29/2017 Inactive potassium chloride ER 10 mEq capsule,extended release RxNorm: 530849 1 Capsule(s) PO daily take only when taking lasix 05/30/2017 05/29/2017 Inactive Intuniv ER 2 mg tablet,extended release RxNorm: 093809 1 Tablet(s) PO QPM 05/22/2017 11/25/2017 Inactive Vyvanse 70 mg capsule RxNorm: 380655 1 Capsule(s) PO daily 04/1505/14/2017 Inactive Vyvanse 70 mg capsule RxNorm: 070429 1 Capsule(s) PO daily 03/1504/13/2017 Inactive oxycodone 5 mg tablet RxNorm: 7092163 1 Tablet(s) PO QID as needed pain 02/11/2017 03/12/2017 Inactive Vyvanse 70 mg capsule RxNorm: 791634 1 Capsule(s) PO daily 02/1103/12/2017 Inactive Vyvanse 70 mg capsule RxNorm: 460967 1 Capsule(s) PO daily 01/1402/10/2017 Inactive furosemide 20 mg tablet RxNorm: 286343 1 Tablet(s) PO PRN if you gain more than 3 pounds of fluid in 24 hours 12/31/201604/2018 Inactive Vyvanse 70 mg capsule RxNorm: 718653 1 Capsule(s) PO daily 12/1101/09/2017 Inactive Vyvanse 50 mg capsule RxNorm: 316000 1 Capsule(s) PO daily 11/0912/10/2016 Inactive Xanax 0.5 mg tablet RxNorm: 043442 1 Tablet(s) PO Q4H as needed 10/11/2016 12/09/2016 Inactive Vyvanse 40 mg capsule RxNorm: 301739 1 Capsule(s) PO daily 10/1111/08/2016 Inactive albuterol sulfate 2.5 mg/3 mL (0.083 %) solution for nebulization RxNorm: 337053 3 Milliliter(s) INH Q4 PRN 10/01/2016 01/28/2017 Inactive oxycodone 5 mg tablet RxNorm: 0771763 1 Tablet(s) PO QID as needed pain 10/01/2016 10/30/2016 Inactive Ambien 5 mg tablet RxNorm: 222228 1 Tablet(s) PO HS PRN 09/2803/24/2018 Inactive Vyvanse 40 mg capsule RxNorm: 787464 1 Capsule(s) PO daily 09/1710/10/2016 Inactive Vyvanse 30 mg capsule RxNorm: 929855 1 Capsule(s) PO daily 08/2309/16/2016 Inactive Xanax 0.5 mg tablet RxNorm: 074705 1 Tablet(s) PO Q4H as needed 07/20/2016 09/17/2016 Inactive hydrocodone 5 mg-acetaminophen 325 mg tablet RxNorm: 062068 1 Tablet(s) PO Q6 as needed 07/10/2016 09/30/2016 Inactive Augmentin 500 mg-125 mg tablet RxNorm: 847836 1 Tablet(s) PO TID 07/10/2016 07/16/2016 Inactive Vyvanse 70 mg capsule RxNorm: 162326 1 Capsule(s) PO daily 06/1508/22/2016 Inactive Vyvanse 70 mg capsule RxNorm: 976827 1 Capsule(s) PO daily 05/1506/13/2016 Inactive Diflucan 150 mg tablet RxNorm: 507744 1 Tablet(s) PO daily 05/14/2016 Inactive Wellbutrin SR 150 mg tablet,sustained-release RxNorm: 889747 TAKE 1 TABLET TWICE A DAY 03/29/2016 07/26/2016 Inactive Diflucan 150 mg tablet RxNorm: 530561 1 Tablet(s) PO daily 03/201603/29/2016 Inactive Diflucan 150 mg tablet RxNorm: 559914 1 Tablet(s) PO daily 03/201603/22/2016 Inactive Vyvanse 70 mg capsule RxNorm: 841784 Capsule(s) PO daily 201504/10/2016 Inactive Vyvanse 70 mg capsule RxNorm: 194038 Capsule(s) PO daily 201503/07/2016 Inactive Voltaren 1 % topical gel RxNorm: 702230 2 Gram(s) TOP QID to shoulders and wrists and hips 02/07/2016 07/18/2016 Inactive Vyvanse 70 mg capsule RxNorm: 158510 Capsule(s) PO daily 201502/06/2016 Inactive Vyvanse 70 mg capsule RxNorm: 507590 Capsule(s) PO daily 201501/12/2016 Inactive Ambien 5 mg tablet RxNorm: 666483 1 Tablet(s) PO HS PRN 11/0204/30/2016 Inactive Xanax 0.5 mg tablet RxNorm: 453056 1 Tablet(s) PO Q4H as needed 11/03/2015 07/19/2016 Inactive [SAVINGS FOR UNINSURED PATIENTS -- BIN:090306, PCN: ASPROD1, Group: [id number], ID# [id number], Process claim through [employer], for questions: [phone]. THIS IS NOT INSURANCE.] Diflucan 150 mg tablet RxNorm: 210305 1 Tablet(s) PO every other day 10/25/2015 11/07/2015 Inactive Diflucan 150 mg tablet RxNorm: 446826 1 Tablet(s) PO every other day 10/25/2015 10/24/2015 Inactive Augmentin 875 mg-125 mg tablet RxNorm: 963104 1 Tablet(s) PO BID 10/25/2015 11/07/2015 Inactive Augmentin 875 mg-125 mg tablet RxNorm: 703610 1 Tablet(s) PO BID 10/25/2015 10/24/2015 Inactive gabapentin 100 mg capsule RxNorm: 565621 Capsule(s) PO TAKE 200 MG DAILY X5 DAYS THEN 100 MG DAILY X5 DAYS THEN 100 MG EVERY OTHER DAY X3 DOSES THEN STOP 10/21/2015 11/02/2015 Inactive Cipro 500 mg tablet RxNorm: 309624 1 Tablet(s) PO BID 201510/11/2015 Inactive Cipro 500 mg tablet RxNorm: 172884 1 Tablet(s) PO BID 201510/24/2015 Inactive Vyvanse 70 mg capsule RxNorm: 500762 Capsule(s) PO daily 201511/09/2015 Inactive Klonopin 0.5 mg tablet RxNorm: 998996 1 Tablet(s) PO BID as needed 09/28/2015 11/02/2015 Inactive Klonopin 0.5 mg tablet RxNorm: 330329 1 Tablet(s) PO BID as needed 09/28/2015 09/27/2015 Inactive gabapentin 300 mg capsule RxNorm: 308819 1 Capsule(s) PO QHS 10/20/2015 Inactive gabapentin 300 mg capsule RxNorm: 321269 1 Capsule(s) PO QHS 09/15/2015 Inactive hydrocodone 5 mg-acetaminophen 325 mg tablet RxNorm: 969513 1 Tablet(s) PO Q6 as needed 09/16/2015 10/15/2015 Inactive gabapentin 300 mg capsule RxNorm: 349498 1 Capsule(s) PO QHS 09/25/2015 Inactive Intuniv ER 2 mg tablet,extended release RxNorm: 336542 Tablet(s) TAKE 1 TABLET DAILY 09/13/2015 04/03/2017 Inactive Intuniv ER 2 mg tablet,extended release RxNorm: 504864 TAKE 1 TABLET DAILY 09/12/2015 09/12/2015 Inactive Vyvanse 70 mg capsule RxNorm: 962850 Capsule(s) PO daily 201509/08/2015 Inactive Vyvanse 70 mg capsule RxNorm: 354890 Capsule(s) PO daily 201408/09/2015 Inactive Vyvanse 70 mg capsule RxNorm: 149704 Capsule(s) PO daily 201407/06/2015 Inactive Ambien 5 mg tablet RxNorm: 961921 1 Tablet(s) PO HS PRN 06/0709/04/2015 Inactive acyclovir 800 mg tablet RxNorm: 404742 1 Tablet(s) PO TID 05/1809/15/2015 Inactive Vyvanse 70 mg capsule RxNorm: 215724 Capsule(s) PO 05/11/2015 06/06/2015 Inactive Xanax 0.5 mg tablet RxNorm: 079927 1 Tablet(s) PO Q4H as needed 05/03/2015 09/27/2015 Inactive [SAVINGS FOR UNINSURED PATIENTS -- BIN:[id number], PCN: ASPROD1, Group: [id number], ID# [id number], Process claim through [employer], for questions: [phone]. THIS IS NOT INSURANCE.] Ventolin HFA 90 mcg/actuation aerosol inhaler RxNorm: 9300195 2 Puff(s) INH QID 05/03/2015 05/02/2015 Inactive Ventolin HFA 90 mcg/actuation aerosol inhaler RxNorm: 5158933 2 Puff(s) INH QID 05/03/2015 06/01/2015 Inactive acyclovir 800 mg tablet RxNorm: 963909 1 Tablet(s) PO TID 05/0205/11/2015 Inactive acyclovir 800 mg tablet RxNorm: 750136 1 Tablet(s) PO TID 05/0205/01/2015 Inactive Keflex 500 mg capsule RxNorm: 593782 1 Capsule(s) PO TID 201404/28/2015 Inactive Keflex 500 mg capsule RxNorm: 982600 1 Capsule(s) PO TID 201405/05/2015 Inactive hydrocodone 5 mg-acetaminophen 325 mg tablet RxNorm: 173064 1 Tablet(s) PO Q6 as needed 04/11/2015 05/10/2015 Inactive Vyvanse 70 mg capsule RxNorm: 410956 Capsule(s) PO 04/11/2015 05/10/2015 Inactive naproxen 500 mg tablet RxNorm: 264813 1 Tablet(s) PO BID 201404/05/2015 Inactive naproxen 500 mg tablet RxNorm: 653738 1 Tablet(s) PO BID 201407/18/2016 Inactive Intuniv ER 2 mg tablet,extended release RxNorm: 274979 TAKE 1 TABLET DAILY 03/15/2015 09/11/2015 Inactive Vyvanse 70 mg capsule RxNorm: 903330 Capsule(s) PO 03/11/2015 04/09/2015 Inactive hydrocodone 5 mg-acetaminophen 325 mg tablet RxNorm: 541972 1 Tablet(s) PO Q6 as needed 02/22/2015 04/10/2015 Inactive Wellbutrin SR 150 mg tablet,sustained-release RxNorm: 278782 TAKE 1 TABLET TWICE A DAY 02/21/2015 2016 Inactive Vyvanse 70 mg capsule RxNorm: 062145 Capsule(s) PO 02/14/2015 03/10/2015 Inactive Vyvanse 30 mg capsule RxNorm: 883085 1 Capsule(s) PO noon 201402/13/2015 Inactive 314.01 Vyvanse 40 mg capsule RxNorm: 347590 40mg q AM and 30mg q NOON Capsule(s) PO 02/10/2015 02/13/2015 Inactive Levaquin 500 mg tablet RxNorm: 802109 1 Tablet(s) PO daily 08/201401/19/2015 Inactive Levaquin 500 mg tablet RxNorm: 700127 1 Tablet(s) PO daily 08/201401/12/2015 Inactive prednisone 20 mg tablet RxNorm: 741661 3 Tablet(s) PO daily 08/201401/17/2015 Inactive hydrocodone 5 mg-acetaminophen 325 mg tablet RxNorm: 396299 1 Tablet(s) PO Q6 as needed 01/10/2015 02/21/2015 Inactive Vyvanse 30 mg capsule RxNorm: 110921 1 Capsule(s) PO noon 201402/08/2015 Inactive 314.01 Vyvanse 40 mg capsule RxNorm: 310760 40mg q AM and 30mg q NOON Capsule(s) PO 01/10/2015 02/08/2015 Inactive cefdinir 300 mg capsule RxNorm: 832366 1 Capsule(s) PO BID 06/201512/30/2014 Inactive albuterol sulfate 2.5 mg/3 mL (0.083 %) solution for nebulization RxNorm: 095244 3 Milliliter(s) INH Q4 PRN 12/24/2014 01/22/2015 Inactive Diflucan 150 mg tablet RxNorm: 640909 1 Tablet(s) PO daily 06/201512/23/2014 Inactive Diflucan 150 mg tablet RxNorm: 337292 1 Tablet(s) PO daily 06/201512/30/2014 Inactive Ambien 5 mg tablet RxNorm: 117769 1 Tablet(s) PO HS PRN 12/0906/06/2015 Inactive Vyvanse 40 mg capsule RxNorm: 907801 40mg q AM and 30mg q NOON Capsule(s) PO 12/08/2014 01/06/2015 Inactive Linzess 145 mcg capsule RxNorm: 1445594 1 Capsule(s) PO daily 12/08/2014 06/05/2015 Inactive Vyvanse 30 mg capsule RxNorm: 472257 1 Capsule(s) PO noon 201401/06/2015 Inactive 314.01 Vyvanse 40 mg capsule RxNorm: 561321 40mg q AM and 30mg q NOON Capsule(s) PO 11/10/2014 12/07/2014 Inactive Vyvanse 30 mg capsule RxNorm: 807272 1 Capsule(s) PO noon 201412/07/2014 Inactive 314.01 Nexium 40 mg capsule,delayed release RxNorm: 383886 1 Capsule(s) PO daily 10/27/2014 10/26/2014 Inactive Nexium 40 mg capsule,delayed release RxNorm: 341423 1 Capsule(s) PO daily 10/27/2014 05/24/2015 Inactive Zofran 4 mg tablet RxNorm: 995639 1 Tablet(s) PO Q6 hours prn as needed for nausea 10/21/2014 10/25/2014 Inactive Zofran 4 mg tablet RxNorm: 488063 1 Tablet(s) PO Q6 hours prn as needed for nausea 10/21/2014 10/20/2014 Inactive Xanax 0.25 mg tablet RxNorm: 132866 1/2 to 1 Tablet(s) PO Q8 PRN as needed 10/15/2014 05/02/2015 Inactive [SAVINGS FOR UNINSURED PATIENTS -- BIN:063345, PCN: ASPROD1, Group: [id number], ID# [id number], Process claim through [employer], for questions: . THIS IS NOT INSURANCE.] sucralfate 100 mg/mL oral suspension RxNorm: 350243 10 Milliliter(s) PO QID 10/06/2014 11/02/2015 Inactive Vyvanse 40 mg capsule RxNorm: 755411 40mg q AM and 30mg q NOON Capsule(s) PO 10/04/2014 11/02/2014 Inactive omeprazole 20 mg capsule,delayed release RxNorm: 693704 1 Capsule(s) PO daily 09/08/2014 11/02/2015 Inactive Linzess 145 mcg capsule RxNorm: 4068725 1 Capsule(s) PO daily 09/08/2014 10/07/2014 Inactive azelastine 137 mcg (0.1 %) nasal spray aerosol RxNorm: 1851675 2 Spencer NASAL BID 09/06/2014 10/05/2014 Inactive [SAVINGS FOR NON-COVERED DRUGS -- BIN:353244, PCN: ASPROD1, Group: [id number], ID# [id number], Questions: . THIS IS NOT INSURANCE.] Xanax 0.25 mg tablet RxNorm: 880966 1/2 to 1 Tablet(s) PO Q8 PRN as needed 08/26/2014 10/14/2014 Inactive [SAVINGS FOR UNINSURED PATIENTS -- BIN:101462, PCN: ASPROD1, Group: [id number], ID# [id number], Process claim through [employer], for questions: . THIS IS NOT INSURANCE.] Ambien 5 mg tablet RxNorm: 455252 1 Tablet(s) PO HS PRN 08/1312/08/2014 Inactive prednisone 20 mg tablet RxNorm: 230998 3 Tablet(s) PO daily 08/17/2014 Inactive Vyvanse 40 mg capsule RxNorm: 653278 40mg q AM and 30mg q NOON Capsule(s) PO 08/11/2014 09/09/2014 Inactive Vyvanse 40 mg capsule RxNorm: 991422 40mg q AM and 30mg q NOON Capsule(s) PO 07/06/2014 08/04/2014 Inactive Xanax 0.25 mg tablet RxNorm: 693937 1/2 to 1 Tablet(s) PO Q8 PRN as needed 06/23/2014 08/25/2014 Inactive Wellbutrin SR 150 mg tablet,sustained-release RxNorm: 610030 TAKE 1 TABLET TWICE A DAY 06/08/2014 02/20/2015 Inactive Vyvanse 40 mg capsule RxNorm: 537153 40mg q AM and 30mg q NOON Capsule(s) PO 06/03/2014 07/02/2014 Inactive Vyvanse 40 mg capsule RxNorm: 569837 40mg q AM and 30mg q NOON Capsule(s) PO 05/04/2014 06/02/2014 Inactive Intuniv ER 2 mg tablet,extended release RxNorm: 805230 TAKE 1 TABLET DAILY 04/13/2014 03/14/2015 Inactive Vyvanse 40 mg capsule RxNorm: 270147 40mg q AM and 30mg q NOON Capsule(s) PO 03/24/2014 04/22/2014 Inactive Vyvanse 40 mg capsule RxNorm: 712665 40mg q AM and 30mg q NOON Capsule(s) PO 03/01/2014 03/23/2014 Inactive Wellbutrin SR 150 mg tablet,sustained-release RxNorm: 864131 1 Tablet(s) PO BID 01/04/2014 06/07/2014 Inactive Claritin 10 mg tablet RxNorm: 959944 1 Tablet(s) PO daily 201307/18/2016 Inactive Vyvanse 40 mg capsule RxNorm: 782031 40mg q AM and 30mg q NOON Capsule(s) PO 12/21/2013 01/19/2014 Inactive Intuniv ER 2 mg tablet,extended release RxNorm: 737311 Tablet(s) PO TAKE 1 TABLET DAILY 12/14/2013 04/12/2014 Inactive Vyvanse 40 mg capsule RxNorm: 192768 40mg q AM and 30mg q NOON Capsule(s) PO QAM 11/12/2013 12/11/2013 Inactive Vyvanse 40 mg capsule RxNorm: 987745 40mg q AM and 30mg q NOON Capsule(s) PO QAM 10/15/2013 11/11/2013 Inactive Vyvanse 40 mg capsule RxNorm: 722457 1 Capsule(s) PO QAM 201310/14/2013 Inactive spironolactone 25 mg tablet RxNorm: 069696 1 Tablet(s) PO BID 10/01/2013 09/25/2014 Inactive metformin 500 mg tablet RxNorm: 132185 1/2 Tablet(s) PO QHS 09/25/2014 Inactive Intuniv ER 2 mg tablet,extended release RxNorm: 342720 Tablet(s) PO TAKE 1 TABLET DAILY 09/22/2013 12/13/2013 Inactive Vyvanse 40 mg capsule RxNorm: 259616 1 Capsule(s) PO QAM 201310/14/2013 Inactive Vyvanse 30 mg capsule RxNorm: 279198 1 Capsule(s) PO noon 201310/14/2013 Inactive Vyvanse 30 mg capsule RxNorm: 227187 1 Capsule(s) PO noon 201309/14/2013 Inactive Vyvanse 40 mg capsule RxNorm: 761639 1 Capsule(s) PO QAM 201309/14/2013 Inactive Keflex 500 mg capsule RxNorm: 739152 1 Capsule(s) PO QID 201308/18/2013 Inactive Keflex 500 mg capsule RxNorm: 214621 1 Capsule(s) PO QID 201308/11/2013 Inactive metformin 500 mg tablet RxNorm: 325367 1/2 Tablet(s) PO QHS 09/30/2013 Inactive spironolactone 25 mg tablet RxNorm: 756204 1 Tablet(s) PO BID 07/31/2013 09/30/2013 Inactive Diflucan 150 mg tablet RxNorm: 171592 1 Tablet(s) PO daily 08/06/2013 Inactive Vyvanse 30 mg capsule RxNorm: 155774 1 Capsule(s) PO noon 201208/16/2013 Inactive Vyvanse 40 mg capsule RxNorm: 652258 1 Capsule(s) PO QAM 201208/16/2013 Inactive Wellbutrin SR 150 mg tablet,sustained-release RxNorm: 347056 1 Tablet(s) PO BID 06/04/2013 06/24/2013 Inactive Xanax 0.25 mg tablet RxNorm: 044764 1/2 to 1 Tablet(s) PO Q8 PRN 05/20/2013 06/22/2014 Inactive Wellbutrin SR 150 mg tablet,sustained-release RxNorm: 107577 1 Tablet(s) PO BID 05/18/2013 06/03/2013 Inactive Vyvanse 40 mg capsule RxNorm: 964180 1 Capsule(s) PO QAM 201206/16/2013 Inactive Vyvanse 30 mg capsule RxNorm: 216374 1 Capsule(s) PO noon 201206/16/2013 Inactive Wellbutrin SR 150 mg tablet,sustained-release RxNorm: 184339 1 Tablet(s) PO daily 04/30/2013 05/17/2013 Inactive Wellbutrin SR 150 mg tablet,sustained-release RxNorm: 173265 1 Tablet(s) PO daily 04/30/2013 04/29/2013 Inactive cefdinir 300 mg capsule RxNorm: 756123 1 Capsule(s) PO BID 04/201304/29/2013 Inactive Vyvanse 70 mg capsule RxNorm: 796815 1 Capsule(s) PO QAM 201205/18/2013 Inactive azelastine 137 mcg Nasal Spencer Aerosol RxNorm: 5306229 2 Spencer NASAL BID 03/26/2013 09/21/2013 Inactive Augmentin 500 mg-125 mg tablet RxNorm: 493665 1 Tablet(s) PO BID 03/26/2013 03/30/2013 Inactive Vyvanse 70 mg capsule RxNorm: 384987 1 Capsule(s) PO QAM 201203/11/2013 Inactive multivitamin tablet RxNorm: 1 Tablet(s) PO daily 02/11/2013 04/03/2017 Inactive Vyvanse 70 mg capsule RxNorm: 737896 1 Capsule(s) PO QAM 201203/11/2013 Inactive Vyvanse 70 mg capsule RxNorm: 234060 1 Capsule(s) PO 01/12/2013 02/10/2013 Inactive Intuniv ER 2 mg tablet,extended release RxNorm: 992538 Tablet(s) PO TAKE 1 TABLET DAILY 01/02/2013 09/21/2013 Inactive Intuniv ER 2 mg tablet,extended release RxNorm: 588261 1 Tablet(s) PO QHS 01/01/2013 01/01/2013 Inactive Vyvanse 70 mg capsule RxNorm: 325418 1 Capsule(s) PO 12/10/2012 01/08/2013 Inactive Vyvanse 70 mg capsule RxNorm: 059108 1 Capsule(s) PO 11/11/2012 12/09/2012 Inactive Intuniv ER 2 mg tablet,extended release RxNorm: 995782 1 Tablet(s) PO QHS 09/29/2012 12/27/2012 Inactive Vyvanse 60 mg capsule RxNorm: 046091 1 Capsule(s) PO daily 09/1012/21/2013 Inactive Intuniv ER 2 mg tablet,extended release RxNorm: 357844 1 Tablet(s) PO QHS 09/02/2012 09/28/2012 Inactive Intuniv ER 2 mg tablet,extended release RxNorm: 795248 1 Tablet(s) PO QHS 08/11/2012 09/01/2012 Inactive Vyvanse 60 mg capsule RxNorm: 888894 1 Capsule(s) PO daily 08/1109/09/2012 Inactive omeprazole 20 mg Cap, Delayed Release RxNorm: 127406 1 Capsule(s) PO daily 09/11/2011 02/11/2013 Inactive Aciphex 20 mg Tab RxNorm: 695472 1 Tablet(s) PO daily 201109/11/2011 Inactive Aciphex 20 mg Tab RxNorm: 658873 1 Tablet(s) PO daily 201109/10/2011 Inactive NormaLyte ORS 1.3-1.45-0.75 gram/10.5 gram oral powder packet RxNorm: 1 PO BID No Start Date Active Excedrin Migraine 250 mg-250 mg-65 mg tablet RxNorm: 066239 1 Tablet(s) PO Q6 as needed No Start Date Active Restasis 0.05 % eye drops in a dropperette RxNorm: 777472 OPH BID No Start Date Active ketorolac 0.4 % eye drops RxNorm: 175624 3-4 Drop(s) ophthalmic (eye) to left eye daily No Start Date Active Corlanor 5 mg tablet RxNorm: 4241517 1 Tablet(s) PO BID No Start Date Active Privigen 10 % intravenous solution RxNorm: 668138 1 treatment IV q 28days No Start Date Active baclofen 10 mg tablet RxNorm: 295413 1 Tablet(s) PO TID as needed No Start Date Active Cymbalta 60 mg capsule,delayed release RxNorm: 455612 1 Capsule(s) PO BID No Start Date 07/29/2018 Active diazepam 2 mg tablet RxNorm: 757584 1 Tablet(s) PO BID -Prescribed by urology at No Start Date 03/24/2018 Inactive amitriptyline 10 mg tablet RxNorm: 262426 3 Tablet(s) PO QHS Dr Walker No Start Date 11/25/2017 Inactive hyoscyamine 0.125 mg sublingual tablet RxNorm: 4057243 1 Tablet(s) SL Q4H as needed No Start Date 03/24/2018 Inactive Loestrin Fe 1.5/30 (28) 1.5 mg-30 mcg Tab RxNorm: 0595213 1 Tablet(s) PO daily No Start Date 02/10/2013 Inactive Vitamin D3 1,000 unit tablet RxNorm: 423839 1 Tablet(s) PO daily No Start Date 07/18/2016 Inactive Caltrate 600 + D oral RxNorm: 603429 oral No Start Date 04/03/2017 Inactive Lyrica 50 mg capsule RxNorm: 654845 1 Capsule(s) PO BID -Started by Dr. Hartmann No Start Date 12/30/2016 Inactive multivitamin tablet RxNorm: 2 Tablet(s) PO daily No Start Date 02/10/2013 Inactive Elavil 10 mg tablet RxNorm: 051535 1 Tablet(s) PO QHS No Start Date 07/17/2017 Inactive gabapentin 100 mg capsule RxNorm: 504623 Capsule(s) PO TAKE 200 MG DAILY X5 DAYS THEN 100 MG DAILY X5 DAYS THEN 100 MG EVERY OTHER DAY X3 DOSES THEN STOP No Start Date 10/20/2015 Inactive Lyrica 75 mg capsule RxNorm: 897301 1 Capsule(s) PO BID manage by Dr Hartmann No Start Date 04/03/2017 Inactive Flonase 50 mcg/actuation Nasal Spencer RxNorm: 771043 Spencer NASAL daily No Start Date 11/02/2015 Inactive Xanax 0.25 mg tablet RxNorm: 414900 1/2 to 1 Tablet(s) PO Q8 PRN No Start Date 05/19/2013 Inactive Diflucan 150 mg tablet RxNorm: 012953 1 Tablet(s) PO daily as needed yeast infection symptoms No Start Date 2017 Inactive Toprol XL 25 mg tablet,extended release RxNorm: 647929 1 Tablet(s) PO QHS No Start Date 01/27/2018 Inactive Vitamin C 500 mg tablet RxNorm: 850134 1 Tablet(s) PO daily No Start Date 07/18/2016 Inactive Pyridium 100 mg tablet RxNorm: 6065071 1 Tablet(s) PO TID as needed No Start Date 03/24/2018 Inactive azelastine 137 mcg Nasal [place] Aerosol RxNorm: 669500 1 [place] NASAL daily No Start Date 09/05/2014 Inactive Pazeo 0.7 % eye drops RxNorm: 3229338 Drop(s) OPH as needed No Start Date 05/26/2018 Inactive Celexa 10 mg Tab RxNorm: 584412 1 Tablet(s) PO daily No Start Date 08/18/2013 Inactive Lastacaft 0.25 % Eye Drops RxNorm: 4818653 Drop(s) OPH PRN No Start Date 11/02/2015 Inactive azelastine-fluticasone 137 mcg-50 mcg/spray nasal spray RxNorm: 3701473 2 [place] NASAL daily ONE SPRAY IN EACH NOSTRIL No Start Date 05/08/2018 Inactive Zyrtec 10 mg capsule RxNorm: 7367939 1 Capsule(s) PO daily No Start Date 01/03/2014 Inactive Vitamin B-12 ER 1,500 mcg tablet,extended release RxNorm: 382141 1 Tablet(s) PO daily No Start Date 07/18/2016 Inactive Intuniv ER 2 mg tablet,extended release RxNorm: 063158 1 Tablet(s) PO QHS No Start Date 08/10/2012 Inactive Vyvanse 60 mg capsule RxNorm: 640839 1 Capsule(s) PO daily No Start Date 08/10/2012 Inactive metoprolol succinate ER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 PATIENT, LEVEL IV Diagnosis: Systemic involvement of connective tissue, unspecified[ICD10: M35.9] Diagnosis: Cervicalgia[ICD10: M54.2] Sahara Smith MD, [facility] CPT-4: 65061 12/01/2015 ([id number]) 69016 EST. PATIENT, LEVEL IV Diagnosis: Systemic involvement of connective tissue, unspecified[ICD10: M35.9] Diagnosis: Pain in unspecified joint[ICD10: M25.50] Diagnosis: Fever, unspecified[ICD10: R50.9] Diagnosis: Weakness[ICD10: R53.1] Sahara Smith MD, [facility] CPT-4: 20102 11/03/2015 69024 EST. PATIENT, LEVEL IV Diagnosis: Pain in left hand[ICD10: M79.642] Laya Smith MD, [facility] CPT -4: 64563 10/26/2015 ([id number]) 48649 EST. PATIENT, LEVEL III Diagnosis: Urinary tract infection, site not specified[ICD10: N39.0] Diagnosis: Fever, unspecified[ICD10: R50.9] Diagnosis: Dizziness and giddiness[ICD10: R42] Mireille Smith MD, [facility] CPT-4: 65802 10/17/2015 ([id number]) 49266 EST. 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 PATIENT, LEVEL III Diagnosis: COUGH[ICD9: 786.2] Diagnosis: Reactive airway disease[ICD9: 493.90] Diagnosis: ALLERGIC RHINITIS[ICD9: 477.9] Diagnosis: Acute bronchitis[ICD9: 466.0] Mireille Smith MD, [facility] CPT-4: 97837 12/24/2014 ([id number]) 80632 EST. PATIENT, LEVEL IV Diagnosis: Scleritis[ICD9: 379.00] Diagnosis: AUTOIMMUNE DISEASE NEC[ICD9: 279.49] Sahara Smith MD, [facility] CPT-4: 08218 11/30/2014 ([id number]) 71322 EST. PATIENT, LEVEL IV Diagnosis: Abdominal pain[ICD9: 789.00] Diagnosis: GENERALIZED ANXIETY DISEASE[ICD9: 300.02] Diagnosis: Irritable bowel[ICD9: 564.1] Diagnosis: Constipation - functional[ICD9: 564.09] Sahara Smith MD, [facility] CPT-4: 61827 10/06/2014 ([id number]) 94531 EST. PATIENT, LEVEL IV Diagnosis: RUQ pain[ICD9: 789.01] Diagnosis: GENERALIZED ANXIETY DISEASE[ICD9: 300.02] Diagnosis: ADHD (attention deficit hyperactivity disorder)[ICD9: 314.01] Diagnosis: Irritable bowel[ICD9: 564.1] Sahara Smith MD, [facility] CPT- 4: 84855 09/08/2014 ([id number]) 55453 EST. PATIENT, LEVEL IV Diagnosis: ATTN DEFICIT W/ HYPERACT[ICD9: 314.01] Diagnosis: Insomnia[ICD9: 780.52] Diagnosis: HEADACHE[ICD9: 784.0] Diagnosis: ALLERGIC RHINITIS[ICD9: 477.9] Diagnosis: Neck pain[ICD9: 723.1] Mireille Smith MD, [facility] CPT-4: 16037 08/13/2014 ([id number]) 80867 EST. PATIENT, LEVEL V Diagnosis: Breast discharge[ICD9: 611.79] Diagnosis: ADHD (attention deficit hyperactivity disorder)[ICD9: 314.01] Diagnosis: MALAISE AND FATIGUE[ICD9: 780.79] Diagnosis: ABN THYROID FUNCT STUDY[ICD9: 794.5] Diagnosis: Swollen neck[ICD9: 784.2] Diagnosis: Rash[ICD9: 782.1] Sahara Smith MD, [facility] CPT-4: 07194 04/22/2014 ([id number]) 99794 EST. PATIENT, LEVEL IV Diagnosis: ADHD (attention deficit hyperactivity disorder)[ICD9: 314.01] Diagnosis: GENERALIZED ANXIETY DISEASE[ICD9: 300.02] Diagnosis: Fatigue[ICD9: 780.79] Diagnosis: PCOS (polycystic ovarian syndrome)[ICD9: 256.4] Sahara Smith MD, [facility] CPT-4: 92283 01/04/2014 ([id number]) 74132 EST. PATIENT, LEVEL IV Diagnosis: Vaginal yeast infection[ICD9: 112.1] Diagnosis: PCOS (polycystic ovarian syndrome)[ICD9: 256.4] Diagnosis: Hirsutism[ICD9: 704.1] Mireille Smith MD, [facility] CPT-4: 81677 07/31/2013 ([id number]) 17940 EST. PATIENT, LEVEL IV Diagnosis: ATTN DEFICIT W/ HYPERACT[ICD9: 314.01] Diagnosis: ALLERGIC RHINITIS[ICD9: 477.9] Diagnosis: ACUTE SINUSITIS[ICD9: 461.9] Mireille Smith MD, [facility] CPT-4: 81590 04/23/2013 63342 EST. PATIENT, LEVEL III Diagnosis: UTI[ICD9: 599.0] Sahara Smith MD, [facility] CPT-4: 39742 03/26/2013 ([id number]) 27243 EST. PATIENT, LEVEL IV Diagnosis: Constipation - functional[ICD9: 564.09] Diagnosis: ABN THYROID FUNCT STUDY[ICD9: 794.5] Diagnosis: MALAISE AND FATIGUE[ICD9: 780.79] Diagnosis: GENERALIZED ANXIETY DISEASE[ICD9: 300.02] Sahara Smith MD, [facility] CPT-4: 59725 02/11/2013 ([id number]) 25239 EST. PATIENT, LEVEL IV Diagnosis: ADHD (attention deficit hyperactivity disorder)[ICD9: 314.01] Diagnosis: GENERALIZED ANXIETY DISEASE[ICD9: 300.02] Diagnosis: Overweight[ICD9: 278.02] Sahara Smith MD, [facility] CPT-4: 87400 07/16/2012 ([id number]) 66197 EST. PATIENT, LEVEL IV Diagnosis: Abnormal thyroid function test[ICD9: 794.5] Diagnosis: Toxic effect of carbon monoxide[ICD9: 986] Diagnosis: Fatigue[ICD9: 780.79] Diagnosis: Hypoglycemia[ICD9: 251.2] [facility] CPT-4: 29355 03/11/2012 ([id number]) OFFICE VISIT, NEW - LEVEL 3 Diagnosis: RUQ pain[ICD9: 789.01] Diagnosis: Nausea[ICD9: 787.02] [facility] CPT-4: 74145 08/21/2011 Plan of Care Planned Activity Notes Codes Status Date Visit Plan: POTS - Autonomic dysfunction - continue with IVIG - increase - per neurologist to every 21 days. Continue with appts in [place] with neurology - agree with [place] appt in November. Depression - uncontrolled - [...] dry and use lotion after toileting. 07/23/2018 Patient Education: Patient Medication Summary Completed [...] -the pt is pending a work-up by Roofer/Metabolic Specialist. Autoimmune symptoms - continue with IVIG Chronic [...] to wait until she is seen at [facility] and discuss such an investigation with the experts that she will see when she has her appt that is being set up by the Logistics Operations Director. 05/27/2018 Appointment: Sah[facility] [address] [facility] [place] (15 min) Moderate 05/27/2018 Patient Education: Patient Medication Summary Completed 05/27/2018 Appointment: Lab Draw 05/08/2018 Patient Education: Patient Medication Summary Completed 05/08/2018 Appointment: [facility] [phone] [phone] [place] (15 min) Moderate 03/31/2018 Visit Plan: [...] -the pt is pending a work-up by Roofer/Metabolic Specialist at in the next few months. Order for ESR/CRP given to pt to have this lab as needed for symptoms of inflammation and prn order for prednisone sent to the pharmacy for symptoms of flair. Excoriation on scalp and neck - discussed with patient - change hair products, stop suave and start on Panamanian oil or tea tree oil on scalp. Chronic Pain Syndrome - pt has chronic pain - has been maintained on current medications, has not sought out other medications, only uses PRN pain medications as directed , and understands the consequences of over-medication. 03/25/2018 Appointment: Sahara Smith WPtel: [address] [place] [address] (15 min) Moderate 03/25/2018 Patient Education: Patient Medication Summary Completed 03/25/2018 Referral: Oscar Allen [address] Referral Completed 02/04/2018 Visit Plan: ADHD - refill vyvanse today. Immune deficiency - Dr. Mccoy - [phone] [facility] allergy/immunology Nasal lesion - referral to dr. allen RE - nasal sore left side of nose - nonhealing Anxiety - refilled rx for patient. 01/28/2018 Appointment: Sahara Smith WPtel: [address] [place], [place] [phone] (30 min) Complex 01/28/2018 Patient Education: Patient Medication Summary Completed 01/28/2018 Care Plan: Referral Order SNOMED-CT : [id number] Pending 01/28/2018 Care Plan: Referral Order SNOMED-CT : [id number] Pending 01/28/2018 Visit Plan: Chronic Pain Syndrome [...] Pt has appt with Neurologist at [facility] soon. She will keep me informed of [...] her other office visits with neurologist and flour mixer, review of her MRI of head, cervical spine and back, labs from the specialists, etc. 11/26/2017 Appointment: Sahara Smith WPtel: [facility] (30 min) Complex 11/26/2017 Patient Education: [...] given her information about the specialist at [facility] who has specialization in small fiber neuropathy. 07/23/2017 Appointment: Sahara Smith WPtel: [facility] (30 min) Complex 07/23/2017 Patient Education: Patient Medication Summary Completed 07/23/2017 Appointment: Sahara Smith WPtel: [facility] [place] (30 min) Complex 06/13/2017 Visit Plan: ADHD - per Neuropsych testing - she has nonspecifit attentional ineffieciency interacting with treated ADHD in a normal neurocognitive study. neurology referral to [facility] Memory loss - recommended patient to continue current medical regimen, will refer to [facility] per her request 05/22/2017 Appointment: Sahara Smith WPtel: [facility] [place] (30 min) Complex 05/22/2017 Patient Education: Patient Medication Summary Completed 05/22/2017 Patient Education: Obesity Completed 05/22/2017 Care Plan: Referral Order SNOMED-CT : [id number] Pending 05/22/2017 Visit Plan: Possible small fiber neuropathy - pt to have further testing at - appt with Cardiology at for autonomic testing, and to have small nerve biopsy - she states that she has a procedure of some sort on May 29 [facility] on aging - [phone] Hartmann - she does not know exactly what is going to happen in May - we will call Dr. Hartmann. med rec number [phone] Urinary retention/detrusor instability - recommended patient to start therapy as directed by Dr. Hummel. - She is to call Dr. Hummel about if he approves of therapy at [facility]. Phone call to Dr. Hartmann's office tonight - did not get through to a person today - message left for Dr. Hartmann's nurse to call the office with messages and information. 04/04/2017 Appointment: Sahara Smith WPtel: [facility] (30 min) Complex 04/04/2017 Patient Education: Patient Medication Summary Completed 04/04/2017 Patient Education: Obesity Completed 04/04/2017 Appointment: Sahara Smith WPtel: [facility] (30 min) Complex 04/02/2017 Visit Plan: Memory loss, gait instability, weakness, headaches - will order MRI - will treat as indicated - pt is to update her neurologist - pt is to notify clinic of any changes, questions, or concerns. 03/01/2017 Appointment: Laya Ramos WPtel: [facility] (30 min) Complex 03/01/2017 Patient Education: Patient [...] current treatment. 12/31/2016 Appointment: Sahara Smith WPtel: [facility] (30 min) Complex 12/31/2016 Patient Education: Patient Medication Summary Completed 12/31/2016 Visit Plan: ADHD - monitor symptoms - continue with current treatment. Family history of Muscle disorders -continue supportive care. Tachycardia - improved - defer treatment to Dr. Johnson 10/01/2016 Appointment: Sahara Smith WPtel: [facility] (30 min) Complex 10/01/2016 Patient Education: [...] Low back pain-history of UTI-+leukocytes at the [facility]-send urine for culture 08/23/2016 Visit Plan: [...] Low back pain-history of UTI-+leukocytes at the [facility]-send urine for culture 08/23/2016 Appointment: Mireille Tatum WPtel: [address] [place] [phone] (30 min) Complex 08/23/2016 Patient Education: Patient [...] medications. 08/02/2016 Appointment: Sahara Smith WPtel: [address] [facility] [place] (30 min) Complex 08/02/2016 Patient Education: Patient Medication Summary Completed 08/02/2016 Visit Plan: Palpitations - treatment per Dr. Johnson- continue with current treatment - call if heart rate not improving. ADHD - restart strattera - stop wellbutrin. 07/19/2016 Appointment: Sahara Smith WPtel: [address] [facility] [place] (30 min) Complex 07/19/2016 Appointment: Mireille Tatum WPtel: [address] [place], [place] [phone] [place] (30 min) Complex 07/19/2016 Patient Education: Patient Medication Summary Completed 07/19/2016 Visit Plan: ADHD - monitor symptoms - continue with strattera as previously directed Family history of Muscle disorders -continue supportive care. Tachycardia - monitor symptoms - defer treatment to Dr. Johnson 07/05/2016 Appointment: Sahara Smith WPtel: [facility] (30 min) Complex 07/05/2016 Patient Education: Patient Medication Summary Completed 07/05/2016 Patient Education: Obesity Completed 07/05/2016 Visit Plan: Family history of Muscle disorders - recommended pt to have a neurological evaluation - waiting on appt in [place]. Rx for diflucan for vaginitis 04/10/2016 Appointment: Sahara Smith WPtel: [address] [place], [place] [phone] [place] (15 min) Moderate 04/10/2016 Patient Education: Patient Medication Summary Completed 04/10/2016 Visit Plan: Family history of Muscle disorders - recommended pt to have a neurological evaluation - pt was turned down by Dr. Mora - further referral pending. Pt to use voltaren gel on affected joints - call if not improving. 02/07/2016 Appointment: Sahara Smith WPtel: [address] [place], [place] [phone] [place] (15 min) Moderate 02/07/2016 Patient Education: Patient Medication Summary Completed 02/07/2016 Care Plan: Referral Order SNOMED-CT : [id number] Pending 01/09/2016 Visit Plan: Family history of [...] any concerns. 10/26/2015 Appointment: Mireille Tatum WPtel: [address] [place], [place] [phone] (15 min) Moderate 10/26/2015 Patient Education: Patient Medication Summary Completed 10/26/2015 Visit Plan: UTI-symptoms improving-finish abx Fever of unknown origin-check labs Diziness,memory loss, headache-schedule MRI brain for further evaluation Joint pain-positive VLADISLAV-abdominal pain-refer to Dr Velazquez for evaluation 10/17/2015 [...] further testing and referral to specialist in [facility] - Allergy/Immunology/Rheumatology clinic. Pt is to continue with treatment per fraternity adviser. 11/30/2014 Patient Education: Patient Medication Summary Completed 11/30/2014 Care Plan: Referral Order SNOMED-CT : [id number] Ordered 11/30/2014 Appointment: Sick 11/26/2014 Visit Plan: [...] her colonoscopy. 10/06/2014 Appointment: Sahara Smith WPtel: [facility] S[facility] 10/06/2014 Patient Education: Patient Medication Summary Completed 10/06/2014 Care Plan: Referral Order SNOMED-CT : [id number] Ordered 10/06/2014 Visit Plan: RUQ pain - GERD symptoms - recommended pt to start on pepcid, start monitoring symptoms. Irritable bowel syndrome - recommended pt to start on linzess samples and to start on probiotics. REFILL ADHD medications 09/08/2014 Appointment: Sahara Smith WPtel: [facility] Follow up 09/08/2014 Patient Education: Patient [...] sent to lab for body fluids to [facility] for breast fluid eval/pathology ADHD - [...] Anxiety, breast discharge, malaise - will add vladislav, antismooth muscle, ra panel, esr, crp, prolactin level, anti ds dna, to blood in lab at [facility]. Chronic Depression and anxiety - the pt has symptoms of chronic anxiety and depression that have been fairly well controlled since the last office visit. The pt has expected periods of exacerbation with abatement of the symptoms with change in situational exposure. No change in current medications. Over 1 hour spent with patient in exam, and interview. 04/22/2014 Appointment: Sahara Smith [facility]Ptel: [address] [facility] [facility] 04/22/2014 Patient Education: Patient Medication Summary Completed [...] bid dosing. 01/04/2014 Appointment: Sahara Smith WPtel: [address] [facility] Follow up 01/04/2014 Patient Education: Patient Medication Summary Completed 01/04/2014 Visit Plan: Yeast infection-RX for diflucan-call if symptoms do not resolve QGFF-pwznjzofp-hcpvboyrk natural and expected course of this diagnosis and to alert me if symptoms do not follow expected course, or if any worse. RX sent to patient's pharmacy and discussed risk vs benefits of each of the medications. Patient verbalized understanding of plan. 07/31/2013 Appointment: Mireille Tatum [facility]Ptel[facility] [phone] [phone] Pap Only 07/31/2013 Patient Education: Patient Medication [...] patient's pharmacy 04/23/2013 Appointment: Mireille Tatum WPtel: [address] [place] [address] Other 04/23/2013 Patient Education: Patient Medication Summary [...] of plan. 03/26/2013 Appointment: Mireille Tatum WPtel: [address] [place] [address] Other 03/26/2013 Patient Education: Patient Medication Summary Completed 03/26/2013 Appointment: Mireille Tatum WPtel: [address] [place] [address] Sick 02/26/2013 Visit Plan: Constipation - uncontrolled [...] have recommended that she have testing/eval by program director air talent for further in depth evaluation. I have not ordered any specific tests as many endocrinologists have specific labs at which they prefer testing to be performed. 02/11/2013 Appointment: Sahara Smith WPtel: [facility] [address] Other 02/11/2013 Patient Education: Patient Medication Summary [...] weight check. 07/16/2012 Appointment: Sahara Smith [facility]Ptel: [address] [facility] [place] 07/16/2012 Patient Education: Patient Medication Summary Completed 07/16/2012 Visit Plan: Abnormal thyroid ovbkxawo-svzxvcathnsj-wrdjbgwq , night sweats, fatigue-plan to check additional labs including thyroid auto antibodies and PTH as well as thryoid ultrasound. Carbon Monoxide poisoning- plan to check EKG-discussed with Dr. Smith-may need an Echo as well Hypoglycemia-check blood sugars with symptoms-glucometer provided 03/11/2012 Appointment: Mireille Tatum [facility]Ptel: [phone] [phone] [place] Other 03/11/2012 Patient Education: Patient Medication Summary Completed 03/11/2012 Visit Plan: RUQ pain-nausea after meals-recommend gallbladder ultrasound to evaluate patient's gallbladder-also recommend a low fat diet and monitor symptoms. Instructed patient to go to ER for unresolved or worsening pain. Achiphex 20mg daily-samples provided. Call with any questions or concerns. 08/21/2011 Appointment: Mireille Tatum [facility]Ptel: [phone] [facility] New Patient 08/21/2011 Patient Education: Patient Medication Summary Completed 08/21/2011 Referral: External, Ordering Provider Referral Completed Referral: Jose Rodriguez WPtel: [phone] [id number] [place] Referral Completed Referral: [facility] Referral Appointment Requested Referral: RhodesGonzales michaud WPtel: Referral Appointment Requested Ref[facility] [place] Referral Appointment Requested Referral: [facility] Referral Appointment Requested Referral: External, Ordering Provider 06/10 Referral info faxed; 06/11 Clinical information was received and they will send her information on to be reviewed. They will contact the patient for an appt Appointment Requested Instructions Comment . POTS - Autonomic dysfunction - continue with IVIG - increase - per neurologist to every 21 days. Continue with appts in [place] with neurology - agree with [place] appt in November. Depression - uncontrolled - [...] pat dry and use lotion after toileting. MRI neck . Neck pain with significant symptoms-schedule MRI of neck-continue anti inflammatories as directed . ADHD - medication working well for [...] worse Breast pain-repeat ultrasound in October . ADHD - medication working well for [...] -the pt is pending a work-up by Roofer/Metabolic Specialist at in the next few months. Order for ESR/CRP given to pt to have this lab as needed for symptoms of inflammation and prn order for prednisone sent to the pharmacy for symptoms of flair. Excoriation on scalp and neck - discussed with patient - change hair products, stop suave and start on Panamanian oil or tea tree oil on scalp. Chronic Pain Syndrome - pt has chronic pain - has been maintained on current medications, has not sought out other medications, only uses PRN pain medications as directed, and understands the consequences of over-medication. . Abdominal pain - Hx of severe [...] to treatment and results of her colonoscopy. recommended pt to see how she does [...] want to start on this medications. . Cervical neck pain - recommended the pt to start on cervical traction and rx given to pt for cervical traction device Auto-immune symptoms - pt to keep appt with specialists. . Urinary Tract Infection-discussed natural and expected [...] diarrhea. Patient verbalized understanding of plan. . ADHD - medication working well for [...] to daily dosing instead of bid dosing. rash on nose needs cultured . Chronic [...] process. Pt has appt with Neurologist at [facility]. She will keep me informed of their [...] her other office visits with neurologist and flour mixer, review of her MRI of head, cervical spine and back , labs from the specialists, etc. . Auto-immune disease process - recommended further testing and referral to specialist in [facility] - Allergy/ Immunology/Rheumatology clinic. Pt is to continue with treatment per fraternity adviser. . Abnormal thyroid idwabzyi-qqbzzjwleiex-fwkewcdg, night sweats, fatigue-plan to check additional labs including thyroid auto antibodies and PTH as well as thryoid ultrasound. Carbon Monoxide poisoning-plan to check EKG-discussed with Dr. Smith-may need an Echo as well Hypoglycemia-check blood sugars with symptoms-glucometer provided . Cough-reactive airway-patient does not want to take steroids if possible so she can have testing that was previously ordered- recommend she start albuterol breathing treatments-start cefdinir-instructed her to go to ER over the weekend if symptoms do not resolve or if any worse. Call if symptoms do not completely resolved. Patient verbalized understanding. . Breast discharge - sent to lab for body fluids to [facility] for breast fluid eval/pathology ADHD - [...] Anxiety, breast discharge, malaise - will add vladislav, antismooth muscle, ra panel, esr, crp, prolactin level, anti ds dna, to blood in lab at [facility]. Chronic Depression and anxiety - the pt has symptoms of chronic anxiety and depression that have been fairly well controlled since the last office visit. The pt has expected periods of exacerbation with abatement of the symptoms with change in situational exposure. No change in current medications. Over 1 hour spent with patient in exam, and interview. . ADHD - monitor symptoms - continue with current treatment. Family history of Muscle disorders -continue supportive care. Tachycardia - improved - defer treatment to Dr. Johnson . ADHD - per Neuropsych testing - she has nonspecifit attentional ineffieciency interacting with treated ADHD in a normal neurocognitive study. neurology referral to [facility] Memory loss - recommended patient to continue current medical regimen, will refer to [facility] per her request . Yeast infection-RX for diflucan-call if symptoms do not resolve [id number]-[id number] natural and expected course of this diagnosis and to alert me if symptoms do not follow expected course, or if any worse. RX sent to patient's pharmacy and discussed risk vs benefits of each of the medications. Patient verbalized understanding of plan. decrease wellbutrin to one time daily x 1 week then stop . Palpitations - treatment per Dr. Johnson- continue with current treatment - call if heart rate not improving. ADHD - restart strattera - stop wellbutrin. . Leg Weakness - recommendation for physical [...] given her information about the specialist at [facility] who has specialization in small fiber neuropathy. . Family history of Muscle disorders - recommended pt to have a neurological evaluation - referral placed to - Dr. Daniel [facility] - referral for neuromuscular eval with possible muscle biopsy. . ADHD - refill vyvanse today. Immune deficiency - Dr. Mccoy - [phone] - med allergy/immunology Nasal lesion - referral [...] procedure of some sort on May 29 [facility] on aging - [phone] Hartmann - she does not know exactly what is going to happen in May - we will call Dr. Hartmann. med rec number [id number] Urinary retention/detrusor instability - recommended patient to start therapy as directed by Dr. Hummel. - She is to call Dr. Hummel about if he approves of therapy at [facility]. Phone call to Dr. Hartmann's office tonight - did not get through to a person today - message left for Dr. Hartmann's nurse to call the office with messages and information. . ADHD - monitor symptoms - continue with strattera as previously directed Family history of Muscle disorders -continue supportive care. Tachycardia - monitor symptoms - defer treatment to Dr. Johnson . Chronic Depression and anxiety - the [...] have recommended that she have testing/eval by program director air talent for further in depth evaluation. I have [...] MRI brain for further evaluation Joint pain-positive VLADISLAV-abdominal pain-refer to Dr Velazquez for evaluation . [...] -the pt is pending a work-up by Roofer/Metabolic Specialist. Autoimmune symptoms - continue with IVIG Chronic [...] to wait until she is seen at [facility] and discuss such an investigation with the experts that she will see when she has her appt that is being set up by the Logistics Operations Director. . ADHD - pt is to start [...] Low back pain-history of UTI-+leukocytes at the [facility]-send urine for culture Culture urine VYVANSE [...] neurological evaluation - waiting on appt in [place]. Rx for diflucan for vaginitis
[2018-08-14] MEDS ORDERED: LIDOCAINE/EPI 1%-1:100,000 (XYLOCAINE) 20ML ONE (11:51)
[2018-08-14] MEDS ORDERED: HEParin (CENTRAL IV FLUSH) 500 UNIT/5 ML SYR ONE (11:52)
--- OUTSIDE RECORDS SUMMARY | 2018-08-14 11:53 | XMS REPORT | CCD ---
Author Author Mireille Tatum MD, [facility] Address [facility] [place] [address] Phone Care Team Providers Care Product Inspection Supervisor Name Role Phone PP Unavailable CCM Unavailable Summary Purpose Interface Exchange Insurance Providers Payer name Policy type / Coverage type Covered democrat ID Effective Begin Date Effective End Date [id number] 2014 Unknown Family history Sister [...] Unknown 2 08/21/[address]: 4540376 Former smoker quit 2004 08/21/[address]: 712262 Currently drinks alcohol 1 weekly 08/21/2011 Has the patient ever used illegal drugs? Unknown Has never used illegal drugs 08/21/2011 Allergies, Adverse Reactions, Alerts Substance Reaction Codes Entered Date Inactivated Date Status * OTHER REACTION - SEE ANSWER BOX EX-PREP (BOWEL CLEANSING PREP) Unknown 11/03/2015 No Inactive Date Active bactrim RxNorm: 659964 11/03/2015 No Inactive Date Active GABAPENTIN Unknown [...] 356.4 ICD-10: G60.8 Active 07/23/2017 Unknown Other skin changes ICD -9: 782.9 ICD-10: R23.8 Active 03/25/2018 Unknown Other specified disorders of nose and nasal sinuses ICD-9: 478.19 ICD-10: J34.89 Active 11/26/2017 Unknown Chronic pain syndrome ICD-9: 338.4 ICD-10: G89.4 Active 11/26/2017 Unknown Rash and other nonspecific [...] ICD-9: 788.29 ICD-10: R33.8 Active 04/04/2017 Unknown Other specified polyneuropathies ICD-9: 356.8 ICD-10: G62.89 Active 04/04/2017 Unknown Cervicalgia ICD-9: 723.1 ICD-10: M54.2 Active 08/13/2014 Unknown Unsteadiness on feet ICD-9: 781.2 ICD-10: R26.81 Active 03/01/2017 Unknown Weakness ICD-9: 780.79 ICD-10: R53.1 Active 01/04/2014 Unknown Localized edema ICD-9 : 782.3 ICD-10: R60.0 Active 12/31/2016 Unknown Dysphagia, pharyngoesophageal phase ICD-9: 787.24 ICD-10: R13.14 Active 10/01/2016 Unknown Spondylosis without myelopathy or radiculopathy, 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 ICD-10: M47.812 Active 02/06/2016 Unknown Systemic involvement of connective tissue, unspecified ICD-9: 279.49 ICD-10: M35.9 Active 11/29/2014 Unknown Dysuria ICD-9: 788.1 ICD-10: R30.0 Active 08/23/2016 Unknown Palpitations ICD-9: 785.1 ICD-10: R00.2 Active [...] ICD-9: 356.4 ICD-10: G60.8 07/23/2017 Active Other skin changes ICD -9: 782.9 ICD-10: R23.8 03/25/2018 Active Other specified disorders of nose and nasal sinuses ICD-9: 478.19 ICD-10: J34.89 11/26/2017 Active Chronic pain syndrome ICD-9: 338.4 ICD-10: G89.4 11/26/2017 Active Rash and other nonspecific skin [...] urine ICD-9: 788.29 ICD-10: R33.8 04/04/2017 Active Other specified polyneuropathies ICD-9: 356.8 ICD-10: G62.89 04/04/2017 Active Cervicalgia ICD-9: 723.1 ICD-10: M54.2 08/13/2014 Active Unsteadiness on feet ICD-9: 781.2 ICD-10: R26.81 03/01/2017 Active Weakness ICD-9: 780.79 ICD-10: R53.1 01/04/2014 Active Localized edema ICD-9 : 782.3 ICD-10: R60.0 12/31/2016 Active Dysphagia, pharyngoesophageal phase ICD-9: 787.24 ICD-10: R13.14 10/01/2016 Active Spondylosis without myelopathy or radiculopathy, 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 ICD-10: M47.812 02/06/2016 Active Systemic involvement of connective tissue, unspecified ICD-9: 279.49 ICD-10: M35.9 11/29/2014 Active Dysuria ICD-9: 788.1 ICD-10: R30.0 08/23/2016 Active Palpitations ICD-9: 785.1 ICD-10: R00.2 07/19/2016 [...] Start Date Stop Date Status Fill Instructions Vyvanse 40 mg capsule RxNorm: 499823 1 Capsule(s) PO daily 05/0506/03/2018 Active propranolol 20 mg tablet RxNorm: 198174 1 Tablet(s) PO UD 20mg AM and 20mg PM 03/25/2018 04/23/2018 Inactive oxycodone 15 mg tablet RxNorm: 4107767 1 Tablet(s) PO Q6 as needed pain 03/25/2018 04/23/2018 Inactive Vyvanse 40 mg capsule RxNorm: 047281 1 Capsule(s) PO daily 03/2504/23/2018 Inactive prednisone 20 mg tablet RxNorm: 102598 2 Tablet(s) PO daily x 5 days - may extend to 10 days if the vascular symptoms are not resolved 201704/13/2018 Inactive pt to call for this to be filled if she has vascular inflammatory symptoms. Xanax 0.5 mg tablet RxNorm: 997020 1 Tablet(s) PO Q4H as needed 02/26/2018 04/26/2018 Inactive Vyvanse 50 mg capsule RxNorm: 451025 1 Capsule(s) PO daily 02/2603/24/2018 Inactive propranolol 20 mg tablet RxNorm: 245262 1 Tablet(s) PO UD 20mg AM and 40mg PM 01/28/2018 02/26/2018 Inactive Vyvanse 50 mg capsule RxNorm: 651726 1 Capsule(s) PO daily 01/2802/25/2018 Inactive Vyvanse 50 mg capsule RxNorm: 630156 1 Capsule(s) PO daily 12/2501/23/2018 Inactive clindamycin HCl 300 mg capsule RxNorm: 396415 1 Capsule(s) PO TID 12/05/2017 12/04/2017 Inactive clindamycin HCl 300 mg capsule RxNorm: 044080 1 Capsule(s) PO TID 12/05/2017 12/18/2017 Inactive azelastine 137 mcg (0.1 %) nasal spray aerosol RxNorm: 2776118 2 Lonepine NASAL BID 11/14/2017 12/13/2017 Inactive [SAVINGS FOR NON-COVERED DRUGS -- BIN:[id number], PCN: [id number], Group: [id number], ID# [id number], Questions: . THIS IS NOT INSURANCE.] Diflucan 150 mg tablet RxNorm: 575707 1 Tablet(s) PO daily as needed yeast infection symptoms after taking antibiotics 10/24/2017 03/24/2018 Inactive doxycycline hyclate 100 mg tablet RxNorm: 625591 1 Tablet(s) PO BID 10/24/2017 10/23/2017 Inactive doxycycline hyclate 100 mg tablet RxNorm: 714502 1 Tablet(s) PO BID 10/24/2017 11/12/2017 Inactive Vyvanse 50 mg capsule RxNorm: 755084 1 Capsule(s) PO daily 10/2411/22/2017 Inactive Vyvanse 60 mg capsule RxNorm: 400245 1 Capsule(s) PO daily 09/1209/11/2017 Inactive Vyvanse 60 mg capsule RxNorm: 554103 1 Capsule(s) PO daily 09/1210/11/2017 Inactive diclofenac 1 % topical gel RxNorm: 166373 2 Gram(s) TOP QID as needed apply twice daily scheduled to affected joints and can apply up to 4 times in a day 07/23/2017 03/24/2018 Inactive metoprolol succinate ER 50 mg tablet,extended release 24 hr RxNorm: 803407 1 Tablet(s) PO QHS 07/23/2017 01/27/2018 Inactive Vyvanse 70 mg capsule RxNorm: 217933 1 Capsule(s) PO daily 06/1709/11/2017 Inactive potassium chloride ER 10 mEq capsule,extended release RxNorm: 589522 1 Capsule(s) PO daily take only when taking lasix 05/30/2017 03/24/2018 Inactive Lasix 20 mg tablet RxNorm: 431187 1 Tablet(s) PO QAM x 3 days then prn wt gain>/ =2#'s 05/30/2017 08/27/2017 Inactive Lasix 20 mg tablet RxNorm: 127173 1 Tablet(s) PO QAM x 3 days then prn wt gain>/ =2#'s 05/30/2017 05/29/2017 Inactive potassium chloride ER 10 mEq capsule,extended release RxNorm: 463933 1 Capsule(s) PO daily take only when taking lasix 05/30/2017 05/29/2017 Inactive Intuniv ER 2 mg tablet,extended release RxNorm: 700695 1 Tablet(s) PO QPM 05/22/2017 11/25/2017 Inactive Vyvanse 70 mg capsule RxNorm: 860671 1 Capsule(s) PO daily 04/1505/14/2017 Inactive Vyvanse 70 mg capsule RxNorm: 316900 1 Capsule(s) PO daily 03/1504/13/2017 Inactive oxycodone 5 mg tablet RxNorm: 2843774 1 Tablet(s) PO QID as needed pain 02/11/2017 03/12/2017 Inactive Vyvanse 70 mg capsule RxNorm: 441115 1 Capsule(s) PO daily 02/1103/12/2017 Inactive Vyvanse 70 mg capsule RxNorm: 028461 1 Capsule(s) PO daily 01/1402/10/2017 Inactive furosemide 20 mg tablet RxNorm: 081164 1 Tablet(s) PO PRN if you gain more than 3 pounds of fluid in 24 hours 12/31/201604/2018 Inactive Vyvanse 70 mg capsule RxNorm: 386670 1 Capsule(s) PO daily 12/1101/09/2017 Inactive Vyvanse 50 mg capsule RxNorm: 596936 1 Capsule(s) PO daily 11/0912/10/2016 Inactive Xanax 0.5 mg tablet RxNorm: 218634 1 Tablet(s) PO Q4H as needed 10/11/2016 12/09/2016 Inactive Vyvanse 40 mg capsule RxNorm: 437087 1 Capsule(s) PO daily 10/1111/08/2016 Inactive albuterol sulfate 2.5 mg/3 mL (0.083 %) solution for nebulization RxNorm: 855469 3 Milliliter(s) INH Q4 PRN 10/01/2016 01/28/2017 Inactive oxycodone 5 mg tablet RxNorm: 9933511 1 Tablet(s) PO QID as needed pain 10/01/2016 10/30/2016 Inactive Ambien 5 mg tablet RxNorm: 079741 1 Tablet(s) PO HS PRN 09/2803/24/2018 Inactive Vyvanse 40 mg capsule RxNorm: 191214 1 Capsule(s) PO daily 09/1710/10/2016 Inactive Vyvanse 30 mg capsule RxNorm: 771092 1 Capsule(s) PO daily 08/2309/16/2016 Inactive Xanax 0.5 mg tablet RxNorm: 798187 1 Tablet(s) PO Q4H as needed 07/20/2016 09/17/2016 Inactive hydrocodone 5 mg-acetaminophen 325 mg tablet RxNorm: 772838 1 Tablet(s) PO Q6 as needed 07/10/2016 09/30/2016 Inactive Augmentin 500 mg-125 mg tablet RxNorm: 683003 1 Tablet(s) PO TID 07/10/2016 07/16/2016 Inactive Vyvanse 70 mg capsule RxNorm: 637523 1 Capsule(s) PO daily 06/1508/22/2016 Inactive Vyvanse 70 mg capsule RxNorm: 442384 1 Capsule(s) PO daily 05/1506/13/2016 Inactive Diflucan 150 mg tablet RxNorm: 596236 1 Tablet(s) PO daily 05/14/2016 Inactive Wellbutrin SR 150 mg tablet,sustained-release RxNorm: 564928 TAKE 1 TABLET TWICE A DAY 03/29/2016 07/26/2016 Inactive Diflucan 150 mg tablet RxNorm: 714771 1 Tablet(s) PO daily 03/201603/29/2016 Inactive Diflucan 150 mg tablet RxNorm: 748430 1 Tablet(s) PO daily 03/201603/22/2016 Inactive Vyvanse 70 mg capsule RxNorm: 769881 Capsule(s) PO daily 201504/10/2016 Inactive Vyvanse 70 mg capsule RxNorm: 940666 Capsule(s) PO daily 201503/07/2016 Inactive Voltaren 1 % topical gel RxNorm: 511729 2 Gram(s) TOP QID to shoulders and wrists and hips 02/07/2016 07/18/2016 Inactive Vyvanse 70 mg capsule RxNorm: 344598 Capsule(s) PO daily 201502/06/2016 Inactive Vyvanse 70 mg capsule RxNorm: 921483 Capsule(s) PO daily 201501/12/2016 Inactive Ambien 5 mg tablet RxNorm: 707039 1 Tablet(s) PO HS PRN 11/0204/30/2016 Inactive Xanax 0.5 mg tablet RxNorm: 721507 1 Tablet(s) PO Q4H as needed 11/03/2015 07/19/2016 Inactive [SAVINGS FOR UNINSURED PATIENTS -- BIN:[id number], PCN: ASPROD1, Group: [facility], ID# [id number], Process claim through [employer], for questions: [phone]. THIS IS NOT INSURANCE.] Diflucan 150 mg tablet RxNorm: 891877 1 Tablet(s) PO every other day 10/25/2015 11/07/2015 Inactive Diflucan 150 mg tablet RxNorm: 908063 1 Tablet(s) PO every other day 10/25/2015 10/24/2015 Inactive Augmentin 875 mg-125 mg tablet RxNorm: 098099 1 Tablet(s) PO BID 10/25/2015 11/07/2015 Inactive Augmentin 875 mg-125 mg tablet RxNorm: 126643 1 Tablet(s) PO BID 10/25/2015 10/24/2015 Inactive gabapentin 100 mg capsule RxNorm: 094208 Capsule(s) PO TAKE 200 MG DAILY X5 DAYS THEN 100 MG DAILY X5 DAYS THEN 100 MG EVERY OTHER DAY X3 DOSES THEN STOP 10/21/2015 11/02/2015 Inactive Cipro 500 mg tablet RxNorm: 100082 1 Tablet(s) PO BID 201510/11/2015 Inactive Cipro 500 mg tablet RxNorm: 213532 1 Tablet(s) PO BID 201510/24/2015 Inactive Vyvanse 70 mg capsule RxNorm: 932306 Capsule(s) PO daily 201511/09/2015 Inactive Klonopin 0.5 mg tablet RxNorm: 946689 1 Tablet(s) PO BID as needed 09/28/2015 11/02/2015 Inactive Klonopin 0.5 mg tablet RxNorm: 156252 1 Tablet(s) PO BID as needed 09/28/2015 09/27/2015 Inactive gabapentin 300 mg capsule RxNorm: 344644 1 Capsule(s) PO QHS 10/20/2015 Inactive gabapentin 300 mg capsule RxNorm: 890061 1 Capsule(s) PO QHS 09/15/2015 Inactive hydrocodone 5 mg-acetaminophen 325 mg tablet RxNorm: 836909 1 Tablet(s) PO Q6 as needed 09/16/2015 10/15/2015 Inactive gabapentin 300 mg capsule RxNorm: 531975 1 Capsule(s) PO QHS 09/25/2015 Inactive Intuniv ER 2 mg tablet,extended release RxNorm: 110448 Tablet(s) TAKE 1 TABLET DAILY 09/13/2015 04/03/2017 Inactive Intuniv ER 2 mg tablet,extended release RxNorm: 044225 TAKE 1 TABLET DAILY 09/12/2015 09/12/2015 Inactive Vyvanse 70 mg capsule RxNorm: 502654 Capsule(s) PO daily 201509/08/2015 Inactive Vyvanse 70 mg capsule RxNorm: 072873 Capsule(s) PO daily 201408/09/2015 Inactive Vyvanse 70 mg capsule RxNorm: 104941 Capsule(s) PO daily 201407/06/2015 Inactive Ambien 5 mg tablet RxNorm: 229707 1 Tablet(s) PO HS PRN 06/0709/04/2015 Inactive acyclovir 800 mg tablet RxNorm: 625188 1 Tablet(s) PO TID 05/1809/15/2015 Inactive Vyvanse 70 mg capsule RxNorm: 476832 Capsule(s) PO 05/11/2015 06/06/2015 Inactive Xanax 0.5 mg tablet RxNorm: 273459 1 Tablet(s) PO Q4H as needed 05/03/2015 09/27/2015 Inactive [SAVINGS FOR UNINSURED PATIENTS -- BIN:[id number], PCN: ASPROD1, Group: [id number], ID# [id number], Process claim through [employer], for questions: [phone]. THIS IS NOT INSURANCE.] Ventolin HFA 90 mcg/actuation aerosol inhaler RxNorm: 0749429 2 Puff(s) INH QID 05/03/2015 05/02/2015 Inactive Ventolin HFA 90 mcg/actuation aerosol inhaler RxNorm: 6186643 2 Puff(s) INH QID 05/03/2015 06/01/2015 Inactive acyclovir 800 mg tablet RxNorm: 158613 1 Tablet(s) PO TID 05/0205/11/2015 Inactive acyclovir 800 mg tablet RxNorm: 122181 1 Tablet(s) PO TID 05/0205/01/2015 Inactive Keflex 500 mg capsule RxNorm: 718701 1 Capsule(s) PO TID 201404/28/2015 Inactive Keflex 500 mg capsule RxNorm: 555533 1 Capsule(s) PO TID 201405/05/2015 Inactive hydrocodone 5 mg-acetaminophen 325 mg tablet RxNorm: 107035 1 Tablet(s) PO Q6 as needed 04/11/2015 05/10/2015 Inactive Vyvanse 70 mg capsule RxNorm: 176985 Capsule(s) PO 04/11/2015 05/10/2015 Inactive naproxen 500 mg tablet RxNorm: 561050 1 Tablet(s) PO BID 201404/05/2015 Inactive naproxen 500 mg tablet RxNorm: 467071 1 Tablet(s) PO BID 201407/18/2016 Inactive Intuniv ER 2 mg tablet,extended release RxNorm: 014083 TAKE 1 TABLET DAILY 03/15/2015 09/11/2015 Inactive Vyvanse 70 mg capsule RxNorm: 453812 Capsule(s) PO 03/11/2015 04/09/2015 Inactive hydrocodone 5 mg-acetaminophen 325 mg tablet RxNorm: 036331 1 Tablet(s) PO Q6 as needed 02/22/2015 04/10/2015 Inactive Wellbutrin SR 150 mg tablet,sustained-release RxNorm: 553123 TAKE 1 TABLET TWICE A DAY 02/21/2015 2016 Inactive Vyvanse 70 mg capsule RxNorm: 845278 Capsule(s) PO 02/14/2015 03/10/2015 Inactive Vyvanse 30 mg capsule RxNorm: 496797 1 Capsule(s) PO noon 201402/13/2015 Inactive 314.01 Vyvanse 40 mg capsule RxNorm: 739121 40mg q AM and 30mg q NOON Capsule(s) PO 02/10/2015 02/13/2015 Inactive Levaquin 500 mg tablet RxNorm: 082182 1 Tablet(s) PO daily 08/201401/19/2015 Inactive Levaquin 500 mg tablet RxNorm: 300994 1 Tablet(s) PO daily 08/201401/12/2015 Inactive prednisone 20 mg tablet RxNorm: 180154 3 Tablet(s) PO daily 08/201401/17/2015 Inactive hydrocodone 5 mg-acetaminophen 325 mg tablet RxNorm: 031595 1 Tablet(s) PO Q6 as needed 01/10/2015 02/21/2015 Inactive Vyvanse 30 mg capsule RxNorm: 963608 1 Capsule(s) PO noon 201402/08/2015 Inactive 314.01 Vyvanse 40 mg capsule RxNorm: 588476 40mg q AM and 30mg q NOON Capsule(s) PO 01/10/2015 02/08/2015 Inactive cefdinir 300 mg capsule RxNorm: 857788 1 Capsule(s) PO BID 06/201512/30/2014 Inactive albuterol sulfate 2.5 mg/3 mL (0.083 %) solution for nebulization RxNorm: 758724 3 Milliliter(s) INH Q4 PRN 12/24/2014 01/22/2015 Inactive Diflucan 150 mg tablet RxNorm: 734448 1 Tablet(s) PO daily 06/201512/23/2014 Inactive Diflucan 150 mg tablet RxNorm: 106020 1 Tablet(s) PO daily 06/201512/30/2014 Inactive Ambien 5 mg tablet RxNorm: 555638 1 Tablet(s) PO HS PRN 12/0906/06/2015 Inactive Vyvanse 40 mg capsule RxNorm: 292060 40mg q AM and 30mg q NOON Capsule(s) PO 12/08/2014 01/06/2015 Inactive Linzess 145 mcg capsule RxNorm: 8677249 1 Capsule(s) PO daily 12/08/2014 06/05/2015 Inactive Vyvanse 30 mg capsule RxNorm: 556948 1 Capsule(s) PO noon 201401/06/2015 Inactive 314.01 Vyvanse 40 mg capsule RxNorm: 606091 40mg q AM and 30mg q NOON Capsule(s) PO 11/10/2014 12/07/2014 Inactive Vyvanse 30 mg capsule RxNorm: 805268 1 Capsule(s) PO noon 201412/07/2014 Inactive 314.01 Nexium 40 mg capsule,delayed release RxNorm: 756489 1 Capsule(s) PO daily 10/27/2014 10/26/2014 Inactive Nexium 40 mg capsule,delayed release RxNorm: 174137 1 Capsule(s) PO daily 10/27/2014 05/24/2015 Inactive Zofran 4 mg tablet RxNorm: 256780 1 Tablet(s) PO Q6 hours prn as needed for nausea 10/21/2014 10/25/2014 Inactive Zofran 4 mg tablet RxNorm: 702265 1 Tablet(s) PO Q6 hours prn as needed for nausea 10/21/2014 10/20/2014 Inactive Xanax 0.25 mg tablet RxNorm: 946946 1/2 to 1 Tablet(s) PO Q8 PRN as needed 10/15/2014 05/02/2015 Inactive [SAVINGS FOR UNINSURED PATIENTS -- BIN:879909, PCN: ASPROD1, Group: [id number], ID# [id number], Process claim through [employer], for questions: . THIS IS NOT INSURANCE.] sucralfate 100 mg/mL oral suspension RxNorm: 187745 10 Milliliter(s) PO QID 10/06/2014 11/02/2015 Inactive Vyvanse 40 mg capsule RxNorm: 195801 40mg q AM and 30mg q NOON Capsule(s) PO 10/04/2014 11/02/2014 Inactive omeprazole 20 mg capsule,delayed release RxNorm: 418473 1 Capsule(s) PO daily 09/08/2014 11/02/2015 Inactive Linzess 145 mcg capsule RxNorm: 4697972 1 Capsule(s) PO daily 09/08/2014 10/07/2014 Inactive azelastine 137 mcg (0.1 %) nasal spray aerosol RxNorm: 8394093 2 Lonepine NASAL BID 09/06/2014 10/05/2014 Inactive [SAVINGS FOR NON-COVERED DRUGS -- BIN:233855, PCN: ASPROD1, Group: XXXXX, ID# [id number], Questions: . THIS IS NOT INSURANCE.] Xanax 0.25 mg tablet RxNorm: 166375 1/2 to 1 Tablet(s) PO Q8 PRN as needed 08/26/2014 10/14/2014 Inactive [SAVINGS FOR UNINSURED PATIENTS -- BIN:092474, PCN: ASPROD1, Group: [id number], ID# [id number], Process claim through [employer], for questions: . THIS IS NOT INSURANCE.] Ambien 5 mg tablet RxNorm: 693814 1 Tablet(s) PO HS PRN 08/1312/08/2014 Inactive prednisone 20 mg tablet RxNorm: 073448 3 Tablet(s) PO daily 08/17/2014 Inactive Vyvanse 40 mg capsule RxNorm: 240017 40mg q AM and 30mg q NOON Capsule(s) PO 08/11/2014 09/09/2014 Inactive Vyvanse 40 mg capsule RxNorm: 457564 40mg q AM and 30mg q NOON Capsule(s) PO 07/06/2014 08/04/2014 Inactive Xanax 0.25 mg tablet RxNorm: 239578 1/2 to 1 Tablet(s) PO Q8 PRN as needed 06/23/2014 08/25/2014 Inactive Wellbutrin SR 150 mg tablet,sustained-release RxNorm: 598838 TAKE 1 TABLET TWICE A DAY 06/08/2014 02/20/2015 Inactive Vyvanse 40 mg capsule RxNorm: 515931 40mg q AM and 30mg q NOON Capsule(s) PO 06/03/2014 07/02/2014 Inactive Vyvanse 40 mg capsule RxNorm: 067736 40mg q AM and 30mg q NOON Capsule(s) PO 05/04/2014 06/02/2014 Inactive Intuniv ER 2 mg tablet,extended release RxNorm: 028125 TAKE 1 TABLET DAILY 04/13/2014 03/14/2015 Inactive Vyvanse 40 mg capsule RxNorm: 726632 40mg q AM and 30mg q NOON Capsule(s) PO 03/24/2014 04/22/2014 Inactive Vyvanse 40 mg capsule RxNorm: 553888 40mg q AM and 30mg q NOON Capsule(s) PO 03/01/2014 03/23/2014 Inactive Wellbutrin SR 150 mg tablet,sustained-release RxNorm: 965580 1 Tablet(s) PO BID 01/04/2014 06/07/2014 Inactive Claritin 10 mg tablet RxNorm: 697400 1 Tablet(s) PO daily 201307/18/2016 Inactive Vyvanse 40 mg capsule RxNorm: 130827 40mg q AM and 30mg q NOON Capsule(s) PO 12/21/2013 01/19/2014 Inactive Intuniv ER 2 mg tablet,extended release RxNorm: 105514 Tablet(s) PO TAKE 1 TABLET DAILY 12/14/2013 04/12/2014 Inactive Vyvanse 40 mg capsule RxNorm: 441255 40mg q AM and 30mg q NOON Capsule(s) PO QAM 11/12/2013 12/11/2013 Inactive Vyvanse 40 mg capsule RxNorm: 918343 40mg q AM and 30mg q NOON Capsule(s) PO QAM 10/15/2013 11/11/2013 Inactive Vyvanse 40 mg capsule RxNorm: 465946 1 Capsule(s) PO QAM 201310/14/2013 Inactive spironolactone 25 mg tablet RxNorm: 126425 1 Tablet(s) PO BID 10/01/2013 09/25/2014 Inactive metformin 500 mg tablet RxNorm: 017764 1/2 Tablet(s) PO QHS 09/25/2014 Inactive Intuniv ER 2 mg tablet,extended release RxNorm: 572647 Tablet(s) PO TAKE 1 TABLET DAILY 09/22/2013 12/13/2013 Inactive Vyvanse 40 mg capsule RxNorm: 166025 1 Capsule(s) PO QAM 201310/14/2013 Inactive Vyvanse 30 mg capsule RxNorm: 251963 1 Capsule(s) PO noon 201310/14/2013 Inactive Vyvanse 30 mg capsule RxNorm: 425165 1 Capsule(s) PO noon 201309/14/2013 Inactive Vyvanse 40 mg capsule RxNorm: 760801 1 Capsule(s) PO QAM 201309/14/2013 Inactive Keflex 500 mg capsule RxNorm: 640435 1 Capsule(s) PO QID 201308/18/2013 Inactive Keflex 500 mg capsule RxNorm: 635139 1 Capsule(s) PO QID 201308/11/2013 Inactive metformin 500 mg tablet RxNorm: 939557 1/2 Tablet(s) PO QHS 09/30/2013 Inactive spironolactone 25 mg tablet RxNorm: 863571 1 Tablet(s) PO BID 07/31/2013 09/30/2013 Inactive Diflucan 150 mg tablet RxNorm: 161220 1 Tablet(s) PO daily 08/06/2013 Inactive Vyvanse 30 mg capsule RxNorm: 603122 1 Capsule(s) PO noon 201208/16/2013 Inactive Vyvanse 40 mg capsule RxNorm: 687185 1 Capsule(s) PO QAM 201208/16/2013 Inactive Wellbutrin SR 150 mg tablet,sustained-release RxNorm: 294899 1 Tablet(s) PO BID 06/04/2013 06/24/2013 Inactive Xanax 0.25 mg tablet RxNorm: 155242 1/2 to 1 Tablet(s) PO Q8 PRN 05/20/2013 06/22/2014 Inactive Wellbutrin SR 150 mg tablet,sustained-release RxNorm: 775734 1 Tablet(s) PO BID 05/18/2013 06/03/2013 Inactive Vyvanse 40 mg capsule RxNorm: 305155 1 Capsule(s) PO QAM 201206/16/2013 Inactive Vyvanse 30 mg capsule RxNorm: 472564 1 Capsule(s) PO noon 201206/16/2013 Inactive Wellbutrin SR 150 mg tablet,sustained-release RxNorm: 709620 1 Tablet(s) PO daily 04/30/2013 05/17/2013 Inactive Wellbutrin SR 150 mg tablet,sustained-release RxNorm: 028434 1 Tablet(s) PO daily 04/30/2013 04/29/2013 Inactive cefdinir 300 mg capsule RxNorm: 989489 1 Capsule(s) PO BID 04/201304/29/2013 Inactive Vyvanse 70 mg capsule RxNorm: 345688 1 Capsule(s) PO QAM 201205/18/2013 Inactive azelastine 137 mcg Nasal Lonepine Aerosol RxNorm: 2125583 2 Lonepine NASAL BID 03/26/2013 09/21/2013 Inactive Augmentin 500 mg-125 mg tablet RxNorm: 933065 1 Tablet(s) PO BID 03/26/2013 03/30/2013 Inactive Vyvanse 70 mg capsule RxNorm: 107579 1 Capsule(s) PO QAM 201203/11/2013 Inactive multivitamin tablet RxNorm: 1 Tablet(s) PO daily 02/11/2013 04/03/2017 Inactive Vyvanse 70 mg capsule RxNorm: 203326 1 Capsule(s) PO QAM 201203/11/2013 Inactive Vyvanse 70 mg capsule RxNorm: 669846 1 Capsule(s) PO 01/12/2013 02/10/2013 Inactive Intuniv ER 2 mg tablet,extended release RxNorm: 670103 Tablet(s) PO TAKE 1 TABLET DAILY 01/02/2013 09/21/2013 Inactive Intuniv ER 2 mg tablet,extended release RxNorm: 123393 1 Tablet(s) PO QHS 01/01/2013 01/01/2013 Inactive Vyvanse 70 mg capsule RxNorm: 240776 1 Capsule(s) PO 12/10/2012 01/08/2013 Inactive Vyvanse 70 mg capsule RxNorm: 857772 1 Capsule(s) PO 11/11/2012 12/09/2012 Inactive Intuniv ER 2 mg tablet,extended release RxNorm: 461035 1 Tablet(s) PO QHS 09/29/2012 12/27/2012 Inactive Vyvanse 60 mg capsule RxNorm: 275698 1 Capsule(s) PO daily 09/1012/21/2013 Inactive Intuniv ER 2 mg tablet,extended release RxNorm: 749106 1 Tablet(s) PO QHS 09/02/2012 09/28/2012 Inactive Intuniv ER 2 mg tablet,extended release RxNorm: 779398 1 Tablet(s) PO QHS 08/11/2012 09/01/2012 Inactive Vyvanse 60 mg capsule RxNorm: 804341 1 Capsule(s) PO daily 08/1109/09/2012 Inactive omeprazole 20 mg Cap, Delayed Release RxNorm: 670196 1 Capsule(s) PO daily 09/11/2011 02/11/2013 Inactive Aciphex 20 mg Tab RxNorm: 960001 1 Tablet(s) PO daily 201109/11/2011 Inactive Aciphex 20 mg Tab RxNorm: 832161 1 Tablet(s) PO daily 201109/10/2011 Inactive NormaLyte ORS 1.3-1.45-0.75 gram/10.5 gram oral powder packet RxNorm: 1 PO BID No Start Date Active Excedrin Migraine 250 mg-250 mg-65 mg tablet RxNorm: 909616 1 Tablet(s) PO Q6 as needed No Start Date Active Restasis 0.05 % eye drops in a dropperette RxNorm: 255314 OPH BID No Start Date Active Corlanor 5 mg tablet RxNorm: 4638260 1 Tablet(s) PO BID No Start Date Active Privigen 10 % intravenous solution RxNorm: 498731 1 treatment IV q 28days No Start Date Active baclofen 10 mg tablet RxNorm: 927749 1 Tablet(s) PO TID as needed No Start Date Active Pazeo 0.7 % eye drops RxNorm: 2395879 Drop(s) OPH as needed No Start Date Active azelastine-fluticasone 137 mcg-50 mcg/spray nasal spray RxNorm: 6443875 2 Lonepine NASAL daily ONE SPRAY IN EACH NOSTRIL No Start Date Active Cymbalta 60 mg capsule,delayed release RxNorm: 483816 1 Capsule(s) PO BID No Start Date Active diazepam 2 mg tablet RxNorm: 635563 1 Tablet(s) PO BID -Prescribed by urology at No Start Date 03/24/2018 Inactive amitriptyline 10 mg tablet RxNorm: 296358 3 Tablet(s) PO QHS Dr Walker No Start Date 11/25/2017 Inactive hyoscyamine 0.125 mg sublingual tablet RxNorm: 8309977 1 Tablet(s) SL Q4H as needed No Start Date 03/24/2018 Inactive Loestrin Fe 1.5/30 (28) 1.5 mg-30 mcg Tab RxNorm: 9501185 1 Tablet(s) PO daily No Start Date 02/10/2013 Inactive Vitamin D3 1,000 unit tablet RxNorm: 390264 1 Tablet(s) PO daily No Start Date 07/18/2016 Inactive Caltrate 600 + D oral RxNorm: 244187 oral No Start Date 04/03/2017 Inactive Lyrica 50 mg capsule RxNorm: 234174 1 Capsule(s) PO BID -Started by Dr. Hartmann No Start Date 12/30/2016 Inactive multivitamin tablet RxNorm: 2 Tablet(s) PO daily No Start Date 02/10/2013 Inactive Elavil 10 mg tablet RxNorm: 750525 1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 PATIENT, LEVEL III Diagnosis: Mild cognitive impairment, so stated[ICD10: G31.84] Diagnosis: Unsteadiness on feet[ICD10: R26.81] Diagnosis: Cervicalgia[ICD10: M54.2] Diagnosis: Weakness[ICD10: R53.1] Laya Smith MD, [facility] CPT-4: 39792 03/01/2017 ([id number]) 42159 EST. 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 PATIENT, LEVEL IV Diagnosis: Systemic involvement of connective tissue, unspecified[ICD10: M35.9] Diagnosis: Weakness[ICD10: R53.1] Diagnosis: Insomnia due to medical condition[ICD10: G47.01] Diagnosis: Acute vaginitis[ICD10: N76.0] Sahara Smith MD [facility] CPT- 4: 75475 04/10/2016 [id number]) 91923 EST. 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 PATIENT, LEVEL IV Diagnosis: Systemic involvement of connective tissue, unspecified[ICD10: M35.9] Diagnosis: Cervicalgia[ICD10: M54.2] Sahara Smith MD, [facility] CPT-4: 38742 12/01/2015 ([id number]) 88587 EST. PATIENT, LEVEL IV Diagnosis: Systemic involvement of connective tissue, unspecified[ICD10: M35.9] Diagnosis: Pain in unspecified joint[ICD10: M25.50] Diagnosis: Fever, unspecified[ICD10: R50.9] Diagnosis: Weakness[ICD10: R53.1] Sahara Smith MD, [facility] CPT-4: 17647 11/03/2015 10020 EST. PATIENT, LEVEL IV Diagnosis: Pain in left hand[ICD10: M79.642] Laya Smith MD, [facility] CPT -4: 63678 10/26/2015 ([id number]) 61040 EST. PATIENT, LEVEL III Diagnosis: Urinary tract infection, site not specified[ICD10: N39.0] Diagnosis: Fever, unspecified[ICD10: R50.9] Diagnosis: Dizziness and giddiness[ICD10: R42] Mireille Smith MD, [facility] CPT-4: 95382 10/17/2015 ([id number]) 82426 EST. 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 PATIENT, LEVEL III Diagnosis: COUGH[ICD9: 786.2] Diagnosis: Reactive airway disease[ICD9: 493.90] Diagnosis: ALLERGIC RHINITIS[ICD9: 477.9] Diagnosis: Acute bronchitis[ICD9: 466.0] Mireille Smith MD, [facility] CPT-4: 12195 12/24/2014 ([id number]) 69066 EST. PATIENT, LEVEL IV Diagnosis: Scleritis[ICD9: 379.00] Diagnosis: AUTOIMMUNE DISEASE NEC[ICD9: 279.49] Sahara Smith MD, [facility] CPT-4: 34080 11/30/2014 ([id number]) 04330 EST. PATIENT, LEVEL IV Diagnosis: Abdominal pain[ICD9: 789.00] Diagnosis: GENERALIZED ANXIETY DISEASE[ICD9: 300.02] Diagnosis: Irritable bowel[ICD9: 564.1] Diagnosis: Constipation - functional[ICD9: 564.09] Sahara Smith MD, [facility] CPT-4: 95619 10/06/2014 ([id number]) 69753 EST. PATIENT, LEVEL IV Diagnosis: RUQ pain[ICD9: 789.01] Diagnosis: GENERALIZED ANXIETY DISEASE[ICD9: 300.02] Diagnosis: ADHD (attention deficit hyperactivity disorder)[ICD9: 314.01] Diagnosis: Irritable bowel[ICD9: 564.1] Sahara Smith MD, [facility] CPT- 4: 40837 09/08/2014 ([id number]) 83753 EST. PATIENT, LEVEL IV Diagnosis: ATTN DEFICIT W/ HYPERACT[ICD9: 314.01] Diagnosis: Insomnia[ICD9: 780.52] Diagnosis: HEADACHE[ICD9: 784.0] Diagnosis: ALLERGIC RHINITIS[ICD9: 477.9] Diagnosis: Neck pain[ICD9: 723.1] Mireille Smith MD, [facility] CPT-4: 92813 08/13/2014 [id number]) 40415 EST. PATIENT, LEVEL V Diagnosis: Breast discharge[ICD9: 611.79] Diagnosis: ADHD (attention deficit hyperactivity disorder)[ICD9: 314.01] Diagnosis: MALAISE AND FATIGUE[ICD9: 780.79] Diagnosis: ABN THYROID FUNCT STUDY[ICD9: 794.5] Diagnosis: Swollen neck[ICD9: 784.2] Diagnosis: Rash[ICD9: 782.1] Sahara Smith MD, [facility] CPT-4: 32716 04/22/2014 [id number]) 39941 EST. PATIENT, LEVEL IV Diagnosis: ADHD (attention deficit hyperactivity disorder)[ICD9: 314.01] Diagnosis: GENERALIZED ANXIETY DISEASE[ICD9: 300.02] Diagnosis: Fatigue[ICD9: 780.79] Diagnosis: PCOS (polycystic ovarian syndrome)[ICD9: 256.4] Sahara Smith MD, [facility] CPT-4: 84610 01/04/2014 ([id number]) 02176 EST. PATIENT, LEVEL IV Diagnosis: Vaginal yeast infection[ICD9: 112.1] Diagnosis: PCOS (polycystic ovarian syndrome)[ICD9: 256.4] Diagnosis: Hirsutism[ICD9: 704.1] Mireille Smith MD, [facility] CPT-4: 29102 07/31/2013 ([id number]) 54264 EST. PATIENT, LEVEL IV Diagnosis: ATTN DEFICIT W/ HYPERACT[ICD9: 314.01] Diagnosis: ALLERGIC RHINITIS[ICD9: 477.9] Diagnosis: ACUTE SINUSITIS[ICD9: 461.9] Mireille Smith MD, [facility] CPT-4: 21786 04/23/2013 04128 EST. PATIENT, LEVEL III Diagnosis: UTI[ICD9: 599.0] Sahara Smith MD, [facility] CPT-4: 36901 03/26/2013 ([id number]) 71619 EST. PATIENT, LEVEL IV Diagnosis: Constipation - functional[ICD9: 564.09] Diagnosis: ABN THYROID FUNCT STUDY[ICD9: 794.5] Diagnosis: MALAISE AND FATIGUE[ICD9: 780.79] Diagnosis: GENERALIZED ANXIETY DISEASE[ICD9: 300.02] Sahara Smith MD, [facility] CPT-4: 93467 02/11/2013 ([id number]) 26540 EST. PATIENT, LEVEL IV Diagnosis: ADHD (attention deficit hyperactivity disorder)[ICD9: 314.01] Diagnosis: GENERALIZED ANXIETY DISEASE[ICD9: 300.02] Diagnosis: Overweight[ICD9: 278.02] Sahara Smith MD, [facility] CPT-4: 13223 07/16/2012 ([id number]) 76944 EST. PATIENT, LEVEL IV Diagnosis: Abnormal thyroid function test[ICD9: 794.5] Diagnosis: Toxic effect of carbon monoxide[ICD9: 986] Diagnosis: Fatigue[ICD9: 780.79] Diagnosis: Hypoglycemia[ICD9: 251.2] Mireille Smith MD, [facility] CPT-4: 92164 03/11/2012 ([id number]) OFFICE VISIT, NEW - LEVEL 3 Diagnosis: RUQ pain[ICD9: 789.01] Diagnosis: Nausea[ICD9: 787.02] Mireille Smith MD, [facility] CPT-4: 29282 08/21/2011 Plan of Care Planned Activity Notes Codes Status Date Appointment: Mireille Tatum WPtel: [phone] [phone] (15 min) Moderate 03/31/2018 Visit Plan: ADHD [...] -the pt is pending a work-up by Personal Care Worker/Legal Service Specialist at in the next few months. Order for ESR/CRP given to pt to have this lab as needed for symptoms of inflammation and prn order for prednisone sent to the pharmacy for symptoms of flair. Excoriation on scalp and neck - discussed with patient - change hair products, stop suave and start on [place] oil or tea tree oil on scalp. Chronic Pain Syndrome - pt has chronic pain - has been maintained on current medications, has not sought out other medications, only uses PRN pain medications as directed , and understands the consequences of over-medication. 03/25/2018 Appointment: Sahara Smith WPtel: [phone] [facility] (15 min) Moderate 03/25/2018 Patient Education: Patient Medication Summary Completed 03/25/2018 Referral: Oscar Allen [id number] [place] Referral Completed 02/04/2018 Visit Plan: ADHD - refill vyvanse today. Immune deficiency - Dr. Mccoy - [phone] - med allergy/immunology Nasal lesion - referral to dr. allen RE - nasal sore left side of nose - nonhealing Anxiety - refilled rx for patient. 01/28/2018 App[facility]ment: [phone] ([facility] min) Complex 01/28/2018 Patient Education: Patient Medication Summary Completed 01/28/2018 Care Plan: Referral Order SNOMED-CT : [id number] Pending 01/28/2018 Care Plan: Referral Order SNOMED-CT : [id number] Pending 01/28/2018 Visit Plan: Chronic Pain Syndrome [...] process. Pt has appt with Neurologist at [facility]. She will keep me informed of [...] her other office visits with neurologist and licensed occupational therapy assistant, review of her MRI of head, cervical spine and back, labs from the specialists, etc. 11/26/2017 Appointment: [phone] ([facility] min) Complex 11/26/2017 Patient Education: Patient [...] given her information about the specialist at [facility] who has specialization in small fiber neuropathy. 07/23/2017 Appointment: [phone] (30 min) Complex 07/23/2017 Patient Education: Patient Medication Summary Completed 07/23/2017 Appointment: [facility]el[phone] [place] (30 min) Complex 06/13/2017 Visit Plan: ADHD - per Neuropsych testing - she has nonspecifit attentional ineffieciency interacting with treated ADHD in a normal neurocognitive study. neurology referral to [facility] Memory loss - recommended patient to continue current medical regimen, will refer to [facility] per her request 05/22/2017 Appointment: Sahara Smith WPtel: [facility] (30 min) Complex 05/22/2017 Patient Education: Patient Medication Summary Completed 05/22/2017 Patient Education: Obesity Completed 05/22/2017 Care Plan: Referral Order SNOMED-CT : [id number] Pending 05/22/2017 Visit Plan: Possible small fiber neuropathy - pt to have further testing at - appt with Cardiology at for autonomic testing, and to have small nerve biopsy - she states that she has a procedure of some sort on May 29 [facility] on aging - [phone] Hartmann - she does not know exactly what is going to happen in May - we will call Dr. Hartmann. med rec number [id number] Urinary retention/detrusor instability - recommended patient to start therapy as directed by Dr. Hummel. - She is to call Dr. Hummel about if he approves of therapy at [facility]. Phone call to Dr. Hartmann's office tonight - did not get through to a person today - message left for Dr. Hartmann's nurse to call the office with messages and information. 04/04/2017 Appointment: Sahara Smith [facility]Ptel[phone] [facility] [place] (30 min) Complex 04/04/2017 Patient Education: Patient Medication Summary Completed 04/04/2017 Patient Education: Obesity Completed 04/04/2017 Appointment: Sahara Smith WPtel: [phone] [facility] [place] (30 min) Complex 04/02/2017 Visit Plan: Memory loss, gait instability, weakness, headaches - will order MRI - will treat as indicated - pt is to update her neurologist - pt is to notify clinic of any changes, questions, or concerns. 03/01/2017 Appointment: Laya Ramos WPtel: [phone] [facility] [place] (30 min) Complex 03/01/2017 Patient Education: [...] current treatment. 12/31/2016 Appointment: Sahara Smith [facility]Ptel: [phone] [place] (30 min) Complex 12/31/2016 Patient Education: Patient Medication Summary Completed 12/31/2016 Visit Plan: ADHD - monitor symptoms - continue with current treatment. Family history of Muscle disorders -continue supportive care. Tachycardia - improved - defer treatment to Dr. Johnson 10/01/2016 Appointment: Sahara Smith [facility]Ptel[phone] (30 min) Complex 10/01/2016 Patient Education: [...] Low back pain-history of UTI-+leukocytes at the [facility]-send urine for culture 08/23/2016 Visit Plan: [...] Low back pain-history of UTI-+leukocytes at the [facility]-send urine for culture 08/23/2016 Appointment: [phone] [place] (30 min) Complex 08/23/2016 Patient Education: Patient [...] this medications. 08/02/2016 Appointment: Sahara Smith WPtel: [facility] (30 min) Complex 08/02/2016 Patient Education: Patient Medication Summary Completed 08/02/2016 Visit Plan: Palpitations - treatment per Dr. Johnson- continue with current treatment - call if heart rate not improving. ADHD - restart strattera - stop wellbutrin. 07/19/2016 Appointment: Sahara Smith WPtel: [facility] (30 min) Complex 07/19/2016 Appointment: Mireille Tatum WPtel: [phone] [place] (30 min) Complex 07/19/2016 Patient Education: Patient Medication Summary Completed 07/19/2016 Visit Plan: ADHD - monitor symptoms - continue with strattera as previously directed Family history of Muscle disorders -continue supportive care. Tachycardia - monitor symptoms - defer treatment to Dr. Johnson 07/05/2016 Appointment: Sahara Smith WPtel: [facility] (30 min) Complex 07/05/2016 Patient Education: Patient Medication Summary Completed 07/05/2016 Patient Education: Obesity Completed 07/05/2016 Visit Plan: Family history of Muscle disorders - recommended pt to have a neurological evaluation - waiting on appt in [place]. Rx for diflucan for vaginitis 04/10/2016 Appointment: Sahara Smith WPtel: [phone] [facility] [place] (15 min) Moderate 04/10/2016 Patient Education: Patient Medication Summary Completed 04/10/2016 Visit Plan: Family history of Muscle disorders - recommended pt to have a neurological evaluation - pt was turned down by Dr. Mora - further referral pending. Pt to use voltaren gel on affected joints - call if not improving. 02/07/2016 Appointment: Sahara Smith WPtel: [phone] [facility] [place] (15 min) Moderate 02/07/2016 Patient Education: Patient Medication Summary Completed 02/07/2016 Care Plan: Referral Order SNOMED-CT : [id number] Pending 01/09/2016 Visit Plan: Family history of [...] any concerns. 10/26/2015 Appointment: Mireille Tatum [facility]Ptel[phone] [place] (15 min) Moderate 10/26/2015 Patient Education: Patient [...] further testing and referral to specialist in [facility] - Allergy/Immunology/Rheumatology clinic. Pt is to continue with treatment per ski base trimmer. 11/30/2014 Patient Education: Patient Medication Summary Completed 11/30/2014 Care Plan: Referral Order SNOMED-CT : [id number] Ordered 11/30/2014 Appointment: Sick 11/26/2014 Visit Plan: [...] Appointment: Sahara Smith WPtel: [facility] [facility] 10/06/2014 Patient Education: Patient Medication Summary Completed 10/06/2014 Care Plan: Referral Order SNOMED-CT : [id number] Ordered 10/06/2014 Visit Plan: RUQ pain - GERD symptoms - recommended pt to start on pepcid, start monitoring symptoms. Irritable bowel syndrome - recommended pt to start on linzess samples and to start on probiotics. REFILL ADHD medications 09/08/2014 Appointment: Sahara Smith [facility]Ptel: [phone] Follow up 09/08/2014 Patient Education: Patient [...] lab for body fluids to [facility] for breast fluid eval/pathology ADHD - medication [...] ds dna, to blood in lab at [facility]. Chronic Depression and anxiety - the [...] interview. 04/22/2014 Appointment: Sahara Smith WPtel: [phone] [facility] [facility] 04/22/2014 Patient Education: Patient Medication Summary Completed [...] dosing. 01/04/2014 Appointment: Sahara Smith WPtel: [phone] [facility] Follow up 01/04/2014 Patient Education: Patient Medication Summary Completed 01/04/2014 Visit Plan: Yeast infection-RX for diflucan-call if symptoms do not resolve LNEY-dqrivxxzq-fpzgqdsqu natural and expected course of this diagnosis and to alert me if symptoms do not follow expected course, or if any worse. RX sent to patient's pharmacy and discussed risk vs benefits of each of the medications. Patient verbalized understanding of plan. 07/31/2013 Appointment: Mireille Tatum WPtel: [address] [place] [address] [place] Pap Only 07/31/2013 Patient Education: Patient Medication [...] patient's pharmacy 04/23/2013 Appointment: Mireille Tatum WPtel: [address] [place], [place] [phone] Other 04/23/2013 Patient Education: Patient Medication Summary [...] of plan. 03/26/2013 Appointment: Mireille Tatum WPtel: [address] [place], [place] [phone] Other 03/26/2013 Patient Education: Patient Medication Summary Completed 03/26/2013 Appointment: Mireille Tatum WPtel: [phone] [facility] [place] [address] 02/26/2013 Visit Plan: Constipation - uncontrolled - [...] have recommended that she have testing/eval by interventional pain physician for further in depth evaluation. I have not ordered any specific tests as many endocrinologists have specific labs at which they prefer testing to be performed. 02/11/2013 Appointment: Sahara Smith WPtel: [facility] [facility] 02/11/2013 Patient Education: Patient Medication Summary Completed [...] Appointment: Sahara Smith WPtel: [facility] Other 07/16/2012 Patient Education: Patient Medication Summary Completed 07/16/2012 Visit Plan: Abnormal thyroid amicqhst-etrjzkyktoso-ynnrthau , night sweats, fatigue-plan to check additional labs including thyroid auto antibodies and PTH as well as thryoid ultrasound. Carbon Monoxide poisoning- plan to check EKG-discussed with Dr. Smith-may need an Echo as well Hypoglycemia-check blood sugars with symptoms-glucometer provided 03/11/2012 Appointment: Mireille Tatum WPtel: [phone] [place] Other 03/11/2012 Patient Education: Patient Medication Summary Completed 03/11/2012 Visit Plan: RUQ pain-nausea after meals-recommend gallbladder ultrasound to evaluate patient's gallbladder-also recommend a low fat diet and monitor symptoms. Instructed patient to go to ER for unresolved or worsening pain. Achiphex 20mg daily-samples provided. Call with any questions or concerns. 08/21/2011 Appointment: Mireille Tatum WPtel: [facility] New Patient 08/21/2011 Patient Education: Patient Medication Summary Completed 08/21/2011 Referral: External, Ordering Provider Referral Completed Referral: [facility]el[phone] [facility] [place] Referral Completed Referral: [facility] Referral Appointment Requested Referral: Gonzales Rhodes WPtel: Referral Appointment Requested Referral: Oscar Allen [facility] [place] Referral Appointment Requested Referral: [facility] Referral Appointment Requested Referral: External, Ordering Provider 06/10 Referral info faxed; 06/11 Clinical information was received and they will send her information on to be reviewed. They will contact the patient for an appt Appointment Requested Instructions Comment . Leg Weakness - recommendation for physical [...] given her information about the specialist at [facility] who has specialization in small fiber neuropathy. decrease wellbutrin to one time daily x 1 week then stop . Palpitations - treatment per Dr. Johnson- continue with current treatment - call if heart rate not improving. ADHD - restart strattera - stop wellbutrin. . Yeast infection-RX for diflucan-call if symptoms do not resolve SLMI-uvcrsfsgt-mzwheqypa natural and expected course of this diagnosis [...] normal neurocognitive study. neurology referral to [facility] Memory loss - recommended patient to continue current medical regimen, will refer to [facility] per her request . ADHD - monitor symptoms - continue with current treatment. Family history of Muscle disorders -continue supportive care. Tachycardia - improved - defer treatment to Dr. Johnson . Cough-reactive airway-patient does not want to take steroids if possible so she can have testing that was previously ordered- recommend she start albuterol breathing treatments-start cefdinir-instructed her to go to ER over the weekend if symptoms do not resolve or if any worse. Call if symptoms do not completely resolved. Patient verbalized understanding. . Abnormal thyroid xeoeigvu-bprggpemzpih-sjfjytbq, night sweats, fatigue-plan to check additional labs including thyroid auto antibodies and PTH as well as thryoid ultrasound. Carbon Monoxide poisoning-plan to check EKG-discussed with Dr. Smith-may need an Echo as well Hypoglycemia-check blood sugars with symptoms-glucometer provided . Auto-immune disease process - recommended further testing and referral to specialist in [facility] - Allergy/ Immunology/Rheumatology clinic. Pt is to continue with treatment per ski base trimmer. rash on nose needs cultured . Chronic [...] process. Pt has appt with Neurologist at [facility] soon. She will keep me informed of [...] her other office visits with neurologist and licensed occupational therapy assistant, review of her MRI of head, cervical [...] want to start on this medications. . Abdominal pain - Hx of severe [...] -the pt is pending a work-up by Personal Care Worker/Legal Service Specialist at in the next few months. Order for ESR/CRP given to pt to have this lab as needed for symptoms of inflammation and prn order for prednisone sent to the pharmacy for symptoms of flair. Excoriation on scalp and neck - discussed with patient - change hair products, stop suave and start on [place] oil or tea tree oil on scalp. [...] of neck-continue anti inflammatories as directed . Family history of Muscle disorders - recommended pt to have a neurological evaluation - referral placed to - Dr. [facility] - referral for neuromuscular eval with possible muscle biopsy. . ADHD - refill vyvanse today. Immune deficiency - Dr. Mccoy - [phone] - med allergy/immunology Nasal lesion - referral [...] on vitamin d 5000 units daily. . Breast discharge - sent to lab for body fluids to [facility] for breast fluid eval/pathology ADHD - medication [...] ds dna, to blood in lab at [facility]. Chronic Depression and anxiety - the pt has symptoms of chronic anxiety and depression that have been fairly well controlled since the last office visit. The pt has expected periods of exacerbation with abatement of the symptoms with change in situational exposure. No change in current medications. Over 1 hour spent with patient in exam, and interview. . Possible small fiber neuropathy - pt to have further testing at - appt with Cardiology at for autonomic testing, and to have small nerve biopsy - she states that she has a procedure of some sort on May 29 [facility] on aging - [phone] Hartmann - she does not know exactly what is going to happen in May - we will call Dr. Hartmann. med rec number [id number] Urinary retention/detrusor instability - recommended patient to start therapy as directed by Dr. Hummel. - She is to call Dr. Hummel about if he approves of therapy at [facility]. Phone call to Dr. Hartmann's office [...] have recommended that she have testing/eval by interventional pain physician for further in depth evaluation. I have [...] Dr Velazquez for evaluation . ADHD - pt is to start [...] neurological evaluation - waiting on appt in [place]. Rx for diflucan for vaginitis
--- OUTSIDE RECORDS SUMMARY | 2018-08-14 12:00 | XMS REPORT | CCD ---
Author Author Mireille Tatum MD, [facility] Address [facility] [place] [address] Phone Care Team Providers Care Chairman & Ceo Name Role Phone PP Unavailable CCM Unavailable Summary Purpose Interface Exchange Insurance Providers Payer name Policy type / Coverage type Covered green party ID Effective Begin Date Effective End Date [id number] 2014 Unknown Family history Sister [...] Unknown 2 08/21/[address]: 2552919 Former smoker quit 2004 08/21/[address]: 046203 Currently drinks alcohol 1 weekly 08/21/2011 Has the patient ever used illegal drugs? Unknown Has never used illegal drugs 08/21/2011 Allergies, Adverse Reactions, Alerts Substance Reaction Codes Entered Date Inactivated Date Status * OTHER REACTION - SEE ANSWER BOX EX-PREP (BOWEL CLEANSING PREP) Unknown 11/03/2015 No Inactive Date Active bactrim RxNorm: 032338 11/03/2015 No Inactive Date Active GABAPENTIN Unknown [...] ICD-10: G60.8 Active 07/23/2017 Unknown Other specified disorders of nose and [...] 356.4 ICD-10: G60.8 07/23/2017 Active Other specified disorders of nose and [...] Start Date Stop Date Status Fill Instructions Xanax 0.5 mg tablet RxNorm: 321772 1 Tablet(s) PO Q4H as needed 02/26/2018 04/26/2018 Active Vyvanse 50 mg capsule RxNorm: 721324 1 Capsule(s) PO daily 02/2603/27/2018 Active propranolol 20 mg tablet RxNorm: 999791 1 Tablet(s) PO UD 20mg AM and 40mg PM 01/28/2018 02/26/2018 Inactive Vyvanse 50 mg capsule RxNorm: 114084 1 Capsule(s) PO daily 01/2802/25/2018 Inactive Vyvanse 50 mg capsule RxNorm: 725925 1 Capsule(s) PO daily 12/2501/23/2018 Inactive clindamycin HCl 300 mg capsule RxNorm: 006799 1 Capsule(s) PO TID 12/05/2017 12/04/2017 Inactive clindamycin HCl 300 mg capsule RxNorm: 833035 1 Capsule(s) PO TID 12/05/2017 12/18/2017 Inactive azelastine 137 mcg (0.1 %) nasal spray aerosol RxNorm: 1723655 2 [place] NASAL BID 11/14/2017 12/13/2017 Inactive [SAVINGS FOR NON-COVERED DRUGS -- BIN:[id number], PCN: [id number], Group: [id number], ID# [id number], Questions: . THIS IS NOT INSURANCE.] Diflucan 150 mg tablet RxNorm: 821010 1 Tablet(s) PO daily as needed yeast infection symptoms after taking antibiotics 10/24/2017 No Stop Date Active doxycycline hyclate 100 mg tablet RxNorm: 600254 1 Tablet(s) PO BID 10/24/2017 10/23/2017 Inactive doxycycline hyclate 100 mg tablet RxNorm: 588919 1 Tablet(s) PO BID 10/24/2017 11/12/2017 Inactive Vyvanse 50 mg capsule RxNorm: 405285 1 Capsule(s) PO daily 10/2411/22/2017 Inactive Vyvanse 60 mg capsule RxNorm: 085744 1 Capsule(s) PO daily 09/1209/11/2017 Inactive Vyvanse 60 mg capsule RxNorm: 542579 1 Capsule(s) PO daily 09/1210/11/2017 Inactive diclofenac 1 % topical gel RxNorm: 297245 2 Gram(s) TOP QID as needed apply twice daily scheduled to affected joints and can apply up to 4 times in a day 07/23/2017 No Stop Date Active metoprolol succinate ER 50 mg tablet,extended release 24 hr RxNorm: 087328 1 Tablet(s) PO QHS 07/23/2017 01/27/2018 Inactive Vyvanse 70 mg capsule RxNorm: 937744 1 Capsule(s) PO daily 06/1709/11/2017 Inactive potassium chloride ER 10 mEq capsule,extended release RxNorm: 661375 1 Capsule(s) PO daily take only when taking lasix 05/30/2017 08/27/2017 Inactive Lasix 20 mg tablet RxNorm: 382999 1 Tablet(s) PO QAM x 3 days then prn wt gain>/ =2#'s 05/30/2017 08/27/2017 Inactive Lasix 20 mg tablet RxNorm: 231931 1 Tablet(s) PO QAM x 3 days then prn wt gain>/ =2#'s 05/30/2017 05/29/2017 Inactive potassium chloride ER 10 mEq capsule,extended release RxNorm: 112194 1 Capsule(s) PO daily take only when taking lasix 05/30/2017 05/29/2017 Inactive Intuniv ER 2 mg tablet,extended release RxNorm: 972335 1 Tablet(s) PO QPM 05/22/2017 11/25/2017 Inactive Vyvanse 70 mg capsule RxNorm: 856814 1 Capsule(s) PO daily 04/1505/14/2017 Inactive Vyvanse 70 mg capsule RxNorm: 912707 1 Capsule(s) PO daily 03/1504/13/2017 Inactive oxycodone 5 mg tablet RxNorm: 1138495 1 Tablet(s) PO QID as needed pain 02/11/2017 03/12/2017 Inactive Vyvanse 70 mg capsule RxNorm: 710387 1 Capsule(s) PO daily 02/1103/12/2017 Inactive Vyvanse 70 mg capsule RxNorm: 826283 1 Capsule(s) PO daily 01/1402/10/2017 Inactive furosemide 20 mg tablet RxNorm: 403177 1 Tablet(s) PO PRN if you gain more than 3 pounds of fluid in 24 hours 12/31/2016 No Stop Date Active Vyvanse 70 mg capsule RxNorm: 949930 1 Capsule(s) PO daily 12/1101/09/2017 Inactive Vyvanse 50 mg capsule RxNorm: 531314 1 Capsule(s) PO daily 11/0912/10/2016 Inactive Xanax 0.5 mg tablet RxNorm: 551931 1 Tablet(s) PO Q4H as needed 10/11/2016 12/09/2016 Inactive Vyvanse 40 mg capsule RxNorm: 825880 1 Capsule(s) PO daily 10/1111/08/2016 Inactive albuterol sulfate 2.5 mg/3 mL (0.083 %) solution for nebulization RxNorm: 346736 3 Milliliter(s) INH Q4 PRN 10/01/2016 01/28/2017 Inactive oxycodone 5 mg tablet RxNorm: 8060485 1 Tablet(s) PO QID as needed pain 10/01/2016 10/30/2016 Inactive Ambien 5 mg tablet RxNorm: 143056 1 Tablet(s) PO HS PRN 09/2803/26/2017 Inactive Vyvanse 40 mg capsule RxNorm: 708728 1 Capsule(s) PO daily 09/1710/10/2016 Inactive Vyvanse 30 mg capsule RxNorm: 650565 1 Capsule(s) PO daily 08/2309/16/2016 Inactive Xanax 0.5 mg tablet RxNorm: 404308 1 Tablet(s) PO Q4H as needed 07/20/2016 09/17/2016 Inactive hydrocodone 5 mg-acetaminophen 325 mg tablet RxNorm: 899398 1 Tablet(s) PO Q6 as needed 07/10/2016 09/30/2016 Inactive Augmentin 500 mg-125 mg tablet RxNorm: 880107 1 Tablet(s) PO TID 07/10/2016 07/16/2016 Inactive Vyvanse 70 mg capsule RxNorm: 519639 1 Capsule(s) PO daily 06/1508/22/2016 Inactive Vyvanse 70 mg capsule RxNorm: 719801 1 Capsule(s) PO daily 05/1506/13/2016 Inactive Diflucan 150 mg tablet RxNorm: 766965 1 Tablet(s) PO daily 05/14/2016 Inactive Wellbutrin SR 150 mg tablet,sustained-release RxNorm: 708613 TAKE 1 TABLET TWICE A DAY 03/29/2016 07/26/2016 Inactive Diflucan 150 mg tablet RxNorm: 325143 1 Tablet(s) PO daily 03/201603/29/2016 Inactive Diflucan 150 mg tablet RxNorm: 474920 1 Tablet(s) PO daily 03/201603/22/2016 Inactive Vyvanse 70 mg capsule RxNorm: 007514 Capsule(s) PO daily 201504/10/2016 Inactive Vyvanse 70 mg capsule RxNorm: 843506 Capsule(s) PO daily 201503/07/2016 Inactive Voltaren 1 % topical gel RxNorm: 034012 2 Gram(s) TOP QID to shoulders and wrists and hips 02/07/2016 07/18/2016 Inactive Vyvanse 70 mg capsule RxNorm: 437176 Capsule(s) PO daily 201502/06/2016 Inactive Vyvanse 70 mg capsule RxNorm: 091335 Capsule(s) PO daily 201501/12/2016 Inactive Ambien 5 mg tablet RxNorm: 293924 1 Tablet(s) PO HS PRN 11/0204/30/2016 Inactive Xanax 0.5 mg tablet RxNorm: 935716 1 Tablet(s) PO Q4H as needed 11/03/2015 07/19/2016 Inactive [SAVINGS FOR UNINSURED PATIENTS -- BIN:[id number], PCN: ASPROD1, Group: [id number], ID# [id number], Process claim through [employer], for questions: [phone]. THIS IS NOT INSURANCE.] Diflucan 150 mg tablet RxNorm: 430877 1 Tablet(s) PO every other day 10/25/2015 11/07/2015 Inactive Diflucan 150 mg tablet RxNorm: 768678 1 Tablet(s) PO every other day 10/25/2015 10/24/2015 Inactive Augmentin 875 mg-125 mg tablet RxNorm: 209070 1 Tablet(s) PO BID 10/25/2015 11/07/2015 Inactive Augmentin 875 mg-125 mg tablet RxNorm: 564778 1 Tablet(s) PO BID 10/25/2015 10/24/2015 Inactive gabapentin 100 mg capsule RxNorm: 018159 Capsule(s) PO TAKE 200 MG DAILY X5 DAYS THEN 100 MG DAILY X5 DAYS THEN 100 MG EVERY OTHER DAY X3 DOSES THEN STOP 10/21/2015 11/02/2015 Inactive Cipro 500 mg tablet RxNorm: 951609 1 Tablet(s) PO BID 201510/11/2015 Inactive Cipro 500 mg tablet RxNorm: 552370 1 Tablet(s) PO BID 201510/24/2015 Inactive Vyvanse 70 mg capsule RxNorm: 755674 Capsule(s) PO daily 201511/09/2015 Inactive Klonopin 0.5 mg tablet RxNorm: 035894 1 Tablet(s) PO BID as needed 09/28/2015 11/02/2015 Inactive Klonopin 0.5 mg tablet RxNorm: 114356 1 Tablet(s) PO BID as needed 09/28/2015 09/27/2015 Inactive gabapentin 300 mg capsule RxNorm: 954943 1 Capsule(s) PO QHS 10/20/2015 Inactive gabapentin 300 mg capsule RxNorm: 656148 1 Capsule(s) PO QHS 09/15/2015 Inactive hydrocodone 5 mg-acetaminophen 325 mg tablet RxNorm: 724182 1 Tablet(s) PO Q6 as needed 09/16/2015 10/15/2015 Inactive gabapentin 300 mg capsule RxNorm: 841682 1 Capsule(s) PO QHS 09/25/2015 Inactive Intuniv ER 2 mg tablet,extended release RxNorm: 043382 Tablet(s) TAKE 1 TABLET DAILY 09/13/2015 04/03/2017 Inactive Intuniv ER 2 mg tablet,extended release RxNorm: 335380 TAKE 1 TABLET DAILY 09/12/2015 09/12/2015 Inactive Vyvanse 70 mg capsule RxNorm: 829818 Capsule(s) PO daily 201509/08/2015 Inactive Vyvanse 70 mg capsule RxNorm: 620972 Capsule(s) PO daily 201408/09/2015 Inactive Vyvanse 70 mg capsule RxNorm: 442505 Capsule(s) PO daily 201407/06/2015 Inactive Ambien 5 mg tablet RxNorm: 972320 1 Tablet(s) PO HS PRN 06/0709/04/2015 Inactive acyclovir 800 mg tablet RxNorm: 573071 1 Tablet(s) PO TID 05/1809/15/2015 Inactive Vyvanse 70 mg capsule RxNorm: 813274 Capsule(s) PO 05/11/2015 06/06/2015 Inactive Xanax 0.5 mg tablet RxNorm: 124021 1 Tablet(s) PO Q4H as needed 05/03/2015 09/27/2015 Inactive [SAVINGS FOR UNINSURED PATIENTS -- BIN:[id number], PCN: ASPROD1, Group: [id number], ID# [id number], Process claim through [employer], for questions: [phone]. THIS IS NOT INSURANCE.] Ventolin HFA 90 mcg/actuation aerosol inhaler RxNorm: 0622962 2 Puff(s) INH QID 05/03/2015 05/02/2015 Inactive Ventolin HFA 90 mcg/actuation aerosol inhaler RxNorm: 6046488 2 Puff(s) INH QID 05/03/2015 06/01/2015 Inactive acyclovir 800 mg tablet RxNorm: 346041 1 Tablet(s) PO TID 05/0205/11/2015 Inactive acyclovir 800 mg tablet RxNorm: 678881 1 Tablet(s) PO TID 05/0205/01/2015 Inactive Keflex 500 mg capsule RxNorm: 214738 1 Capsule(s) PO TID 201404/28/2015 Inactive Keflex 500 mg capsule RxNorm: 701745 1 Capsule(s) PO TID 201405/05/2015 Inactive hydrocodone 5 mg-acetaminophen 325 mg tablet RxNorm: 951019 1 Tablet(s) PO Q6 as needed 04/11/2015 05/10/2015 Inactive Vyvanse 70 mg capsule RxNorm: 798035 Capsule(s) PO 04/11/2015 05/10/2015 Inactive naproxen 500 mg tablet RxNorm: 210132 1 Tablet(s) PO BID 201404/05/2015 Inactive naproxen 500 mg tablet RxNorm: 519452 1 Tablet(s) PO BID 201407/18/2016 Inactive Intuniv ER 2 mg tablet,extended release RxNorm: 714390 TAKE 1 TABLET DAILY 03/15/2015 09/11/2015 Inactive Vyvanse 70 mg capsule RxNorm: 418933 Capsule(s) PO 03/11/2015 04/09/2015 Inactive hydrocodone 5 mg-acetaminophen 325 mg tablet RxNorm: 639347 1 Tablet(s) PO Q6 as needed 02/22/2015 04/10/2015 Inactive Wellbutrin SR 150 mg tablet,sustained-release RxNorm: 346687 TAKE 1 TABLET TWICE A DAY 02/21/2015 2016 Inactive Vyvanse 70 mg capsule RxNorm: 437541 Capsule(s) PO 02/14/2015 03/10/2015 Inactive Vyvanse 30 mg capsule RxNorm: 082637 1 Capsule(s) PO noon 201402/13/2015 Inactive 314.01 Vyvanse 40 mg capsule RxNorm: 494653 40mg q AM and 30mg q NOON Capsule(s) PO 02/10/2015 02/13/2015 Inactive Levaquin 500 mg tablet RxNorm: 125121 1 Tablet(s) PO daily 08/201401/19/2015 Inactive Levaquin 500 mg tablet RxNorm: 441047 1 Tablet(s) PO daily 08/201401/12/2015 Inactive prednisone 20 mg tablet RxNorm: 146885 3 Tablet(s) PO daily 08/201401/17/2015 Inactive hydrocodone 5 mg-acetaminophen 325 mg tablet RxNorm: 440375 1 Tablet(s) PO Q6 as needed 01/10/2015 02/21/2015 Inactive Vyvanse 30 mg capsule RxNorm: 655361 1 Capsule(s) PO noon 201402/08/2015 Inactive 314.01 Vyvanse 40 mg capsule RxNorm: 091732 40mg q AM and 30mg q NOON Capsule(s) PO 01/10/2015 02/08/2015 Inactive cefdinir 300 mg capsule RxNorm: 272821 1 Capsule(s) PO BID 06/201512/30/2014 Inactive albuterol sulfate 2.5 mg/3 mL (0.083 %) solution for nebulization RxNorm: 131426 3 Milliliter(s) INH Q4 PRN 12/24/2014 01/22/2015 Inactive Diflucan 150 mg tablet RxNorm: 489845 1 Tablet(s) PO daily 06/201512/23/2014 Inactive Diflucan 150 mg tablet RxNorm: 523221 1 Tablet(s) PO daily 06/201512/30/2014 Inactive Ambien 5 mg tablet RxNorm: 800704 1 Tablet(s) PO HS PRN 12/0906/06/2015 Inactive Vyvanse 40 mg capsule RxNorm: 274595 40mg q AM and 30mg q NOON Capsule(s) PO 12/08/2014 01/06/2015 Inactive Linzess 145 mcg capsule RxNorm: 4141847 1 Capsule(s) PO daily 12/08/2014 06/05/2015 Inactive Vyvanse 30 mg capsule RxNorm: 825318 1 Capsule(s) PO noon 201401/06/2015 Inactive 314.01 Vyvanse 40 mg capsule RxNorm: 083443 40mg q AM and 30mg q NOON Capsule(s) PO 11/10/2014 12/07/2014 Inactive Vyvanse 30 mg capsule RxNorm: 167241 1 Capsule(s) PO noon 201412/07/2014 Inactive 314.01 Nexium 40 mg capsule,delayed release RxNorm: 631959 1 Capsule(s) PO daily 10/27/2014 10/26/2014 Inactive Nexium 40 mg capsule,delayed release RxNorm: 743530 1 Capsule(s) PO daily 10/27/2014 05/24/2015 Inactive Zofran 4 mg tablet RxNorm: 051086 1 Tablet(s) PO Q6 hours prn as needed for nausea 10/21/2014 10/25/2014 Inactive Zofran 4 mg tablet RxNorm: 004735 1 Tablet(s) PO Q6 hours prn as needed for nausea 10/21/2014 10/20/2014 Inactive Xanax 0.25 mg tablet RxNorm: 805066 1/2 to 1 Tablet(s) PO Q8 PRN as needed 10/15/2014 05/02/2015 Inactive [SAVINGS FOR UNINSURED PATIENTS -- BIN:755206, PCN: ASPROD1, Group: [id number], ID# [id number], Process claim through [employer], for questions: . THIS IS NOT INSURANCE.] sucralfate 100 mg/mL oral suspension RxNorm: 955395 10 Milliliter(s) PO QID 10/06/2014 11/02/2015 Inactive Vyvanse 40 mg capsule RxNorm: 653709 40mg q AM and 30mg q NOON Capsule(s) PO 10/04/2014 11/02/2014 Inactive omeprazole 20 mg capsule,delayed release RxNorm: 891693 1 Capsule(s) PO daily 09/08/2014 11/02/2015 Inactive Linzess 145 mcg capsule RxNorm: 2057060 1 Capsule(s) PO daily 09/08/2014 10/07/2014 Inactive azelastine 137 mcg (0.1 %) nasal spray aerosol RxNorm: 3713480 2 [place] NASAL BID 09/06/2014 10/05/2014 Inactive [SAVINGS FOR NON-COVERED DRUGS -- BIN:713231, PCN: ASPROD1, Group: XXXXX, ID# [id number], Questions: . THIS IS NOT INSURANCE.] Xanax 0.25 mg tablet RxNorm: 919565 1/2 to 1 Tablet(s) PO Q8 PRN as needed 08/26/2014 10/14/2014 Inactive [SAVINGS FOR UNINSURED PATIENTS -- BIN:567431, PCN: ASPROD1, Group: [id number], ID# [id number], Process claim through [employer], for questions: . THIS IS NOT INSURANCE.] Ambien 5 mg tablet RxNorm: 142382 1 Tablet(s) PO HS PRN 08/1312/08/2014 Inactive prednisone 20 mg tablet RxNorm: 930537 3 Tablet(s) PO daily 08/17/2014 Inactive Vyvanse 40 mg capsule RxNorm: 973932 40mg q AM and 30mg q NOON Capsule(s) PO 08/11/2014 09/09/2014 Inactive Vyvanse 40 mg capsule RxNorm: 819201 40mg q AM and 30mg q NOON Capsule(s) PO 07/06/2014 08/04/2014 Inactive Xanax 0.25 mg tablet RxNorm: 326094 1/2 to 1 Tablet(s) PO Q8 PRN as needed 06/23/2014 08/25/2014 Inactive Wellbutrin SR 150 mg tablet,sustained-release RxNorm: 052905 TAKE 1 TABLET TWICE A DAY 06/08/2014 02/20/2015 Inactive Vyvanse 40 mg capsule RxNorm: 959239 40mg q AM and 30mg q NOON Capsule(s) PO 06/03/2014 07/02/2014 Inactive Vyvanse 40 mg capsule RxNorm: 027291 40mg q AM and 30mg q NOON Capsule(s) PO 05/04/2014 06/02/2014 Inactive Intuniv ER 2 mg tablet,extended release RxNorm: 819929 TAKE 1 TABLET DAILY 04/13/2014 03/14/2015 Inactive Vyvanse 40 mg capsule RxNorm: 822207 40mg q AM and 30mg q NOON Capsule(s) PO 03/24/2014 04/22/2014 Inactive Vyvanse 40 mg capsule RxNorm: 639730 40mg q AM and 30mg q NOON Capsule(s) PO 03/01/2014 03/23/2014 Inactive Wellbutrin SR 150 mg tablet,sustained-release RxNorm: 420013 1 Tablet(s) PO BID 01/04/2014 06/07/2014 Inactive Claritin 10 mg tablet RxNorm: 716820 1 Tablet(s) PO daily 201307/18/2016 Inactive Vyvanse 40 mg capsule RxNorm: 601443 40mg q AM and 30mg q NOON Capsule(s) PO 12/21/2013 01/19/2014 Inactive Intuniv ER 2 mg tablet,extended release RxNorm: 092854 Tablet(s) PO TAKE 1 TABLET DAILY 12/14/2013 04/12/2014 Inactive Vyvanse 40 mg capsule RxNorm: 036576 40mg q AM and 30mg q NOON Capsule(s) PO QAM 11/12/2013 12/11/2013 Inactive Vyvanse 40 mg capsule RxNorm: 200058 40mg q AM and 30mg q NOON Capsule(s) PO QAM 10/15/2013 11/11/2013 Inactive Vyvanse 40 mg capsule RxNorm: 593364 1 Capsule(s) PO QAM 201310/14/2013 Inactive spironolactone 25 mg tablet RxNorm: 355431 1 Tablet(s) PO BID 10/01/2013 09/25/2014 Inactive metformin 500 mg tablet RxNorm: 360405 1/2 Tablet(s) PO QHS 09/25/2014 Inactive Intuniv ER 2 mg tablet,extended release RxNorm: 468027 Tablet(s) PO TAKE 1 TABLET DAILY 09/22/2013 12/13/2013 Inactive Vyvanse 40 mg capsule RxNorm: 737404 1 Capsule(s) PO QAM 201310/14/2013 Inactive Vyvanse 30 mg capsule RxNorm: 645392 1 Capsule(s) PO noon 201310/14/2013 Inactive Vyvanse 30 mg capsule RxNorm: 957045 1 Capsule(s) PO noon 201309/14/2013 Inactive Vyvanse 40 mg capsule RxNorm: 115830 1 Capsule(s) PO QAM 201309/14/2013 Inactive Keflex 500 mg capsule RxNorm: 761595 1 Capsule(s) PO QID 201308/18/2013 Inactive Keflex 500 mg capsule RxNorm: 277182 1 Capsule(s) PO QID 201308/11/2013 Inactive metformin 500 mg tablet RxNorm: 363134 1/2 Tablet(s) PO QHS 09/30/2013 Inactive spironolactone 25 mg tablet RxNorm: 308949 1 Tablet(s) PO BID 07/31/2013 09/30/2013 Inactive Diflucan 150 mg tablet RxNorm: 037185 1 Tablet(s) PO daily 08/06/2013 Inactive Vyvanse 30 mg capsule RxNorm: 290944 1 Capsule(s) PO noon 201208/16/2013 Inactive Vyvanse 40 mg capsule RxNorm: 199993 1 Capsule(s) PO QAM 201208/16/2013 Inactive Wellbutrin SR 150 mg tablet,sustained-release RxNorm: 710092 1 Tablet(s) PO BID 06/04/2013 06/24/2013 Inactive Xanax 0.25 mg tablet RxNorm: 013097 1/2 to 1 Tablet(s) PO Q8 PRN 05/20/2013 06/22/2014 Inactive Wellbutrin SR 150 mg tablet,sustained-release RxNorm: 314047 1 Tablet(s) PO BID 05/18/2013 06/03/2013 Inactive Vyvanse 40 mg capsule RxNorm: 660513 1 Capsule(s) PO QAM 201206/16/2013 Inactive Vyvanse 30 mg capsule RxNorm: 473827 1 Capsule(s) PO noon 201206/16/2013 Inactive Wellbutrin SR 150 mg tablet,sustained-release RxNorm: 498923 1 Tablet(s) PO daily 04/30/2013 05/17/2013 Inactive Wellbutrin SR 150 mg tablet,sustained-release RxNorm: 314243 1 Tablet(s) PO daily 04/30/2013 04/29/2013 Inactive cefdinir 300 mg capsule RxNorm: 917668 1 Capsule(s) PO BID 04/201304/29/2013 Inactive Vyvanse 70 mg capsule RxNorm: 205215 1 Capsule(s) PO QAM 201205/18/2013 Inactive azelastine 137 mcg Nasal [place] Aerosol RxNorm: 6591619 2 [place] NASAL BID 03/26/2013 09/21/2013 Inactive Augmentin 500 mg-125 mg tablet RxNorm: 027555 1 Tablet(s) PO BID 03/26/2013 03/30/2013 Inactive Vyvanse 70 mg capsule RxNorm: 576143 1 Capsule(s) PO QAM 201203/11/2013 Inactive multivitamin tablet RxNorm: 1 Tablet(s) PO daily 02/11/2013 04/03/2017 Inactive Vyvanse 70 mg capsule RxNorm: 512057 1 Capsule(s) PO QAM 201203/11/2013 Inactive Vyvanse 70 mg capsule RxNorm: 598142 1 Capsule(s) PO 01/12/2013 02/10/2013 Inactive Intuniv ER 2 mg tablet,extended release RxNorm: 159659 Tablet(s) PO TAKE 1 TABLET DAILY 01/02/2013 09/21/2013 Inactive Intuniv ER 2 mg tablet,extended release RxNorm: 841921 1 Tablet(s) PO QHS 01/01/2013 01/01/2013 Inactive Vyvanse 70 mg capsule RxNorm: 294673 1 Capsule(s) PO 12/10/2012 01/08/2013 Inactive Vyvanse 70 mg capsule RxNorm: 492405 1 Capsule(s) PO 11/11/2012 12/09/2012 Inactive Intuniv ER 2 mg tablet,extended release RxNorm: 157418 1 Tablet(s) PO QHS 09/29/2012 12/27/2012 Inactive Vyvanse 60 mg capsule RxNorm: 695796 1 Capsule(s) PO daily 09/1012/21/2013 Inactive Intuniv ER 2 mg tablet,extended release RxNorm: 255592 1 Tablet(s) PO QHS 09/02/2012 09/28/2012 Inactive Intuniv ER 2 mg tablet,extended release RxNorm: 595770 1 Tablet(s) PO QHS 08/11/2012 09/01/2012 Inactive Vyvanse 60 mg capsule RxNorm: 981360 1 Capsule(s) PO daily 08/1109/09/2012 Inactive omeprazole 20 mg Cap, Delayed Release RxNorm: 265095 1 Capsule(s) PO daily 09/11/2011 02/11/2013 Inactive Aciphex 20 mg Tab RxNorm: 525683 1 Tablet(s) PO daily 201109/11/2011 Inactive Aciphex 20 mg Tab RxNorm: 285634 1 Tablet(s) PO daily 201109/10/2011 Inactive diazepam 2 mg tablet RxNorm: 798319 1 Tablet(s) PO BID -Prescribed by urology at No Start Date Active hyoscyamine 0.125 mg sublingual tablet RxNorm: 0658656 1 Tablet(s) SL Q4H as needed No Start Date Active Excedrin Migraine 250 mg-250 mg-65 mg tablet RxNorm: 632503 1 Tablet(s) PO Q6 as needed No Start Date Active Restasis 0.05 % eye drops in a dropperette RxNorm: 491863 OPH BID No Start Date Active Pyridium 100 mg tablet RxNorm: 7826693 1 Tablet(s) PO TID as needed No Start Date Active Pazeo 0.7 % eye drops RxNorm: 4633021 Drop(s) OPH as needed No Start Date Active azelastine-fluticasone 137 mcg-50 mcg/spray nasal spray RxNorm: 6811097 2 [place] NASAL daily ONE SPRAY IN EACH NOSTRIL No Start Date Active amitriptyline 10 mg tablet RxNorm: 486911 3 Tablet(s) PO QHS Dr Walker No Start Date 11/25/2017 Inactive Loestrin Fe 1.5/30 (28) 1.5 mg-30 mcg Tab RxNorm: 8753585 1 Tablet(s) PO daily No Start Date 02/10/2013 Inactive Vitamin D3 1,000 unit tablet RxNorm: 067908 1 Tablet(s) PO daily No Start Date 07/18/2016 Inactive Caltrate 600 + D oral RxNorm: 584180 oral No Start Date 04/03/2017 Inactive Lyrica 50 mg capsule RxNorm: 846906 1 Capsule(s) PO BID -Started by Dr. Hartmann No Start Date 12/30/2016 Inactive multivitamin tablet RxNorm: 2 Tablet(s) PO daily No Start Date 02/10/2013 Inactive Elavil 10 mg tablet RxNorm: 303476 1 Tablet(s) PO QHS No Start Date 07/17/2017 Inactive gabapentin 100 mg capsule RxNorm: 177956 Capsule(s) PO TAKE 200 MG DAILY X5 DAYS THEN 100 MG DAILY X5 DAYS THEN 100 MG EVERY OTHER DAY X3 DOSES THEN STOP No Start Date 10/20/2015 Inactive Lyrica 75 mg capsule RxNorm: 299929 1 Capsule(s) PO BID manage by Dr Hartmann No Start Date 04/03/2017 Inactive Flonase 50 mcg/actuation Nasal [place] RxNorm: 561673 [place] NASAL daily No Start Date 11/02/2015 Inactive Xanax 0.25 mg tablet RxNorm: 553766 1/2 to 1 Tablet(s) PO Q8 PRN No Start Date 05/19/2013 Inactive Diflucan 150 mg tablet RxNorm: 678874 1 Tablet(s) PO daily as needed yeast infection symptoms No Start Date 2017 Inactive Toprol XL 25 mg tablet,extended release RxNorm: 447444 1 Tablet(s) PO QHS No Start Date 01/27/2018 Inactive Vitamin C 500 mg tablet RxNorm: 342017 1 Tablet(s) PO daily No Start Date 07/18/2016 Inactive azelastine 137 mcg Nasal [place] Aerosol RxNorm: 042399 1 [place] NASAL daily No Start Date 09/05/2014 Inactive Celexa 10 mg Tab RxNorm: 524584 1 Tablet(s) PO daily No Start Date 08/18/2013 Inactive Lastacaft 0.25 % Eye Drops RxNorm: 4118996 Drop(s) OPH PRN No Start Date 11/02/2015 Inactive Zyrtec 10 mg capsule RxNorm: 2486747 1 Capsule(s) PO daily No Start Date 01/03/2014 Inactive Vitamin B-12 ER 1,500 mcg tablet,extended release RxNorm: 454316 1 Tablet(s) PO daily No Start Date 07/18/2016 Inactive Intuniv ER 2 mg tablet,extended release RxNorm: 616994 1 Tablet(s) PO QHS No Start Date 08/10/2012 Inactive Vyvanse 60 mg capsule RxNorm: 034535 1 Capsule(s) PO daily No Start Date 08/10/2012 Inactive metoprolol succinate ER 25 mg tablet,extended release 24 hr RxNorm: 934979 1 Tablet(s) PO BID No Start Date 07/22/2017 Inactive phentermine 37.5 mg capsule RxNorm: 853924 1 Capsule(s) PO BID No Start Date 02/10/2013 Inactive magnesium oxide 250 mg tablet RxNorm: 554372 1 Tablet(s) PO daily No Start Date 04/03/2017 Inactive Flonase Allergy Relief 50 mcg/actuation nasal spray, suspension RxNorm: 9310158 [place] NASAL as needed No Start Date Inactive hydrocodone 5 mg-acetaminophen 325 mg tablet RxNorm: 203118 1 Tablet(s) PO Q6 as needed No Start Date 01/09/2015 Inactive Medication Administered No Medication Administered data Immunizations Vaccine Codes Date Status Influenza CVX: 141 04/17/2011 completed Assessments Condition Codes Effective Dates 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 ICD-9: 356.4 01/28/2018 Generalized anxiety disorder ICD-10: F41.1 ICD-9: 300.00 01/28/2018 Other specified disorders of nose and nasal sinuses ICD-10: J34.89 ICD-9: 478.19 01/28/2018 Attention-deficit hyperactivity disorder, 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 ICD-9: 314.01 01/28/2018 Chronic pain syndrome ICD-10: G89.4 ICD-9: 338.4 [...] Visit Effective Dates Notes disturbances of thinking 01/28/2018 disturbances of thinking [...] Observation Code Item Item Code Result Date IGA [id number] IGA 115 mg/dL 02/14/2018 CHEM 14 [id number] AST 25 U/L 02/13/2018 CHEM 14 [id number] ALT 26 U/L 02/13/2018 CHEM 14 2277152 BUN 12 mg/dL 02/13/2018 CHEM 14 8168589 ALBUMIN 4.5 g/dL 02/13/2018 CHEM 14 4668967 CHLORIDE 105 mmol/L 02/13/2018 CHEM 14 6713324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 functional[ICD9: 564.09] Sahara Smith MD, [facility] CPT-4: 99617 10/06/2014 ([id number]) 25275 EST. PATIENT, LEVEL IV Diagnosis: RUQ pain[ICD9: 789.01] Diagnosis: GENERALIZED ANXIETY DISEASE[ICD9: 300.02] Diagnosis: ADHD (attention deficit hyperactivity disorder)[ICD9: 314.01] Diagnosis: Irritable bowel[ICD9: 564.1] [facility] CPT- 4: 80979 09/08/2014 ([id number]) 73928 EST. PATIENT, LEVEL IV Diagnosis: ATTN DEFICIT W/ HYPERACT[ICD9: 314.01] Diagnosis: Insomnia[ICD9: 780.52] Diagnosis: HEADACHE[ICD9: 784.0] Diagnosis: ALLERGIC RHINITIS[ICD9: 477.9] Diagnosis: Neck pain[ICD9: 723.1] Mireille Smith MD, [facility] CPT-4: 18335 08/13/2014 ([id number] 02207 EST. PATIENT, LEVEL V Diagnosis: Breast discharge[ICD9: 611.79] Diagnosis: ADHD (attention deficit hyperactivity disorder)[ICD9: 314.01] Diagnosis: MALAISE AND FATIGUE[ICD9: 780.79] Diagnosis: ABN THYROID FUNCT STUDY[ICD9: 794.5] Diagnosis: Swollen neck[ICD9: 784.2] Diagnosis: Rash[ICD9: 782.1] Sahara Smith MD, [facility] CPT-4: 13566 04/22/2014 ([id number]) 67307 EST. PATIENT, LEVEL IV Diagnosis: ADHD (attention deficit hyperactivity disorder)[ICD9: 314.01] Diagnosis: GENERALIZED ANXIETY DISEASE[ICD9: 300.02] Diagnosis: Fatigue[ICD9: 780.79] Diagnosis: PCOS (polycystic ovarian syndrome)[ICD9: 256.4] Sahara Smith MD, [facility] CPT-4: 33979 01/04/2014 ([id number]) 08796 EST. PATIENT, LEVEL IV Diagnosis: Vaginal yeast infection[ICD9: 112.1] Diagnosis: PCOS (polycystic ovarian syndrome)[ICD9: 256.4] Diagnosis: Hirsutism[ICD9: 704.1] Mireille Smith MD, [facility] CPT-4: 21992 07/31/2013 ([id number]) 25138 EST. PATIENT, LEVEL IV Diagnosis: ATTN DEFICIT W/ HYPERACT[ICD9: 314.01] Diagnosis: ALLERGIC RHINITIS[ICD9: 477.9] Diagnosis: ACUTE SINUSITIS[ICD9: 461.9] Mireille Smith MD, [facility] CPT-4: 86607 04/23/2013 [id number] EST. PATIENT, LEVEL III Diagnosis: UTI[ICD9: 599.0] Sahara Smith MD, [facility] CPT-4: 71616 03/26/2013 ([id number]) 45635 EST. PATIENT, LEVEL IV Diagnosis: Constipation - functional[ICD9: 564.09] Diagnosis: ABN THYROID FUNCT STUDY[ICD9: 794.5] Diagnosis: MALAISE AND FATIGUE[ICD9: 780.79] Diagnosis: GENERALIZED ANXIETY DISEASE[ICD9: 300.02] [facility] CPT-4: 99960 02/11/2013 ([id number]) 14253 EST. PATIENT, LEVEL IV Diagnosis: ADHD (attention deficit hyperactivity disorder)[ICD9: 314.01] Diagnosis: GENERALIZED ANXIETY DISEASE[ICD9: 300.02] Diagnosis: Overweight[ICD9: 278.02] [facility] CPT-4: 75744 07/16/2012 ([id number]) 89862 EST. PATIENT, LEVEL IV Diagnosis: Abnormal thyroid function test[ICD9: 794.5] Diagnosis: Toxic effect of carbon monoxide[ICD9: 986] Diagnosis: Fatigue[ICD9: 780.79] Diagnosis: Hypoglycemia[ICD9: 251.2] [facility] CPT-4: 18456 03/11/2012 ([id number]) OFFICE VISIT, NEW - LEVEL 3 Diagnosis: RUQ pain[ICD9: 789.01] Diagnosis: Nausea[ICD9: 787.02] [facility] CPT-4: 09119 08/21/2011 Plan of Care Planned Activity Notes Codes Status Date [facility] [id number] Ref[facility] Completed 02/04/2018 Visit Plan: ADHD - refill vyvanse today. Immune deficiency - Dr. Mccoy - [phone] ku [facility] allergy/immunology Nasal lesion - referral to dr. allen RE - nasal sore left side of nose - nonhealing Anxiety - refilled rx for patient. 01/28/2018 Appointment: Sahara Smith WPtel: [address] [place], [place] [id number] (30 min) Complex 01/28/2018 Patient Education: Patient Medication Summary Completed 01/28/2018 Care Plan: Referral Order SNOMED-CT : [id number] Pending 01/28/2018 Care Plan: Referral Order SNOMED-CT : [id number] Pending 01/28/2018 Visit Plan: Chronic Pain Syndrome [...] process. Pt has appt with Neurologist at [facility]. She will keep me informed [...] her other office visits with neurologist and dipper operator, review of her MRI of head, cervical spine and back, labs from the specialists, etc. 11/26/2017 Appointment: [phone] [facility] ([facility] min) Complex 11/26/2017 Patient Education: [...] given her information about the specialist at [facility] who has specialization in small fiber neuropathy. 07/23/2017 Appointment: [facility]el[facility] [facility] [place] (30 min) Complex 07/23/2017 Patient Education: Patient Medication Summary Completed 07/23/2017 Appointment: [facility]el[facility] [facility] [place] (30 min) Complex 06/13/2017 Visit Plan: ADHD - per Neuropsych testing - she has nonspecifit attentional ineffieciency interacting with treated ADHD in a normal neurocognitive study. neurology referral to [facility] Memory loss - recommended patient to continue current medical regimen, will refer to [facility] per her request 05/22/2017 Appointment: Sahara Smith WPtel: [facility] [place] (30 min) Complex 05/22/2017 Patient Education: Patient Medication Summary Completed 05/22/2017 Patient Education: Obesity Completed 05/22/2017 Care Plan: Referral Order SNOMED-CT : [id number] Pending 05/22/2017 Visit Plan: Possible small fiber neuropathy - pt to have further testing at - appt with Cardiology at for autonomic testing, and to have small nerve biopsy - she states that she has a procedure of some sort on May 29 [facility] on aging - [phone] Hartmann - she does not know exactly what is going to happen in May - we will call Dr. Hartmann. med rec number [phone] Urinary retention/detrusor instability - recommended patient to start therapy as directed by Dr. Hummel. - She is to call Dr. Hummel about if he approves of therapy at [facility]. Phone call to Dr. Hartmann's office tonight - did not get through to a person today - message left for Dr. Hartmann's nurse to call the office with messages and information. 04/04/2017 Appointment: [facility] Smith [facility]Ptel[phone] [facility] [place] ([facility] min) Complex 04/04/2017 Patient Education: Patient Medication Summary Completed 04/04/2017 Patient Education: Obesity Completed 04/04/2017 Appointment: Sah[facility] Smith [facility]Ptel[facility] [address] [facility] [place] (30 min) Complex 04/02/2017 Visit Plan: Memory loss, gait instability, weakness, headaches - will order MRI - will treat as indicated - pt is to update her neurologist - pt is to notify clinic of any changes, questions, or concerns. 03/01/2017 Appointment: [facility] [facility] ([facility] min) Complex 03/01/2017 Patient Education: [...] treatment. 12/31/2016 Appointment: Sah[facility] Smith [facility]Ptel[phone] [facility] ([facility] min) Complex 12/31/2016 Patient Education: Patient Medication Summary Completed 12/31/2016 Visit Plan: ADHD - monitor symptoms - continue with current treatment. Family history of Muscle disorders -continue supportive care. Tachycardia - improved - defer treatment to Dr. Johnson 10/01/2016 Appointment: Sah[facility] Smith [facility]Ptel[facility] [facility] ([facility] min) Complex 10/01/2016 Patient Education: [...] Low back pain-history of UTI-+leukocytes at [facility]-send urine for culture 08/23/2016 Visit Plan: [...] Low back pain-history of UTI-+leukocytes at the [facility]-send urine for culture 08/23/2016 Appointment: Mireille Tatum WPtel: [address] [place] [phone] (30 min) [facility] 08/23/2016 Patient Education: Patient Medication Summary Completed [...] medications. 08/02/2016 Appointment: [facility]Ptel[phone] [facility] ([facility] min) Complex 08/02/2016 Patient Education: Patient Medication Summary Completed 08/02/2016 Visit Plan: Palpitations - treatment per Dr. Johnson- continue with current treatment - call if heart rate not improving. ADHD - restart strattera - stop wellbutrin. 07/19/2016 Appointment: Sahara Smith WPtel: [address] [facility] [place] (30 min) Complex 07/19/2016 Appointment: Mireille Tatum WPtel: [address] [phone] [place] (30 min) Complex 07/19/2016 Patient Education: Patient Medication Summary Completed 07/19/2016 Visit Plan: ADHD - monitor symptoms - continue with strattera as previously directed Family history of Muscle disorders -continue supportive care. Tachycardia - monitor symptoms - defer treatment to Dr. Johnson 07/05/2016 Appointment: Sahara Smith WPtel: [facility] (30 min) Complex 07/05/2016 Patient Education: Patient Medication Summary Completed 07/05/2016 Patient Education: Obesity Completed 07/05/2016 Visit Plan: Family history of Muscle disorders - recommended pt to have a neurological evaluation - waiting on appt in [place]. Rx for diflucan for vaginitis 04/10/2016 Appointment: Sahara Smith WPtel: [facility] [place] (15 min) Moderate 04/10/2016 Patient Education: Patient Medication Summary Completed 04/10/2016 Visit Plan: Family history of Muscle disorders - recommended pt to have a neurological evaluation - pt was turned down by Dr. Mora - further referral pending. Pt to use voltaren gel on affected joints - call if not improving. 02/07/2016 Appointment: Sahara Smith WPtel: [phone] [facility] [place] (15 min) Moderate 02/07/2016 Patient Education: Patient Medication Summary Completed 02/07/2016 Care Plan: Referral Order SNOMED-CT : [id number] Pending 01/09/2016 Visit Plan: Family history of [...] any concerns. 10/26/2015 Appointment: Mireille Tatum WPtel: [address] [place], [place] [phone] (15 min) Moderate 10/26/2015 Patient Education: Patient [...] further testing and referral to specialist in [facility] - Allergy/Immunology/Rheumatology clinic. Pt is to continue with treatment per stamp clerk. 11/30/2014 Patient Education: Patient Medication Summary Completed 11/30/2014 Care Plan: Referral Order SNOMED-CT : [id number] Ordered 11/30/2014 Appointment: Sick 11/26/2014 Visit Plan: [...] her colonoscopy. 10/06/2014 Appointment: Sahara Smith WPtel: [address] [place], [place] [phone] Sick 10/06/2014 Patient Education: Patient Medication Summary Completed 10/06/2014 Care Plan: Referral Order SNOMED-CT : [id number] Ordered 10/06/2014 Visit Plan: RUQ pain - GERD symptoms - recommended pt to start on pepcid, start monitoring symptoms. Irritable bowel syndrome - recommended pt to start on linzess samples and to start on probiotics. REFILL ADHD medications 09/08/2014 Appointment: Sahara Smith WPtel: [facility] Follow up 09/08/2014 Patient Education: Patient Medication [...] sent to lab for body fluids to [facility] for breast fluid eval/pathology ADHD - medication [...] ds dna, to blood in lab at [facility]. Chronic Depression and anxiety - the pt has symptoms of chronic anxiety and depression that have been fairly well controlled since the last office visit. The pt has expected periods of exacerbation with abatement of the symptoms with change in situational exposure. No change in current medications. Over 1 hour spent with patient in exam, and interview. 04/22/2014 Appointment: Sahara Smith WPtel: [id number] [facility] 04/22/2014 Patient Education: Patient Medication [...] bid dosing. 01/04/2014 Appointment: Sahara Smith WPtel: [facility] Follow up 01/04/2014 Patient Education: Patient Medication Summary Completed 01/04/2014 Visit Plan: Yeast infection-RX for diflucan-call if symptoms do not resolve VKDK-gsvccitjd-lihyijrzu natural and expected course of this diagnosis and to alert me if symptoms do not follow expected course, or if any worse. RX sent to patient's pharmacy and discussed risk vs benefits of each of the medications. Patient verbalized understanding of plan. 07/31/2013 Appointment: Mireille Tatum WPtel: [phone] Pap Only 07/31/2013 Patient Education: Patient Medication [...] patient's pharmacy 04/23/2013 Appointment: Mireille Tatum WPtel: [address] [place] [address] Other 04/23/2013 Patient Education: Patient Medication Summary [...] of plan. 03/26/2013 Appointment: Mireille Tatum WPtel: [address] [place] [address] Other 03/26/2013 Patient Education: Patient Medication Summary Completed 03/26/2013 Appointment: Mireille Tatum WPtel: [address] [place], [place] [phone] Sick 02/26/2013 Visit Plan: Constipation - uncontrolled [...] have recommended that she have testing/eval by [employer] for further in depth evaluation. I have not ordered any specific tests as many endocrinologists have specific labs at which they prefer testing to be performed. 02/11/2013 Appointment: Sahara Smith WPtel: [address] [place] [address] Other 02/11/2013 Patient Education: Patient Medication Summary [...] check. 07/16/2012 Appointment: Sahara Smith WPtel: [phone] [facility] Other 07/16/2012 Patient Education: Patient Medication Summary Completed 07/16/2012 Visit Plan: Abnormal thyroid mtjjxuvu-lyxruaptyipx-fqnztbkk , night sweats, fatigue-plan to check additional labs including thyroid auto antibodies and PTH as well as thryoid ultrasound. Carbon Monoxide poisoning- plan to check EKG-discussed with Dr. Smith-may need an Echo as well Hypoglycemia-check blood sugars with symptoms-glucometer provided 03/11/2012 Appointment: Mireille Tatum WPtel: [phone] Other 03/11/2012 Patient Education: Patient Medication Summary Completed 03/11/2012 Visit Plan: RUQ pain-nausea after meals-recommend gallbladder ultrasound to evaluate patient's gallbladder-also recommend a low fat diet and monitor symptoms. Instructed patient to go to ER for unresolved or worsening pain. Achiphex 20mg daily-samples provided. Call with any questions or concerns. 08/21/2011 Appointment: M[facility] Tatum [facility]el[phone] [phone] New Patient 08/21/2011 Patient Education: Patient Medication Summary Completed 08/21/2011 Referral: External, Ordering Provider Referral Completed Referral: Jose Rodriguez [facility]el[facility] [phone] [id number] [place] Referral Completed Referral: [facility] Referral Appointment Requested Referral: Gonzales Rhodes WPtel: Referral Appointment Requested Ref[facility]: [facility] Referral Appointment Requested Referral: [facility] Referral Appointment Requested Referral: External, Ordering Provider 06/10 Referral info faxed; 06/11 Clinical information was received and they will send her information on to be reviewed. They will contact the patient for an appt Appointment Requested Instructions Comment . Family history of Muscle disorders - recommended pt to have a neurological evaluation - referral placed to - Dr. Daniel Rich Neurology - referral for neuromuscular eval with possible muscle biopsy. . Leg Weakness - recommendation for physical [...] given her information about the specialist at [facility] who has specialization in small fiber neuropathy. decrease wellbutrin to one time daily x 1 week then stop . Palpitations - treatment per Dr. Johnson- continue with current treatment - call if heart rate not improving. ADHD - restart strattera - stop wellbutrin. . Yeast infection-RX for diflucan-call if symptoms do not resolve ZBUO-edeedernz-snxujrkzx natural and expected course of this diagnosis [...] a normal neurocognitive study. neurology referral to [facility] Memory loss - recommended patient to continue current medical regimen, will refer to [facility] per her request . ADHD - monitor symptoms - continue with current treatment. Family history of Muscle disorders -continue supportive care. Tachycardia - improved - defer treatment to Dr. Johnson . Breast discharge - sent to lab for body fluids to [facility] for breast fluid eval/pathology ADHD - medication [...] ds dna, to blood in lab at [facility]. Chronic Depression and anxiety - the pt [...] resolved. Patient verbalized understanding. . Abnormal thyroid pwuxhtba-ztkuljshevao-milmqcqy, night sweats, fatigue-plan to check additional labs including thyroid auto antibodies and PTH as well as thryoid ultrasound. Carbon Monoxide poisoning-plan to check EKG-discussed with Dr. Smith-may need an Echo as well Hypoglycemia-check blood sugars with symptoms-glucometer provided . Auto-immune disease process - recommended further testing and referral to specialist in [facility] - Allergy/ Immunology/Rheumatology clinic. Pt is to continue with treatment per stamp clerk. . ADHD - medication working well for [...] anti inflammatories as directed . ADHD - refill vyvanse today. Immune deficiency - Dr. Mccoy - [phone] - med allergy/immunology Nasal lesion - referral [...] procedure of some sort on May 29 [facility] on aging - [phone] Hartmann - she does not know exactly what is going to happen in May - we will call Dr. Hartmann. med rec number [phone] Urinary retention/detrusor instability - recommended patient to start therapy as directed by Dr. Hummel. - She is to call Dr. Hummel about if he approves of therapy at [facility]. Phone call to Dr. Hartmann's office tonight [...] have recommended that she have testing/eval by [employer] [employer] for further in depth evaluation. I have [...] affected joints - call if not improving. rash on nose needs cultured . Chronic [...] has appt with Neurologist at [facility] soon. She will keep me informed [...] her other office visits with neurologist and dipper operator, review of her MRI of head, cervical spine and back , labs from the specialists, etc. . RUQ pain - GERD symptoms - [...] neurological evaluation - waiting on appt in [place]. Rx for diflucan for vaginitis
--- OUTSIDE RECORDS SUMMARY | 2018-08-14 12:01 | XMS REPORT | Continuity of Care Document ---
Author Author [facility] Organization [facility] Address Unknown Phone Unavailable Allergies Active Description Code Type Severity Reaction Onset Reported/Identified Relationship to Patient Clinical Status Yes No Allergy Information Available [id number] Drug Allergy Unknown N/A 2013 Yes sulfamethoxazole [id number] Drug Allergy Unknown N/A 10/11/2014 Yes gabapentin [id number] Drug Allergy Severe MEMORY LOSS 08/11/2018 Yes sulfamethoxazole [id number] Drug Allergy Mild RASH 08/11/2018 Yes trimethoprim [id number] Drug Allergy Unknown N/A 08/11/2018 Medications There is no data. 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 THEE DAVIDSON Ot R76.0 RAISED ANTIBODY TITER 06/13/1429 MARYJANE ZAVALA MD Ot R76.0 RAISED ANTIBODY TITER 05/31/2014 MARYJANE ZAVALA MD Ot 611.79 05/31/2014 MARYJANE ZAVALA MD Ot 785.6 10/08/2014 Ot 611.72 10/08/2014 Ot 787.02 10/08/2014 Ot 789.01 10/08/2014 Ot 789.01 10/08/2014 Ot 244.9 10/08/2014 Ot 780.79 10/08/2014 Ot 794.5 10/08/2014 FELECIA SHEETS Ot 620.2 10/08/2014 KAYLA SHAY DO Ot 625.9 10/08/2014 KAYLA SHAY DO Ot V45.51 10/11/2014 MARYJANE ZAVALA MD Ot 611.79 10/11/2014 MARYJANE ZAVALA MD Ot 785.6 10/11/2014 MARYJANE ZAVALA MD Ot 611.79 10/11/2014 MARYJANE ZAVALA MD Ot 785.6 10/11/2014 APOLONIA TRAVIS, RANDY Power Ot V72.84 10/11/2014 APOLONIA TRAVIS, RANDY Power Ot 787.02 NAUSEA ALONE 10/11/2014 RANDY BARKSDALE MD Ot 787.99 OTHER GI SYSTEM SYMPTOMS 10/11/2014 APOLONIA TRAVIS, RANDY Power Ot 787.02 NAUSEA ALONE 10/11/2014 APOLONIA TRAVIS, RANDY Power Ot 787.99 OTHER GI SYSTEM SYMPTOMS 11/03/2014 RANDY BARKSDALE MD Ot V72.84 11/03/2014 RANDY BARKSDALE MD Ot V72.84 11/03/2014 RANDY BARKSDALE MD Ot V72.84 12/18/2014 ANDRE TRAVIS, XENA Saldivar Ot 490 BRONCHITIS NOS 12/18/2014 ANDRE TRAVIS, XENA Saldivar Ot 786.2 COUGH 02/25/2015 THEE DAVIDSON CATTLE FEEDER Ot 789.09 03/01/2015 THEE DAVIDSON CATTLE FEEDER Ot 789.09 07/24/2016 MARYJANE ZAVALA MD Ot 611.79 SYMPTOMS IN BREAST NEC 07/24/2016 MARYJANE ZAVALA MD A Ot 785.6 ENLARGEMENT LYMPH NODES 07/24/2016 MARYJANE ZAVALA MD A Ot 611.79 SYMPTOMS IN BREAST NEC 07/24/2016 MARYJANE ZAVALA MD A Ot 785.6 ENLARGEMENT LYMPH NODES 07/24/2016 APOLONIA TRAVIS, RANDY Power Ot V72.84 EXAM PRE-OPERATIVE NOS 07/24/2016 THEE DAVIDSON CATTLE FEEDER Ot 789.09 ABDOMINAL PAIN, OTHER SPECIFIED SITE 07/25/2016 LEFTY KWAN MD Ot F90.2 ATTENTION-DEFICIT HYPERACTIVITY DISORDER 07/25/2016 LEFTY KWAN MD Ot R00.2 PALPITATIONS 07/25/2016 LEFTY KWAN MD Ot R07.89 OTHER CHEST PAIN 07/26/2016 LEFTY KWAN MD Ot F90.2 ATTENTION-DEFICIT HYPERACTIVITY DISORDER 07/26/2016 LEFTY KWAN MD Ot M41.9 SCOLIOSIS, UNSPECIFIED 07/26/2016 LEFTY KWAN MD Ot R00.2 PALPITATIONS 07/26/2016 LEFTY KWAN MD Ot R07.89 OTHER CHEST PAIN 08/16/2016 LEFTY KWAN MD Ot F90.2 ATTENTION-DEFICIT HYPERACTIVITY DISORDER 08/16/2016 ANIYA TRAVIS, LEFTY Zavala Ot R00.2 PALPITATIONS 08/16/2016 ANIYA TRAVIS, LEFTY Zavala Ot R07.89 OTHER CHEST PAIN 08/22/2016 ANIYA TRAVIS, LEFTY Zavala Ot F90.2 ATTENTION-DEFICIT HYPERACTIVITY DISORDER 08/22/2016 ANIYA TRAVIS, LEFTY Zavala Ot M41.9 SCOLIOSIS, UNSPECIFIED 08/22/2016 ANIYA TRAVIS, LEFTY Zavala Ot R00.2 PALPITATIONS 08/22/2016 ANIYA TRAVIS, LEFTY Zavala Ot R07.89 OTHER CHEST PAIN 09/25/2016 RODOLFOROBERRITCHIE VALDEZ CATTLE FEEDER Ot R05 COUGH 10/16/2016 JACKELIN RITCHIE M CATTLE FEEDER Ot R05 COUGH 10/22/2016 FENECH DO, KAYLA S Ot D25.9 LEIOMYOMA OF UTERUS, UNSPECIFIED 10/22/2016 FENECH DO, KAYLA S Ot N94.12 DEEP DYSPAREUNIA 10/22/2016 FENECH DO, KAYLA S Ot N94.89 OTH COND ASSOC W FEMALE GENITAL ORGANS A 10/28/2016 FENECH DO, KAYLA S Ot D25.9 LEIOMYOMA OF UTERUS, UNSPECIFIED 10/28/2016 FENECH DO, KAYLA S Ot N94.12 DEEP DYSPAREUNIA 10/28/2016 FENECH DO, KAYLA S Ot N94.89 OTH COND ASSOC W FEMALE GENITAL ORGANS A 11/09/2016 FENECH DO, KAYLA S Ot D25.9 LEIOMYOMA OF UTERUS, UNSPECIFIED 11/09/2016 FENECH DO, KAYLA S Ot N94.12 DEEP DYSPAREUNIA 11/09/2016 FENECH DO, KAYLA S Ot N94.89 OTH COND ASSOC W FEMALE GENITAL ORGANS A 11/20/2016 MARYJANE ZAVALA MD Ot R13.19 OTHER DYSPHAGIA 12/26/2016 MARYJANE ZAVALA MD Ot R13.19 OTHER DYSPHAGIA 12/26/2016 FENECH DO, KAYLA S Ot N60.01 SOLITARY CYST OF RIGHT BREAST 03/05/2017 MARYJANE ZAVALA MD Ot R13.19 OTHER DYSPHAGIA 03/05/2017 FENECH DO, KAYLA S Ot N60.01 SOLITARY CYST OF RIGHT BREAST 03/20/2017 KIM KAUR APRN Ot R26.81 UNSTEADINESS ON FEET 03/20/2017 KIM KAUR PROPERTY LOSS INSURANCE CLAIM ADJUSTER Ot R41.3 OTHER AMNESIA 03/20/2017 KIM KAUR PROPERTY LOSS INSURANCE CLAIM ADJUSTER Ot R51 HEADACHE 05/27/2017 MARYJANE ZAVALA MD Ot R13.19 OTHER DYSPHAGIA 05/27/2017 FENECH DO, KAYLA S Ot N60.01 SOLITARY CYST OF RIGHT BREAST 05/27/2017 KIM KAUR PROPERTY LOSS INSURANCE CLAIM ADJUSTER Ot R26.81 UNSTEADINESS ON FEET 05/27/2017 KIM KAUR PROPERTY LOSS INSURANCE CLAIM ADJUSTER Ot R41.3 OTHER AMNESIA 05/27/2017 KIM KAUR PROPERTY LOSS INSURANCE CLAIM ADJUSTER Ot R51 HEADACHE 05/30/2017 FENECH DO, KAYLA S Ot N64.89 OTHER SPECIFIED DISORDERS OF BREAST 06/17/2017 FENECH DO, KAYLA S Ot N64.89 OTHER SPECIFIED DISORDERS OF BREAST 07/08/2017 LUCAS TRAVIS, MARYJANE Saldivar Ot R05 COUGH 07/08/2017 MARYJANE ZAVALA MD Ot R07.89 OTHER CHEST PAIN 07/10/2017 MARYJANE ZAVALA MD Ot R05 COUGH 07/10/2017 MARYJANE ZAVALA MD Ot R07.89 OTHER CHEST PAIN 07/10/2017 YANIRA LEE MD Ot D25.9 LEIOMYOMA OF UTERUS, UNSPECIFIED 07/10/2017 YANIRA LEE MD Ot Z87.448 PERSONAL HISTORY OF OTHER DISEASES OF UR 07/25/2017 MARYJANE ZAVALA MD Ot R05 COUGH 07/25/2017 MARYJANE ZAVALA MD Ot R07.89 OTHER CHEST PAIN 07/25/2017 YANIRA LEE MD Ot D25.9 LEIOMYOMA OF UTERUS, UNSPECIFIED 07/25/2017 YANIRA LEE MD Ot Z87.448 PERSONAL HISTORY OF OTHER DISEASES OF UR 08/28/2017 MARYJANE ZAVALA MD Ot M21.371 FOOT DROP, RIGHT FOOT 08/28/2017 MARYJANE ZAVALA MD Ot M25.551 PAIN IN RIGHT HIP 08/28/2017 MARYJANE ZAVALA MD Ot M25.552 PAIN IN LEFT HIP 08/28/2017 MARYJANE ZAVALA MD Ot M79.641 PAIN IN RIGHT HAND 09/03/2017 MARYJANE ZAVALA MD Ot M21.371 FOOT DROP, RIGHT FOOT 09/03/2017 LUCAS MD, MARYJANE A Ot M25.551 PAIN IN RIGHT HIP 09/03/2017 LUCAS TRAVIS, MRAYJANE A Ot M25.552 PAIN IN LEFT HIP 09/03/2017 LUCAS TRAVIS, MARYJANE A Ot M79.641 PAIN IN RIGHT HAND 11/04/2017 LUCAS TRAVIS, MARYJANE A Ot M21.371 FOOT DROP, RIGHT FOOT 11/04/2017 LUCAS TRAVIS, MARYJANE A Ot M25.551 PAIN IN RIGHT HIP 11/04/2017 LUCAS TRAVIS, MARYJANE A Ot M25.552 PAIN IN LEFT HIP 11/04/2017 LUCAS TRAVIS, MARYJANE A Ot M79.641 PAIN IN RIGHT HAND 11/05/2017 LUCAS TRAVIS, MARYJANE A Ot M21.371 FOOT DROP, RIGHT FOOT 11/05/2017 LUCAS TRAVIS, MARYJANE A Ot M25.551 PAIN IN RIGHT HIP 11/05/2017 LUCAS TRAVIS, MARYJANE A Ot M25.552 PAIN IN LEFT HIP 11/05/2017 LUCAS TRAVIS, MARYJANE A Ot M79.641 PAIN IN RIGHT HAND 11/10/2017 LUCAS TRAVIS, MARYJANE A Ot M21.371 FOOT DROP, RIGHT FOOT 11/10/2017 LUCAS TRAVIS, MARYJANE A Ot M25.551 PAIN IN RIGHT HIP 11/10/2017 LUCAS TRAVIS, MARYJANE A Ot M25.552 PAIN IN LEFT HIP 11/10/2017 LUCAS TRAVIS, MARYJANE A Ot M79.641 PAIN IN RIGHT HAND 11/11/2017 LUCAS TRAVIS, MARYJANE A Ot R13.19 OTHER DYSPHAGIA 11/11/2017 FENHELENE DO, KAYLA S Ot N60.01 SOLITARY CYST OF RIGHT BREAST 11/11/2017 JASPAL DO KAYLA S Ot N64.89 OTHER SPECIFIED DISORDERS OF BREAST 11/11/2017 KIM KAUR PROPERTY LOSS INSURANCE CLAIM ADJUSTER Ot R26.81 UNSTEADINESS ON FEET 11/11/2017 KIM KAUR PROPERTY LOSS INSURANCE CLAIM ADJUSTER Ot R41.3 OTHER AMNESIA 11/11/2017 KIM KAUR PROPERTY LOSS INSURANCE CLAIM ADJUSTER Ot R51 HEADACHE 11/11/2017 LUCAS TRAVIS, MARYJANE A Ot R05 COUGH 11/11/2017 LUCAS TRAVIS, MARYJANE A Ot R07.89 OTHER CHEST PAIN 11/11/2017 JESUS TRAVIS, YANIRA Hernandez Ot D25.9 LEIOMYOMA OF UTERUS, UNSPECIFIED 11/11/2017 JESUS TRAVIS, YANIRA Hernandez Ot Z87.448 PERSONAL HISTORY OF OTHER DISEASES OF UR 11/11/2017 LUCAS TRAVIS, MARYJANE Saldivar Ot M21.371 FOOT DROP, RIGHT FOOT 11/11/2017 MARYJANE ZAVALA MD Ot M25.551 PAIN IN RIGHT HIP 11/11/2017 MARYJANE ZAVALA MD Ot M25.552 PAIN IN LEFT HIP 11/11/2017 MARYJANE ZAVALA MD Ot M79.641 PAIN IN RIGHT HAND 12/16/2017 Ot 611.72 LUMP OR MASS IN BREAST 12/16/2017 Ot 787.02 NAUSEA ALONE 12/16/2017 Ot 789.01 ABDOMINAL PAIN, RIGHT UPPER QUADRANT 12/16/2017 Ot 789.01 ABDOMINAL PAIN, RIGHT UPPER QUADRANT 12/16/2017 Ot 244.9 HYPOTHYROIDISM NOS 12/16/2017 Ot 780.79 OTH MALAISE FATIGUE 12/16/2017 Ot 794.5 ABN THYROID FUNCT STUDY 12/16/2017 FELECIA SHEETS CATTLE FEEDER Ot 620.2 OVARIAN CYST NEC/NOS 12/16/2017 FENKAYLA NARAYAN DO S Ot 625.9 FEM GENITAL SYMPTOMS NOS 12/16/2017 KAYLA SHAY DO Ot V45.51 PRESENCE OF INTRAUTERINE CONTRACEPTIVE D 12/16/2017 MARYJANE ZAVALA MD Ot 611.79 SYMPTOMS IN BREAST NEC 12/16/2017 MARYJANE ZAVALA MD Ot 785.6 ENLARGEMENT LYMPH NODES 12/16/2017 MARYJANE ZAVALA MD Ot 611.79 SYMPTOMS IN BREAST NEC 12/16/2017 MARYJANE ZAVALA MD Ot 785.6 ENLARGEMENT LYMPH NODES 12/16/2017 APOLONIA TRAVIS, RANDY Power Ot V72.84 EXAM PRE-OPERATIVE NOS 12/16/2017 THEE DAVIDSON CATTLE FEEDER Ot 789.09 ABDOMINAL PAIN, OTHER SPECIFIED SITE 12/16/2017 LEFTY KWAN MD Ot F90.2 ATTENTION-DEFICIT HYPERACTIVITY DISORDER 12/16/2017 LEFTY KWAN MD Ot R00.2 PALPITATIONS 12/16/2017 LEFTY KWAN MD Ot R07.89 OTHER CHEST PAIN 12/16/2017 LEFTY KWAN MD Ot F90.2 ATTENTION-DEFICIT HYPERACTIVITY DISORDER 12/16/2017 LEFTY KWAN MD Ot M41.9 SCOLIOSIS, UNSPECIFIED 12/16/2017 ANIYA TRAVIS, LEFTY Zavala Ot R00.2 PALPITATIONS 12/16/2017 ANIYA TRAVIS, LEFTY Zavala Ot R07.89 OTHER CHEST PAIN 12/16/2017 JACKELIN RITCHIE Power CATTLE FEEDER Ot R05 COUGH 12/16/2017 FENECH DO, KAYLA S Ot D25.9 LEIOMYOMA OF UTERUS, UNSPECIFIED 12/16/2017 FENECH DO, KAYLA S Ot N94.12 DEEP DYSPAREUNIA 12/16/2017 FENECH DO, KAYLA S Ot N94.89 OTH COND ASSOC W FEMALE GENITAL ORGANS A 12/16/2017 LUCAS TRAVIS, MARYJANE Saldivar Ot R13.19 OTHER DYSPHAGIA 12/16/2017 FENECH DO, KAYLA S Ot N60.01 SOLITARY CYST OF RIGHT BREAST 12/16/2017 KIM KAUR PROPERTY LOSS INSURANCE CLAIM ADJUSTER Ot R26.81 UNSTEADINESS ON FEET 12/16/2017 KIM KAUR PROPERTY LOSS INSURANCE CLAIM ADJUSTER Ot R41.3 OTHER AMNESIA 12/16/2017 KIM KAUR PROPERTY LOSS INSURANCE CLAIM ADJUSTER Ot R51 HEADACHE 12/16/2017 FENECH DO, KAYLA S Ot N64.89 OTHER SPECIFIED DISORDERS OF BREAST 12/16/2017 LUCAS TRAVIS, MARYJANE Saldivar Ot R05 COUGH 12/16/2017 MARYJANE ZAVALA MD Ot R07.89 OTHER CHEST PAIN 12/16/2017 JESUS TRAVIS, YANIRA Hernandez Ot D25.9 LEIOMYOMA OF UTERUS, UNSPECIFIED 12/16/2017 YANIRA LEE MD Ot Z87.448 PERSONAL HISTORY OF OTHER DISEASES OF UR 12/16/2017 MARYJANE ZAVALA MD Ot M21.371 FOOT DROP, RIGHT FOOT 12/16/2017 MARYJANE ZAVALA MD Ot M25.551 PAIN IN RIGHT HIP 12/16/2017 MARYJANE ZAVALA MD Ot M25.552 PAIN IN LEFT HIP 12/16/2017 MARYJANE ZAVALA MD Ot M79.641 PAIN IN RIGHT HAND 01/06/2018 FENECH DO, KAYLA S Ot N60.01 SOLITARY CYST OF RIGHT BREAST 01/10/2018 MARYJANE ZAVALA MD Ot R76.0 RAISED ANTIBODY TITER 01/23/2018 FENECH DO, KAYLA S Ot N60.01 SOLITARY CYST OF RIGHT BREAST 03/14/2018 RACIEL TRAVIS, EDUARD Forrest Ot K59.00 CONSTIPATION, UNSPECIFIED 03/19/2018 LETYTHEE CATTLE FEEDER Ot D84.9 IMMUNODEFICIENCY, UNSPECIFIED 03/19/2018 LETYTHEE Tono CATTLE FEEDER Ot 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] 03/20/2018 DAVIDSONTHEE CATTLE FEEDER Ot D84.9 IMMUNODEFICIENCY, UNSPECIFIED 03/20/2018 LETYTHEE CATTLE FEEDER Ot 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] 03/20/2018 LETYTHEE CATTLE FEEDER Ot D84.9 IMMUNODEFICIENCY, UNSPECIFIED 03/20/2018 LETYTHEE CATTLE FEEDER Ot 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] 03/20/2018 LETYTHEE Tono CATTLE FEEDER Ot D84.9 IMMUNODEFICIENCY, UNSPECIFIED 03/20/2018 LETYTHEE CATTLE FEEDER Ot 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] 03/25/2018 RACIEL TRAVIS, EDUARD Forrest Ot K59.00 CONSTIPATION, UNSPECIFIED 03/25/2018 RACIEL TRAVIS, EDUARD Forrest Ot K59.00 CONSTIPATION, UNSPECIFIED 03/27/2018 RACIEL TRAVIS, EDUARD Forrest Ot K59.00 CONSTIPATION, UNSPECIFIED 2018 RACIEL TRAVIS, EDUARD Forrest Ot K59.00 CONSTIPATION, UNSPECIFIED 04/03/2018 LETYADALBERTOKATINA Power CATTLE FEEDER Ot D84.9 IMMUNODEFICIENCY, UNSPECIFIED 04/03/2018 LETY THEE M CATTLE FEEDER Ot 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] 04/16/2018 RACIEL TRAVIS, EDUARD Forrest Ot K59.00 CONSTIPATION, UNSPECIFIED 04/17/2018 LETY THEE M CATTLE FEEDER Ot D84.9 IMMUNODEFICIENCY, UNSPECIFIED 04/17/2018 LETY THEE M CATTLE FEEDER Ot 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] 04/17/2018 THEE DAVIDSON CATTLE FEEDER Ot D84.9 IMMUNODEFICIENCY, UNSPECIFIED 04/17/2018 THEE DAVIDSON CATTLE FEEDER Ot 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] 04/17/2018 LUCAS TRAVIS, MARYJANE Saldivar Ot R13.19 OTHER DYSPHAGIA 04/17/2018 KAYLA SHAY DO S Ot N60.01 SOLITARY CYST OF RIGHT BREAST 04/17/2018 KAYLA SHAY DO S Ot N64.89 OTHER SPECIFIED DISORDERS OF BREAST 04/17/2018 KIM KAUR PROPERTY LOSS INSURANCE CLAIM ADJUSTER Ot R26.81 UNSTEADINESS ON FEET 04/17/2018 KIM KAUR PROPERTY LOSS INSURANCE CLAIM ADJUSTER Ot R41.3 OTHER AMNESIA 04/17/2018 KIM KAUR PROPERTY LOSS INSURANCE CLAIM ADJUSTER Ot R51 HEADACHE 04/17/2018 LUCAS TRAVIS, MARYJANE Saldivar Ot R05 COUGH 04/17/2018 LUCAS TRAVIS, MARYJANE Saldivar Ot R07.89 OTHER CHEST PAIN 04/17/2018 JESUS TRAVIS, YANIRA Hernandez Ot D25.9 LEIOMYOMA OF UTERUS, UNSPECIFIED 04/17/2018 JESUS TRAVIS, YANIRA Hernandez Ot Z87.448 PERSONAL HISTORY OF OTHER DISEASES OF UR 04/17/2018 KAYLA SHAY DO S Ot N60.01 SOLITARY CYST OF RIGHT BREAST 04/17/2018 THEE DAVIDSON CATTLE FEEDER Ot D84.9 IMMUNODEFICIENCY, UNSPECIFIED 04/17/2018 THEE DAVIDSON CATTLE FEEDER Ot 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] 04/17/2018 RACIEL TRAVIS, EDUARD Forrest Ot K59.00 CONSTIPATION, UNSPECIFIED 04/17/2018 THEE DAVIDSON CATTLE FEEDER Ot D84.9 IMMUNODEFICIENCY, UNSPECIFIED 04/17/2018 THEE DAVIDSON CATTLE FEEDER Ot 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] 04/21/2018 THEE DAVIDSON CATTLE FEEDER Ot D84.9 IMMUNODEFICIENCY, UNSPECIFIED 04/21/2018 THEE DAVIDSON CATTLE FEEDER Ot 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] 04/23/2018 THEE DAVIDSON CATTLE FEEDER Ot D84.9 IMMUNODEFICIENCY, UNSPECIFIED 04/23/2018 THEE DAVIDSON CATTLE FEEDER Ot 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] 05/16/2018 THEE DAVIDSON CATTLE FEEDER Ot 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 05/16/2018 THEE DAVIDSON CATTLE FEEDER Ot R70.0 ELEVATED ERYTHROCYTE SEDIMENTATION RATE 05/16/2018 THEE DAVIDSON CATTLE FEEDER Ot 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 05/16/2018 THEE DAVIDSON CATTLE FEEDER Ot R70.0 ELEVATED ERYTHROCYTE SEDIMENTATION RATE 05/16/2018 LUCAS TRAVIS, MARYJANE Saldivar Ot R13.19 OTHER DYSPHAGIA 05/16/2018 FENECH DO, KAYLA S Ot N60.01 SOLITARY CYST OF RIGHT BREAST 05/16/2018 FENECH DO, KAYLA S Ot N64.89 OTHER SPECIFIED DISORDERS OF BREAST 05/16/2018 KIM KAUR PROPERTY LOSS INSURANCE CLAIM ADJUSTER Ot R26.81 UNSTEADINESS ON FEET 05/16/2018 KIM KAUR PROPERTY LOSS INSURANCE CLAIM ADJUSTER Ot R41.3 OTHER AMNESIA 05/16/2018 KIM KAUR PROPERTY LOSS INSURANCE CLAIM ADJUSTER Ot R51 HEADACHE 05/16/2018 LUCAS TRAVIS, MARYJANE Saldivar Ot R05 COUGH 05/16/2018 LUCAS TRAVIS, MARYJANE Saldivar Ot R07.89 OTHER CHEST PAIN 05/16/2018 JESUS TRAVIS, YANIRA Hernandez Ot D25.9 LEIOMYOMA OF UTERUS, UNSPECIFIED 05/16/2018 JESUS TRAVIS, YANIRA C Ot Z87.448 PERSONAL HISTORY OF OTHER DISEASES OF UR 05/16/2018 FENECH DO, KAYLA S Ot N60.01 SOLITARY CYST OF RIGHT BREAST 05/16/2018 THEE DAVIDSON CATTLE FEEDER Ot 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 05/16/2018 THEE DAVIDSON CATTLE FEEDER Ot R70.0 ELEVATED ERYTHROCYTE SEDIMENTATION RATE 05/16/2018 RACIEL TRAVIS, EDUARD Forrest Ot K59.00 CONSTIPATION, UNSPECIFIED 05/16/2018 LUCAS TRAVIS, MARYJANE Saldivar Ot R13.19 OTHER DYSPHAGIA 05/16/2018 FENECH DO, KAYLA S Ot N60.01 SOLITARY CYST OF RIGHT BREAST 05/16/2018 FENECH DO, KAYLA S Ot N64.89 OTHER SPECIFIED DISORDERS OF BREAST 05/16/2018 KIM KAUR PROPERTY LOSS INSURANCE CLAIM ADJUSTER Ot R26.81 UNSTEADINESS ON FEET 05/16/2018 KIM KAUR PROPERTY LOSS INSURANCE CLAIM ADJUSTER Ot R41.3 OTHER AMNESIA 05/16/2018 KIM KAUR PROPERTY LOSS INSURANCE CLAIM ADJUSTER Ot R51 HEADACHE 05/16/2018 LUCAS TRAVIS, MARYJANE Saldivar Ot R05 COUGH 05/16/2018 LUCAS TRAVIS, MARYJANE Saldivar Ot R07.89 OTHER CHEST PAIN 05/16/2018 JESUS TRAVIS, YANIRA Hernandez Ot D25.9 LEIOMYOMA OF UTERUS, UNSPECIFIED 05/16/2018 JESUS TRAVIS, YANIRA Hernandez Ot Z87.448 PERSONAL HISTORY OF OTHER DISEASES OF UR 05/16/2018 PENNYECH DO, KAYLA S Ot N60.01 SOLITARY CYST OF RIGHT BREAST 05/16/2018 THEE DAVIDSON CATTLE FEEDER Ot 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 05/16/2018 THEE DAVIDSON CATTLE FEEDER Ot R70.0 ELEVATED ERYTHROCYTE SEDIMENTATION RATE 05/16/2018 RACIEL TRAVIS, EDUARD Forrest Ot K59.00 CONSTIPATION, UNSPECIFIED 05/18/2018 THEE DAVIDSON CATTLE FEEDER Ot D84.9 IMMUNODEFICIENCY, UNSPECIFIED 05/18/2018 THEE DAVIDSON CATTLE FEEDER Ot 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] 05/19/2018 LUCAS TRAVIS, MARYJANE Saldivar Ot R13.19 OTHER DYSPHAGIA 05/19/2018 PENNYECH DO, KAYLA S Ot N60.01 SOLITARY CYST OF RIGHT BREAST 05/19/2018 JASPAL DO, KAYLA S Ot N64.89 OTHER SPECIFIED DISORDERS OF BREAST 05/19/2018 KIM KAUR PROPERTY LOSS INSURANCE CLAIM ADJUSTER Ot R26.81 UNSTEADINESS ON FEET 05/19/2018 KIM KAUR PROPERTY LOSS INSURANCE CLAIM ADJUSTER Ot R41.3 OTHER AMNESIA 05/19/2018 KIM KAUR PROPERTY LOSS INSURANCE CLAIM ADJUSTER Ot R51 HEADACHE 05/19/2018 LUCAS TRAVIS, MARYJANE Saldivar Ot R05 COUGH 05/19/2018 LUCAS TRAVIS, MARYJANE Saldivar Ot R07.89 OTHER CHEST PAIN 05/19/2018 JESUS TRAVIS, YANIRA Hernandez Ot D25.9 LEIOMYOMA OF UTERUS, UNSPECIFIED 05/19/2018 JESUS TRAVIS, YANIRA Hernandez Ot Z87.448 PERSONAL HISTORY OF OTHER DISEASES OF UR 05/19/2018 PENNYECH DO, KAYLA S Ot N60.01 SOLITARY CYST OF RIGHT BREAST 05/19/2018 THEE DAVIDSON CATTLE FEEDER Ot 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 05/19/2018 THEE DAVIDSON CATTLE FEEDER Ot R70.0 ELEVATED ERYTHROCYTE SEDIMENTATION RATE 05/19/2018 RACIEL TRAVIS, EDUARD Forrest Ot K59.00 CONSTIPATION, UNSPECIFIED 05/19/2018 THEE DAVIDSON CATTLE FEEDER Ot D84.9 IMMUNODEFICIENCY, UNSPECIFIED 05/19/2018 THEE DAVIDSON CATTLE FEEDER Ot 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] 05/19/2018 THEE DAVIDSON CATTLE FEEDER Ot D84.9 IMMUNODEFICIENCY, UNSPECIFIED 05/19/2018 THEE DAVIDSON CATTLE FEEDER Ot 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] 05/20/2018 THEE DAVIDSON CATTLE FEEDER Ot D84.9 IMMUNODEFICIENCY, UNSPECIFIED 05/20/2018 THEE DAVIDSON CATTLE FEEDER Ot 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] 05/20/2018 LUCAS TRAVIS, MARYJANE Saldivar Ot R13.19 OTHER DYSPHAGIA 05/20/2018 FENECH DO, KAYLA S Ot N60.01 SOLITARY CYST OF RIGHT BREAST 05/20/2018 FENECH DO, KAYLA S Ot N64.89 OTHER SPECIFIED DISORDERS OF BREAST 05/20/2018 KIM KAUR PROP[employer] LOSS INSURANCE CLAIM ADJUSTER Ot R26.81 UNSTEADINESS ON FEET 05/20/2018 KIM KAUR PROPERTY LOSS INSURANCE CLAIM ADJUSTER Ot R41.3 OTHER AMNESIA 05/20/2018 KIM KAUR PROPERTY LOSS INSURANCE CLAIM ADJUSTER Ot R51 HEADACHE 05/20/2018 LUCAS TRAVIS, MARYJANE Saldivar Ot R05 COUGH 05/20/2018 MARYJANE ZAVALA MD Ot R07.89 OTHER CHEST PAIN 05/20/2018 JESUS TRAVIS, YANIRA Hernandez Ot D25.9 LEIOMYOMA OF UTERUS, UNSPECIFIED 05/20/2018 JESUS TRAVIS, YANIRA Hernandez Ot Z87.448 PERSONAL HISTORY OF OTHER DISEASES OF UR 05/20/2018 FENECH DO, KAYLA S Ot N60.01 SOLITARY CYST OF RIGHT BREAST 05/20/2018 THEE DAVIDSON CATTLE FEEDER Ot 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 05/20/2018 THEE DAVIDSON CATTLE FEEDER Ot R70.0 ELEVATED ERYTHROCYTE SEDIMENTATION RATE 05/20/2018 RACIEL TRAVIS, EDUARD Forrest Ot K59.00 CONSTIPATION, UNSPECIFIED 05/20/2018 THEE DAVIDSON CATTLE FEEDER Ot D84.9 IMMUNODEFICIENCY, UNSPECIFIED 05/20/2018 THEE DAVIDSON CATTLE FEEDER Ot 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] 05/21/2018 THEE DAVIDSON CATTLE FEEDER Ot 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 05/21/2018 THEE DAVIDSON CATTLE FEEDER Ot R70.0 ELEVATED ERYTHROCYTE SEDIMENTATION RATE 06/13/2018 THEE DAVIDSON CATTLE FEEDER Ot 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 06/13/2018 THEE DAVIDSON CATTLE FEEDER Ot R70.0 ELEVATED ERYTHROCYTE SEDIMENTATION RATE 06/16/2018 THEE DAVIDSON CATTLE FEEDER Ot 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 06/16/2018 THEE DAVIDSON CATTLE FEEDER Ot R70.0 ELEVATED ERYTHROCYTE SEDIMENTATION RATE 08/01/2018 THEE DAVIDSON CATTLE FEEDER Ot 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 08/01/2018 THEE DAVIDSON CATTLE FEEDER Ot R76.0 RAISED ANTIBODY TITER 08/01/2018 THEE DAVIDSON CATTLE FEEDER Ot 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 08/01/2018 THEE DAIVDSON CATTLE FEEDER Ot R76.0 RAISED ANTIBODY TITER 08/02/2018 THEE DAVIDSON CATTLE FEEDER Ot 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 08/02/2018 THEE DAVIDSON CATTLE FEEDER Ot R76.0 RAISED ANTIBODY TITER 08/02/2018 THEE DAVIDSON CATTLE FEEDER Ot 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 08/02/2018 THEE DAVIDSON CATTLE FEEDER Ot R76.0 RAISED ANTIBODY TITER 08/11/2018 EDUARD SCHRADER MD Ot K59.00 CONSTIPATION, UNSPECIFIED 08/11/2018 THEE DAVIDSON CATTLE FEEDER Ot D84.9 IMMUNODEFICIENCY, UNSPECIFIED 08/11/2018 THEE DAVIDSON CATTLE FEEDER Ot 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 Results Test Result Range Comprehensive metabolic panel - 07/04/17 16:26 Serum or plasma sodium measurement (moles/volume) 141 mmol/L 135-145 Serum or plasma potassium measurement (moles/volume) 4.1 mmol/L 3.6-5.0 Serum or plasma chloride measurement (moles/volume) 103 mmol/L 98-107 Carbon dioxide 27 mmol/L 21-32 Serum or plasma anion gap determination (moles/volume) 11 mmol/L 5-14 Serum or plasma urea nitrogen measurement (mass/volume) 13 mg/dL 7-18 Serum or plasma creatinine measurement (mass/volume) 0.84 mg/dL 0.60-1.30 Serum or plasma urea nitrogen/creatinine mass ratio 15 NRG Serum or plasma creatinine measurement with calculation of estimated glomerular filtration rate > NRG Serum or plasma glucose measurement (mass/volume) 89 mg/dL 70-105 Serum or plasma calcium measurement (mass/volume) 9.7 mg/dL 8.5-10.1 Serum or plasma total bilirubin measurement (mass/volume) 0.4 mg/dL 0.1-1.0 Serum or plasma alkaline phosphatase measurement (enzymatic activity/volume) 86 U/L 40-136 Serum or plasma aspartate aminotransferase measurement (enzymatic activity/ volume) 24 U/L 5-34 Serum or plasma alanine aminotransferase measurement (enzymatic activity/volume ) 26 U/L 0-55 Serum or plasma protein measurement (mass/volume) 7.2 g/dL 6.4-8.2 Serum or plasma albumin measurement (mass/volume) 4.2 g/dL 3.2-4.5 Complete blood count (CBC) with automated white blood cell (WBC) differential - 06/12/18 14:30 Blood leukocytes automated count (number/volume) 5.4 10*3/uL 4.3-11.0 Blood erythrocytes automated count (number/volume) 4.52 10*6/uL 4.35-5.85 Venous blood hemoglobin measurement (mass/volume) 13.3 g/dL 11.5-16.0 Blood hematocrit (volume fraction) 40 % 35-52 Automated erythrocyte mean corpuscular volume 89 [foz_us] 80-99 Automated erythrocyte mean corpuscular hemoglobin (mass per erythrocyte) 29 pg 25-34 Automated erythrocyte mean corpuscular hemoglobin concentration measurement ( mass/volume) 33 g/dL 32-36 Automated erythrocyte distribution width ratio 13.3 % 10.0-14.5 Automated blood platelet count (count/volume) 291 10*3/uL 130-400 Automated blood platelet mean volume measurement 9.8 [foz_us] 7.4-10.4 Automated blood neutrophils/100 leukocytes 54 % 42-75 Automated blood lymphocytes/100 leukocytes 36 % 12-44 Blood monocytes/100 leukocytes 8 % 0-12 Automated blood eosinophils/100 leukocytes 2 % 0-10 Automated blood basophils/100 leukocytes 0 % 0-10 Blood neutrophils automated count (number/volume) 2.9 10*3 1.8-7.8 Blood lymphocytes automated count (number/volume) 2.0 10*3 1.0-4.0 Blood monocytes automated count (number/volume) 0.4 10*3 0.0-1.0 Automated eosinophil count 0.1 10*3/uL 0.0-0.3 Automated blood basophil count (count/volume) 0.0 10*3/uL 0.0-0.1 Serum or plasma C reactive protein measurement (mass/volume) - 06/12/18 14:30 Serum or plasma C reactive protein measurement (mass/volume) 0.14 mg /dL 0.00-0.50 Erythrocyte sedimentation rate by westergren method - 06/12/18 14:30 Erythrocyte sedimentation rate by westergren method 11 mm 0-20 Urine beta human chorionic gonadotropin (hCG) measurement - 08/14/18 09:38 Urine beta human chorionic gonadotropin (hCG) measurement NEGATIVE NEGATIVE Encounters ACCT No. Visit Date/Time Discharge Status Pt. Type Provider Facility Loc./Unit Complaint [id number] 08/11/2018 05:37:00 08/11/2018 15:38:00 DIS Outpatient MICHAEL CHRISTIAN MD [facility] PREOP [facility] [id number] 08/01/2018 11:09:00 08/02/2018 09:20:00 DIS Outpatient THEE DAVIDSON [facility] SDC IMMUNE GLOBULIN [id number] 07/04/2018 11:24:00 07/04/2018 23:59:59 CLS Preadmit KAYLA SHAY DO [facility] RAD RT BREAST NODULE [id number] 06/12/2018 14:00:00 06/13/2018 11:00:00 DIS Outpatient THEE DAVIDSON [address] IMMUNE GLOBULIN [id number] 05/19/2018 00:08:00 05/19/2018 23:59:59 CLS Preadmit THEE DAVIDSON CATTLE FEEDER Via [address] RCR AUTOMONIC DISFUNCTION [id number] 04/17/2018 09:57:00 05/18/2018 00:01:00 DIS Outpatient THEE DAVIDSON CATTLE FEEDER Via [address] RCR AUTOMONIC DISFUNCTION [id number] 05/15/2018 13:20:00 05/16/2018 09:20:00 DIS Outpatient THEE DAVIDSON CATTLE FEEDER Via [facility] AUTONOMIC DYSFUNCTION [id number] 04/17/2018 07:00:00 04/17/2018 07:00:00 CAN Preadmit THEE DAVIDSON CATTLE FEEDER Via [facility] AUTONOMIC DYSFUNCTION [id number] 04/14/2018 00:53:00 04/14/2018 23:59:59 CLS Preadmit EDUARD SCHRADER MD [facility] RAD K59.00 [id number] 03/10/2018 13:00:00 03/14/2018 00:01:00 DIS Outpatient EDUARD SCHRADER MD [facility] RAD K59.00 [id number] 01/10/2018 08:43:00 01/10/2018 14:30:00 DIS Outpatient MARYJANE ZAVALA MD [facility] VOLTAGE GATED CALCIUM CHANNEL ANTIBODY POSITIVE [id number] 01/03/2018 12:23:00 01/03/2018 23:59:59 CLS Outpatient KAYLA SHAY DO [facility] RAD BENIGN CYST OF RT BREAST IN FEMALE [id number] 11/05/2017 00:08:00 11/05/2017 23:59:59 CLS Preadmit MARYJANE ZAVALA MD [facility] REHAB R FOOT DROP;B FOOT WEAKNESS;B HIP PAIN [id number] 09/17/2017 08:08:00 11/04/2017 00:01:00 DIS Outpatient MARYJANE ZAVALA MD [facility] REHAB R FOOT DROP;B FOOT WEAKNESS;B HIP PAIN [id number] 07/04/2017 16:15:00 07/04/2017 23:59:59 CLS Outpatient YANIRA LEE MD [facility] RAD RUQ PAIN [id number] 07/02/2017 18:59:00 07/02/2017 23:59:59 CLS Outpatient MARYJANE ZAVALA MD [facility] RAD COUGH;R SIDED RIB PAIN [id number] 05/29/2017 07:53:00 05/29/2017 23:59:59 CLS Outpatient KAYLA SHAY DO [facility] RAD R92.8 [id number] 03/06/2017 16:55:00 03/06/2017 23:59:59 CLS Outpatient KIM KAUR APRN [facility] RAD MEMORY LOSS,GAIT INSTABILITY,HEADACHES [id number] 11/20/2016 08:50:00 11/20/2016 23:59:59 CLS Outpatient KAYLA SHAY DO [facility] RAD N60.01 [id number] 11/20/2016 08:47:00 11/20/2016 23:59:59 CLS Outpatient MARYJANE ZAVALA MD [facility] RAD DYSPHAGIA,BENIGN CYST [id number] 10/22/2016 12:28:00 10/22/2016 23:59:59 CLS Outpatient KAYLA SHAY DO [facility] RAD PELVIC PRESSURE IN FEMALE, DYSPAREUNIA IN FEMALE [id number] 09/24/2016 12:29:00 09/24/2016 23:59:59 CLS Outpatient RITCHIE BENÍTEZ [facility] RAD COUGH AFTER CHOKING ON VIT [id number] 07/25/2016 10:12:00 07/25/2016 23:59:59 CLS Outpatient LEFTY KWAN MD [facility] CARD PALPITATION,ADHD [id number] 07/24/2016 08:55:00 07/24/2016 23:59:59 CLS Outpatient LEFTY KWAN MD [facility] CARD PALPITATION,ADHD [id number] 02/10/2015 08:44:00 02/10/2015 23:59:59 CLS Outpatient LETY THEE M ARNP [facility] RAD LEFT FLANK PAIN [id number] 12/18/2014 00:18:00 12/18/2014 00:41:00 DIS Emergency XENA POWELL MD [facility] ER COUGH,CONGESTION [id number] 10/28/2014 11:00:00 10/28/2014 23:59:59 CLS Preadmit MARYJANE ZAVALA MD [facility] RAD RIGHT BREAST LUMP PAIN [id number] 10/11/2014 08:23:00 10/11/2014 12:20:00 DIS Outpatient RANDY BARKSDALE MD [facility] IRRITABLE BOWEL SYNDROME; NAUSEA [id number] 10/07/2014 06:09:00 10/07/2014 23:59:59 CLS Outpatient RANDY BARKSDALE MD [facility] PREOP IRRITABLE BOWEL SYNDROME; NAUSEA [id number] 05/10/2014 07:51:00 05/10/2014 23:59:59 CLS Outpatient MARYJANE ZAVALA MD [facility] RAD BREAST DISCHARGE [id number] 04/23/2014 08:55:00 04/23/2014 23:59:59 CLS Outpatient MARYJANE ZAVALA MD [facility] RAD RT NECK ENLARGEMENT [id number] 08/31/2013 13:52:00 08/31/2013 23:59:59 CLS Outpatient KAYLA SHAY DO S [facility] RAD PELVIC PAIN [id number] 02/24/2013 12:48:00 02/24/2013 23:59:59 CLS Outpatient FELECIA SHEETSP [facility] RAD RT OVARIAN CYST [id number] 08/22/2018 10:00:00 PEN Preadmit MARYJANE ZAVALA MD [facility] G90.9 DISORDER OF THE AUTONIC NERVOUS SYSTEM [id number] 08/14/2018 09:26:00 ACT Outpatient MICHAEL CHRISTIAN MD [facility] DYSAUTO ANEMIA [id number] 03/27/2012 11:30:00 Document Registration [id number] 09/06/2011 13:22:00 Document Registration [id number] 08/23/2011 06:59:00 Document Registration [id number] 05/08/2010 14:41:00 Document Registration 0000 05/16/2017 17:01:06 05/16/2017 23:59:59 CLS Outpatient [id number] 02/10/2015 08:45:55 ACT Document Registration
[2018-08-14] MEDS ORDERED: ceFAZolin 2 GM IV Premixed 50 ML ONE (13:27)
[2018-08-14] MEDS ORDERED: MIDAZOLAM 2 MG/2 ML (VERSED) VIAL ONE (13:37)
[2018-08-14] MEDS ORDERED: proPOfol 200 MG/20 ML (DIPRIVAN) VIAL IV ONE (14:11)
[2018-08-14] MEDS ORDERED: PROPOFOL INJECTION 50 ML IV ONE (14:11)
--- NOTE | 2018-08-14 14:47 | Anesthesia-General Post-Op ---
MAC Patient Condition Mental Status/LOC: Same as Preop Cardiovascular: Satisfactory Nausea/Vomiting: Absent Respiratory: Satisfactory Pain: Controlled Complications: Absent Post Op Complications Complications None Follow Up Care/Instructions Patient Instructions None needed. Anesthesiology Discharge Order Discharge Order Patient is doing well, no complaints, stable vital signs, no apparent adverse anesthesia problems. No complications reported per nursing. CHRISTINE CHAPMAN CRNA Aug 14, 2018 14:46
[2018-08-14 15:05] VITALS: BP 114/75
--- NOTE | 2018-08-14 15:15 | Diagnostic Imaging Report ---
INDICATION: Catheter placement. FINDINGS: Heart size is normal. Lungs are clear. There is no pleural effusion or pneumothorax. Mediastinum is unremarkable. Zzkedv-h-Burd catheter overlies left hemithorax and has its tip in the superior vena cava. IMPRESSION: No acute cardiopulmonary abnormality. Qktwbn-r-Gkvw catheter is in satisfactory position. Dictated by: Dictated on workstation # [id number]
[2018-08-14 15:35] VITALS: BP 107/77
--- NOTE | 2018-08-14 19:16 | Diagnostic Imaging Report ---
INDICATION: Groshong catheter placement. COMPARISON: None. TOTAL FLUOROSCOPY TIME: 18 seconds. EXAMINATION: Single image intensifier views of the chest was obtained during Groshong catheter placement. FINDINGS: Image provided shows wire extending into the high SVC. Evaluation for pneumothorax is suboptimal given cone-down nature of the image and fluoroscopic modality. Please note, interpreting radiologist was not present during the procedure. IMPRESSION: Fluoroscopic guidance provided during central catheter placement. Dictated on workstation # [id number]
--- NOTE | 2018-08-14 22:58 | OPERATIVE REPORT ---
DATE OF SERVICE: 08/14/2018 ATTENDING PRIMARY CARE PHYSICIAN: Dr. Smith. 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 PROCEDURE: Placement left subclavian Groshong implantable catheter under fluoroscopy. SURGEON: Michael Christian MD ANESTHESIA: Monitored anesthesia care with local. ESTIMATED BLOOD LOSS: Minimal. FINDINGS: Catheter tip at superior vena caval -- right atrial junction. DISPOSITION: The patient tolerated the procedure well. INDICATIONS: The patient is a 43-year-old female in need of Groshong implantable catheter for frequent IVIG infusions as well as blood draws. She has a history of a rare autoimmune disorder and was diagnosed with autoimmune autonomic neuropathy, which affects her autonomic nervous system and does cause a cascade of different internal issues including interstitial cystitis, neurogenic bladder, and gastroparesis, dysautonomia as well as postural orthostatic tachycardia syndrome. Since being diagnosed by her neurologist she has been on IVIG which has helped with her symptomatology. She receives the therapy every 21 days and now has poor peripheral venous circulation secondary to this and will require Groshong implantable catheter. DESCRIPTION OF PROCEDURE: The patient was brought to operating room, laid supine on the table. After adequate IV pain sedative medications and monitored anesthesia care the patient's chest and neck were prepped and draped in standard surgical fashion. A 0.5% Marcaine and lidocaine with epinephrine were then used to anesthetize overlying skin in the subclavian region and the left subclavian vein cannulated with drawing of venous blood. Guidewire was then inserted under direct visualization using fluoroscopy. A skin incision was then made using a 15 blade and the dilator and sheath were then introduced under direct visualization. The guidewire and dilator were then removed and the Groshong implantable catheter was placed under direct visualization until the catheter tip was at the superior vena cava/right atrial junction and then the sheath removed. The inner wire within the catheter was then removed and the catheter cut down to size and a port placed onto the catheter. The skin incision was then extended laterally using a 15 blade. A plane between the subcutaneous fat and the anterior pectoralis fascia was then created using blunt dissection as well as electrocautery with visualization of good hemostasis. The port was then placed into the subcutaneous reservoir and sutured to the pectoralis fascia using interrupted 3-0 Vicryl sutures. Subcutaneous tissue was then reapproximated using 3-0 Vicryl interrupted sutures. Skin was closed using 4-0 Monocryl running subcuticular suture. Wound was then covered with Dermabond. The patient tolerated the procedure well. We will get a post-procedure chest x-ray and once there was confirmation of placement of the catheter or the port may be accessed and used at any time. Job ID: [id number] DocumentID: [id number] Dictated Date: 08/14/2018 14:25:02 Facsimile Machine Operator Date: 08/14/2018 22:57:23 Dictated By: MICHAEL CHRISTIAN MD
== END 2018-08-14 15:43 | disposition home or self-care (01) ==
LOC: SDC 09:26
PROVIDERS: ATTEND Surgery
DX: G90.9 Disorder of the autonomic nervous system, unspecified (principal); I87.2 Venous insufficiency (chronic) (peripheral); Z11.2 Encounter for screening for other bacterial diseases; K31.84 Gastroparesis; I49.8 Other specified cardiac arrhythmias; Z79.899 Other long term (current) drug therapy; Z87.891 Personal history of nicotine dependence; F41.9 Anxiety disorder, unspecified; F32.9 Major depressive disorder, single episode, unspecified; E66.9 Obesity, unspecified; Z68.35 Body mass index [BMI] 35.0-35.9, adult
CPT/HCPCS: 71045; 84703; 87081

== ENCOUNTER 2018-08-22 11:36 | Outpatient (RCR) | payer BC ==
[~2018-08-22] VITALS: Ht 157.5 cm; Wt 88.0 kg
[~2018-08-22 11:36] MED LIST changes: +HYDR-34 PO
[2018-08-22] MEDS ORDERED: IMMUNE GLOBULIN 40 GM IV NR (11:47)
[2018-08-22 12:00] VITALS: BP 102/76
[2018-08-22] MEDS ORDERED: NS IV 1000 ML 1,000 ML ONE (12:13)
[2018-08-22] MEDS ORDERED: NS IV 1000 ML 1,000 ML IV ONE (13:45)
[2018-08-22] MEDS ORDERED: NS IV 1000 ML 1,000 ML IV PRN (13:45)
[2018-08-22 15:00] VITALS: BP 114/73
--- NOTE | 2018-08-22 15:00 | NUR ---
RECEIVED FROM SAME DAY SURGERY FOR PRIVIGEN INFUSION, GROSHONG SITE WITHOUT REDNESS OR SWELLING, CALL LIGHT WITHIN REACH, DENIES PAIN OR SOB, WILL CONTINUE TOP MONITOR
[2018-08-22 16:37] VITALS: BP 114/73
[2018-08-22 19:57] VITALS: BP 132/81
[2018-08-22 20:30] VITALS: BP 132/81
[2018-08-22 23:01] VITALS: BP 101/67
[2018-08-23 04:10] VITALS: BP 104/68
[2018-08-23 08:00] VITALS: BP 113/72
[2018-08-23 10:10] VITALS: BP 113/72
== END 2018-08-23 09:36 | disposition home or self-care (01) ==
LOC: SDC 11:36 → 4TH 16:52 → SDC 08-23 09:36
PROVIDERS: ATTEND Family Medicine
DX: G90.9 Disorder of the autonomic nervous system, unspecified (principal); R76.0 Raised antibody titer
CPT/HCPCS: 96365; 96366

== ENCOUNTER 2018-09-12 13:09 | Outpatient (RCR) | payer BC ==
[~2018-09-12] VITALS: Ht 157.5 cm; Wt 88.0 kg
[2018-09-12] MEDS ORDERED: IMMUNE GLOBULIN 40 GM IV NR (13:29)
[2018-09-12 13:30] VITALS: BP 117/70
[2018-09-12] MEDS ORDERED: NS IV 1000 ML 1,000 ML IV ONE (13:30)
[2018-09-12 14:50] VITALS: BP 109/71
[2018-09-12 15:10] VITALS: BP 110/66
[2018-09-12 15:35] VITALS: BP 112/69
[2018-09-12 16:41] VITALS: BP 118/74
[2018-09-12 23:10] VITALS: BP 104/61
[2018-09-13] MEDS ORDERED: NS IV 1000 ML 1,000 ML ONE (05:41)
[2018-09-13] MEDS: NS IV 1000 ML 1,000 ML IV ONE ×2 (06:12→07:03)
[2018-09-13 08:00] VITALS: BP 102/60
[2018-09-13 09:20] VITALS: BP 102/56
== END 2018-09-13 09:20 | disposition home or self-care (01) ==
LOC: SDC 13:09 → 4TH 19:00 → SDC 09-13 09:20
PROVIDERS: ATTEND Family Medicine
DX: G90.9 Disorder of the autonomic nervous system, unspecified (principal); R76.0 Raised antibody titer
CPT/HCPCS: 96361; 96365

== ENCOUNTER 2018-10-03 07:23 | Outpatient (RCR) | payer BC ==
[~2018-10-03] VITALS: Ht 157.5 cm; Wt 88.0 kg
[2018-10-03] MEDS ORDERED: NS IV 1000 ML 1,000 ML ONE (07:53)
[2018-10-03] MEDS ORDERED: NS IV 1000 ML 1,000 ML IV SCH (08:30)
[2018-10-03] MEDS ORDERED: IMMUNE GLOBULIN IV SCH (08:30)
[2018-10-03] MEDS ORDERED: NS IV 1000 ML 1,000 ML IV PRN (08:30)
[2018-10-03 15:17] VITALS: BP 103/70
--- NOTE | 2018-10-03 15:30 | NUR ---
PATIENT TO FLOOR AT THIS TIME TO RECEIVE THE REMAINDER OF HER OUTPATIENT INFUSION OF IVIG (PRIVIGEN) THIS RN WILL ASSUME CARE OF THIS PATIENT AT THIS TIME UNTIL SHIFT CHANGE.
--- NOTE | 2018-10-03 15:30 | NUR ---
PT JUST FINISHING LUNCH, TRANSFERRED AMBULATORY PER STAFF ASSIST TO ROOM 406, REPORT GIVEN TO LE PANG. IVIG INFUSION CONTINUES TO RUN AT 50 ML/HR PER PUMP, LEFT UPPER CHEST PORT SITE UNREMARKABLE, DRESSING C/D/I. PT DENIES ANY NEEDS OR C/O.
[2018-10-03 17:30] VITALS: BP 98/55
[2018-10-03 19:00] VITALS: BP 131/70
[2018-10-03 19:57] VITALS: BP 131/70
[2018-10-03 20:00] VITALS: BP 131/70
[2018-10-04 00:36] VITALS: BP 102/52
[2018-10-04 03:00] VITALS: BP 110/72
--- NOTE | 2018-10-04 04:52 | NUR ---
1030 intake & urinated x2
[2018-10-04 06:22] VITALS: BP 110/72
== END 2018-10-04 06:10 | disposition home or self-care (01) ==
LOC: SDC 07:23 → 4TH 15:30 → SDC 10-04 06:10
PROVIDERS: ATTEND Family Medicine
DX: G90.9 Disorder of the autonomic nervous system, unspecified (principal); R76.0 Raised antibody titer
CPT/HCPCS: 96360; 96366

== ENCOUNTER → 2018-10-23 | Outpatient (CLI) | payer BC ==
[~2018-10-23] MED LIST changes: +CATHETER FLUSH 10 ML SYR IV PRN; +IOHEXOL 300 MG/ML 50 ML (OMNIPAQUE 300) VIAL IV ONE
--- NOTE | 2018-10-23 19:44 | Diagnostic Imaging Report ---
INDICATION: Evaluate port. TECHNIQUE AND FINDINGS: The patient's left subclavian Qjlnck-O-Yfpw catheter was injected under fluoroscopic control. 18 seconds of fluoroscopy was utilized. FINDINGS: In the proximal aspect of the catheter, there is an acute kink and what appears to be a tiny area of contrast extravasation. The remainder of the catheter, however, appears to remain patent. IMPRESSION: Abnormal kinking and a small amount of extravasation from the proximal catheter extending from the left subclavian port. Dictated by: Dictated on workstation # [id number]
== END ==
LOC: RAD 14:02
PROVIDERS: ATTEND Surgery
DX: Z45.2 Encounter for adjustment and management of vascular access device (principal)
CPT/HCPCS: 36598

== ENCOUNTER 2018-10-28 13:18 | Outpatient (CLI) | payer BC ==
[~2018-10-28] VITALS: Ht 157.5 cm; Wt 88.0 kg
--- NOTE | 2018-10-28 13:15 | NUR ---
UNABLE TO USE PT.'S PORT DUE TO INTERNAL KINK, PT. TO HAVE REMOVED & REPLACED AT A LATER DATE.
[~2018-10-28 13:18] MED LIST changes: -CATHETER FLUSH 10 ML SYR IV PRN; -IOHEXOL 300 MG/ML 50 ML (OMNIPAQUE 300) VIAL IV ONE
[2018-10-28] MEDS ORDERED: NS IV 1000 ML 1,000 ML ONE (13:23)
[2018-10-28] MEDS ORDERED: IMMUNE GLOBULIN IV SCH (13:26)
[2018-10-28] MEDS ORDERED: NS IV 1000 ML 1,000 ML IV PRN (13:26)
[2018-10-28 13:45] VITALS: BP 116/67
[2018-10-28] MEDS: NS IV 1000 ML 1,000 ML IV SCH (13:45)
--- NOTE | 2018-10-28 16:15 | NUR ---
PATIENT TO ROOM 410 FOR IV THERAPY. REPORT RECEIVED FROM ELENA LUJAN. PATIENT ORIENTED TO ROOM, AND CALL LIGHT. CALL LIGHT PLACED WITHIN REACH OF PATIENT. PATIENT DENIES ANY PAIN OR DISCOMFORT AT THIS TIME. WILL CONTINUE TO MONITOR.
[2018-10-28 16:45] VITALS: BP 127/83
[2018-10-29] MEDS: NS IV 1000 ML 1,000 ML IV SCH (07:55)
[2018-10-29 10:02] VITALS: BP 120/82
== END 2018-10-29 10:20 | disposition home or self-care (01) ==
LOC: SDC 13:18 → 4TH 16:15 → SDC 10-29 10:20
PROVIDERS: ATTEND Family Medicine
DX: G90.9 Disorder of the autonomic nervous system, unspecified (principal); R76.0 Raised antibody titer
CPT/HCPCS: 96360; 96366

== ENCOUNTER → 2019-05-25 | Outpatient (CLI) | payer BC ==
--- NOTE | 2019-05-25 14:35 | Diagnostic Imaging Report ---
INDICATION: Six-month follow-up right breast asymmetry. Correlations made with prior mammograms from 01/03/2018 and 05/29/2017. 2-D and 3-D bilateral diagnostic mammography was performed with CAD. Scattered fibroglandular densities are identified bilaterally. Asymmetry medial right breast appears stable. No new mass or malignant appearing microcalcifications are seen. Axillae are unremarkable. IMPRESSION: BI-RADS 0 Stable bilateral mammograms. Medial right breast asymmetry has been stable for at least 2 years. No further follow-up is indicated. Patient does report some right axillary swelling on today's study and therefore, right axillary ultrasound is recommended and will be performed today. ACR BI-RADS Category 0: Incomplete. (Needs additional imaging evaluation). Result letter will be mailed to the patient. Note: At least 10% of breast cancer is not imaged by mammography. Dictated by: Dictated on workstation # [id number]
--- NOTE | 2019-05-25 14:46 | Diagnostic Imaging Report ---
INDICATION: Right axillary fullness. COMPARISON: Correlation is made with the diagnostic mammogram performed earlier this same day. FINDINGS: Sonographic interrogation of the right axilla was performed. There are normal-sized lymph nodes in the right axilla with the largest measuring approximately 15 mm in size. These contain a fatty hilum. The overlying cortical thickness is normal. No fluid collection or other mass is seen. IMPRESSION: Normal-sized lymph nodes in the right axilla. The study is otherwise unremarkable. ACR BI-RADS Category 2: Benign findings. Dictated by: Dictated on workstation # [id number]
== END ==
LOC: RAD 12:58
PROVIDERS: ATTEND Obstetrics & Gynecology
DX: N64.89 Other specified disorders of breast (principal); M79.89 Other specified soft tissue disorders; Z87.898 Personal history of other specified conditions
CPT/HCPCS: 77066

== ENCOUNTER 2021-01-04 10:41 | Outpatient (RCR) | payer BC ==
[~2021-01-04 10:41] MED LIST changes: -OXYC-465 PO; +OXYC-556 PO
== END 2021-02-15 11:10 | disposition home or self-care (01) ==
PROVIDERS: ATTEND Family Medicine
DX: M54.2 Cervicalgia (principal); M25.511 Pain in right shoulder

== ENCOUNTER → 2022-06-26 | Outpatient (CLI) | payer BC ==
[~2022-06-26] MED LIST changes: +BUPR-105 PO; -BUPR150T14 PO
--- NOTE | 2022-06-26 14:34 | Diagnostic Imaging Report ---
PROCEDURE: Pelvic comp/transvaginal sonogram. TECHNIQUE: Complete transabdominal and transvaginal pelvic ultrasound was performed. In addition, limited pelvic Doppler was performed. INDICATION: Pelvic pain. FINDINGS: Uterus is anteverted measuring 10.5 x 5.0 x 5.7 cm. Endometrium is 11 mm in thickness. There appears to be a fibroid anteriorly measuring 2.3 x 2.0 x 1.9 cm. Right ovary measures 3.9 x 2.4 x 3.5 cm, and the left ovary measures 2.9 x 1.7 x 2.2 cm. There appears to be a complex cystic lesion in the right ovary measuring 2.5 x 1.8 x 2.0 cm. This has the appearance of a partially collapsed hemorrhagic cyst. There is blood flow to both ovaries. No free fluid is detected. IMPRESSION: 1. Fundal fibroid. 2. Probable partially collapsed hemorrhagic right ovarian cyst. Follow-up in 6-8 weeks could be performed to confirm clearing. Dictated by: Dictated on workstation # [id number]
== END ==
LOC: RAD 12:52
PROVIDERS: ATTEND Nurse Practitioner Family
DX: D25.9 Leiomyoma of uterus, unspecified (principal)
CPT/HCPCS: 76830; 76856

== ENCOUNTER → 2022-08-21 | Outpatient (CLI) | payer BC ==
--- NOTE | 2022-08-21 16:08 | Diagnostic Imaging Report ---
PROCEDURE: US Non-ob pelvis comp/trans. TECHNIQUE: Multiple realtime grayscale images were obtained of the pelvis in various projections endovaginally. Transabdominal imaging was also performed. INDICATION: Cyst of the right ovary. COMPARISON: 06/26/2022 FINDINGS: The uterus measures 9.2 x 5.1 x 6.4 cm. Unchanged well-circumscribed intramural 3.0 x 2.2 x 2.6 cm fibroid at the level of the fundus. This does not exert mass effect on the endometrium. The endometrium measures up to 1.5 cm where visualized, and is normal in echogenicity. Right ovary is not visualized due to surrounding bowel gas. No concerning abnormality within the right adnexa. Left ovary measures 2.6 x 2.3 x 2.8 cm. There is now a cyst with irregular mendoza and internal echogenic foci within the left ovary that is most compatible with the small hemorrhagic cyst. Trace simple free pelvic fluid. IMPRESSION: 1. The right ovary is not seen on today's examination by transabdominal or transvaginal imaging. However, additional concerning abnormality in the right adnexa that would suggest neoplasm. 2. There is now a small hemorrhagic cyst within the left ovary which is a change since prior examination. This can be considered a hemorrhagic functional cyst given short-term change. 3. Unchanged small fibroid within the fundus. Dictated by: Dictated on workstation # [id number]
== END ==
LOC: RAD 09:54
PROVIDERS: ATTEND Obstetrics & Gynecology
DX: N83.201 Unspecified ovarian cyst, right side (principal); N83.202 Unspecified ovarian cyst, left side; D25.9 Leiomyoma of uterus, unspecified
CPT/HCPCS: 76830; 76856